=== PATIENT | female | born 1995 | race Caucasian/White ===

== ENCOUNTER → 2017-03-24 | Outpatient (CLI) | payer OTHER ==
[~2017-03-24] MED LIST: ALBINS INH; BACL10TA PO; BACL1TAB GT; BUDE0.5S INH; CHOLTAB9 PO; MRLP17 GT; TRAZ50TA35 PO; VALP250S16 GT; ZONI100C39 GT; [UNRECOGNIZED DRUG - CODE] NEB; [UNRECOGNIZED DRUG - CODE] PO
== END | disposition home or self-care (01) ==
LOC: C.LABSPEC 12:10
PROVIDERS: ATTEND Pediatrics
DX: J95.09 Other tracheostomy complication (principal)

== ENCOUNTER → 2017-04-25 | Outpatient (CLI) | payer OTHER | END | disposition home or self-care (01) | LOC: C.LABSPEC 18:08 | PROVIDERS: ATTEND Pediatrics | DX: J04.10 Acute tracheitis without obstruction (principal); Z43.0 Encounter for attention to tracheostomy ==

== ENCOUNTER → 2017-07-14 | Outpatient (CLI) | payer OTHER | END | disposition home or self-care (01) | LOC: C.LABSPEC 17:48 | PROVIDERS: ATTEND Pediatrics | DX: J04.10 Acute tracheitis without obstruction (principal) ==

== ENCOUNTER → 2017-09-13 | Outpatient (CLI) | payer OTHER | END | disposition home or self-care (01) | LOC: C.LABSPEC 17:37 | PROVIDERS: ATTEND Pediatrics | DX: J04.10 Acute tracheitis without obstruction (principal) ==

== ENCOUNTER → 2017-10-18 | Outpatient (CLI) | payer OTHER | END | disposition home or self-care (01) | LOC: C.LABSPEC 17:57 | PROVIDERS: ATTEND Pediatrics | DX: J04.10 Acute tracheitis without obstruction (principal) ==

== ENCOUNTER → 2018-03-07 | Outpatient (CLI) | payer OTHER ==
[~2018-03-07] MED LIST changes: +ALBINS/ NEB; +CETI10TA10 PO; +CLON0.5T20 PO; +FLUO10TA3 PO; +MRLP527 PO; +PLMINS NEB
== END | disposition home or self-care (01) ==
LOC: C.LABBFT 10:55
PROVIDERS: ATTEND Nurse Practitioner
DX: J69.0 Pneumonitis due to inhalation of food and vomit (principal); R09.02 Hypoxemia

== ENCOUNTER 2018-03-08 15:10 | Inpatient (IN) | payer OTHER ==
[~2018-03-08] VITALS: Ht 170.2 cm; Wt 47.8 kg
[~2018-03-08 15:10] MED LIST changes: -ALBINS/ NEB; -CETI10TA10 PO; -CLON0.5T20 PO; -FLUO10TA3 PO; -MRLP527 PO; -PLMINS NEB
[2018-03-08] MEDS ORDERED: SODIUM CHLORIDE 0.9% 1000ML 1,000 ML IV STA (15:36)
[2018-03-08] MEDS ORDERED: SODIUM CHLORIDE 0.9% 500ML 500 ML IV STA (15:36)
--- NOTE | 2018-03-08 15:53 | EMERGENCY ROOM VISIT NOTE ---
History Report prepared by Billy: Germaine Rosa Under the Supervision of: Dr. Edith Nesbitt M.D. First contact with patient: 15:32 Chief Complaint: OTHER COMPLAINT Stated Complaint: TEMP 102,INCREASE RR,SPO2 88-92 ON RA, O2@4LPM History of Present Illness The patient is a 23 year old female who presents to the Emergency Room with complaints of a fever beginning today. She is accompanied by her nurse and father who state that this morning they noticed the patient's stats were low, she had SOB, and she had a small seizure. Her nurse states she checked the patient's temperature and she had a fever of 102, so she received 20 ml of liquid Motrin. They report that they also noticed the patient had thick secretions for the past 4 days, so they sent out a sputum culture. Source of History: parent (father), caregiver Onset: this morning Position: other (global) Quality: other (fever of 102) Associated Symptoms: + SOB Note: Positive thick trachea tube secretions and seizure this morning Review of Systems See HPI for pertinent positives & negatives. A total of 10 systems reviewed and were otherwise negative. Past Medical & Surgical Medical Problems: (1) Cerebral palsy (2) Pneumonia (3) Seizure (4) Tracheostomy Family History No pertinent family history Social History Smoking Status: Never Smoker Alcohol Use: none Marital Status: single Housing Status: lives with family Occupation Status: disabled Current/Historical Medications Scheduled Albuterol Sulf (Proventil 0.083% 2.5MG/3ML), 1 VIAL NEB BID Azithromycin (Azithromycin), 1 DOSE PO 3XWK Baclofen (Lioresal), 20 MG GT QAM & HS Baclofen (Lioresal), 10 MG PO DAILY Budesonide (Inhalation) (Pulmicort Respules 0.5MG/2ML), 2 ML NEB BID Cetirizine Hcl (Zyrtec), 10 MG PO DAILY Cholecalciferol (D3-1000), 1,000 UNITS PO DAILY Fluoxetine Hcl (Fluoxetine Hcl), 10 MG PO DAILY Polyethylene (Polyethylene Glycol 3350), 17 GM PO DAILY Trazodone Hcl (Trazodone), 50 MG PO HS Valproic Acid Syrup (Depakene), 8 ML GT Q8H Zonisamide (Zonegran), 200 MG GT BID Scheduled PRN Clonazepam (Clonazepam Odt), 0.5 MG PO DIRECTED PRN for SEIZURES Allergies Coded Allergies: Ciprofloxacin (Verified Allergy, Intermediate, SWELLING, 03/08/18) Physical Exam Vital Signs Date Time Temp Pulse Resp B/P (MAP) Pulse Ox O2 Delivery O2 Flow Rate FiO2 03/08/18 19:39 99 26 98/53 95 Trach Collar 8.0 03/08/18 18:04 105 94/57 98 Trach Collar 03/08/18 16:52 38.8 108 35 104/58 99 Trach Collar 8.0 03/08/18 16:35 112 03/08/18 15:14 37.1 135 24 107/68 99 Trach Collar 4.0 Physical Exam Vital signs reviewed. General: Chronically ill-appearing female, in no significant distress. Cognitive /developmental delay. HEENT: No scleral icterus, PERRLA, neck supple. Atraumatic. Trach in place with thick white secretions Cardiovascular: Tachycardic rate and rhythm, no extra sounds. Pulmonary: Trach in place. Rhonchi to bilateral lung ceron, slight increased WOB. On trach collar Abdomen: Soft, nontender, nondistended, positive bowel sounds. Feeding tube in place. Musculoskeletal: Atraumatic, no peripheral edema. Muscular contractures consistent with cerebral palsy. Neurologic: Patient is awake and nonverbal, at neurologic baseline. Unable to follow commands. Skin: Warm, dry, no rash. Medical Decision & Procedures ER Provider Diagnostic Interpretation: Radiology results as stated below per my review and radiologist interpretation: CHEST ONE VIEW PORTABLE CLINICAL HISTORY: Fever, atypical chest pain, increased sputum production. COMPARISON STUDY: 01/17/2018 FINDINGS: The heart is normal in size. A tracheostomy tube is visualized. There are minimal basilar airspace opacities versus overlying chest wall tissue artifact. The upper lung zones are clear. There is no failure. There are no pleural effusions. If symptoms persist, a PA and lateral study should be considered.[ IMPRESSION: Minimal basal airspace opacities versus overlying chest wall tissue artifact. If symptoms persist, a PA and lateral study would be recommended in follow-up Electronically signed by: Jose Valdes M.D. 03/08/2018 3:58 PM Laboratory Results Test 03/08/18 16:06 03/08/18 16:38 03/08/18 16:47 Immature Granulocyte % (Auto) 0.2 % White Blood Count 18.79 K/uL (4.8-10.8) Red Blood Count 4.04 M/uL (4.2-5.4) Hemoglobin 13.4 g/dL (12.0-16.0) Hematocrit 39.1 % (37-47) Mean Corpuscular Volume 96.8 fL (80-100) Mean Corpuscular Hemoglobin 33.2 pg (25-34) Mean Corpuscular Hemoglobin Concent 34.3 g/dl (32-36) Platelet Count 179 K/uL (130-400) Mean Platelet Volume 9.6 fL (7.4-10.4) Neutrophils (%) (Auto) 90.5 % Lymphocytes (%) (Auto) 5.8 % Monocytes (%) (Auto) 3.3 % Eosinophils (%) (Auto) 0.1 % Basophils (%) (Auto) 0.1 % Neutrophils # (Auto) 17.02 K/uL (1.4-6.5) Lymphocytes # (Auto) 1.09 K/uL (1.2-3.4) Monocytes # (Auto) 0.62 K/uL (0.11-0.59) Eosinophils # (Auto) 0.01 K/uL (0-0.5) Basophils # (Auto) 0.01 K/uL (0-0.2) Immature Granulocyte # (Auto) 0.04 K/uL (0.00-0.02) Direct Bilirubin < 0.1 mg/dl (0-0.2) Bedside Lactic Acid Venous 1.52 mmol/L (0.90-1.70) Urine Color DK YELLOW Urine Appearance CLEAR (CLEAR) Urine pH >= 9.0 (4.5-7.5) Urine Specific [place] 1.029 (1.000-1.030) Urine Protein 1+ (NEG) Urine Glucose (UA) NEG (NEG) Urine Ketones NEG (NEG) Urine Occult Blood NEG (NEG) Urine Nitrite NEG (NEG) Urine Bilirubin NEG (NEG) Urine Urobilinogen NEG (NEG) Urine Leukocyte Esterase TRACE (NEG) Urine WBC (Auto) 1-5 /hpf (0-5) Urine RBC (Auto) 5-10 /hpf (0-4) Urine Hyaline Casts (Auto) 5-10 /lpf (0-5) Urine Epithelial Cells (Auto) >30 /lpf (0-5) Urine Bacteria (Auto) NEG (NEG) Urine Renal Epithelial Cells 0-5 /lpf (0-5) Laboratory results per my review. Medications Administered Medications (Trade) Dose Ordered Sig/Rosalino Route Start Time Stop Time Status Last Admin Dose Admin Sodium Chloride 500 ml @ 999 mls/hr Q31M STAT IV 03/08/18 15:36 03/08/18 16:06 DC 03/08/18 16:48 999 MLS/HR Sodium Chloride 1,000 ml @ 200 mls/hr Q5H STAT IV 03/08/18 15:36 03/08/18 20:34 DC 03/08/18 17:38 200 MLS/HR Piperacillin Sod/ Tazobactam Sod (Zosyn Iv) 4.5 gm NOW STAT IV 03/08/18 16:22 03/08/18 16:23 DC 03/08/18 16:52 4.5 GM Acetaminophen (Tylenol Children'S Susp) 640 mg NOW STAT PO 03/08/18 17:43 03/08/18 17:45 DC 03/08/18 18:18 640 MG Acetaminophen (Tylenol Tab) 650 mg Q4H PRN PO 03/08/18 19:30 04/07/18 19:29 03/10/18 20:16 650 MG ECG Per My Interpretation Indication: other (fever) Rate (beats per minute): 112 Rhythm: sinus tachycardia Findings: PAC (frequent), no acute ischemic change, other (nonspecific T wave abnormalities, QTC 444) ED Course 1538: Past medical records reviewed. The patient was evaluated in room C5. A complete history and physical examination was performed. 1536: Ordered Sodium Chloride 1000 ml @ 200 mls/hr IV 1622: Ordered Zosyn IV 4.5 gm IV 1743: Ordered Acetaminophen 640 mg PO 1808: I reviewed the patient's case with Dr. Le, [facility] Hospitalist. He will evaluate the patient for further management. Medical Decision DDx: Influenza, other viral illness, pneumonia, urinary tract infection, metabolic abnormality, medication effect, cellulitis, meningitis, intra-abdominal source, trachea. This pt was evaluated and appeared to be in no distress. IV access was obtained and lab work was drawn. Pt is found to be febrile, given tylenol via PEG. PT was hydrated with NSS. IV zosyn was given. CXR reveals possible infiltrate. Lactate is WNL, blood cultures are pending. Cath UA is negative. Pt case was d/w the hospitalist service for further management. Pt father and nurse were updated and agree with the plan. Medication Reconcilliation Current Medication List: was personally reviewed by me Blood Pressure Screening Patient's blood pressure: Normal blood pressure Blood pressure disposition: Did not require urgent referral Consults Time Called: 1640 Returned Call: 1808 I reviewed the patient's case with Dr. Le, [facility] Hospitalist. He will evaluate the patient for further management. Impression Primary Impression: Pneumonia Scribe Attestation The scribe's documentation has been prepared under my direction and personally reviewed by me in its entirety. I confirm that the note above accurately reflects all work, treatment, procedures, and medical decision making performed by me. Departure Information Dispostion Being Evaluated By Hospitalist (Dr. Le, [facility] Hospitalist) Referrals Anita Gil M.D. (PCP) Patient Instructions My [facility]
--- NOTE | 2018-03-08 15:59 | DIAGNOSTIC IMAGING REPORT ---
CHEST ONE VIEW PORTABLE CLINICAL HISTORY: Fever, atypical chest pain, increased sputum production. COMPARISON STUDY: 01/17/2018 FINDINGS: The heart is normal in size. A tracheostomy tube is visualized. There are minimal basilar airspace opacities versus overlying chest wall tissue artifact. The upper lung zones are clear. There is no failure. There are no pleural effusions. If symptoms persist, a PA and lateral study should be considered.[ IMPRESSION: Minimal basal airspace opacities versus overlying chest wall tissue artifact. If symptoms persist, a PA and lateral study would be recommended in follow-up Electronically signed by: Jsoe Valdes M.D. 03/08/2018 3:58 PM Dictated Date/Time: 03/08/2018 3:56 PM
[2018-03-08] MEDS ORDERED: PIPERACILLIN/TAZOBACTAM 4.5 GM/100ML D5W IV STA (16:22)
[2018-03-08 16:42] LABS: BASO % 0.1 %; BASO ABS # 0.01 K/uL (0-0.2); EOS % 0.1 %; EOS ABS # 0.01 K/uL (0-0.5); HEMATOCRIT 39.1 % (37-47); HEMOGLOBIN 13.4 g/dL (12.0-16.0); IG# 0.04 K/uL (0.00-0.02); LYMPH % 5.8 %; LYMPH ABS # 1.09 K/uL (1.2-3.4); MEAN CELL VOLUME 96.8 fL (80-100); MEAN CORPUSCULAR HEMOGLOBIN 33.2 pg (25-34); MEAN CORPUSCULAR HGB CONC 34.3 g/dl (32-36); MEAN PLATELET VOLUME 9.6 fL (7.4-10.4); MONO % 3.3 %; MONO ABS # 0.62 K/uL (0.11-0.59); NEUT % 90.5 %; NEUT ABS # 17.02 K/uL (1.4-6.5); PLATELET COUNT 179 K/uL (130-400); RED CELL DISTRIBUTION WIDTH CV 13.2 % (11.5-14.5); RED CELL DISTRIBUTION WIDTH SD 46.5 fL (36.4-46.3); WHITE BLOOD COUNT 18.79 K/uL (4.8-10.8)
[2018-03-08] MEDS ORDERED: FLUO10TA3 PO (16:50)
[2018-03-08] MEDS ORDERED: CETI10TA10 PO (16:50)
[2018-03-08] MEDS ORDERED: PLMINS NEB (16:50)
[2018-03-08] MEDS ORDERED: ALBINS/ NEB (16:50)
[2018-03-08] MEDS ORDERED: MRLP527 PO (16:50)
[2018-03-08] MEDS ORDERED: CLON0.5T20 PO (16:50)
[2018-03-08 16:58] LABS: ALBUMIN 3.8 gm/dl (3.4-5.0); ALKALINE PHOSPHATASE 87 U/L (45-117); ALT/SGPT 13 U/L (12-78); AST/SGOT 10 U/L (15-37); BLOOD UREA NITROGEN 15 mg/dl (7-18); CARBON DIOXIDE 23 mmol/L (21-32); CREATININE 0.48 mg/dl (0.60-1.20); GLUCOSE 82 mg/dl (70-99); POTASSIUM 3.7 mmol/L (3.5-5.1); SODIUM 134 mmol/L (136-145); TOTAL PROTEIN 8.4 gm/dl (6.4-8.2)
[2018-03-08] MEDS ORDERED: ACETAMINOPHEN SUSP 160 MG/5 ML UDC PO STA (17:43)
[2018-03-08] MEDS ORDERED: MAGNESIUM HYDROXIDE SUSP 30 ML UDC PO PRN (19:30)
[2018-03-08] MEDS ORDERED: PIPERACILL/TAZOBAC CONSULT ACTIVE PRN (19:30)
[2018-03-08] MEDS ORDERED: ALBUTEROL 0.083% NEBU SOLN 3 ML VIAL INH PRN (19:30)
[2018-03-08] MEDS ORDERED: POLYETHYLENE (MIRALAX) 17 GM PACK PO PRN (19:30)
[2018-03-08] MEDS ORDERED: ONDANSETRON INJ 2 MG/ML 2 ML VIAL IV PRN (19:30)
[2018-03-08] MEDS ORDERED: ALUMINUM/MAGNESIUM/SIMETH (MAALOX MAX) 30 ML UDC PO PRN (19:30)
--- NOTE | 2018-03-08 20:18 | History and Physical ---
History & Physical Date & Time of Service: Mar 08, 2018 at 19:57 Chief Complaint: Temp 102,Increase Rr,Spo2 88-92 On Ra, O2@4LPM Primary Care Physician: Anita Gil M.D. History of Present Illness Source: caregiver, hospital records 23 y/o F Hx severe cerebral palsy with trach and peg, seizures, aspiration PNM, recurrent trach infections. Pt is nonambulatory and nonverbal. She is brought into the hospital by her father and her acute dialysis registered nurse due to a cough, increased trach secretions and a fever. She has had a history of aspiration and pseudomonas infections. The pt is unable to provide any direct information. She has seizures a few times a week per her acute dialysis registered nurse and last had a seizure the AM prior to admission. A fever of 38.8 was confirmed on arrival to the ER. 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 5) Pseudomonas infection Family History No pertinent family history The pt has a twin sister with the same conditions - she has 18hr/day home nursing Social History Smoking Status: Never Smoker Marital Status: single Housing status: lives with family Occupational Status: disabled Allergies Coded Allergies: Ciprofloxacin (Verified Allergy, Intermediate, SWELLING, 03/08/18) Home Medications Scheduled Albuterol Sulf (Proventil 0.083% 2.5MG/3ML), 1 VIAL NEB BID Azithromycin (Azithromycin), 1 DOSE PO 3XWK Baclofen (Lioresal), 20 MG GT QAM & HS Baclofen (Lioresal), 10 MG PO DAILY Budesonide (Inhalation) (Pulmicort Respules 0.5MG/2ML), 2 ML NEB BID Cetirizine Hcl (Zyrtec), 10 MG PO DAILY Cholecalciferol (D3-1000), 1,000 UNITS PO DAILY Fluoxetine Hcl (Fluoxetine Hcl), 10 MG PO DAILY Polyethylene (Polyethylene Glycol 3350), 17 GM PO DAILY Trazodone Hcl (Trazodone), 50 MG PO HS Valproic Acid Syrup (Depakene), 8 ML GT Q8H Zonisamide (Zonegran), 200 MG GT BID Scheduled PRN Clonazepam (Clonazepam Odt), 0.5 MG PO DIRECTED PRN for SEIZURES Review of Systems ROS cannot be obtained from pt - brought into hospital due to increased secretions, cough, fever. Physical Exam Vital Signs Date Time Temp Pulse Resp B/P (MAP) Pulse Ox O2 Delivery O2 Flow Rate FiO2 03/08/18 18:04 105 94/57 98 Trach Collar 03/08/18 16:52 38.8 108 35 104/58 99 Trach Collar 8.0 03/08/18 16:35 112 03/08/18 15:14 37.1 135 24 107/68 99 Trach Collar 4.0 General Appearance: + pertinent finding (Thin, young female with contractures - nonverbal) Head: normocephalic Eyes: normal inspection ENT: normal ENT inspection, pharynx normal, + pertinent finding (No thrush or exudate seen in oral cavity - palatal hyperplasia is seen) Neck: supple, + pertinent finding (Trach site is clean) Respiratory/Chest: chest non-tender, + pertinent finding (Crackles are audible in the L base) Cardiovascular: regular rate, rhythm, no edema, no gallop Abdomen/GI: normal bowel sounds, non tender, soft, + pertinent finding (No inflammation at PEG site) Back: normal inspection, no CVA tenderness Extremities/Musculoskelatal: normal inspection, normal capillary refill, no pedal edema Neurologic/Psych: + pertinent finding (Moves all extrems - does not respond to question - nonverbal at baseline - nonambulatroy at baseline) Skin: normal color, warm/dry Diagnostics Laboratory Results Results Past 24 Hours Test 03/08/18 16:06 03/08/18 16:38 03/08/18 16:47 Range/Units White Blood Count 18.79 4.8-10.8 K/uL Red Blood Count 4.04 4.2-5.4 M/uL Hemoglobin 13.4 12.0-16.0 g/dL Hematocrit 39.1 37-47 % Mean Corpuscular Volume 96.8 80-100 fL Mean Corpuscular Hemoglobin 33.2 25-34 pg Mean Corpuscular Hemoglobin Concent 34.3 32-36 g/dl Platelet Count 179 130-400 K/uL Mean Platelet Volume 9.6 7.4-10.4 fL Neutrophils (%) (Auto) 90.5 % Lymphocytes (%) (Auto) 5.8 % Monocytes (%) (Auto) 3.3 % Eosinophils (%) (Auto) 0.1 % Basophils (%) (Auto) 0.1 % Neutrophils # (Auto) 17.02 1.4-6.5 K/uL Lymphocytes # (Auto) 1.09 1.2-3.4 K/uL Monocytes # (Auto) 0.62 0.11-0.59 K/uL Eosinophils # (Auto) 0.01 0-0.5 K/uL Basophils # (Auto) 0.01 0-0.2 K/uL RDW Standard Deviation 46.5 36.4-46.3 fL RDW Coefficient of Variation 13.2 11.5-14.5 % Immature Granulocyte % (Auto) 0.2 % Immature Granulocyte # (Auto) 0.04 0.00-0.02 K/uL Sodium Level 134 136-145 mmol/L Potassium Level 3.7 3.5-5.1 mmol/L Chloride Level 102 98-107 mmol/L Carbon Dioxide Level 23 21-32 mmol/L Anion Gap 9.0 3-11 mmol/L Blood Urea Nitrogen 15 7-18 mg/dl Creatinine 0.48 0.60-1.20 mg/dl Est Creatinine Clear Calc Drug Dose 152.2 ml/min Estimated GFR () > 150.0 Estimated GFR (Non- 140.2 BUN/Creatinine Ratio 30.9 10-20 Random Glucose 82 70-99 mg/dl Calcium Level 9.0 8.5-10.1 mg/dl Magnesium Level 1.9 1.8-2.4 mg/dl Total Bilirubin 0.2 0.2-1 mg/dl Direct Bilirubin < 0.1 0-0.2 mg/dl Aspartate Amino Transf (AST/SGOT) 10 15-37 U/L Alanine Aminotransferase (ALT/SGPT) 13 12-78 U/L Alkaline Phosphatase 87 45-117 U/L Total Protein 8.4 6.4-8.2 gm/dl Albumin 3.8 3.4-5.0 gm/dl Bedside Lactic Acid Venous 1.52 0.90-1.70 mmol/L Urine Color DK YELLOW Urine Appearance CLEAR CLEAR Urine pH >= 9.0 4.5-7.5 Urine Specific [place] 1.029 1.000-1.030 Urine Protein 1+ NEG Urine Glucose (UA) NEG NEG Urine Ketones NEG NEG Urine Occult Blood NEG NEG Urine Nitrite NEG NEG Urine Bilirubin NEG NEG Urine Urobilinogen NEG NEG Urine Leukocyte Esterase TRACE NEG Urine WBC (Auto) 1-5 0-5 /hpf Urine RBC (Auto) 5-10 0-4 /hpf Urine Hyaline Casts (Auto) 5-10 0-5 /lpf Urine Epithelial Cells (Auto) >30 0-5 /lpf Urine Bacteria (Auto) NEG NEG Urine Renal Epithelial Cells 0-5 0-5 /lpf Microbiology Results 03/08/18 Blood Culture, Received Pending 03/08/18 Blood Culture, Received Pending Diagnostic Radiology BL infiltrates Impression Assessment and Plan 23 y/o F Hx severe cerebral palsy with trach and peg, seizures, aspiration PNM, recurrent trach infections. Pt is nonambulatory and nonverbal. She is brought into the hospital by her father and her acute dialysis registered nurse due to a cough, increased trach secretions and a fever. She has had a history of aspiration and pseudomonas infections. The pt is unable to provide any direct information. She has seizures a few times a week per her acute dialysis registered nurse and last had a seizure the AM prior to admission. 1) PNM - likely aspiration - due to her history of pseudomonas, she is treated with Zosyn. We have added Zithromax for CAP coverage pending culture results. Nebs, 02 and suctioning provided as needed. 2) Seizure disorder - continue Zonegran and Valproic acid 3) Cerebral palsy - admitted to telemetry due to trach use - all meds are via peg. The pt takes 400cc of boost QID as nutrition. Full code - confirmed with family - SCDs Total time for this admit including review of labs, meds, imaging, records - discussion with pt and ER attending - 38 min Resuscitation Status VTE Prophylaxis Will order VTE Prophylaxis: Yes
[2018-03-08 20:42] VITALS: BP 96/54; PULSE 90; TEMP 37; BMI 16.6
[2018-03-08 20:59] VITALS: O2SAT 97
[2018-03-08] MEDS ORDERED: VALPROIC ACID SYRUP 250 MG/5 ML GT SCH (21:00)
[2018-03-08] MEDS: ALBUT/IPRATROP 3MG/0.5MG NEB 3 ML VIAL INH SCH (21:00)
[2018-03-08] MEDS: ZONISAMIDE 100 MG CAP PEG SCH (21:00)
[2018-03-08] MEDS ORDERED: AZITHROMYCIN IV 500 MG in DEXTROSE 5% 250ML 250 ML IV SCH (21:00)
[2018-03-08] MEDS: BUDESONIDE 0.5 MG/2 ML VIAL (PULMICORT) INH SCH (21:12)
[2018-03-08] MEDS: D5NSS + 20MEQ KCL 1,000 ML IV SCH (21:16)
[2018-03-08] MEDS: BACLOFEN 10 MG TAB GT SCH (21:27)
[2018-03-08] MEDS: TRAZODONE HCL 50 MG TAB PO SCH (21:27)
[2018-03-08] MEDS: BOOST VANILLA OR BOOST GLUCOSE CONTROL CHOCOLATE PEG SCH (21:29)
[2018-03-08] MEDS: VALPROIC ACID SYRUP 250 MG/5 ML GT SCH (21:57)
[2018-03-08 23:15] VITALS: BP 82/43; PULSE 102; TEMP 36.7; O2SAT 92
[2018-03-08 23:55] VITALS: BP 80/36; PULSE 95
[2018-03-09] VITALS (24 sets, daily range): BP systolic 72–108; BP diastolic 39–71; PULSE 70–110; TEMP 35.8–36.5; O2SAT 50–100; Ht 170.2 cm; Wt 47.8 kg
[2018-03-09] MEDS: PIPERACILL/TAZOBAC IV 3.375 GM in DEXTROSE 5% 100ML 100 ML IV SCH ×4 (00:03→23:35)
[2018-03-09] MEDS ORDERED: SODIUM CHLORIDE 0.9% 500ML 500 ML IV ONE (00:30)
[2018-03-09] MEDS: ALBUT/IPRATROP 3MG/0.5MG NEB 3 ML VIAL INH SCH ×4 (01:33→19:09)
[2018-03-09] MEDS ORDERED: SODIUM CHLORIDE 0.9% 500ML 500 ML IV SCH (01:45)
[2018-03-09] MEDS: VALPROIC ACID SYRUP 250 MG/5 ML GT SCH ×3 (04:56→20:35)
[2018-03-09 05:53] LABS: HEMATOCRIT 32.2 % (37-47); HEMOGLOBIN 10.7 g/dL (12.0-16.0); MEAN CELL VOLUME 98.2 fL (80-100); MEAN CORPUSCULAR HEMOGLOBIN 32.6 pg (25-34); MEAN CORPUSCULAR HGB CONC 33.2 g/dl (32-36); MEAN PLATELET VOLUME 9.5 fL (7.4-10.4); PLATELET COUNT 124 K/uL (130-400); RED CELL DISTRIBUTION WIDTH CV 13.3 % (11.5-14.5); RED CELL DISTRIBUTION WIDTH SD 47.6 fL (36.4-46.3); WHITE BLOOD COUNT 11.48 K/uL (4.8-10.8)
[2018-03-09 06:17] LABS: BLOOD UREA NITROGEN 9 mg/dl (7-18); CARBON DIOXIDE 24 mmol/L (21-32); CREATININE 0.33 mg/dl (0.60-1.20); GLUCOSE 89 mg/dl (70-99); POTASSIUM 3.8 mmol/L (3.5-5.1); SODIUM 142 mmol/L (136-145)
[2018-03-09] MEDS: BUDESONIDE 0.5 MG/2 ML VIAL (PULMICORT) INH SCH ×2 (07:02→19:09)
[2018-03-09] MEDS: POLYETHYLENE (MIRALAX) 17 GM PACK PO SCH (08:35)
[2018-03-09] MEDS: FLUOXETINE HCL 10 MG CAP PO SCH (08:35)
[2018-03-09] MEDS: ZONISAMIDE 100 MG CAP PEG SCH ×2 (08:35→20:35)
[2018-03-09] MEDS: CETIRIZINE HCL 10 MG TAB PO SCH (08:35)
[2018-03-09] MEDS: BOOST VANILLA OR BOOST GLUCOSE CONTROL CHOCOLATE PEG SCH ×4 (08:36→20:15)
[2018-03-09] MEDS: BACLOFEN 10 MG TAB GT SCH ×2 (08:36→20:15)
[2018-03-09] MEDS ORDERED: DOXYCYCLINE IV 100 MG in DEXTROSE 5% 100ML 100 ML IV SCH (10:45)
--- NOTE | 2018-03-09 12:13 | Progress Note ---
Subjective Date of Service: Mar 09, 2018. Subjective Pt evaluation today including: conversation w/ patient, physical exam Patient is nonverbal. Nurse states that she has noticed secretions from the trach. Review of Systems unable to obtain ROS. Objective Vital Signs Date Time Temp Pulse Resp B/P (MAP) Pulse Ox O2 Delivery O2 Flow Rate FiO2 03/09/18 11:37 36.5 90 27 96/57 (70) 98 Trach Collar 03/09/18 08:00 99 Trach Collar 8.0 50 03/09/18 07:40 36.4 70 26 88/52 (64) 99 Trach Collar 03/09/18 07:03 73 30 97 Trach Collar 50 03/09/18 05:02 71 80/46 (57) 97 03/09/18 04:12 98 Humidified Oxygen 8.0 50 Trach Collar 03/09/18 04:11 80 81/48 (59) 98 03/09/18 03:33 75 74/47 (56) 03/09/18 03:30 35.8 78 34 98 Humidified Oxygen 8.0 50 Trach Collar 03/09/18 03:01 83 82/52 (62) 03/09/18 02:34 75 80/45 (57) 100 Humidified Oxygen 8.0 50 Trach Collar 03/09/18 02:17 81 72/49 (57) 03/09/18 01:50 50 Humidified Oxygen 8.0 Trach Collar 03/09/18 01:33 76 32 100 Trach Collar 8.0 70 03/09/18 01:32 75 77/49 (58) 03/09/18 01:04 76 82/47 (59) 03/09/18 00:47 75 75/39 (51) 03/09/18 00:19 82 79/41 (54) 03/09/18 00:00 92 Humidified Oxygen 70 Trach Collar 03/08/18 23:55 95 80/36 (51) 03/08/18 23:15 36.7 102 36 82/43 (56) 92 Humidified Oxygen Trach Collar 03/08/18 20:59 97 Trach Collar 8.0 03/08/18 20:42 37.0 90 22 96/54 03/08/18 20:06 37.1 03/08/18 19:39 99 26 98/53 95 Trach Collar 8.0 03/08/18 18:04 105 94/57 98 Trach Collar 03/08/18 16:52 38.8 108 35 104/58 99 Trach Collar 8.0 03/08/18 16:35 112 03/08/18 15:14 37.1 135 24 107/68 99 Trach Collar 4.0 Physical Exam Comments: General Appearance: + pertinent finding (Thin, young female with contractures - nonverbal) Head: normocephalic Eyes: normal inspection ENT: normal ENT inspection, pharynx normal, + pertinent finding (No thrush or exudate seen in oral cavity - palatal hyperplasia is seen) Neck: supple, + pertinent finding (Trach site is clean) Respiratory/Chest: chest non-tender, + pertinent finding (Crackles are audible in the L base) Cardiovascular: regular rate, rhythm, no edema, no gallop Abdomen/GI: normal bowel sounds, non tender, soft, + pertinent finding (No inflammation at PEG site) Back: normal inspection, no CVA tenderness Extremities/Musculoskelatal: normal inspection, normal capillary refill, no pedal edema Neurologic/Psych: + pertinent finding (Moves all extrems - does not respond to question - nonverbal at baseline - nonambulatroy at baseline) Skin: normal color, warm/dry Laboratory Results Last 24 Hours Test 03/08/18 16:06 03/08/18 16:38 03/08/18 16:47 03/09/18 05:28 White Blood Count 18.79 K/uL 11.48 K/uL Red Blood Count 4.04 M/uL 3.28 M/uL Hemoglobin 13.4 g/dL 10.7 g/dL Hematocrit 39.1 % 32.2 % Mean Corpuscular Volume 96.8 fL 98.2 fL Mean Corpuscular Hemoglobin 33.2 pg 32.6 pg Mean Corpuscular Hemoglobin Concent 34.3 g/dl 33.2 g/dl Platelet Count 179 K/uL 124 K/uL Mean Platelet Volume 9.6 fL 9.5 fL Neutrophils (%) (Auto) 90.5 % Lymphocytes (%) (Auto) 5.8 % Monocytes (%) (Auto) 3.3 % Eosinophils (%) (Auto) 0.1 % Basophils (%) (Auto) 0.1 % Neutrophils # (Auto) 17.02 K/uL Lymphocytes # (Auto) 1.09 K/uL Monocytes # (Auto) 0.62 K/uL Eosinophils # (Auto) 0.01 K/uL Basophils # (Auto) 0.01 K/uL RDW Standard Deviation 46.5 fL 47.6 fL RDW Coefficient of Variation 13.2 % 13.3 % Immature Granulocyte % (Auto) 0.2 % Immature Granulocyte # (Auto) 0.04 K/uL Sodium Level 134 mmol/L 142 mmol/L Potassium Level 3.7 mmol/L 3.8 mmol/L Chloride Level 102 mmol/L 112 mmol/L Carbon Dioxide Level 23 mmol/L 24 mmol/L Anion Gap 9.0 mmol/L 6.0 mmol/L Blood Urea Nitrogen 15 mg/dl 9 mg/dl Creatinine 0.48 mg/dl 0.33 mg/dl Est Creatinine Clear Calc Drug Dose 152.2 ml/min 204.8 ml/min Estimated GFR () > 150.0 > 150.0 Estimated GFR (Non- 140.2 > 150.0 BUN/Creatinine Ratio 30.9 27.0 Random Glucose 82 mg/dl 89 mg/dl Calcium Level 9.0 mg/dl 8.0 mg/dl Magnesium Level 1.9 mg/dl 2.1 mg/dl Total Bilirubin 0.2 mg/dl Direct Bilirubin < 0.1 mg/dl Aspartate Amino Transf (AST/SGOT) 10 U/L Alanine Aminotransferase (ALT/SGPT) 13 U/L Alkaline Phosphatase 87 U/L Total Protein 8.4 gm/dl Albumin 3.8 gm/dl Bedside Lactic Acid Venous 1.52 mmol/L Urine Color DK YELLOW Urine Appearance CLEAR Urine pH >= 9.0 Urine Specific [place] 1.029 Urine Protein 1+ Urine Glucose (UA) NEG Urine Ketones NEG Urine Occult Blood NEG Urine Nitrite NEG Urine Bilirubin NEG Urine Urobilinogen NEG Urine Leukocyte Esterase TRACE Urine WBC (Auto) 1-5 /hpf Urine RBC (Auto) 5-10 /hpf Urine Hyaline Casts (Auto) 5-10 /lpf Urine Epithelial Cells (Auto) >30 /lpf Urine Bacteria (Auto) NEG Urine Renal Epithelial Cells 0-5 /lpf Assessment and Plan 23 y/o F Hx severe cerebral palsy with trach and peg, seizures, aspiration PNM, recurrent trach infections. Pt is nonambulatory and nonverbal. She is brought into the hospital by her father and her producer arborist manager due to a cough, increased trach secretions and a fever. She has had a history of aspiration and pseudomonas infections. The pt is unable to provide any direct information. She has seizures a few times a week per her producer arborist manager and last had a seizure the AM prior to admission. 1) PNM - likely aspiration -D/W Pulmonary. -X-ray looks relatively clean. -It appears that patient had not had significant secretion on admission. -Currently doubting lung ource, but will continue antibiotics. -will switch doxycycline. stopped azithromycin. as concern over possible azithromycin resistance. will obtain ct scan of sinuses. - due to her history of pseudomonas, she is treated with Zosyn. Nebs, 02 and suctioning provided as needed. 2) Seizure disorder - continue Zonegran and Valproic acid 3) Cerebral palsy - admitted to telemetry due to trach use - all meds are via peg. The pt takes 400cc of boost QID as nutrition. Full code - confirmed with family - SCDs Spent 37 minutes in management of patient. Continued [facility] stay due to: multiple IV medications needed, other Discharge planning: uncertain
--- NOTE | 2018-03-09 12:52 | Pulmonary Consultation ---
History General Date of Service: Mar 09, 2018. Stated Complaint: Pneumonia HPI The patient is a 23 year old female who presents to [facility] with complaints of Pneumonia. The patient's primary care provider is Anita Gil M.D.. 23-year-old female admitted with leukocytosis and fever. Patient has a significant PmHx: cerebral palsy, multiple tracheal/bronchial infections please see below, seizures, and chronic respiratory compromise requiring tracheostomy. Patient started having some mild increase in her sputum production of week prior to admission and the family initiated Robinul treatment. She did have a decrease in her mucus production but after that started having notable fevers documented at home up 103 notable T-max in the emergency room at 38.8. Via the long conversation with the patient's bedside healthcare provider/nursing staff and she notes no acute changes in the patient's sputum production/color nor signs of infection around her tracheostomy which are classic with this patient has a notable tracheal/pulmonary infection. Other than the fevers and mild change the patient's mucus production the healthcare provider notes no acute changes. The patient is unable to answer any direct questions. Current in hospital workup WBC: 19K/91% neutrophils --- 11K H/H: /32 PLT: [id number] Albumin: 3.8 UA: PH => 9.0, leukocyte Estrace: Trace CXR: Minimal bibasilar airspace opacification but no mike lobar atelectasis EKG: Sinus tachycardia rate 120, PAC, signs consistent with right atrial enlargement Microbiology history Urine: E coli, Tracheostomy, stenotrophomonas maltophilia, MSSA, Moraxella catarrhalis, corynebacterium, alpha strep species, necessary species, Haemophilus influenzae beta lactamase negative, Tatumella Ptyseos, alpha strep, Providencia Stuartii, corynebacterium species, micrococcus species Gastric aspirate, group B strep, corynebacterium, corynebacterium, Abdomen surface, Pseudomonas aeruginosa, Klebsiella oxytoca, corynebacterium, MSSA, group B beta strep Trachea: Pseudomonas, MSSA, Neisseria species, stenotrophomonas, Providencia Stuartii Trans- Tracheal needle aspiration: Pseudomonas Sputum: Pseudomonas Aeruginosa, Moraxella catarrhalis, Achromobacter Xylosoxidans, Tracheal washing 01/17/2018: Pseudomonas Aeruginosa virk resistant Expectorated sputum 03/07/2018: Moraxella catarrhalis, probable pseudomonal species Active Problems: 1. Acute tracheitis 2. Allergic rhinitis 3. Cerebral palsy/cognitive dysfunction 4. History seizures 5. Aspiration pneumonia 6. Bronchiectasis 7. 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 Granulation tissue of site of gastrostomy 12. Pseudomonas aeruginosa infection 13. Sinus bradycardia Surgical History: 1. Gastrostomy Permanent 2. Tracheostomy Family History: 1. Asthma 2. Coronary Arteriosclerosis 3. Hypertension Social History Living With Parents Living Together Never smoker Marital status: Single Housing status: Lives with family Occupational status: Disabled Outpatient medications: 1. Albuterol Sulf (Proventil 0.083% 2.5MG/3ML), 1 VIAL NEB BID 2. Azithromycin (Azithromycin), 1 DOSE PO 3XWK 3. Baclofen (Lioresal), 20 MG GT QAM & HS 4. Baclofen (Lioresal), 10 MG PO DAILY 5. Budesonide (Inhalation) (Pulmicort Respules 0.5MG/2ML), 2 ML NEB BID 6. Cetirizine Hcl (Zyrtec), 10 MG PO DAILY 7. Cholecalciferol (D3-1000), 1,000 UNITS PO DAILY 8. Fluoxetine Hcl (Fluoxetine Hcl), 10 MG PO DAILY 9. Polyethylene (Polyethylene Glycol 3350), 17 GM PO DAILY 10. Trazodone Hcl (Trazodone), 50 MG PO HS 11. Valproic Acid Syrup (Depakene), 8 ML GT Q8H 12. Zonisamide (Zonegran), 200 MG GT BID 13. Clonazepam (Clonazepam Odt), 0.5 MG PO DIRECTED PRN for SEIZURES Allergies: Ciprofloxacin Review of Systems Patient is unable to perform 15 point of systems secondary to the decreased mental status chronic in nature Past Medical History Past Medical History: Please refer to HPI Past Surgical History: Please refer to HPI Family History No pertinent family history Please refer to HPI Social History Please refer to HPI Hx Tobacco Use In Past Year?: No Smoking Status: Never Smoker Marital status: single Housing status: lives with family Occupational Status: disabled History of MDRO History of MDRO: No Allergies Coded Allergies: Ciprofloxacin (Verified Allergy, Intermediate, SWELLING, 03/08/18) Current Medications Reported Home Medications Medications Dose Route/Sig Max Daily Dose Days Date Category Dose Instructions Clonazepam Odt (Clonazepam) 0.5 Mg Tab 0.5 Mg PO DIRECTED PRN 03/08/18 Reported Fluoxetine Hcl 10 Mg Tab 10 Mg PO DAILY 03/08/18 Reported Polyethylene Glycol 3350 (Polyethylene) 527 Gm Soln 17 Gm PO DAILY 03/08/18 Reported Pulmicort Respules 0.5MG/2ML (Budesonide (Inhalation)) 0.5 Mg/2 Ml Chloe 2 Ml NEB BID 03/08/18 Reported Zyrtec (Cetirizine Hcl) 10 Mg Tab 10 Mg PO DAILY 03/08/18 Reported Proventil 0.083% 2.5MG/3ML (Albuterol Sulf) 2.5 Mg/3 Ml Nebu 1 Vial NEB BID 03/08/18 Reported D3-1000 (Cholecalciferol) 1,000 Unit Tab 1,000 Units PO DAILY 09/11/15 Reported takes 5 times per week. tuesday, tuesday, tuesday, and tuesday Lioresal (Baclofen) 10 Mg Tab 10 Mg PO DAILY 10/07/14 Reported takes around 14-1500 daily Trazodone (Trazodone HCl) 50 Mg Tab 50 Mg PO HS 10/07/14 Reported Azithromycin 100 Mg/2.5 Ml Susp 1 Dose PO 3XWK 10/07/14 Reported 1 and 1/4 teaspoons mon, wed, fri ONLY TAKES DURING WINTER MONTHS Depakene (Valproic Acid) 250 Mg/5 Ml Syrp 8 Ml GT Q8H 04/30/13 Reported Lioresal (Baclofen) 10 Mg Tab 20 Mg GT QAM & HS 01/29/12 Reported Zonegran (Zonisamide) 100 Mg Cap 200 Mg GT BID 12/24/09 Reported Physical Physical Exam Vital Signs: Date Time Temp Pulse Resp B/P (MAP) Pulse Ox O2 Delivery O2 Flow Rate FiO2 03/09/18 11:37 36.5 90 27 96/57 (70) 98 Trach Collar 03/09/18 08:00 99 Trach Collar 8.0 50 03/09/18 07:40 36.4 70 26 88/52 (64) 99 Trach Collar 03/09/18 07:03 73 30 97 Trach Collar 50 03/09/18 05:02 71 80/46 (57) 97 03/09/18 04:12 98 Humidified Oxygen 8.0 50 Trach Collar 03/09/18 04:11 80 81/48 (59) 98 03/09/18 03:33 75 74/47 (56) 03/09/18 03:30 35.8 78 34 98 Humidified Oxygen 8.0 50 Trach Collar 03/09/18 03:01 83 82/52 (62) 03/09/18 02:34 75 80/45 (57) 100 Humidified Oxygen 8.0 50 Trach Collar 03/09/18 02:17 81 72/49 (57) 03/09/18 01:50 50 Humidified Oxygen 8.0 Trach Collar 03/09/18 01:33 76 32 100 Trach Collar 8.0 70 03/09/18 01:32 75 77/49 (58) 03/09/18 01:04 76 82/47 (59) 03/09/18 00:47 75 75/39 (51) 03/09/18 00:19 82 79/41 (54) 03/09/18 00:00 92 Humidified Oxygen 70 Trach Collar 03/08/18 23:55 95 80/36 (51) 03/08/18 23:15 36.7 102 36 82/43 (56) 92 Humidified Oxygen Trach Collar 03/08/18 20:59 97 Trach Collar 8.0 03/08/18 20:42 37.0 90 22 96/54 03/08/18 20:06 37.1 03/08/18 19:39 99 26 98/53 95 Trach Collar 8.0 03/08/18 18:04 105 94/57 98 Trach Collar 03/08/18 16:52 38.8 108 35 104/58 99 Trach Collar 8.0 03/08/18 16:35 112 03/08/18 15:14 37.1 135 24 107/68 99 Trach Collar 4.0 General Appearance: mild distress Head: NORMOCEPHALIC, ATRAUMATIC Eyes: NO DISCHARGE, EOMI, SCLERAE NORMAL ENT: NORMAL EAR EXAM, NORMAL NASAL EXAM, NORMAL MOUTH EXAM, NORMAL THROAT EXAM Neck: other (Tracheostomy in place, did remove the tracheostomy in and there is no sites of secondary infection or breakdown at the ostomy position in no signs of mucus impaction in the tracheostomy tube itself) Respiratory: other (Bilateral minimal rhonchi aggressive appreciate the basis) Cardiovasular: other (Distant heart sounds but regular rhythm a regular rate) Abdomen: NON TENDER, NORMAL BOWEL SOUNDS, NO REBOUND, NO MASSES, NO GUARDING, NO ORGANOMEGALY Genitourinary - Female: EXTERNAL GENITALIA NORMAL Back: NORMAL INSPECTION, NO MIDLINE TENDERNESS, NO CVA TENDERNESS, NO PARAVERTEBRAL TTP Upper Extremities: NO EDEMA, NO DEFORMITY, NORMAL ROM Lower Extremities: NO EDEMA, NO DEFORMITY, NORMAL ROM Pulses: carotid (R) (2+), carotid (L) (2+), dorsalis pedis (R) (2+), dorsalis pedis (L) (2+) Neuro: disoriented, other (Upper and lower extremity contraction which notably has hyper reflexes) Reflexes: biceps (R) (3+), bicpes (L) (4+), patellar (R) (3+), patellar (L) (3+ ) Babinski Testing: right (equivocal), left (equivocal) Psychiatric: other (No acute changes) Diagnostics Labs Results Past 24 Hours Test 03/08/18 16:06 03/08/18 16:38 03/08/18 16:47 03/09/18 05:28 Range/Units White Blood Count 18.79 11.48 4.8-10.8 K/uL Red Blood Count 4.04 3.28 4.2-5.4 M/uL Hemoglobin 13.4 10.7 12.0-16.0 g/dL Hematocrit 39.1 32.2 37-47 % Mean Corpuscular Volume 96.8 98.2 80-100 fL Mean Corpuscular Hemoglobin 33.2 32.6 25-34 pg Mean Corpuscular Hemoglobin Concent 34.3 33.2 32-36 g/dl Platelet Count 179 124 130-400 K/uL Mean Platelet Volume 9.6 9.5 7.4-10.4 fL Neutrophils (%) (Auto) 90.5 % Lymphocytes (%) (Auto) 5.8 % Monocytes (%) (Auto) 3.3 % Eosinophils (%) (Auto) 0.1 % Basophils (%) (Auto) 0.1 % Neutrophils # (Auto) 17.02 1.4-6.5 K/uL Lymphocytes # (Auto) 1.09 1.2-3.4 K/uL Monocytes # (Auto) 0.62 0.11-0.59 K/uL Eosinophils # (Auto) 0.01 0-0.5 K/uL Basophils # (Auto) 0.01 0-0.2 K/uL RDW Standard Deviation 46.5 47.6 36.4-46.3 fL RDW Coefficient of Variation 13.2 13.3 11.5-14.5 % Immature Granulocyte % (Auto) 0.2 % Immature Granulocyte # (Auto) 0.04 0.00-0.02 K/uL Sodium Level 134 142 136-145 mmol/L Potassium Level 3.7 3.8 3.5-5.1 mmol/L Chloride Level 102 112 98-107 mmol/L Carbon Dioxide Level 23 24 21-32 mmol/L Anion Gap 9.0 6.0 3-11 mmol/L Blood Urea Nitrogen 15 9 7-18 mg/dl Creatinine 0.48 0.33 0.60-1.20 mg/dl Est Creatinine Clear Calc Drug Dose 152.2 204.8 ml/min Estimated GFR () > 150.0 > 150.0 Estimated GFR (Non- 140.2 > 150.0 BUN/Creatinine Ratio 30.9 27.0 10-20 Random Glucose 82 89 70-99 mg/dl Calcium Level 9.0 8.0 8.5-10.1 mg/dl Magnesium Level 1.9 2.1 1.8-2.4 mg/dl Total Bilirubin 0.2 0.2-1 mg/dl Direct Bilirubin < 0.1 0-0.2 mg/dl Aspartate Amino Transf (AST/SGOT) 10 15-37 U/L Alanine Aminotransferase (ALT/SGPT) 13 12-78 U/L Alkaline Phosphatase 87 45-117 U/L Total Protein 8.4 6.4-8.2 gm/dl Albumin 3.8 3.4-5.0 gm/dl Bedside Lactic Acid Venous 1.52 0.90-1.70 mmol/L Urine Color DK YELLOW Urine Appearance CLEAR CLEAR Urine pH >= 9.0 4.5-7.5 Urine Specific Coldiron 1.029 1.000-1.030 Urine Protein 1+ NEG Urine Glucose (UA) NEG NEG Urine Ketones NEG NEG Urine Occult Blood NEG NEG Urine Nitrite NEG NEG Urine Bilirubin NEG NEG Urine Urobilinogen NEG NEG Urine Leukocyte Esterase TRACE NEG Urine WBC (Auto) 1-5 0-5 /hpf Urine RBC (Auto) 5-10 0-4 /hpf Urine Hyaline Casts (Auto) 5-10 0-5 /lpf Urine Epithelial Cells (Auto) >30 0-5 /lpf Urine Bacteria (Auto) NEG NEG Urine Renal Epithelial Cells 0-5 0-5 /lpf Test 03/09/18 12:29 Range/Units Microbiology Results 03/08/18 Blood Culture, Received Pending 03/08/18 Blood Culture, Received Pending 03/08/18 Gram Stain - Final, Resulted 03/08/18 Sputum Culture, Resulted Pending Diagnostic Radiology Please refer to HPI EKG Please refer to HPI Impression Assessment and Plan 23-year-old female with chronic tracheostomy secondary to respiratory insufficiency with recurrent pneumonias admitted for sputum production and fever : 1. Leukocytosis: Etiology of the patient's leukocytosis is unknown at this time but procalcitonin is pending and will send off for CT of the sinuses. There is some minimal changes at the left base as compared to previous imaging but no signs of mike aspiration no others are any signs of mike tracheitis or tracheostomy infection. Will continue on current antibiotic regimen. This is a difficult patient S she has had multiple different organisms/infections of her tracheostomy as well as lungs which could be now colonizing agents. Will try to limit the overall use of antibiotics if possible in this patient. 2. Tracheostomy: Patient's tracheostomy currently clear no signs of active infection receiving excellent trach care by the RT staff. 3. EKG: Patient's physical exam as well as EKG on admission does show signs of irregular rate and rhythm. During my evaluation the patient did have abnormal rhythm throughout the evaluation on the chronic cardiac monitoring system. Repeat EKG at this time and I have spoken to the primary hospitalist. 4. Fever: Will hold off on Robinul at this time as is known to cause some fevers insert patient's most often hot humid regions but does appear to be recently started associated with the patient's recent fevers. I will send off for upper and lower extremity DVT study studies as this patient is notably bed- bound. I should note that the fever associated with DVTs is not noted to be associated with leukocytosis.
[2018-03-09] MEDS ORDERED: BOOST GLUCOSE CONTROL VANILLA PO SCH (13:00)
[2018-03-09] MEDS: D5NSS + 20MEQ KCL 1,000 ML IV SCH (13:21)
[2018-03-09] MEDS: DOXYCYCLINE IV 100 MG in DEXTROSE 5% 100ML 100 ML IV SCH (13:53)
[2018-03-09] MEDS ORDERED: NURSING VERBAL MED ORDER ONE (14:15)
--- NOTE | 2018-03-09 15:45 | DIAGNOSTIC IMAGING REPORT ---
SINUSES-MAXILLOFACIAL W/O HISTORY: 23 years-old Female Fever of unknown origin acute fever with clinical concern for paranasal sinus disease COMPARISON: None available TECHNIQUE: Multiple axial CT images of the paranasal sinuses were obtained without the use of IV contrast. A dose lowering technique was used consistent with the principals of KIMMIE. FINDINGS: There is mild volume loss of the brain parenchyma with dilation of the lateral and third ventricles. 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 A discrete corpus callosum is not identified. 5 mm area of low-attenuation about the region of the right lentiform nucleus may reflect area of remote insult. Orbits and soft tissues are unremarkable. Probable lymph node about the right superficial parotid, 10 x 5 mm. Similar-appearing 5 x 5 mm nodule is seen on the left. The calvarium and maxilla demonstrate likely develop mental prominence of the medullary space. The bony palate also appears thickened. There is crowding of the maxillary teeth. Unerupted maxillary third molars are seen bilaterally. Clivus also appears to be thickened. 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 Bony excrescences noted involving the lateral maxillary payne bilaterally with extension into the maxillary antra. There is mild mucoperiosteal thickening about the posterior ethmoid air cells bilaterally. Maxillary, frontal and sphenoid sinuses are generally clear. Mild mucosal thickening of the nasal turbinates. There is moderate enlargement of the adenoid tonsils resulting in moderate narrowing of the nasopharynx. There is prominence of the soft tissues about the soft palate. There is patency of the maxillary ostiomeatal units, frontoethmoidal and sphenoethmoidal recesses. Minimal rightward spurring of the nasal septum. No large praveen bullosa or Salinas cell. Katie mariann appears normal. The mastoid air cells and middle ear cavities are clear. IMPRESSION: 1. Mild mucosal thickening of the bilateral posterior ethmoid air cells without additional significant paranasal sinus disease identified. 2. Patency of the sinus outflow tracts. 3. Moderate enlargement of the adenoid tonsils results in moderate narrowing of the nasopharynx. Additionally, there is nonspecific prominence of the soft tissues about the soft palate which could be correlated with direct visualization. 4. Likely developmental changes of the skull, bony structures about the face and brain as detailed above. The above report was generated using voice recognition software. It may contain grammatical, syntax or spelling errors. Electronically signed by: Porfirio Graf M.D. 03/09/2018 3:44 PM Dictated Date/Time: 03/09/2018 3:35 PM
--- NOTE | 2018-03-09 16:50 | DIAGNOSTIC IMAGING REPORT ---
ULTRASOUND BILATERAL LOWER EXTREMITY VENOUS CLINICAL HISTORY: Fever of unknown origin. COMPARISON STUDY: No priors. TECHNIQUE: Real-time, grayscale, and color Doppler sonography of the deep veins of the right and left lower extremity was performed from the inguinal crease to the calf. Compression and augmentation were utilized. FINDINGS: There is no sonographic evidence of deep venous thrombosis identified in the right or left lower extremity. The common femoral, superficial femoral, and popliteal veins are patent and normally compressible bilaterally. The greater saphenous vein and the profunda femoris vein at the junction with the common femoral vein are clear in both legs. The visualized calf veins are patent bilaterally. IMPRESSION: There is no sonographic evidence of deep venous thrombosis identified in the right or left lower extremity. Electronically signed by: Matt Thibodeaux M.D. 03/09/2018 4:48 PM Dictated Date/Time: 03/09/2018 4:48 PM
--- NOTE | 2018-03-09 16:50 | DIAGNOSTIC IMAGING REPORT ---
ULTRASOUND BILATERAL UPPER EXTREMITY VENOUS CLINICAL HISTORY: Fever of unknown origin. COMPARISON STUDY: No priors. TECHNIQUE: Real-time, grayscale, and color Doppler sonography of the deep veins of the right and left upper extremity is performed. Compression and augmentation were utilized. FINDINGS: There is no sonographic evidence of deep venous thrombosis identified in the right or left upper extremity. The internal jugular, axillary, and brachial veins are patent and normally compressible bilaterally. Normal venous waveforms and augmentation are seen within the right and left subclavian veins. The cephalic and basilic veins are clear bilaterally. The visualized radial and ulnar veins are patent in both lower. IMPRESSION: There is no sonographic evidence of deep venous thrombosis identified in the right or left upper extremity. Electronically signed by: Matt Thibodeaux M.D. 03/09/2018 4:48 PM Dictated Date/Time: 03/09/2018 4:47 PM
[2018-03-09] MEDS: BACLOFEN 10 MG TAB PO SCH (16:55)
[2018-03-09] MEDS: TRAZODONE HCL 50 MG TAB PO SCH (20:35)
[2018-03-10] VITALS (21 sets, daily range): BP systolic 80–129; BP diastolic 52–81; PULSE 78–143; TEMP 36.4–38.3; O2SAT 90–98
[2018-03-10] MEDS: DOXYCYCLINE IV 100 MG in DEXTROSE 5% 100ML 100 ML IV SCH ×2 (01:45→12:40)
[2018-03-10] MEDS: ALBUT/IPRATROP 3MG/0.5MG NEB 3 ML VIAL INH SCH ×4 (02:12→21:05)
[2018-03-10] MEDS: VALPROIC ACID SYRUP 250 MG/5 ML GT SCH ×3 (04:39→20:14)
[2018-03-10] MEDS: ACETAMINOPHEN 325 MG TAB PO PRN ×2 (04:40→20:16)
[2018-03-10] MEDS ORDERED: FUROSEMIDE 40 MG/4 ML VIAL ONE (06:33)
--- NOTE | 2018-03-10 06:34 | DIAGNOSTIC IMAGING REPORT ---
CHEST ONE VIEW PORTABLE HISTORY: 23 years-old Female fever, worsening secretions acute fever COMPARISON: Chest radiograph 03/08/2018 TECHNIQUE: Portable AP view of the chest FINDINGS: Patient is rotated and side bent. Tracheostomy cannula overlies the midline above the level of the clavicles. Reactive silhouette is within normal limits. There is near complete opacification of the right hemithorax with volume loss and mild rightward midline shift. Only minimal aerated lung is seen at the right lung apex. Hazy subsegmental left basilar opacities favor atelectasis. No pneumothorax or overt pulmonary edema. Bones appear grossly intact. IMPRESSION: Near complete opacification of the right hemithorax with associated volume loss. Findings may be secondary to atelectasis with mucus plugging, however underlying pneumonia and/or pleural effusion are also in the differential. The above report was generated using voice recognition software. It may contain grammatical, syntax or spelling errors. Electronically signed by: Porfirio Graf M.D. 03/10/2018 6:33 AM Dictated Date/Time: 03/10/2018 6:30 AM
[2018-03-10] MEDS ORDERED: FUROSEMIDE INJ 20 MG in SYRINGE 0 ML IV ONE (06:45)
[2018-03-10] MEDS: BUDESONIDE 0.5 MG/2 ML VIAL (PULMICORT) INH SCH ×2 (06:45→20:19)
--- NOTE | 2018-03-10 07:05 | Progress Note ---
Progress Note Date of Service Mar 10, 2018. Progress Note I was called to see the patient this morning due to the fact that she had a decrease in her saturations. According to the nurse, the respiratory therapist was suctioning the patients trach tube throughout the night as she was having very thick secretions and had increased her FiO2 to 100%, I ordered a CXR which showed complete opacification of the right hemithorax with associated volume loss. The patient is currently receiving antibiotics doxycycline and zosyn. Due to the acute nature of the patients respiratory distress it is likely that the patient had an aspiration event. I called Dr. Francois who instructed me to transfer the patient to the ICU in preparation for a beside bronchoscopy. - Eduardo Moreno PGY2
[2018-03-10] MEDS ORDERED: MoRPHine SULFATE 2 MG/ML CARP IV STA (07:10)
--- NOTE | 2018-03-10 07:32 | Pulmonology Progress Note ---
Pulmonary Progress Note Date of Service Mar 10, 2018. Attending Dr. Carranza Subjective patient notable uncomfortable in the room in notable respiratory distress unable to answer questions secondary to her underlying RN INFORMATICS issues Objective Patient notable in respiratory distress VS: 100% FiO2 RESP: decreased BS over the right hemithorax CARD: tachycardiac unable to auscultate for M/R/G ABD: + BS with no distention or rebound noted Assessment & Plan 23-year-old female with chronic tracheostomy secondary to respiratory insufficiency with recurrent pneumonias admitted for sputum production and fever : 1. Leukocytosis: Etiology of the patient's leukocytosis is unknown at this time but procalcitonin is pending and will send off for CT of the sinuses. There is some minimal changes at the left base as compared to previous imaging but no signs of mike aspiration no others are any signs of mike tracheitis or tracheostomy infection. Will continue on current antibiotic regimen. This is a difficult patient S she has had multiple different organisms/infections of her tracheostomy as well as lungs which could be now colonizing agents. Will try to limit the overall use of antibiotics if possible in this patient. 2. Tracheostomy: Patient's tracheostomy currently clear no signs of active infection receiving excellent trach care by the RT staff. 3. EKG: Patient's physical exam as well as EKG on admission does show signs of irregular rate and rhythm. During my evaluation the patient did have abnormal rhythm throughout the evaluation on the chronic cardiac monitoring system. Repeat EKG at this time and I have spoken to the primary hospitalist. 4. Fever: Sinus CT showing some mild opacifications and DVT studies WNL. As the patient has progressed to right sided/dylan-thorax opacification it appears a pulmonary etiology is the most likely source of this patients fevers at this time. 5. Hypoxemia: new right dylan-thorax opacification with etiology most likely mucus plug. I have spoken to the patient's mother and will move forward with bronchoscopy at this time. Consent form side over the phone via the patient's mother with the bed side nurse as a witness. Data Medications: Current Inpatient Medications Medications (Trade) Dose Ordered Sig/Rosalino Route Start Time Stop Time Status Last Admin Dose Admin Baclofen (Lioresal Tab) 10 mg DAILY@1400 PO 03/09/18 14:00 04/08/18 13:59 03/09/18 16:55 10 MG Baclofen (Lioresal Tab) 20 mg BID@0800,2000 GT 03/08/18 21:00 04/07/18 20:59 03/09/18 20:15 20 MG Budesonide (Pulmicort Respules 0.5MG/ 2ML Neb Soln) 1 mg BIDR INH 03/08/18 20:00 04/07/18 19:59 03/10/18 06:45 1 MG Cetirizine HCl (zyrTEC TAB) 10 mg DAILY PO 03/09/18 09:00 04/08/18 08:59 03/09/18 08:35 10 MG Trazodone HCl (Desyrel Tab) 50 mg HS PO 03/08/18 21:00 04/07/18 20:59 03/09/18 20:35 50 MG Fluoxetine HCl (Prozac Cap) 10 mg DAILY PO 03/09/18 09:00 04/08/18 08:59 03/09/18 08:35 10 MG Polyethylene (Miralax Powder Packet) 17 gm DAILY PO 03/09/18 09:00 04/08/18 08:59 03/09/18 08:35 17 GM Albuterol/ Ipratropium (Duoneb) 3 ml Q6R INH 03/08/18 21:00 04/07/18 20:59 03/10/18 06:45 3 ML Albuterol Sulfate (Ventolin 0.083% 2.5MG/3ML Neb) 2.5 mg Q4R PRN INH 03/08/18 19:30 04/07/18 19:29 Piperacillin Sod/ Tazobactam Sod 3.375 gm/Dextrose 115 ml @ 28.75 mls/ hr Q8H IV 03/09/18 00:00 03/16/18 00:00 03/09/18 23:35 28.75 MLS/HR Miscellaneous Information (Consult) 1 ea UD PRN N/A 03/08/18 19:30 04/07/18 19:29 Acetaminophen (Tylenol Tab) 650 mg Q4H PRN PO 03/08/18 19:30 04/07/18 19:29 03/10/18 04:40 650 MG Al Hydrox/Mg Hydrox/Simethicone (Maalox Max Susp) 15 ml Q4H PRN PO 03/08/18 19:30 04/07/18 19:29 Magnesium Hydroxide (Milk Of Magnesia Susp) 30 ml Q12H PRN PO 03/08/18 19:30 04/07/18 19:29 Ondansetron HCl (Zofran Inj) 4 mg Q6H PRN IV 03/08/18 19:30 04/07/18 19:29 Polyethylene (Miralax Powder Packet) 17 gm DAILY PRN PO 03/08/18 19:30 04/07/18 19:29 Valproic Acid (Depakene Syrup) 400 mg Q8H GT 03/08/18 21:00 04/07/18 20:59 03/10/18 04:39 400 MG Zonisamide (Zonegran) 200 mg BID PEG 03/08/18 21:00 04/07/18 20:59 03/09/18 20:35 200 MG Doxycycline Hyclate 100 mg/ Dextrose 110 ml @ 50 mls/hr Q12H IV 03/09/18 13:00 03/16/18 12:59 03/10/18 01:45 50 MLS/HR Enteral Nutritional Formula (Boost) 1 can QID@0700,1100,1600,2000 PEG 03/09/18 16:00 04/07/18 20:59 03/09/18 20:15 1 CAN Vital Signs: Date Time Temp Pulse Resp B/P (MAP) Pulse Ox O2 Delivery O2 Flow Rate FiO2 03/10/18 06:46 120 24 91 Trach Collar 100 03/10/18 04:34 38.3 118 30 101/78 (86) 96 Trach Collar 03/10/18 02:12 108 26 91 Trach Collar 70 03/10/18 00:33 37.0 102 30 111/67 (82) 92 Humidified Oxygen 11.0 70 Trach Collar 03/09/18 23:59 Trach Collar 8.0 40 03/09/18 19:14 110 24 88 Trach Collar 40 03/09/18 17:00 103 28 108/71 (83) 91 Trach Collar 40 03/09/18 16:24 36.4 95 18 89/65 (73) 95 Trach Collar 03/09/18 16:00 91 Trach Collar 40 03/09/18 14:03 96 27 98 Trach Collar 40 03/09/18 11:37 36.5 90 27 96/57 (70) 98 Trach Collar 03/09/18 08:00 99 Trach Collar 8.0 50 03/09/18 07:40 36.4 70 26 88/52 (64) 99 Trach Collar Laboratory Results: Last 24 Hours Test 03/09/18 12:29 03/10/18 06:34 Procalcitonin 0.12 ng/ml
[2018-03-10] MEDS: BOOST VANILLA OR BOOST GLUCOSE CONTROL CHOCOLATE PEG SCH ×4 (07:46→20:17)
--- NOTE | 2018-03-10 07:47 | Progress Note ---
Progress Note Date of Service Mar 10, 2018. Progress Note Patient was found to require additional levels of oxygen, up to 10 liters. Imaging showed right sided/dylan-thorax opacification. Pulmonary is likely source. Given that family is not at bedside, I agree with Dr. Carranza that patient will require a bronchoscopy. Patient will be going to OR shortly for bronchoscopy.
[2018-03-10 07:54] LABS: ALBUMIN 3.6 gm/dl (3.4-5.0); ALT/SGPT 13 U/L (12-78); AST/SGOT 14 U/L (15-37); BLOOD UREA NITROGEN 6 mg/dl (7-18); CALCIUM 9.4 mg/dl (8.5-10.1); CARBON DIOXIDE 26 mmol/L (21-32); CREATININE 0.41 mg/dl (0.60-1.20); GLUCOSE 90 mg/dl (70-99); POTASSIUM 3.5 mmol/L (3.5-5.1); SODIUM 136 mmol/L (136-145)
[2018-03-10] MEDS ORDERED: MIDAZOLAM HCL 1 MG/ML 2ML VIAL ONE (07:55)
[2018-03-10] MEDS ORDERED: FENTANYL CITRATE INJ 50 MCG/1 ML 2 ML VIAL ONE (07:56)
[2018-03-10 07:59] LABS: ALKALINE PHOSPHATASE 78 U/L (45-117); TOTAL PROTEIN 8.2 gm/dl (6.4-8.2)
--- NOTE | 2018-03-10 08:46 | Bronchoscopy Procedure Note ---
Bronchoscopy Procedure Note Procedure: Bronchoscopy, bronchial lavage, MAC Consent: Obtained through the patient placed into the chart Pre-procedural diagnosis: Hemithoracic atelectasis Post-procedural diagnosis: Hemithoracic atelectasis Procedure: The Olympus video bronchoscope was used for this procedure and passed down through the oral pharynx Anterior oropharynx: Cleft palate Posterior oropharynx: Anatomically within normal limits Glottis: Anatomically within normal limits Vocal cords: Anatomically within normal limits Subglottis: Anatomically within normal limits trachea/Linda: Anatomically within normal limits Right bronchial tree: Right mainstem bronchus: Large mucous plug obstructing the takeoff, there is notable diffuse erythema and easy friability of the right upper lobe Right upper lobe: Multiple mucous plugs obstructing all subsegmental regions Bronchus intermedius: Anatomically within normal limitS Right middle lobe: Large mucous plug obstructing the takeoff to the right middle lobe Right lower lobe: Large mucous plugs obstructing the takeoff to the right lower lobe and all subsegments Left bronchial tree: Left mainstem bronchus: Anatomically within normal limits Left upper lobe: Anatomically within normal limits Lingula: Anatomically within normal limits Left lower lobe: Anatomically within normal limits Findings: No significant findings noted Bronchial alveolar lavage: Right upper lobe EBL: None Complications: None Follow-up: ASU
[2018-03-10] MEDS ORDERED: ATROPINE SULFATE 0.1 MG/ML 5ML SYR IV PRN (09:15)
[2018-03-10] MEDS: BACLOFEN 10 MG TAB GT SCH ×2 (09:23→20:15)
[2018-03-10] MEDS: FLUOXETINE HCL 10 MG CAP PO SCH (09:24)
[2018-03-10] MEDS: ZONISAMIDE 100 MG CAP PEG SCH ×2 (09:24→20:14)
[2018-03-10] MEDS: CETIRIZINE HCL 10 MG TAB PO SCH (09:24)
[2018-03-10] MEDS: POLYETHYLENE (MIRALAX) 17 GM PACK PO SCH (09:24)
[2018-03-10] MEDS: PIPERACILL/TAZOBAC IV 3.375 GM in DEXTROSE 5% 100ML 100 ML IV SCH ×2 (09:25→16:14)
[2018-03-10] MEDS ORDERED: PROPOFOL IV EMULSION 10 MG/ML 20 ML VIAL ONE (09:35)
[2018-03-10] MEDS ORDERED: LIDOCAINE HCL 2% 2 ML VIAL (20MG/ML) ONE (09:35)
--- NOTE | 2018-03-10 12:39 | DIAGNOSTIC IMAGING REPORT ---
CHEST ONE VIEW PORTABLE CLINICAL HISTORY: RIGHT HEMITHORACIC ATELECTASIS COMPARISON STUDY: 03/10/2018 FINDINGS: A tracheostomy tube is again visualized. There is elevation of the right hemidiaphragm. There is right lower atelectasis/consolidation. There is a suspected associated small pleural effusion. There is improving aeration of the right upper lung zone. There is mild interstitial thickening at the left lung base.[ IMPRESSION: 1. Improving aeration of the right hemithorax. 2. Persistent right basilar atelectasis class consolidation with a right pleural effusion 3. Elevation of the right hemidiaphragm Electronically signed by: Jose Valdes M.D. 03/10/2018 12:37 PM Dictated Date/Time: 03/10/2018 12:36 PM
[2018-03-10] MEDS: BACLOFEN 10 MG TAB PO SCH (12:40)
--- NOTE | 2018-03-10 13:53 | Anesthesiology Progress Note ---
Anesthesia Post Op Note Date & Time Mar 10, 2018 at 13:53 Vital Signs Pain Intensity: 0.0 Vital Signs Past 12 Hours Date Time Temp Pulse Resp B/P (MAP) Pulse Ox O2 Delivery O2 Flow Rate FiO2 03/10/18 12:00 36.8 128 35 99/72 (81) 93 Trach Collar 100 03/10/18 11:22 36.4 121 30 90/62 (71) 97 Trach Collar 100 03/10/18 10:00 127 37 96/59 (71) 92 Trach Collar 100 03/10/18 09:45 130 35 94/60 (71) 93 Trach Collar 100 03/10/18 09:30 130 40 98/54 (69) 93 Trach Collar 100 03/10/18 09:15 143 35 109/52 (71) 93 Trach Collar 100 03/10/18 08:00 90 Mechanical Ventilator 100 03/10/18 08:00 Mechanical Ventilator 100 03/10/18 07:39 100 03/10/18 07:00 37.4 130 49 104/76 (85) 90 Mechanical Ventilator 100 03/10/18 06:46 120 24 91 Trach Collar 100 03/10/18 04:34 38.3 118 30 101/78 (86) 96 Trach Collar 03/10/18 02:12 108 26 91 Trach Collar 70 Notes Mental Status: alert / awake / arousable, participated in evaluation Pt Amnestic to Procedure: Yes Nausea / Vomiting: adequately controlled Pain: adequately controlled Airway Patency, RR, SpO2: stable & adequate BP & HR: stable & adequate Hydration State: stable & adequate Anesthetic Complications: no major complications apparent
--- NOTE | 2018-03-10 14:39 | Critical Care Consultation ---
Critical Care Consultation Date of Consultation: Mar 10, 2018. Attending Physician: Jose Noland M.D. Reason for Consultation: Hypoxic respiratory failure History of Present Illness Patient with severe cerebral palsy been admitted for pneumonia with mild hypoxia. I was notified by the resident coverage of worsening hypoxia with sats in the high 80s. Chest x-ray revealed dense focal infiltrate in the right lung, I instructed the resident coverage to order a bedside bronchoscopy and emergently proceeded to the hospital Past Medical/Surgical History Cerebral palsy Tracheostomy Seizure disorder Recurrent pneumonias Family History No pertinent family history Social History Smoking Status: Never Smoker Marital Status: single Housing Status: lives with family Occupation Status: disabled Allergies Coded Allergies: Ciprofloxacin (Verified Allergy, Intermediate, SWELLING, 03/08/18) Home Medications Scheduled Albuterol Sulf (Proventil 0.083% 2.5MG/3ML), 1 VIAL NEB BID Azithromycin (Azithromycin), 1 DOSE PO 3XWK Baclofen (Lioresal), 20 MG GT QAM & HS Baclofen (Lioresal), 10 MG PO DAILY Budesonide (Inhalation) (Pulmicort Respules 0.5MG/2ML), 2 ML NEB BID Cetirizine Hcl (Zyrtec), 10 MG PO DAILY Cholecalciferol (D3-1000), 1,000 UNITS PO DAILY Fluoxetine Hcl (Fluoxetine Hcl), 10 MG PO DAILY Polyethylene (Polyethylene Glycol 3350), 17 GM PO DAILY Trazodone Hcl (Trazodone), 50 MG PO HS Valproic Acid Syrup (Depakene), 8 ML GT Q8H Zonisamide (Zonegran), 200 MG GT BID Scheduled PRN Clonazepam (Clonazepam Odt), 0.5 MG PO DIRECTED PRN for SEIZURES Current Inpatient Medications Current Inpatient Medications Medications (Trade) Dose Ordered Sig/Rosalino Route Start Time Stop Time Status Last Admin Dose Admin Baclofen (Lioresal Tab) 10 mg DAILY@1400 PO 03/09/18 14:00 04/08/18 13:59 03/10/18 12:40 10 MG Baclofen (Lioresal Tab) 20 mg BID@0800,2000 GT 03/08/18 21:00 04/07/18 20:59 03/10/18 09:23 20 MG Budesonide (Pulmicort Respules 0.5MG/ 2ML Neb Soln) 1 mg BIDR INH 8/1/18 20:00 04/07/18 19:59 03/10/18 06:45 1 MG Cetirizine HCl (zyrTEC TAB) 10 mg DAILY PO 03/09/18 09:00 04/08/18 08:59 03/10/18 09:24 10 MG Trazodone HCl (Desyrel Tab) 50 mg HS PO 03/08/18 21:00 04/07/18 20:59 03/09/18 20:35 50 MG Fluoxetine HCl (Prozac Cap) 10 mg DAILY PO 03/09/18 09:00 04/08/18 08:59 03/10/18 09:24 10 MG Polyethylene (Miralax Powder Packet) 17 gm DAILY PO 03/09/18 09:00 04/08/18 08:59 03/10/18 09:24 17 GM Albuterol/ Ipratropium (Duoneb) 3 ml Q6R INH 03/08/18 21:00 04/07/18 20:59 03/10/18 06:45 3 ML Albuterol Sulfate (Ventolin 0.083% 2.5MG/3ML Neb) 2.5 mg Q4R PRN INH 03/08/18 19:30 04/07/18 19:29 Piperacillin Sod/ Tazobactam Sod 3.375 gm/Dextrose 115 ml @ 28.75 mls/ hr Q8H IV 03/09/18 00:00 03/16/18 00:00 03/10/18 09:25 28.75 MLS/HR Miscellaneous Information (Consult) 1 ea UD PRN N/A 03/08/18 19:30 04/07/18 19:29 Acetaminophen (Tylenol Tab) 650 mg Q4H PRN PO 03/08/18 19:30 04/07/18 19:29 03/10/18 04:40 650 MG Al Hydrox/Mg Hydrox/Simethicone (Maalox Max Susp) 15 ml Q4H PRN PO 03/08/18 19:30 04/07/18 19:29 Magnesium Hydroxide (Milk Of Magnesia Susp) 30 ml Q12H PRN PO 03/08/18 19:30 04/07/18 19:29 Ondansetron HCl (Zofran Inj) 4 mg Q6H PRN IV 03/08/18 19:30 04/07/18 19:29 Polyethylene (Miralax Powder Packet) 17 gm DAILY PRN PO 03/08/18 19:30 04/07/18 19:29 Valproic Acid (Depakene Syrup) 400 mg Q8H GT 03/08/18 21:00 04/07/18 20:59 03/10/18 12:39 400 MG Zonisamide (Zonegran) 200 mg BID PEG 03/08/18 21:00 04/07/18 20:59 03/10/18 09:24 200 MG Doxycycline Hyclate 100 mg/ Dextrose 110 ml @ 50 mls/hr Q12H IV 03/09/18 13:00 03/16/18 12:59 03/10/18 12:40 50 MLS/HR Enteral Nutritional Formula (Boost) 1 can QID@0700,1100,1600,2000 PEG 03/09/18 16:00 04/07/18 20:59 03/10/18 12:39 1 CAN Dornase Morgan (Pulmozyme Inhalation Soln 2.5ml Amp) 2.5 ml BIDR INH 03/10/18 20:00 04/09/18 19:59 Review of Systems Unable to obtain secondary to patient condition Physical Exam Date Time Temp Pulse Resp B/P (MAP) Pulse Ox O2 Delivery O2 Flow Rate FiO2 03/10/18 12:00 36.8 128 35 99/72 (81) 93 Trach Collar 100 03/10/18 11:22 36.4 121 30 90/62 (71) 97 Trach Collar 100 03/10/18 10:00 127 37 96/59 (71) 92 Trach Collar 100 03/10/18 09:45 130 35 94/60 (71) 93 Trach Collar 100 03/10/18 09:30 130 40 98/54 (69) 93 Trach Collar 100 03/10/18 09:15 143 35 109/52 (71) 93 Trach Collar 100 03/10/18 08:00 90 Mechanical Ventilator 100 03/10/18 08:00 Mechanical Ventilator 100 03/10/18 07:39 100 03/10/18 07:00 37.4 130 49 104/76 (85) 90 Mechanical Ventilator 100 03/10/18 06:46 120 24 91 Trach Collar 100 03/10/18 04:34 38.3 118 30 101/78 (86) 96 Trach Collar 03/10/18 02:12 108 26 91 Trach Collar 70 03/10/18 00:33 37.0 102 30 111/67 (82) 92 Humidified Oxygen 11.0 70 Trach Collar 03/09/18 23:59 Trach Collar 8.0 40 03/09/18 19:14 110 24 88 Trach Collar 40 03/09/18 17:00 103 28 108/71 (83) 91 Trach Collar 40 03/09/18 16:24 36.4 95 18 89/65 (73) 95 Trach Collar 03/09/18 16:00 91 Trach Collar 40 General Appearance: moderate distress Head: normocephalic Neck: other (Tracheostomy present) Respiratory: other (Decreased breath sounds over right lung) Cardiovasular: irregular rate (Tachycardia) Abdomen: non tender Upper Extremities: other (Contractures) Lower Extremities: other (Contractures) Neuro: alert Laboratory Results Last 24 Hours Test 03/10/18 07:17 Sodium Level 136 mmol/L Potassium Level 3.5 mmol/L Chloride Level 103 mmol/L Carbon Dioxide Level 26 mmol/L Anion Gap 7.0 mmol/L Blood Urea Nitrogen 6 mg/dl Creatinine 0.41 mg/dl Est Creatinine Clear Calc Drug Dose 165.8 ml/min Estimated GFR () > 150.0 Estimated GFR (Non- 147.7 BUN/Creatinine Ratio 13.3 Random Glucose 90 mg/dl Calcium Level 9.4 mg/dl Total Bilirubin 0.3 mg/dl Aspartate Amino Transf (AST/SGOT) 14 U/L Alanine Aminotransferase (ALT/SGPT) 13 U/L Alkaline Phosphatase 78 U/L Total Protein 8.2 gm/dl Albumin 3.6 gm/dl Globulin 4.6 gm/dl Albumin/Globulin Ratio 0.8 Diagnostic Results I have reviewed the pre-and post bronchoscopy chest x-rays Assessment & Plan Reason Critically Ill: 23-year-old female with a significant past medical history for tracheostomy dependent respiratory failure, frequent pneumonias and severe cerebral palsy PLAN: Neuro: Seizure disorder -Continue Depakote -Check Depakote level Resp: Acute hypoxic respiratory failure Mucoid impaction Pneumonia right lobe -Status post bronchoscopy by Dr. 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 last bronc revealed sensitivity to fluoroquinolones as well as Zosyn only intermediate sensitivity to aztreonam -Continue doxycycline for atypical coverage GI/Nutrition: PEG dependent -Continue bolus feeding Heme: Patient chronically bedridden -No medical indication for SCDs nor chemical DVT prophylaxis Endocrine: ICU hyperglycemia protocol Vascular access: Patient's been consented for PICC and central venous access, IV team unable to place PICC at this time Code Status: Full code I discussed the patient's treatment plan with her mother via telephone and obtained consent for both the PICC as well as central venous access. I have personally spent 95 minutes of critical care time in the direct management of this patient. This is a life/limb threatening event. This includes time spent evaluating patient, direct bedside care, chart review, placing orders, interpretation of diagnostic studies, discussion with consultants, patient, and/or family members regarding treatment decisions, as well as other required patient management activities. This time is exclusive of all separately billable procedures, and teaching time and separate from and in addition to any other critical care service time.
[2018-03-10] MEDS: NORMOSOL R 1,000 ML IV SCH (14:56)
[2018-03-10] MEDS: TRAZODONE HCL 50 MG TAB PO SCH (20:14)
[2018-03-10] MEDS: DORNASE ALFA 2.5 ML AMP INH SCH (20:19)
--- NOTE | 2018-03-10 23:46 | Progress Note ---
Subjective Date of Service: Mar 10, 2018. Subjective Pt evaluation today including: conversation w/ patient, physical exam Unable to obtain HPI form patient. Overnight patient was in respiratory distress and O2 needs increased to 10 liters. Patient was found to have right lung white out on c-x-ray. Patient was transferred to Intensive Care Unit. Case discussed with Pulmonary and Transportation Agent. Patient will be getting an emergent bronch. Review of Systems unable to obtain ROS. Objective Vital Signs Date Time Temp Pulse Resp B/P (MAP) Pulse Ox O2 Delivery O2 Flow Rate FiO2 03/10/18 20:19 116 26 98 Trach Collar 12.0 70 03/10/18 18:43 117 24 91/59 (70) 93 Trach Collar 50 03/10/18 16:00 37.3 115 30 80/62 (68) 96 Trach Collar 50 03/10/18 14:27 120 24 98 Trach Collar 12.0 100 03/10/18 14:00 121 22 100/70 (80) 95 Trach Collar 50 03/10/18 12:00 36.8 128 35 99/72 (81) 93 Trach Collar 100 03/10/18 11:22 36.4 121 30 90/62 (71) 97 Trach Collar 100 03/10/18 10:00 127 37 96/59 (71) 92 Trach Collar 100 03/10/18 09:45 130 35 94/60 (71) 93 Trach Collar 100 03/10/18 09:30 130 40 98/54 (69) 93 Trach Collar 100 03/10/18 09:15 143 35 109/52 (71) 93 Trach Collar 100 03/10/18 08:00 90 Mechanical Ventilator 100 03/10/18 08:00 Mechanical Ventilator 100 03/10/18 07:39 100 03/10/18 07:00 37.4 130 49 104/76 (85) 90 Mechanical Ventilator 100 03/10/18 06:46 120 24 91 Trach Collar 100 03/10/18 04:34 38.3 118 30 101/78 (86) 96 Trach Collar 03/10/18 02:12 108 26 91 Trach Collar 70 03/10/18 00:33 37.0 102 30 111/67 (82) 92 Humidified Oxygen 11.0 70 Trach Collar 03/09/18 23:59 Trach Collar 8.0 40 Physical Exam Comments: General Appearance: Patient appears to be in distress + pertinent finding (Thin , young female with contractures - nonverbal) Head: normocephalic Eyes: normal inspection ENT: normal ENT inspection, pharynx normal, + pertinent finding (No thrush or exudate seen in oral cavity - palatal hyperplasia is seen) Neck: supple, + pertinent finding (Trach in place) Respiratory/Chest: R side of chest has decreased breath sounds. Cardiovascular: tachycardia, rhythm, no edema, no gallop Abdomen/GI: normal bowel sounds, non tender, soft, + pertinent finding (No inflammation at PEG site) Back: normal inspection, no CVA tenderness Extremities/Musculoskelatal: normal inspection, normal capillary refill, no pedal edema Neurologic/Psych: + pertinent finding (Moves all extremities - does not respond to question - nonverbal at baseline - non-ambulatroy at baseline) Skin: normal color, warm/dry Laboratory Results Last 24 Hours Test 03/10/18 07:17 03/10/18 14:50 Sodium Level 136 mmol/L Potassium Level 3.5 mmol/L Chloride Level 103 mmol/L Carbon Dioxide Level 26 mmol/L Anion Gap 7.0 mmol/L Blood Urea Nitrogen 6 mg/dl Creatinine 0.41 mg/dl Est Creatinine Clear Calc Drug Dose 165.8 ml/min Estimated GFR () > 150.0 Estimated GFR (Non- 147.7 BUN/Creatinine Ratio 13.3 Random Glucose 90 mg/dl Calcium Level 9.4 mg/dl Total Bilirubin 0.3 mg/dl Aspartate Amino Transf (AST/SGOT) 14 U/L Alanine Aminotransferase (ALT/SGPT) 13 U/L Alkaline Phosphatase 78 U/L Total Protein 8.2 gm/dl Albumin 3.6 gm/dl Globulin 4.6 gm/dl Albumin/Globulin Ratio 0.8 Valproic Acid (Depakene) Level 100 mcg/ml Assessment and Plan 23 y/o F Hx severe cerebral palsy with trach and peg, seizures, aspiration PNM, recurrent trach infections. Pt is nonambulatory and nonverbal. She is brought into the hospital by her father and her first dyer due to a cough, increased trach secretions and a fever. She has had a history of aspiration and pseudomonas infections. The pt is unable to provide any direct information. She has seizures a few times a week per her first dyer and last had a seizure the AM prior to admission. 1) Hypoxia with change in x-ray: WHITE OUT OF R LIGHT Likely has mucous plug and pneumonia -D/W Pulmonary and corporate quality manager Patient will have emergent bronch On first day of hospital stay, was unsure what the source of the fever was. However, it appears it is likely that patient's source are the lungs Patient will be on zosyn and doxycycline. 2) Seizure disorder - continue Zonegran and Valproic acid 3) Cerebral palsy - admitted to telemetry due to trach use - all meds are via peg. The pt takes 400cc of boost QID as nutrition. 4)Premature atrial contractions: Patient tele monitor shows P wave. Despite being irregularly, this does not appear to be a. fib Full code - confirmed with family - SCDs Transportation Agent and Pulmonary providers spoke with mother on phone. Spent 45 minutes in management of patient. Continued [facility] stay due to: multiple IV medications needed, other Discharge planning: uncertain
[2018-03-11] VITALS (18 sets, daily range): BP systolic 81–98; BP diastolic 40–74; PULSE 73–117; TEMP 36.6–37.3; O2SAT 92–98
[2018-03-11] MEDS: PIPERACILL/TAZOBAC IV 3.375 GM in DEXTROSE 5% 100ML 100 ML IV SCH ×3 (00:21→17:19)
[2018-03-11] MEDS: DOXYCYCLINE IV 100 MG in DEXTROSE 5% 100ML 100 ML IV SCH ×2 (00:41→11:23)
[2018-03-11] MEDS: ALBUT/IPRATROP 3MG/0.5MG NEB 3 ML VIAL INH SCH ×4 (02:09→19:26)
[2018-03-11] MEDS: VALPROIC ACID SYRUP 250 MG/5 ML GT SCH ×3 (06:46→20:21)
[2018-03-11] MEDS: DORNASE ALFA 2.5 ML AMP INH SCH ×2 (07:00→19:26)
[2018-03-11] MEDS: BUDESONIDE 0.5 MG/2 ML VIAL (PULMICORT) INH SCH ×2 (07:00→19:26)
[2018-03-11] MEDS: BOOST VANILLA OR BOOST GLUCOSE CONTROL CHOCOLATE PEG SCH ×4 (07:53→20:21)
[2018-03-11] MEDS: NORMOSOL R 1,000 ML IV SCH (07:53)
[2018-03-11] MEDS: ZONISAMIDE 100 MG CAP PEG SCH ×2 (07:54→20:22)
[2018-03-11] MEDS: BACLOFEN 10 MG TAB GT SCH ×2 (07:54→20:20)
[2018-03-11] MEDS: FLUOXETINE HCL 10 MG CAP PO SCH (07:55)
[2018-03-11] MEDS: CETIRIZINE HCL 10 MG TAB PO SCH (07:55)
[2018-03-11] MEDS: POLYETHYLENE (MIRALAX) 17 GM PACK PO SCH (07:55)
--- NOTE | 2018-03-11 10:16 | Critical Care Progress Note ---
Critical Care Progress Note Date of Service Mar 11, 2018. ICU Day ICU Day Number: [address] Francois Subjective No overnight events, patient's oxygen requirement is decreasing Objective General: Alert. nontoxic. Skin: Warm, dry, Head: Atraumatic Ears, nose, mouth and throat: airway patent, tracheostomy present Cardiovascular: Normal peripheral perfusion Respiratory: no respiratory distress, coarse sounds bilaterally Gastrointestinal: Non distended Musculoskeletal: No deformity Assessment & Plan PLAN: Neuro: Seizure disorder -Continue Depakote -Depakote within acceptable limits Resp: Acute hypoxic respiratory failure: Improved Mucoid impaction: Improved aeration on chest x-ray Pneumonia right lobe -Status post bronchoscopy by Dr. Carranza -Continue Zosyn for 7-10 day duration CV: Tachycardia: Resolved Fluids/Renal: Consider patient to be in euvolemic status -Discontinue maintenance fluids ID: Pneumonia right lung -Bronchoscopy cultures pending -Known Pseudomonas likely colonization last bronc revealed sensitivity to fluoroquinolones as well as Zosyn only intermediate sensitivity to aztreonam -Continue doxycycline for atypical coverage GI/Nutrition: PEG dependent -Continue bolus feeding Heme: Patient chronically bedridden -No medical indication for SCDs nor chemical DVT prophylaxis Endocrine: ICU hyperglycemia protocol Vascular access: Patient's been consented for PICC and central venous access, IV team unable to place PICC at this time Code Status: Full code I discussed the patient's treatment plan with her mother via telephone. Patient stable for downgrade out of ICU to medicine service Consults & Procedures Consultants: Pulmonary Procedures: March 10: Bronchoscopy Data Medications: Current Inpatient Medications Medications (Trade) Dose Ordered Sig/Rosalino Route Start Time Stop Time Status Last Admin Dose Admin Baclofen (Lioresal Tab) 10 mg DAILY@1400 PO 03/09/18 14:00 04/08/18 13:59 03/10/18 12:40 10 MG Baclofen (Lioresal Tab) 20 mg BID@0800,2000 GT 03/08/18 21:00 04/07/18 20:59 03/11/18 07:54 20 MG Budesonide (Pulmicort Respules 0.5MG/ 2ML Neb Soln) 1 mg BIDR INH 03/08/18 20:00 04/07/18 19:59 03/11/18 07:00 1 MG Cetirizine HCl (zyrTEC TAB) 10 mg DAILY PO 03/09/18 09:00 04/08/18 08:59 03/11/18 07:55 10 MG Trazodone HCl (Desyrel Tab) 50 mg HS PO 03/08/18 21:00 04/07/18 20:59 03/10/18 20:14 50 MG Fluoxetine HCl (Prozac Cap) 10 mg DAILY PO 03/09/18 09:00 04/08/18 08:59 03/11/18 07:55 10 MG Polyethylene (Miralax Powder Packet) 17 gm DAILY PO 03/09/18 09:00 04/08/18 08:59 03/11/18 07:55 17 GM Albuterol/ Ipratropium (Duoneb) 3 ml Q6R INH 03/08/18 21:00 04/07/18 20:59 03/11/18 07:00 3 ML Albuterol Sulfate (Ventolin 0.083% 2.5MG/3ML Neb) 2.5 mg Q4R PRN INH 03/08/18 19:30 04/07/18 19:29 Piperacillin Sod/ Tazobactam Sod 3.375 gm/Dextrose 115 ml @ 28.75 mls/ hr Q8H IV 03/09/18 00:00 03/16/18 00:00 03/11/18 07:50 28.75 MLS/HR Miscellaneous Information (Consult) 1 ea UD PRN N/A 03/08/18 19:30 04/07/18 19:29 Acetaminophen (Tylenol Tab) 650 mg Q4H PRN PO 03/08/18 19:30 04/07/18 19:29 03/10/18 20:16 650 MG Al Hydrox/Mg Hydrox/Simethicone (Maalox Max Susp) 15 ml Q4H PRN PO 03/08/18 19:30 04/07/18 19:29 Magnesium Hydroxide (Milk Of Magnesia Susp) 30 ml Q12H PRN PO 03/08/18 19:30 04/07/18 19:29 Ondansetron HCl (Zofran Inj) 4 mg Q6H PRN IV 03/08/18 19:30 04/07/18 19:29 Polyethylene (Miralax Powder Packet) 17 gm DAILY PRN PO 03/08/18 19:30 04/07/18 19:29 Valproic Acid (Depakene Syrup) 400 mg Q8H GT 03/08/18 21:00 04/07/18 20:59 03/11/18 06:46 400 MG Zonisamide (Zonegran) 200 mg BID PEG 03/08/18 21:00 04/07/18 20:59 03/11/18 07:54 200 MG Doxycycline Hyclate 100 mg/ Dextrose 110 ml @ 50 mls/hr Q12H IV 03/09/18 13:00 03/16/18 12:59 03/11/18 00:41 50 MLS/HR Enteral Nutritional Formula (Boost) 1 can QID@0700,1100,1600,2000 PEG 03/09/18 16:00 04/07/18 20:59 03/11/18 07:53 1 CAN Dornase Morgan (Pulmozyme Inhalation Soln 2.5ml Amp) 2.5 ml BIDR INH 03/10/18 20:00 04/09/18 19:59 03/11/18 07:00 2.5 ML Parenteral Electrolyte Solution 1,000 ml @ 80 mls/hr [id number] IV 03/10/18 14:45 04/09/18 14:44 03/11/18 07:53 80 MLS/HR Vital Signs: Date Time Temp Pulse Resp B/P (MAP) Pulse Ox O2 Delivery O2 Flow Rate FiO2 03/11/18 08:00 Trach Collar 28 03/11/18 08:00 36.9 84 24 90/62 (71) 96 Trach Collar 03/11/18 07:00 84 28 96 Trach Collar 28 03/11/18 06:00 85 21 98/74 (82) 95 Trach Collar 28 03/11/18 05:00 95 22 89/61 (70) 97 Trach Collar 28 03/11/18 04:00 36.9 73 22 93/61 (72) 98 Trach Collar 28 03/11/18 03:00 79 26 92/49 (63) 97 Trach Collar 28 03/11/18 02:09 91 22 98 Trach Collar 12.0 28 03/11/18 02:00 77 23 98/55 (69) 96 Trach Collar 28 03/11/18 01:00 88 27 92/52 (65) 95 Trach Collar 28 03/11/18 01:00 Trach Collar 28 03/11/18 00:01 36.9 96 27 85/40 (55) 96 Trach Collar 40 03/10/18 23:00 96 34 91/53 (66) 91 Trach Collar 40 03/10/18 22:00 78 31 89/53 (65) 97 40 03/10/18 21:00 83 25 129/81 (97) 96 Trach Collar 40 03/10/18 20:19 116 26 98 Trach Collar 12.0 70 03/10/18 20:00 Trach Collar 03/10/18 20:00 37.9 96 23 97/72 (80) 96 Trach Collar 40 03/10/18 18:43 117 24 91/59 (70) 93 Trach Collar 50 03/10/18 16:00 37.3 115 30 80/62 (68) 96 Trach Collar 50 03/10/18 14:27 120 24 98 Trach Collar 12.0 100 03/10/18 14:00 121 22 100/70 (80) 95 Trach Collar 50 03/10/18 12:00 36.8 128 35 99/72 (81) 93 Trach Collar 100 03/10/18 11:22 36.4 121 30 90/62 (71) 97 Trach Collar 100 Laboratory Results: Last 24 Hours Test 03/10/18 14:50 03/11/18 05:01 Valproic Acid (Depakene) Level 100 mcg/ml Lactic Acid Level 0.4 mmol/L
--- NOTE | 2018-03-11 10:51 | DIAGNOSTIC IMAGING REPORT ---
SINGLE VIEW CHEST CLINICAL HISTORY: Follow-up consolidation. FINDINGS: An AP, portable, upright chest radiograph is compared to study dated 03/10/2018. The examination is significantly degraded by portable technique and patient rotation. A tracheostomy is in place. The cardiomediastinal silhouette is unremarkable. There is significantly improved aeration of the right lower lobe as compared to yesterday. Only minimal right basilar opacities persist. The left lung is grossly clear noting dependent atelectasis. No large pleural effusion or pneumothorax is seen. The skeletal structures are osteopenic. The bony thorax is grossly intact. IMPRESSION: 1. There is significantly improved aeration at the right lung base as compared to yesterday. Segmental atelectasis has almost completely resolved. 2. Mild persistent opacities at the right lung base likely represent residual atelectasis. Correlate clinically for evidence of superimposed pneumonia Electronically signed by: Matt Thibodeaux M.D. 03/11/2018 10:50 AM Dictated Date/Time: 03/11/2018 10:48 AM
--- NOTE | 2018-03-11 12:20 | Pulmonology Progress Note ---
Pulmonary Progress Note Date of Service Mar 11, 2018. Attending Dr. Carranza Subjective Patient appears more alert and less agitated today Objective Patient notably comfortable today lying in bed with no signs of respiratory insufficiency: PmHx: Cerebral palsy/cognitive defect, history of seizure, history of aspiration pneumonia, chronic bronchiectasis, recurrent pulmonary infections please see below, tracheostomy secondary to respiratory insufficiency, sinus bradycardia PsHx: Gastrostomy tube placement, tracheostomy Vital signs: Stable on trach collar FiO2 28% Respiratory: Mild rhonchi appreciated over the right hemithorax but greatly improved as compared to previous exam Cardiac: S1-S2 mildly tachycardic but distant heart sounds Abdomen: Positive bowel sounds soft nontender no pain to deep palpation no signs of rebound Extremities: Notably contracted no signs of breakdown Skin: Intact Inpatient Pulmonary interventions/Medications 1. Dornase nebulized 2. Chest physiotherapy 3. Doxycycline Q 12 (Day#3) 4. Zosyn IV Q 8 (Day#3) 5. Duo nebs, 6. Ventolin nebulizer Q 4 p.r.n. Current inpatient Microbiology Sputum 03/08/2018: Pansensitive Pseudomonas Aeruginosa BAL right upper lobe 03/10/2018: Pending Microbiology history Urine: E coli Tracheostomy, stenotrophomonas maltophilia, MSSA, Moraxella catarrhalis, corynebacterium, alpha strep species, necessary species, Haemophilus influenzae beta lactamase negative, Tatumella Ptyseos, alpha strep, Providencia Stuartii, corynebacterium species, micrococcus species Gastric aspirate, group B strep, corynebacterium, corynebacterium, Abdomen surface, Pseudomonas aeruginosa, Klebsiella oxytoca, corynebacterium, MSSA, group B beta strep Trachea: Pseudomonas, MSSA, Neisseria species, stenotrophomonas, Providencia Stuartii Trans- Tracheal needle aspiration: Pseudomonas Sputum: Pseudomonas Aeruginosa, Moraxella catarrhalis, Achromobacter Xylosoxidans, Tracheal washing 01/17/2018: Pseudomonas Aeruginosa virk resistant Expectorated sputum 03/07/2018: Moraxella catarrhalis, probable pseudomonal species Radiology: CXR 03/11/2018: Showing dramatic improvement in the patient's right hemithorax Assessment & Plan 23-year-old female with chronic tracheostomy secondary to respiratory insufficiency with recurrent pneumonias admitted for sputum production and fever in noted to have right hemithoracic opacification/atelectasis: 1. Right hemithoracic atelectasis: Patient underwent bronchoscopic intervention on 03/10/2018 with microbiologic reports pending but bronchoscopy did show diffuse mucus plugs even 1 occluding the right mainstem bronchus which were removed. Patient both clinically as well as radiographically has responded well showing complete resolution of previous CXR opacification. 2.Leukocytosis: Most likely secondary to right hemithoracic opacification with sputum culture obtain 03/08/2018 growing out Pseudomonas. I have reviewed the patient's previous microbiologic records and her Pseudomonas on multiple occasions has been pansensitive mildly intermittently resistant. There were 2 previous pulmonary pseudomonal organisms grown out on 06/12/2010 as well as which did have resistance pattern noted to imipenem but multiple specimen since that time were imipenem sensitive. The patient has responded well to Zosyn which has been noted to be effective against all her previous pseudomonal growth. At this time I will discontinue the doxycycline and continue her Zosyn coverage. As the patient is clinically responding and previous organisms have been Zosyn sensitive I do not believe double coverage is necessary at this time. 2. Tracheostomy: Patient's tracheostomy currently clear no signs of active infection receiving excellent trach care by the RT staff. 3. EKG: Repeat EKG on 04/06/2018 does show sinus tachycardia with premature atrial contractions. The patient's current rhythm is notably mild sinus tachycardia with a rate of 101 while was in the room in no signs of PAC. I do not believe any acute workup is necessary at this time but continued monitoring is warranted. Data Medications: Current Inpatient Medications Medications (Trade) Dose Ordered Sig/Rosalino Route Start Time Stop Time Status Last Admin Dose Admin Baclofen (Lioresal Tab) 10 mg DAILY@1400 PO 03/09/18 14:00 04/08/18 13:59 03/10/18 12:40 10 MG Baclofen (Lioresal Tab) 20 mg BID@0800,2000 GT 03/08/18 21:00 04/07/18 20:59 03/11/18 07:54 20 MG Budesonide (Pulmicort Respules 0.5MG/ 2ML Neb Soln) 1 mg BIDR INH 03/08/18 20:00 04/07/18 19:59 8/4/18 07:00 1 MG Cetirizine HCl (zyrTEC TAB) 10 mg DAILY PO 03/09/18 09:00 04/08/18 08:59 03/11/18 07:55 10 MG Trazodone HCl (Desyrel Tab) 50 mg HS PO 03/08/18 21:00 04/07/18 20:59 03/10/18 20:14 50 MG Fluoxetine HCl (Prozac Cap) 10 mg DAILY PO 03/09/18 09:00 04/08/18 08:59 03/11/18 07:55 10 MG Polyethylene (Miralax Powder Packet) 17 gm DAILY PO 03/09/18 09:00 04/08/18 08:59 03/11/18 07:55 17 GM Albuterol/ Ipratropium (Duoneb) 3 ml Q6R INH 03/08/18 21:00 04/07/18 20:59 03/11/18 07:00 3 ML Albuterol Sulfate (Ventolin 0.083% 2.5MG/3ML Neb) 2.5 mg Q4R PRN INH 03/08/18 19:30 04/07/18 19:29 Piperacillin Sod/ Tazobactam Sod 3.375 gm/Dextrose 115 ml @ 28.75 mls/ hr Q8H IV 03/09/18 00:00 03/16/18 00:00 03/11/18 07:50 28.75 MLS/HR Miscellaneous Information (Consult) 1 ea UD PRN N/A 03/08/18 19:30 04/07/18 19:29 Acetaminophen (Tylenol Tab) 650 mg Q4H PRN PO 03/08/18 19:30 04/07/18 19:29 03/10/18 20:16 650 MG Al Hydrox/Mg Hydrox/Simethicone (Maalox Max Susp) 15 ml Q4H PRN PO 03/08/18 19:30 04/07/18 19:29 Magnesium Hydroxide (Milk Of Magnesia Susp) 30 ml Q12H PRN PO 03/08/18 19:30 04/07/18 19:29 Ondansetron HCl (Zofran Inj) 4 mg Q6H PRN IV 03/08/18 19:30 04/07/18 19:29 Polyethylene (Miralax Powder Packet) 17 gm DAILY PRN PO 03/08/18 19:30 04/07/18 19:29 Valproic Acid (Depakene Syrup) 400 mg Q8H GT 03/08/18 21:00 04/07/18 20:59 03/11/18 11:22 400 MG Zonisamide (Zonegran) 200 mg BID PEG 03/08/18 21:00 04/07/18 20:59 03/11/18 07:54 200 MG Doxycycline Hyclate 100 mg/ Dextrose 110 ml @ 50 mls/hr Q12H IV 03/09/18 13:00 03/16/18 12:59 03/11/18 11:23 50 MLS/HR Enteral Nutritional Formula (Boost) 1 can QID@0700,1100,1600,2000 PEG 03/09/18 16:00 04/07/18 20:59 03/11/18 11:22 1 CAN Dornase Morgan (Pulmozyme Inhalation Soln 2.5ml Amp) 2.5 ml BIDR INH 03/10/18 20:00 04/09/18 19:59 03/11/18 07:00 2.5 ML Parenteral Electrolyte Solution 1,000 ml @ 80 mls/hr [id number] IV 03/10/18 14:45 04/09/18 14:44 03/11/18 07:53 80 MLS/HR Vital Signs: Date Time Temp Pulse Resp B/P (MAP) Pulse Ox O2 Delivery O2 Flow Rate FiO2 03/11/18 08:00 Trach Collar 28 03/11/18 08:00 36.9 84 24 90/62 (71) 96 Trach Collar 28 03/11/18 07:00 84 28 96 Trach Collar 28 03/11/18 06:00 85 21 98/74 (82) 95 Trach Collar 28 03/11/18 05:00 95 22 89/61 (70) 97 Trach Collar 28 03/11/18 04:00 36.9 73 22 93/61 (72) 98 Trach Collar 28 03/11/18 03:00 79 26 92/49 (63) 97 Trach Collar 28 03/11/18 02:09 91 22 98 Trach Collar 12.0 28 03/11/18 02:00 77 23 98/55 (69) 96 Trach Collar 28 03/11/18 01:00 88 27 92/52 (65) 95 Trach Collar 28 03/11/18 01:00 Trach Collar 28 03/11/18 00:01 36.9 96 27 85/40 (55) 96 Trach Collar 40 03/10/18 23:00 96 34 91/53 (66) 91 Trach Collar 40 03/10/18 22:00 78 31 89/53 (65) 97 40 03/10/18 21:00 83 25 129/81 (97) 96 Trach Collar 40 03/10/18 20:19 116 26 98 Trach Collar 12.0 70 03/10/18 20:00 Trach Collar 03/10/18 20:00 37.9 96 23 97/72 (80) 96 Trach Collar 40 03/10/18 18:43 117 24 91/59 (70) 93 Trach Collar 50 03/10/18 16:00 37.3 115 30 80/62 (68) 96 Trach Collar 50 03/10/18 14:27 120 24 98 Trach Collar 12.0 100 03/10/18 14:00 121 22 100/70 (80) 95 Trach Collar 50 Laboratory Results: Last 24 Hours Test 03/10/18 14:50 03/11/18 05:01 Valproic Acid (Depakene) Level 100 mcg/ml Lactic Acid Level 0.4 mmol/L
[2018-03-11] MEDS: BACLOFEN 10 MG TAB PO SCH (14:17)
[2018-03-11] MEDS: TRAZODONE HCL 50 MG TAB PO SCH (20:22)
--- NOTE | 2018-03-11 22:23 | Progress Note ---
Subjective Date of Service: Mar 11, 2018. Subjective Pt evaluation today including: conversation w/ patient, physical exam Patient provides no history due to her cerebral palsy. 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 Patient x-ray have improved, as well as oxygen needs. Patient can be transferred to medical floor Review of Systems unable to obtain ROS. Objective Vital Signs Date Time Temp Pulse Resp B/P (MAP) Pulse Ox O2 Delivery O2 Flow Rate FiO2 03/11/18 19:26 117 24 96 Trach Collar 28 03/11/18 19:09 37.3 107 18 83/57 (66) 93 Trach Collar 03/11/18 17:01 36.7 88 28 91/59 (70) 92 Trach Collar 10.0 28 03/11/18 16:15 Trach Collar 28 03/11/18 14:05 109 30 92 Trach Collar 10.0 28 03/11/18 14:00 101 24 89/53 (65) 96 Trach Collar 28 03/11/18 12:00 36.6 104 24 93/56 (68) 94 Trach Collar 28 03/11/18 08:00 Trach Collar 28 03/11/18 08:00 36.9 84 24 90/62 (71) 96 Trach Collar 28 03/11/18 07:00 84 28 96 Trach Collar 28 03/11/18 06:00 85 21 98/74 (82) 95 Trach Collar 28 03/11/18 05:00 95 22 89/61 (70) 97 Trach Collar 28 03/11/18 04:00 36.9 73 22 93/61 (72) 98 Trach Collar 28 03/11/18 03:00 79 26 92/49 (63) 97 Trach Collar 28 03/11/18 02:09 91 22 98 Trach Collar 12.0 28 03/11/18 02:00 77 23 98/55 (69) 96 Trach Collar 28 03/11/18 01:00 88 27 92/52 (65) 95 Trach Collar 28 03/11/18 01:00 Trach Collar 28 03/11/18 00:01 36.9 96 27 85/40 (55) 96 Trach Collar 40 03/10/18 23:00 96 34 91/53 (66) 91 Trach Collar 40 Physical Exam Comments: General Appearance: Patient no longer appears to be in distress+ pertinent finding (Thin, young female with contractures - nonverbal) Head: normocephalic Eyes: normal inspection ENT: normal ENT inspection, pharynx normal, + pertinent finding (No thrush or exudate seen in oral cavity - palatal hyperplasia is seen) Neck: supple, + pertinent finding (Trach in place) Respiratory/Chest: Improved breath sounds on the right. Cardiovascular: tachycardia, rhythm, no edema, no gallop Abdomen/GI: normal bowel sounds, non tender, soft, + pertinent finding (No inflammation at PEG site) Back: normal inspection, no CVA tenderness Extremities/Musculoskelatal: normal inspection, normal capillary refill, no pedal edema Neurologic/Psych: + pertinent finding (Moves all extremities - does not respond to question - nonverbal at baseline - non-ambulatroy at baseline) Skin: normal color, warm/dry Laboratory Results Last 24 Hours Test 03/11/18 05:01 Lactic Acid Level 0.4 mmol/L Assessment and Plan 23 y/o F Hx severe cerebral palsy with trach and peg, seizures, aspiration PNM, recurrent trach infections. Pt is nonambulatory and nonverbal. She is brought into the hospital by her father and her silk weaver due to a cough, increased trach secretions and a fever. She has had a history of aspiration and pseudomonas infections. The pt is unable to provide any direct information. She has seizures a few times a week per her silk weaver and last had a seizure the AM prior to admission. 1) Hypoxia with change in x-ray: WHITE OUT OF R LIGHT Likely has mucous plug and pneumonia -D/W Pulmonary and concrete mason Patient will have emergent bronch. Showed large mucuos plug which was removed Patient today has shown significant improvement. D/W concrete mason, patient may be transferred off Intensive care unit and to medical floor with continuos oxygen. 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 2) Seizure disorder - continue Zonegran and Valproic acid 3) Cerebral palsy - admitted to telemetry due to trach use -transferred to ICU yesterday and will be transferred back to tel - all meds are via peg. The pt takes 400cc of boost QID as nutrition. 4)Premature atrial contractions: Patient tele monitor shows P wave. Despite being irregularly, this does not appear to be a. fib Full code - confirmed with family - SCDs Virtual Recruiter, Pulmonary and myself spoke with mother on phone today. Continued [facility] stay due to: multiple IV medications needed, other Discharge planning: uncertain
[2018-03-12] VITALS (10 sets, daily range): BP systolic 91–105; BP diastolic 51–75; PULSE 80–117; TEMP 36.6–37.1; O2SAT 91–99
[2018-03-12] MEDS: PIPERACILL/TAZOBAC IV 3.375 GM in DEXTROSE 5% 100ML 100 ML IV SCH ×4 (00:42→23:57)
[2018-03-12] MEDS: DOXYCYCLINE IV 100 MG in DEXTROSE 5% 100ML 100 ML IV SCH (01:31)
[2018-03-12] MEDS: ALBUT/IPRATROP 3MG/0.5MG NEB 3 ML VIAL INH SCH ×4 (01:47→19:07)
[2018-03-12] MEDS: VALPROIC ACID SYRUP 250 MG/5 ML GT SCH ×3 (05:21→20:34)
[2018-03-12] MEDS: FLUOXETINE HCL 10 MG CAP PO SCH (07:16)
[2018-03-12] MEDS: ZONISAMIDE 100 MG CAP PEG SCH ×2 (07:16→20:35)
[2018-03-12] MEDS: CETIRIZINE HCL 10 MG TAB PO SCH (07:16)
[2018-03-12] MEDS: BACLOFEN 10 MG TAB GT SCH ×2 (07:17→20:34)
[2018-03-12] MEDS: BOOST VANILLA OR BOOST GLUCOSE CONTROL CHOCOLATE PEG SCH ×4 (07:17→20:34)
[2018-03-12] MEDS: BUDESONIDE 0.5 MG/2 ML VIAL (PULMICORT) INH SCH ×2 (07:17→19:07)
[2018-03-12] MEDS: POLYETHYLENE (MIRALAX) 17 GM PACK PO SCH (07:17)
[2018-03-12] MEDS: DORNASE ALFA 2.5 ML AMP INH SCH ×2 (07:17→19:07)
--- NOTE | 2018-03-12 07:20 | Pulmonology Progress Note ---
Pulmonary Progress Note Date of Service Mar 12, 2018. Attending Dr. Carranza Subjective Patient is alert and showing no-signs of acute distress Objective The patient is awake and response to voice. No signs of respiratory distress PmHx: Cerebral palsy/cognitive defect, history of seizure, history of aspiration pneumonia, chronic bronchiectasis, recurrent pulmonary infections please see below, tracheostomy secondary to respiratory insufficiency, sinus bradycardia PsHx: Gastrostomy tube placement, tracheostomy Vital signs: Stable on trach collar FiO2 28% Respiratory: Mild rhonchi appreciated over the RLL regions Cardiac: S1-S2 mildly tachycardic but distant heart sounds Abdomen: Positive bowel sounds soft nontender no pain to deep palpation no signs of rebound Extremities: Notably contracted no signs of breakdown Skin: Intact Inpatient Pulmonary interventions/Medications 1. Dornase nebulized 2. Chest physiotherapy 3. Doxycycline Q 12 (Day#3) 4. Zosyn IV Q 8 (Day#3) 5. Duo nebs, 6. Ventolin nebulizer Q 4 p.r.n. Current inpatient Microbiology Sputum 03/08/2018: Pansensitive Pseudomonas Aeruginosa BAL right upper lobe 03/10/2018: Pending Microbiology history Urine: E coli Tracheostomy, stenotrophomonas maltophilia, MSSA, Moraxella catarrhalis, corynebacterium, alpha strep species, necessary species, Haemophilus influenzae beta lactamase negative, Tatumella Ptyseos, alpha strep, Providencia Stuartii, corynebacterium species, micrococcus species Gastric aspirate, group B strep, corynebacterium, corynebacterium, Abdomen surface, Pseudomonas aeruginosa, Klebsiella oxytoca, corynebacterium, MSSA, group B beta strep Trachea: Pseudomonas, MSSA, Neisseria species, stenotrophomonas, Providencia Stuartii Trans- Tracheal needle aspiration: Pseudomonas Sputum: Pseudomonas Aeruginosa, Moraxella catarrhalis, Achromobacter Xylosoxidans, Tracheal washing 01/17/2018: Pseudomonas Aeruginosa virk resistant Expectorated sputum 03/07/2018: Moraxella catarrhalis, probable pseudomonal species Radiology: CXR 03/11/2018: Showing dramatic improvement in the patient's right hemithorax Assessment & Plan 23-year-old female with chronic tracheostomy secondary to respiratory insufficiency with recurrent pneumonias admitted for sputum production and fever in noted to have right hemithoracic opacification/atelectasis: 1. Right hemithoracic atelectasis: Patient underwent bronchoscopic intervention on 03/10/2018 with microbiologic reports pending but bronchoscopy did show diffuse mucus plugs even 1 occluding the right mainstem bronchus which were removed. Patient both clinically as well as radiographically has responded well showing complete resolution of previous CXR opacification. 2.Leukocytosis: Please review my note from 03/11/2018 which talks about previous pseudomonal sensitivities. This time her sputum from 03/08/2018 did grow out Pseudomonas and if she is clinically responding to intervention such as antibiotics, dornase, chest physiotherapy and bronchoscopy I have discontinue the doxycycline and will continue to clinically monitor. 3. Tracheostomy: Patient's tracheostomy currently clear no signs of active infection receiving excellent trach care by the RT staff. 4. EKG: Repeat EKG on 04/06/2018 does show sinus tachycardia with premature atrial contractions. The patient's current rhythm is notably mild sinus tachycardia with a rate of 101 while was in the room in no signs of PAC. I do not believe any acute workup is necessary at this time but continued monitoring is warranted. Data Medications: Current Inpatient Medications Medications (Trade) Dose Ordered Sig/Rosalino Route Start Time Stop Time Status Last Admin Dose Admin Baclofen (Lioresal Tab) 10 mg DAILY@1400 PO 03/09/18 14:00 04/08/18 13:59 03/11/18 14:17 10 MG Baclofen (Lioresal Tab) 20 mg BID@0800,2000 GT 03/08/18 21:00 04/07/18 20:59 03/11/18 20:20 20 MG Budesonide (Pulmicort Respules 0.5MG/ 2ML Neb Soln) 1 mg BIDR INH 03/08/18 20:00 04/07/18 19:59 03/11/18 19:26 1 MG Cetirizine HCl (zyrTEC TAB) 10 mg DAILY PO 03/09/18 09:00 04/08/18 08:59 03/11/18 07:55 10 MG Trazodone HCl (Desyrel Tab) 50 mg HS PO 03/08/18 21:00 04/07/18 20:59 03/11/18 20:22 50 MG Fluoxetine HCl (Prozac Cap) 10 mg DAILY PO 03/09/18 09:00 04/08/18 08:59 03/11/18 07:55 10 MG Polyethylene (Miralax Powder Packet) 17 gm DAILY PO 03/09/18 09:00 04/08/18 08:59 03/11/18 07:55 17 GM Albuterol/ Ipratropium (Duoneb) 3 ml Q6R INH 03/08/18 21:00 04/07/18 20:59 03/12/18 01:47 3 ML Albuterol Sulfate (Ventolin 0.083% 2.5MG/3ML Neb) 2.5 mg Q4R PRN INH 03/08/18 19:30 04/07/18 19:29 Piperacillin Sod/ Tazobactam Sod 3.375 gm/Dextrose 115 ml @ 28.75 mls/ hr Q8H IV 03/09/18 00:00 03/16/18 00:00 03/12/18 00:42 28.75 MLS/HR Miscellaneous Information (Consult) 1 ea UD PRN N/A 03/08/18 19:30 04/07/18 19:29 Acetaminophen (Tylenol Tab) 650 mg Q4H PRN PO 03/08/18 19:30 04/07/18 19:29 03/10/18 20:16 650 MG Al Hydrox/Mg Hydrox/Simethicone (Maalox Max Susp) 15 ml Q4H PRN PO 03/08/18 19:30 04/07/18 19:29 Magnesium Hydroxide (Milk Of Magnesia Susp) 30 ml Q12H PRN PO 03/08/18 19:30 04/07/18 19:29 Ondansetron HCl (Zofran Inj) 4 mg Q6H PRN IV 03/08/18 19:30 04/07/18 19:29 Polyethylene (Miralax Powder Packet) 17 gm DAILY PRN PO 03/08/18 19:30 04/07/18 19:29 Valproic Acid (Depakene Syrup) 400 mg Q8H GT 03/08/18 21:00 04/07/18 20:59 03/12/18 05:21 400 MG Zonisamide (Zonegran) 200 mg BID PEG 03/08/18 21:00 04/07/18 20:59 03/11/18 20:22 200 MG Doxycycline Hyclate 100 mg/ Dextrose 110 ml @ 50 mls/hr Q12H IV 03/09/18 13:00 03/16/18 12:59 03/12/18 01:31 50 MLS/HR Enteral Nutritional Formula (Boost) 1 can QID@0700,1100,1600,2000 PEG 03/09/18 16:00 04/07/18 20:59 03/11/18 20:21 1 CAN Dornase Morgan (Pulmozyme Inhalation Soln 2.5ml Amp) 2.5 ml BIDR INH 03/10/18 20:00 04/09/18 19:59 03/11/18 19:26 2.5 ML Vital Signs: Date Time Temp Pulse Resp B/P (MAP) Pulse Ox O2 Delivery O2 Flow Rate FiO2 03/12/18 03:15 36.6 105 24 92/51 (65) 97 Trach Collar 03/12/18 01:48 80 20 96 Trach Collar 28 03/11/18 23:22 36.6 90 24 81/44 (56) 96 Trach Collar 03/11/18 20:00 Trach Collar 10.0 28 03/11/18 19:26 117 24 96 Trach Collar 28 03/11/18 19:09 37.3 107 18 83/57 (66) 93 Trach Collar 03/11/18 17:01 36.7 88 28 91/59 (70) 92 Trach Collar 10.0 28 03/11/18 16:15 Trach Collar 28 03/11/18 14:05 109 30 92 Trach Collar 10.0 28 03/11/18 14:00 101 24 89/53 (65) 96 Trach Collar 28 03/11/18 12:00 36.6 104 24 93/56 (68) 94 Trach Collar 28 03/11/18 08:00 Trach Collar 28 03/11/18 08:00 36.9 84 24 90/62 (71) 96 Trach Collar 28 Laboratory Results: Last 24 Hours Test 03/12/18 07:11
--- NOTE | 2018-03-12 07:37 | DIAGNOSTIC IMAGING REPORT ---
CHEST ONE VIEW PORTABLE CLINICAL HISTORY: dylan-thoracic atelectasis dyspnea COMPARISON STUDY: 03/11/2018 FINDINGS: Mild bibasilar atelectasis. This is stable to slightly improved from the prior study. Mid and upper lungs are clear. There is tracheostomy tube in good position. IMPRESSION: Mild bibasilar atelectatic change considered improved from the prior study. Lungs otherwise are clear. The above report was generated using voice recognition software. It may contain grammatical, syntax or spelling errors. Electronically signed by: Jas Hargrove M.D. 03/12/2018 7:35 AM Dictated Date/Time: 03/12/2018 7:34 AM
[2018-03-12 08:06] LABS: HEMATOCRIT 38.5 % (37-47); HEMOGLOBIN 12.9 g/dL (12.0-16.0); MEAN CELL VOLUME 97.5 fL (80-100); MEAN CORPUSCULAR HEMOGLOBIN 32.7 pg (25-34); MEAN CORPUSCULAR HGB CONC 33.5 g/dl (32-36); MEAN PLATELET VOLUME 9.5 fL (7.4-10.4); PLATELET COUNT 155 K/uL (130-400); RED CELL DISTRIBUTION WIDTH CV 12.8 % (11.5-14.5); RED CELL DISTRIBUTION WIDTH SD 45.8 fL (36.4-46.3); WHITE BLOOD COUNT 4.57 K/uL (4.8-10.8)
[2018-03-12 08:27] LABS: ALBUMIN 3.4 gm/dl (3.4-5.0); ALKALINE PHOSPHATASE 66 U/L (45-117); ALT/SGPT 13 U/L (12-78); AST/SGOT 15 U/L (15-37); BLOOD UREA NITROGEN 11 mg/dl (7-18); CALCIUM 9.4 mg/dl (8.5-10.1); CARBON DIOXIDE 28 mmol/L (21-32); CREATININE 0.46 mg/dl (0.60-1.20); GLUCOSE 80 mg/dl (70-99); POTASSIUM 4.3 mmol/L (3.5-5.1); SODIUM 139 mmol/L (136-145); TOTAL PROTEIN 7.9 gm/dl (6.4-8.2)
[2018-03-12] MEDS: BACLOFEN 10 MG TAB PO SCH (16:17)
[2018-03-12] MEDS: TRAZODONE HCL 50 MG TAB PO SCH (20:35)
--- NOTE | 2018-03-12 23:28 | Progress Note ---
Subjective Date of Service: Mar 12, 2018. Objective Vital Signs Date Time Temp Pulse Resp B/P (MAP) Pulse Ox O2 Delivery O2 Flow Rate FiO2 03/12/18 20:00 Trach Collar 9.0 28 03/12/18 19:40 37.1 117 22 91/57 (68) 91 Trach Collar 03/12/18 19:08 101 24 99 Trach Collar 28 03/12/18 14:20 93 22 99 Trach Collar 28 03/12/18 11:49 36.6 84 16 94/75 (81) 94 Trach Collar 03/12/18 08:30 36.7 97 22 98/60 (73) 98 Nasal Cannula 9.0 03/12/18 08:00 98 Nasal Cannula 9.0 28 Trach Collar 03/12/18 07:16 93 22 95 Trach Collar 28 03/12/18 03:15 36.6 105 24 92/51 (65) 97 Trach Collar 03/12/18 01:48 80 20 96 Trach Collar 28 Laboratory Results Last 24 Hours Test 03/12/18 07:37 White Blood Count 4.57 K/uL Red Blood Count 3.95 M/uL Hemoglobin 12.9 g/dL Hematocrit 38.5 % Mean Corpuscular Volume 97.5 fL Mean Corpuscular Hemoglobin 32.7 pg Mean Corpuscular Hemoglobin Concent 33.5 g/dl RDW Standard Deviation 45.8 fL RDW Coefficient of Variation 12.8 % Platelet Count 155 K/uL Mean Platelet Volume 9.5 fL Sodium Level 139 mmol/L Potassium Level 4.3 mmol/L Chloride Level 104 mmol/L Carbon Dioxide Level 28 mmol/L Anion Gap 7.0 mmol/L Blood Urea Nitrogen 11 mg/dl Creatinine 0.46 mg/dl Est Creatinine Clear Calc Drug Dose 148.7 ml/min Estimated GFR () > 150.0 Estimated GFR (Non- 142.2 BUN/Creatinine Ratio 23.4 Random Glucose 80 mg/dl Calcium Level 9.4 mg/dl Total Bilirubin 0.3 mg/dl Aspartate Amino Transf (AST/SGOT) 15 U/L Alanine Aminotransferase (ALT/SGPT) 13 U/L Alkaline Phosphatase 66 U/L Total Protein 7.9 gm/dl Albumin 3.4 gm/dl Globulin 4.5 gm/dl Albumin/Globulin Ratio 0.8 Assessment and Plan 23 y/o F Hx severe cerebral palsy with trach and peg, seizures, aspiration PNM, recurrent trach infections. Pt is nonambulatory and nonverbal. She is brought into the hospital by her father and her superintendent of generation due to a cough, increased trach secretions and a fever. She has had a history of aspiration and pseudomonas infections. The pt is unable to provide any direct information. She has seizures a few times a week per her superintendent of generation and last had a seizure the AM prior to admission. 1) Hypoxia with change in x-ray: WHITE OUT OF R LIGHT Likely has mucous plug and pneumonia -D/W Pulmonary and recruiting coordinator Patient will have emergent bronch. Showed large mucuos plug which was removed Patient today has shown significant improvement. D/W recruiting coordinator, patient may be transferred off Intensive care unit and to medical floor with continuos oxygen. However after discussing with mother, patient will be transferred to tele as family feel more comfortable that we monitor her HR as they state that at home she is on pulse oxymetry and medical doctor nuclear medicine Patient will contineu to be on zosyn and doxycycline. 2) Seizure disorder - continue Zonegran and Valproic acid 3) Cerebral palsy - admitted to telemetry due to trach use -transferred to ICU yesterday and will be transferred back to tel - all meds are via peg. The pt takes 400cc of boost QID as nutrition. 4)Premature atrial contractions: Patient tele monitor shows P wave. Despite being irregularly, this does not appear to be a. fib Full code - confirmed with family - [employer] Supervisor, Pulmonary and myself spoke with mother on phone today. Continued [facility] stay due to: multiple IV medications needed, other Discharge planning: uncertain
[2018-03-13] MEDS: ALBUT/IPRATROP 3MG/0.5MG NEB 3 ML VIAL INH SCH ×2 (02:39→06:58)
[2018-03-13 02:40] VITALS: PULSE 87; O2SAT 99
[2018-03-13 03:11] VITALS: BP 90/59; PULSE 95; TEMP 36.4; O2SAT 96
[2018-03-13] MEDS: VALPROIC ACID SYRUP 250 MG/5 ML GT SCH (05:08)
[2018-03-13 06:56] VITALS: BP 97/59; PULSE 86; TEMP 36.4; O2SAT 96
[2018-03-13 06:58] VITALS: PULSE 85; O2SAT 98
[2018-03-13] MEDS: DORNASE ALFA 2.5 ML AMP INH SCH (06:58)
[2018-03-13] MEDS: BUDESONIDE 0.5 MG/2 ML VIAL (PULMICORT) INH SCH (06:58)
[2018-03-13] MEDS: ZONISAMIDE 100 MG CAP PEG SCH (07:23)
[2018-03-13] MEDS: CETIRIZINE HCL 10 MG TAB PO SCH (07:24)
[2018-03-13] MEDS: BACLOFEN 10 MG TAB GT SCH (07:24)
[2018-03-13] MEDS: BOOST VANILLA OR BOOST GLUCOSE CONTROL CHOCOLATE PEG SCH ×2 (07:25→11:58)
[2018-03-13] MEDS: FLUOXETINE HCL 10 MG CAP PO SCH (07:25)
[2018-03-13] MEDS: PIPERACILL/TAZOBAC IV 3.375 GM in DEXTROSE 5% 100ML 100 ML IV SCH (07:25)
[2018-03-13] MEDS: POLYETHYLENE (MIRALAX) 17 GM PACK PO SCH (07:25)
--- NOTE | 2018-03-13 11:24 | Discharge Instructions ---
Discharge Instructions Date of Service Mar 13, 2018. Admission Reason for Admission: Pneumonia Discharge Discharge Diagnosis / Problem: Pneumonia Discharge Goals Goal(s): Decrease discomfort, Improve function Activity Recommendations Activity Limitations: resume your previous activity Instructions / Follow-Up Instructions / Follow-Up Followup with PCP and Pulmonary doctor within 1-2 weeks Patient was hospitalized with a mucus plug. Patient had brochoscopy which cleared it up. Cultures did not show multi drug resistant pseudomonas. Patient completed treatment of antibiotics and can be discharged. Current Hospital Diet Patient's current hospital diet: Discharge Diet Recommended Diet: N/A (Resume previous home diet) Procedures Procedures Performed: Flexible bronchoscopy, bronchial lavage right upper lobe Pending Studies Studies pending at discharge: no Medical Emergencies . Who to Call and When: Medical Emergencies: If at any time you feel your situation is an emergency, please call 911 immediately. . Non-Emergent Contact Non-Emergency issues call your: Primary Care Provider Call Non-Emergent contact if: you have any medication questions . . "Provider Documentation" section prepared by Pavan Frias. .
[2018-03-13 11:30] VITALS: BP 100/63; PULSE 90; TEMP 37.1; O2SAT 97
[2018-03-13 12:16] VITALS: BP 97/59; PULSE 85; TEMP 36.4; O2SAT 98
--- NOTE | 2018-03-13 16:58 | Pulmonology Progress Note ---
Pulmonary Progress Note Date of Service Mar 13, 2018. Attending Dr. Hernandez Subjective Review of system is not obtainable from this patient who has CP. Objective The patient is awake and response to voice. No signs of respiratory distress PmHx: Cerebral palsy/cognitive defect, history of seizure, history of aspiration pneumonia, chronic bronchiectasis, recurrent pulmonary infections please see below, tracheostomy secondary to respiratory insufficiency, sinus bradycardia PsHx: Gastrostomy tube placement, tracheostomy Vital signs: Stable on trach collar FiO2 28% Respiratory: Mild rhonchi appreciated over the RLL regions Cardiac: S1-S2 mildly tachycardic but distant heart sounds Abdomen: Positive bowel sounds soft nontender no pain to deep palpation no signs of rebound Extremities: Notably contracted no signs of breakdown Skin: Intact Inpatient Pulmonary interventions/Medications 1. Dornase nebulized 2. Chest physiotherapy 3. Doxycycline Q 12 (Day#3) 4. Zosyn IV Q 8 (Day#3) 5. Duo nebs, 6. Ventolin nebulizer Q 4 p.r.n. Current inpatient Microbiology Sputum 03/08/2018: Pansensitive Pseudomonas Aeruginosa BAL right upper lobe 03/10/2018: Pending Microbiology history Urine: E coli Tracheostomy, stenotrophomonas maltophilia, MSSA, Moraxella catarrhalis, corynebacterium, alpha strep species, necessary species, Haemophilus influenzae beta lactamase negative, Tatumella Ptyseos, alpha strep, Providencia Stuartii, corynebacterium species, micrococcus species Gastric aspirate, group B strep, corynebacterium, corynebacterium, Abdomen surface, Pseudomonas aeruginosa, Klebsiella oxytoca, corynebacterium, MSSA, group B beta strep Trachea: Pseudomonas, MSSA, Neisseria species, stenotrophomonas, Providencia Stuartii Trans- Tracheal needle aspiration: Pseudomonas Sputum: Pseudomonas Aeruginosa, Moraxella catarrhalis, Achromobacter Xylosoxidans, Tracheal washing 01/17/2018: Pseudomonas Aeruginosa virk resistant Expectorated sputum 03/07/2018: Moraxella catarrhalis, probable pseudomonal species Radiology: CXR 03/11/2018: Showing dramatic improvement in the patient's right hemithorax The patient's vital signs remained stable, she is not tachypneic when I interviewed her, muscle contraction 4 extremities, tracheostomy tube is well maintained, rhonchi bilaterally, severe chest wall deformity. Imaging were reviewed which showed complete opacification of the right lung and improved completely after bronchoscopy. The patient received 5 days course of Zosyn. Assessment & Plan 23-year-old female with chronic tracheostomy secondary to respiratory insufficiency with recurrent pneumonias admitted for sputum production and fever in noted to have right hemithoracic opacification/atelectasis: 1. Right hemithoracic atelectasis: Patient underwent bronchoscopic intervention on 03/10/2018 with microbiologic reports pending but bronchoscopy did show diffuse mucus plugs even 1 occluding the right mainstem bronchus which were removed. The improvement was noted as well clinically and by imaging, the patient grew Pseudomonas which was pansensitive compared to previous growth in January 2018. This likely representing the actual bacteriology which is colonizing her airways. I do not see any infiltrate on the chest x-ray after being inflated and bronchoscopy was done by my colleague Dr. Carranza, appreciate his input. Case discussed with him as well. 2. discussed with the mother over the phone, she is in agreement with the plan, she has questions about the Robinul which could cause inspissated mucoid impaction. She will hold off on it or restarted with much lower dose and less frequency in the future if needed. Her sister who had similar condition has been prescribed Robinul but it seems to be shared with her sister medication. Her sister also is on cough insufflator and the mother asked me in regard of using the insufflator, it is a good idea in patients who have poor cough reflex and cannot cooperate with vibrating vest. The vibrating vest may not help her given her twisted airways on the right side as well as the spine which would cause a dominant left lung and recessive right lung and difficulty coughing up her secretions. 3. I do believe that the Pseudomonas is only colonizing but not infectious to this patient. The patient received 5 days course of Zosyn which should be adequate. She did not have any fever. No signs of infectious process. No leukocytosis. Improved over hospital course. 4. The patient can be discharged home, I have contacted the mother myself in regard of further plan, she will continue her excellent care to both her daughters with chronic respiratory failure and tracheostomy tube. Thank you, discussed with Dr. Frias. Data Vital Signs: Date Time Temp Pulse Resp B/P (MAP) Pulse Ox O2 Delivery O2 Flow Rate FiO2 03/13/18 12:16 36.4 85 22 98 Room Air 03/13/18 11:30 37.1 90 28 100/63 (75) 97 Trach Collar 8.0 28 03/13/18 08:00 Trach Collar 9.0 28 03/13/18 06:58 85 22 98 Trach Collar 28 03/13/18 06:56 36.4 86 24 97/59 (72) 96 Trach Collar 03/13/18 03:11 36.4 95 23 90/59 (69) 96 Trach Collar 03/13/18 02:40 87 20 99 Trach Collar 28 03/12/18 23:27 36.6 107 24 105/69 (81) 96 Trach Collar 03/12/18 20:00 Trach Collar 9.0 28 03/12/18 19:40 37.1 117 22 91/57 (68) 91 Trach Collar 03/12/18 19:08 101 24 99 Trach Collar 28
== END 2018-03-13 12:48 | disposition home health service (06) | DRG 166 ==
LOC: C.EDB 15:12 → C.2E 19:43 → ENRESERV 19:53 → C.MSICU 03-10 07:03 → ENRESERV 03-11 15:45 → C.MS2W 03-11 16:46 → ENRESERV 03-11 18:18 → C.2E 03-11 18:30
PROVIDERS: ADMIT Internal Medicine; ATTEND Internal Medicine Sports Medicine
PROC: 0B9C8ZX Drainage of Right Upper Lung Lobe, Via Natural or Artificial Opening Endoscopic, Diagnostic (ICD-10-PCS; principal; 2018-03-10 07:00)
DX: J69.0 Pneumonitis due to inhalation of food and vomit (principal); J96.01 Acute respiratory failure with hypoxia; T17.800A Unspecified foreign body in other parts of respiratory tract causing asphyxiation, initial encounter; J98.11 Atelectasis; G80.9 Cerebral palsy, unspecified; Z93.0 Tracheostomy status; Z88.1 Allergy status to other antibiotic agents; Z93.1 Gastrostomy status; Z74.01 Bed confinement status; G40.909 Epilepsy, unspecified, not intractable, without status epilepticus; Z82.49 Family history of ischemic heart disease and other diseases of the circulatory system; Z83.6 Family history of other diseases of the respiratory system; Y92.019 Unspecified place in single-family (private) house as the place of occurrence of the external cause

== ENCOUNTER 2024-10-23 09:43 | Inpatient (IN) ==
--- NOTE | 2024-10-23 10:08 | Emergency Department Note ---
Impression & Plan Pneumonia Admit ED Provider Note HPI: History obtained from patient's mother and home nurses at the bedside. The patient is a 29-year-old female with history of cerebral palsy, tracheostomy dependence, spastic quadriplegia, presents the emergency department with a chief complaint of increased sputum production/tracheal secretions and tachypnea. According to the patient's home nurse at the bedside, the patient has had increased tracheal secretions recently after stopping a course of ciprofloxacin 7 days ago for tracheal cultures that showed Pseudomonas and Moraxella. On arrival here to the ED the patient is tachycardic at 130, respirations are 38, patient is afebrile on arrival and saturating at 98% on room air. ROS: - Per HPI Differential Diagnosis: Sepsis, pneumonia, urinary tract infection, viral upper respiratory infection to include influenza A, COVID-19, pleural effusion, empyema, tracheitis, amongst other potential pathologies. *Outpatient medications and allergy history reviewed. PE: General: Alert, nonverbal at baseline HEENT: Tracheostomy tube in place without surrounding erythema or drainage Eyes: Extraocular eye movement is intact, no scleral erythema Pulmonary: Coarse bilateral breath sounds Cardio: Tachycardic rate with regular rhythm GI: Abdomen is soft to palpation : No suprapubic tenderness MSK: Baseline contractures with history of cerebral palsy, otherwise no evidence of any traumatic findings or malformation Skin: No evidence of rash Neuro: Alert, baseline deficits with history of cerebral palsy, otherwise no new appreciable focal deficits Psychiatric: Not applicable INDEPENDENT INTERPRETATIONS: media monitor: (As interpreted by myself): - An order was placed for continuous cardiac monitoring - Patient was noted to be in sinus tachycardia with a rate of 121 EKG: (As interpreted by myself): Rate: 114 Rhythm: Sinus tachycardia Intervals: Within normal limits ST changes: No ST elevation Time: 1020 Chest x-ray: (As interpreted by myself): Left lower lobe pneumonia Interventions provided in ED: -IV fluid bolus, IV cefepime Medical Decision Making: IV was established and lab work obtained, patient was suctioned here in the ED. Lab work shows a leukocytosis of 18.68, hemoglobin is normal, platelet count is normal, VBG shows normal pH at 7.4, pCO2 is also normal at 41. CMP shows a mild hyponatremia 133, lactic acid is elevated mildly at 2.4, electrolytes are otherwise largely in range, troponin is negative x 1, procalcitonin is low at 0.10, viral panel testing was obtained and is negative. Patient remained somewhat tachypneic with tachycardia here in the ED, she does have baseline hypotension with her history of cerebral palsy and she is bedbound. She was given 30 cc/kg of IV fluid and started on IV cefepime over concern for pneumonia on chest x-ray. I suspect this is the source of her lab abnormalities and increased secretions. Sputum culture was also sent. Given the above, I did feel the patient would be appropriate for admission. Case was discussed with the on-call hospitalist, Dr. Jaramillo, as well as the patient's bedside home nurse/aide and they are in agreement for admission. Patient was placed for admission in stable condition. Consultants/Discussions held with other healthcare providers: -Hospitalist, Dr. Jaramillo Disposition discussion held by myself with: -Patient's home health/nurse Critical care time: 37 minutes -Stabilization of patient with tachycardia, hypotension, and lab work findings concerning for sepsis requiring IV fluid resuscitation, interpretation of diagnostic studies, discussion with other healthcare providers and arrangement of admission. Diagnosis: 1. Pneumonia, acute, left-sided 2. Leukocytosis, acute 3. Lactic acidosis, acute 4. 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) Epilepsy (Chronic) Tracheostomy in place (Chronic) Surgical History History of tracheostomy History of gastrostomy Family History Brother Asthma Grandfather (Paternal) Coronary heart disease Other Hypertension No pertinent family history in first degree relatives Social History Smoking Status: Never smoker Hx Alcohol Use: No Preferred Language: Occitan Current Living Situation: Family Feels Safe at Home: Yes Allergies Allergies Allergy/AdvReac Type Severity Reaction Status Date / Time ciprofloxacin [From Cipro] Allergy Mild IV Unverified 09/03/24 10:19 CIPRO-RASH Home Meds Home Medications Medication Instructions Recorded Confirmed food supplemt, lactose-reduced 350 ea PO UD 04/19/19 10/23/24 0.04 gram-1 kcal/mL oral liquid (Boost) multivitamin-ferrous 1 tab PO .FEEDING TUBE 09/10/19 10/23/24 fumarate-folic acid 18 mg-400 mcg tablet (Centrum) tobramycin 300 mg/5 mL in 0.225 % 300 mg inhalation Q12H PRN 02/02/21 10/23/24 sodium chloride for nebulization Shortness Of Breath acetaminophen 160 mg/5 mL oral 640 mg feeding tube UD PRN 08/09/23 10/23/24 liquid PAIN/FEVER ibuprofen 100 mg/5 mL oral 100 - 400 mg feeding tube UD PRN 08/09/23 10/23/24 suspension PAIN/FEVER nut.tx.,elemental,gikbfbv-jcoz-nvn 1 ea feeding tube UD 08/09/23 10/23/24 14 gram-230 kcal/45 mL liquid pkt (Xtracal Plus) acetylcysteine 100 mg/mL (10 %) 2 ml inhalation UD PRN increased 10/23/24 10/23/24 solution respiratory secretions acetylcysteine 200 mg/mL (20 %) 3 ml inhalation UD 10/23/24 10/23/24 solution budesonide 0.5 mg/2 mL suspension 0.5 mg inhalation BID 10/23/24 10/23/24 for nebulization (Pulmicort) fluoxetine 20 mg tablet 10 mg PO DAILY 10/23/24 10/23/24 miscellaneous medical supply 10/23/24 10/23/24 Previous Rx's Medication Instructions Recorded disposable gloves #1,000 ea 10/24/19 disposable gloves #100 ea 10/25/19 nebulizer machine #1 ea 07/13/21 miscellaneous medical supply #30 ea 07/16/21 ([employer] Tracheostomy Care Tray) Over Night Pulse OX #1 ea 05/28/22 Miscellaneous Pulmonary Supply #1 ea 06/07/22 Repair or replace air compressor #1 ea 03/21/23 for trach collar diaper,brief,adult,disposable (Day #180 ea 04/19/23 and Night Brief, Large) incontinence pad, liner, disp #75 ea 04/19/23 Repair or Replacement of Hospital #1 ea 06/10/23 Bed bivona cuffed trach #1 ea 08/03/23 albuterol sulfate 2.5 mg/3 mL 2.5 mg (3 mL) inhalation Q4H PRN 11/15/23 (0.083 %) solution for nebulization sob #540 mL valproic acid (as sodium salt) 250 550 mg (11 mL) feeding tube TID 30 02/02/24 mg/5 mL oral solution days #990 mL zonisamide 100 mg capsule 200 mg (2 x 100 mg) feeding tube 02/02/24 BID 30 days #120 caps cetirizine 10 mg tablet 10 mg feeding tube DAILY #90 tabs 07/13/24 polyethylene glycol 3350 17 17 g feeding tube DAILY #1,530 07/13/24 gram/dose oral powder (Miralax) grams trazodone 50 mg tablet 50 mg feeding tube HS #90 tabs 07/13/24 baclofen 10 mg tablet 10 mg feeding tube .COMPLEX 30 08/14/24 days #150 tabs bivona See Rx Instructions .Route 09/18/24 .COMPLEX #2 ea Results & Data (ED) Vital Signs Vital Signs - 24 hr 10/23/24 09:49 10/23/24 11:30 10/23/24 12:18 Temperature 37.0 C Temperature Source Temporal Artery Scan Pulse Rate 130 H 116 H Pulse Rate [Right Finger] 122 H Pulse Rhythm [Right Finger] Regular Pulse Strength [Right Finger] Normal Respiratory Rate 38 H 36 H Respiratory Effort / Characteristics Labored Labored Respiratory Depth Normal Normal Respiratory Pattern Regular Blood Pressure 96/53 L Blood Pressure [Right Arm] 91/69 L Blood Pressure Mean 67 Blood Pressure Mean [Right Arm] 76 Blood Pressure Position [Right Arm] Lying Pulse Oximetry 98 96 Oxygen Delivery Method Room Air Room Air Sepsis Recent Fever Within 48 Hours Yes Sepsis New/Unexplained Change in Mental Status No Sepsis Action Taken by Nursing No Action Required 10/23/24 13:30 Temperature Temperature Source Pulse Rate Pulse Rate [Right Finger] 121 H Pulse Rhythm [Right Finger] Regular Pulse Strength [Right Finger] Normal Respiratory Rate 32 H Respiratory Effort / Characteristics Non-Labored Spontaneous Respiratory Depth Normal Respiratory Pattern Blood Pressure Blood Pressure [Right Arm] Blood Pressure Mean Blood Pressure Mean [Right Arm] Blood Pressure Position [Right Arm] Lying Pulse Oximetry 97 Oxygen Delivery Method Trach Collar Sepsis Recent Fever Within 48 Hours Sepsis New/Unexplained Change in Mental Status Sepsis Action Taken by Nursing Laboratory Data 10/23/24 10:33 10/23/24 10:33 Lab Results 10/23/24 10/23/24 10/23/24 Range/Units 10:33 11:29 Unknown WBC 18.68 H (4.8-10.8) K/ul RBC 4.04 L (4.20-5.40) M/uL Hgb 13.5 (12.0-16.0) g/dl Hct 39.1 (37.0-47.0) % MCV 96.8 (80.0-100.0) fL MCH 33.4 (25.0-34.0) pg MCHC 34.5 (32.0-36.0) g/dL RDW Std Deviation 49.8 H (36.4-46.3) fL RDW Coeff of Monika 14.0 (11.5-14.5) % Plt Count 151 (130-400) K/uL MPV 9.3 L (9.4-12.4) fL Immature Gran % (Auto) 0.6 % Neut % (Auto) 90.1 % Lymph % (Auto) 3.6 % [place] % (Auto) 5.6 % Eos % (Auto) 0.0 % Baso % (Auto) 0.1 % Neut # (Auto) 16.83 H (1.40-6.50) K/uL Lymph # (Auto) 0.67 L (1.20-3.40) K/uL [place] # (Auto) 1.05 H (0.11-0.59) K/uL Eos # (Auto) 0.00 (0.00-0.50) K/uL Baso # (Auto) 0.02 (0.00-0.20) K/uL Immature Gran # (Auto) 0.11 (0.01-0.20) K/uL VBG pH 7.40 (7.36-7.41) VBG pCO2 41 (38-50) mmHg VBG pO2 36 mmHg VBG HCO3 25 mmol/L VBG O2 Saturation 63.6 % VBG Base Excess 0.5 mEq/L Sodium 133 L (136-145) mmol/L Potassium 4.0 (3.5-5.1) mmol/L Chloride 99 (98-107) mmol/L Carbon Dioxide 23 (21-32) mmol/L Anion Gap 11 (3-11) BUN 14 (6-23) mg/dl Creatinine 0.39 L (0.6-1.2) mg/dl Est Cr Clr Drug Dosing Not Reportable eGFR 139.88 BUN/Creatinine Ratio 35.9 H (10-20) Glucose 71 (70-99(Fasting)) mg/dl Lactate 2.4 H* (0.4-2.0) mmol/L Calcium 9.6 (8.6-10.3) mg/dl Magnesium 2.0 (1.7-2.4) mg/dl Total Bilirubin 0.4 (0.2-1.0) mg/dl Direct Bilirubin 0.0 (0-0.2) mg/dl AST 17 (13-39) U/L ALT 9 (7-52) U/L Alkaline Phosphatase 68 (34-104) U/L Troponin I High Sens 9.3 (0-14) pg/ml Total Protein 7.5 (6.0-8.3) gm/dl Albumin 4.5 (3.4-5.0) gm/dl Procalcitonin 0.10 (0-0.5) ng/ml Adenovirus (PCR) Not Detected (NotDetected) B. pertussis DNA (PCR) Not Detected (NotDetected) B.parapertussis DNA PCR Not Detected (NotDetected) C. pneumoniae DNA (PCR) Not Detected (NotDetected) Coronavirus OC43 (PCR) Not Detected (NotDetected) Coronavirus HKU1 (PCR) Not Detected (NotDetected) Coronavirus 229E (PCR) Not Detected (NotDetected) SARS-CoV-2 (PCR) Not Detected (NotDetected) Coronavirus NL63 (PCR) Not Detected (NotDetected) Human Metapneumovir PCR Not Detected (NotDetected) Influenza Type A (PCR) Not Detected (NotDetected) Influenza Type B (PCR) Not Detected (NotDetected) M. pneumoniae (PCR) Not Detected (NotDetected) Parainfluenza 1 (PCR) Not Detected (NotDetected) Parainfluenza 2 (PCR) Not Detected (NotDetected) Parainfluenza 3 (PCR) Not Detected (NotDetected) Parainfluenza 4 (PCR) Not Detected (NotDetected) RSV (PCR) Not Detected (NotDetected) Entero/Rhino (PCR) Not Detected (NotDetected) Administered Medications Discontinued Medications Sodium Chloride (Nss) 1,000 mls @ 999 mls/hr IV .Q1H1M ONE Stop: 10/23/24 11:10 Last Infusion: 10/23/24 12:15 Dose: Infused Documented By: [facility] Admin: 10/23/24 10:59 Dose: 999 mls/hr Documented By: [facility] Cefepime HCl (Maxipime 2000mg) 1,000 mg in 10 mls @ 5 mls/min IV NOW STA; Protocol Stop: 10/23/24 12:19 Last Admin: 10/23/24 13:50 Dose: 5 mls/min Documented By: [facility] Sodium Chloride (Nss) 1,000 mls @ 999 mls/hr IV .Q1H1M ONE Stop: 10/23/24 13:37 Last Admin: 10/23/24 13:48 Dose: 999 mls/hr Documented By: [facility] Imaging Data Radiologist's Impression: Chest X-Ray 10/23/24 10:10 XR chest 1V portable CLINICAL HISTORY: Sepsis COMPARISON STUDY: 07/20/2024 FINDINGS: Tracheostomy tube tip is just above the thoracic inlet. Heart size and pulmonary vasculature are normal. There is stable mild elevation of the right hemidiaphragm. Inspiration is shallow. There is faint stranding opacity medial left lung base. No other consolidation or pleural effusion. No pneumothorax. IMPRESSION: Atelectasis versus early pneumonia medial left lung base. ACT 112: Negative or not required by law. Electronically signed by: Gildardo Green M.D. 10/23/2024 11:38 AM Discharge Plan Visit Data Chief Complaint: Respiratory Distress Stated Complaint: RESPITORY DISTRESS,COUGH, HEART RATE INCREASE ED Provider: Jas Sawyer Discharge Problem: Pneumonia Forms Stand Alone Forms: [facility] Prescriptions Prescriptions: No Action (DME) disposable gloves Misc See Rx Instructions .ROUTE .MEDSUPPLY Qty: 1,000 0RF Rx Instructions: As directed (DME) disposable gloves Misc See Rx Instructions .ROUTE .MEDSUPPLY Qty: 100 0RF Rx Instructions: As directed G80.9 (DME) nebulizer machine See Rx Instructions .Route .MEDSUPPLY Qty: 1 0RF Rx Instructions: repair or replace existing machine (DME) [facility] Tracheostomy Care Tray Misc See Rx Instructions .Route Qty: 30 5RF Rx Instructions: Trach cleaning kit (DME) Over Night Pulse OX Misc See Rx Instructions .Route Qty: 1 0RF Rx Instructions: As directed (DME) Miscellaneous Pulmonary Supply Misc See Rx Instructions .Route Qty: 1 0RF Rx Instructions: Replace current pulse oximeter (DME) Repair or replace air compressor for trach collar See Rx Instructions .Route .MEDSUPPLY Qty: 1 0RF Rx Instructions: As directed (DME) incontinence pad, liner, disp Pad See Rx Instructions .ROUTE .MEDSUPPLY Qty: 75 11RF Rx Instructions: 75 liners and 20 under pads,change 6-8x daily (DME) Day and Night Brief, Large Misc See Rx Instructions .ROUTE .MEDSUPPLY Qty: 180 11RF Rx Instructions: change 6-8 times daily (DME) Repair or Replacement of Hospital Bed See Rx Instructions .Route .MEDSUPPLY Qty: 1 0RF Rx Instructions: Repair or replace side rails and padding (DME) bivona cuffed trach See Rx Instructions .Route .MEDSUPPLY Qty: 1 0RF Rx Instructions: As directed albuterol sulfate 2.5 mg /3 mL (0.083 %) solution for nebulization 2.5 mg inhalation Q4H PRN (Reason: sob) Qty: 540 5RF bivona See Rx Instructions .ROUTE .COMPLEX Qty: 2 0RF Rx Instructions: Not on list, unable to verify 5.0 60mm trachs; 5.0 60mm; Boost 0.04 gram- 1 kcal/mL liquid 350 ea PO UD Rx Instructions: 350 ea po qid. Not on list, unable to verify/otc baclofen 10 mg tablet 10 mg feeding tube .COMPLEX 30 Days Qty: 150 11RF Rx Instructions: TAKE 2 IN THE AM, 1 IN THE AFTERNOON AND 2 IN THE EVENING. (0700,1500 AND 2000) valproic acid (as sodium salt) 250 mg/5 mL solution 550 mg feeding tube TID 30 Days Qty: 990 11RF zonisamide 100 mg capsule 200 mg feeding tube BID 30 Days Qty: 120 11RF cetirizine 10 mg tablet 10 mg feeding tube DAILY Qty: 90 3RF polyethylene glycol 3350 [Miralax] 17 gram/dose powder 17 g feeding tube DAILY Qty: 1530 3RF trazodone 50 mg tablet 50 mg feeding tube HS Qty: 90 3RF Centrum 18-400 mg-mcg Tablet 1 tab PO .FEEDING TUBE Rx Instructions: feeding tube tobramycin in 0.225 % NaCl 300 mg/5 mL solution for nebulization 300 mg INH Q12H PRN (Reason: Shortness Of Breath) acetaminophen 160 mg/5 mL liquid 640 mg feeding tube UD PRN (Reason: PAIN/FEVER) Rx Instructions: 640 mg feeding tube q6h. prn Not on list, unable to verify/otc give 20 milliliters every 6 hours if needed for pain or fever ibuprofen 100 mg/5 mL suspension 100 - 400 mg feeding tube UD PRN (Reason: PAIN/FEVER) Rx Instructions: Not on list, unable to verify/otc give 10 or 20 milliliters every 6 hours if needed for pain or fever Xtracal Plus 14 gram-230 kcal/45 mL liquid in packet 1 ea feeding tube UD Rx Instructions: 1 packet daily ; Not on list, unable to verify/otc acetylcysteine 200 mg/mL (20 %) solution 3 ml inhalation UD Rx Instructions: 3ml inhal bid. Not on list, unable to verify fluoxetine 20 mg tablet 10 mg PO DAILY acetylcysteine 100 mg/mL (10 %) solution 2 ml inhalation UD PRN (Reason: increased respiratory secretions) Rx Instructions: 2 ml inhal bid prn. Not on list, unable to verify/ budesonide [Pulmicort] 0.5 mg/2 mL suspension for nebulization 0.5 mg inhalation BID Rx Instructions: 0700 AND 2000 (DME) miscellaneous medical supply Misc VAGINAL Rx Instructions: CORRUGATED TUBING FOR TRACH COLLAR 100 FT. Referrals Referrals: Anita Gil MD [Primary Care Provider] -
[2024-10-23 10:49] LABS: Base Excess VBG 0.5 mEq/L; HCO3 VBG 25 mmol/L; Oxygen Saturation VBG 63.6 %; PCO2 VBG 41 mmHg (38-50); PO2 VBG 36 mmHg
[2024-10-23] MEDS: SODIUM CHLORIDE 0.9% 1,000 ML IV ONE ×2 (10:59→13:48)
[2024-10-23 11:14] LABS: Alanine Aminotransferase 9 U/L (7-52); Albumin Level 4.5 gm/dl (3.4-5.0); Alkaline Phosphatase 68 U/L (34-104); Anion Gap 11 (3-11); Aspartate Aminotransferase 17 U/L (13-39); BUN Creatinine Ratio 35.9 (10-20); Bilirubin,Total 0.4 mg/dl (0.2-1.0); Blood Urea Nitrogen 14 mg/dl (6-23); Calcium 9.6 mg/dl (8.6-10.3); Carbon Dioxide 23 mmol/L (21-32); Chloride 99 mmol/L (98-107); Glucose 71 mg/dl (70-99(Fasting)); Sodium 133 mmol/L (136-145); Total Protein 7.5 gm/dl (6.0-8.3)
[2024-10-23 11:15] LABS: Troponin I High Sensitivity 9.3 pg/ml (0-14)
[2024-10-23 11:24] LABS: Basophils # (auto) 0.02 K/uL (0.00-0.20); Basophils % (auto) 0.1 %; Hematocrit (blood only) 39.1 % (37.0-47.0); Hemoglobin 13.5 g/dl (12.0-16.0); Immature Granulocytes # (auto) 0.11 K/uL (0.01-0.20); Immature Granulocytes % (auto) 0.6 %; Lymphocytes # (auto) 0.67 K/uL (1.20-3.40); Lymphocytes % (auto) 3.6 %; Mean Corpuscular Hemoglobin 33.4 pg (25.0-34.0); Mean Corpuscular Hgb Conc 34.5 g/dL (32.0-36.0); Mean Corpuscular Volume 96.8 fL (80.0-100.0); Mean Platelet Volume 9.3 fL (9.4-12.4); Monocytes # (auto) 1.05 K/uL (0.11-0.59); Monocytes % (auto) 5.6 %; Neutrophils # (auto) 16.83 K/uL (1.40-6.50); Neutrophils % (auto) 90.1 %; Platelet Count 151 K/uL (130-400); RDW Standard Deviation 49.8 fL (36.4-46.3); Red Blood Count 4.04 M/uL (4.20-5.40); White Blood Count 18.68 K/ul (4.8-10.8)
[2024-10-23 11:26] LABS: Adenovirus PCR Not Detected (NotDetected); Bordetella parapertussis PCR Not Detected (NotDetected); Bordetella pertussis PCR Not Detected (NotDetected); Chlamydia pneumoniae PCR Not Detected (NotDetected); Coronavirus 229E PCR Not Detected (NotDetected); Coronavirus CoV-2 (COVID19)PCR Not Detected (NotDetected); Coronavirus HKU1 PCR Not Detected (NotDetected); Coronavirus NL63 PCR Not Detected (NotDetected); Coronavirus OC43PCR Not Detected (NotDetected); Human Metapneumovirus PCR Not Detected (NotDetected); Influenza A PCR Not Detected (NotDetected); Influenza B PCR Not Detected (NotDetected); Mycoplasma pneumoniae PCR Not Detected (NotDetected); Parainfluenza Virus 1 PCR Not Detected (NotDetected); Parainfluenza Virus 2 PCR Not Detected (NotDetected); Parainfluenza Virus 3 PCR Not Detected (NotDetected); Parainfluenza Virus 4 PCR Not Detected (NotDetected); Respiratory Syncytial VirusPCR Not Detected (NotDetected); Rhinovirus/Enterovirus PCR Not Detected (NotDetected)
--- NOTE | 2024-10-23 11:39 | XRay Report ---
XR chest 1V portable CLINICAL HISTORY: Sepsis COMPARISON STUDY: 07/20/2024 FINDINGS: Tracheostomy tube tip is just above the thoracic inlet. Heart size and pulmonary vasculatur e are normal. There is stable mild elevation of the right hemidiaphragm. Inspiration is shallow. Ther e is faint stranding opacity medial left lung base. No other consolidation or pleural effusion. No pn eumothorax. IMPRESSION: Atelectasis versus early pneumonia medial left lung base. ACT 112: Negative or not required by law. Electronically signed by: Gildardo Green M.D. 10/23/2024 11:38 AM
--- NOTE | 2024-10-23 13:12 | History & Physical Report ---
Date of Service October 23, 2024 Assessment & Plan (1) Cerebral palsy: Plan: Left lower lung pneumonia Patient and her sister who also has CP recently with respiratory illness, sister was positive for rhinovirus. Sarah subsequently with worsening respiratory status is suspicious for secondary bacterial pneumonia Baseline blood pressures typically 47822 on prior review On admission BP 91/69, tachycardic, tachypneic. Saturating normally on room air With history of Pseudomonas colonization Reviewed history and discussed with pharmacy. 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 Only antibiotic which cover all past isolates would be Avycaz given complex history and recurrent infections this is recommended to be kept in reserve unless absolutely necessary to prevent progression of resistant colonization. On admission will continue cefepime with infectious disease consult Hypertonic saline twice daily Vest therapy 3 times daily Trach changes weekly Nebulizers as needed Pulmonary consulted - Sputum cx pending Requires trach suction with each breathing treatment and as needed. Patient is not able to indicate needs. Communication order placed Lactic 2.4. Received 2 L NSS, sepsis goal [id number] cc. Repeat lactate pending. Tissue perfusion is with cap refill less than 2 seconds on reassessment Continue cefepime every 8 hours - MRSA nare pending Spastic quadriplegic cerebral palsy, cortical blindness, epilepsy Continue zonisamide and valproic acid Continue baclofen Continue fluoxetine Ativan on-call if needed for seizure activity, seizure precautions Seizure precautions DVT prophylaxis: Lovenox Disposition: PCU on ICU per family request CODE STATUS: DNR, ok with ventilation Diet: Dietitian consulted for PEG feeds (2) Tracheostomy dependence: (3) RLL pneumonia: History of Present Illness Primary Care Provider: Anita Gil MD Sarah is a 29-year-old female with history of cerebral palsy with tracheostomy was not required mechanical ventilation who presents to the ER with fever, tachycardia, tachypnea, and chest x-ray shows left lung basilar pneumonia and with a negative BioFire on admission Secretions yellow Thin clear white --> yellow Temp 100.1F Cough inreased oxygen requirement Yolanda hasnot needed ventilator Sister has bene sick one day longer, but is doing better. Sister had rhinovirus Nutirtion: Enteral feeding Boost four times daily, 350ml @ 400cc/hr. Nonverbal. Noncommunicative at baseline and does not communicate needs. Needs regular suction. Medical History: Reviewed Medications: Reviewed Surgical History: Reviewed Family history: Reviewed Allergies: Reviewed. Cipro Social History: NO tobacco/ETOH Code Status: Mother [phone] primary contact [place]. DNR but OK with ventilation. Allergies Allergy/AdvReac Type Severity Reaction Status Date / Time ciprofloxacin [From Cipro] Allergy Mild IV Unverified 09/03/24 10:19 CIPRO-RASH Home Medications Medication Instructions Recorded Confirmed Type food supplemt, lactose-reduced 350 ea PO QID 04/19/19 09/03/24 History 0.04 gram-1 kcal/mL oral liquid (Boost) multivitamin-ferrous 1 tab PO .FEEDING TUBE 09/10/19 09/03/24 History fumarate-folic acid 18 mg-400 mcg tablet (Centrum) disposable gloves #1,000 ea 10/24/19 09/03/24 Rx disposable gloves #100 ea 10/25/19 09/03/24 Rx Hospital Bed Homecare (Hospital See Rx Instructions .Route 08/05/20 09/03/24 Rx Bed) .COMPLEX #1 ea miscellaneous medical supply 1 ea miscellaneous ONCE #1 ea 01/27/21 09/03/24 Rx tobramycin 300 mg/5 mL in 0.225 % 300 mg inhalation Q12H PRN 02/02/21 09/03/24 History sodium chloride for nebulization Shortness Of Breath miscellaneous medical supply 1 ea miscellaneous ONCE #1 ea 05/21/21 09/03/24 Rx miscellaneous medical supply 1 ea miscellaneous DAILY #180 ea 06/18/21 09/03/24 Rx nebulizer machine #1 ea 07/13/21 09/03/24 Rx miscellaneous medical supply #30 ea 07/16/21 09/03/24 Rx ([facility] Tracheostomy Care Tray) Over Night Pulse OX #1 ea 05/28/22 09/03/24 Rx Miscellaneous Pulmonary Supply #1 ea 06/07/22 09/03/24 Rx acetylcysteine 100 mg/mL (10 %) 2 ml inhalation BID PRN increased 07/26/22 09/03/24 Rx solution respiratory secretions #100 mL Repair or replace air compressor #1 ea 03/21/23 09/03/24 Rx for trach collar diaper,brief,adult,disposable (Day #180 ea 04/19/23 09/03/24 Rx and Night Brief, Large) incontinence pad, liner, disp #75 ea 04/19/23 09/03/24 Rx acetylcysteine 200 mg/mL (20 %) 3 ml inhalation BID #180 mL 05/20/23 09/03/24 Rx solution Repair or Replacement of Hospital #1 ea 06/10/23 09/03/24 Rx Bed bivona cuffed trach #1 ea 08/03/23 09/03/24 Rx acetaminophen 160 mg/5 mL oral 640 mg feeding tube Q6H PRN 08/09/23 09/03/24 History liquid PAIN/FEVER ibuprofen 100 mg/5 mL oral 100 - 400 mg feeding tube Q6H PRN 08/09/23 09/03/24 History suspension PAIN/FEVER nut.tx.,elemental,uzweehp-umdv-lyq 1 ea feeding tube DAILY 08/09/23 09/03/24 History 14 gram-230 kcal/45 mL liquid pkt (Xtracal Plus) albuterol sulfate 2.5 mg/3 mL 2.5 mg (3 mL) inhalation Q4H PRN 11/15/23 09/03/24 Rx (0.083 %) solution for nebulization sob #540 mL budesonide 0.5 mg/2 mL suspension 0.5 mg (2 mL) inhalation BID #120 12/22/23 09/03/24 Rx for nebulization mL norethindrone acetate 5 mg tablet See Rx Instructions feeding tube 01/11/24 09/03/24 Rx .COMPLEX #45 tabs fluoxetine 20 mg tablet 20 mg PO DAILY #30 tabs 02/02/24 09/03/24 Rx valproic acid (as sodium salt) 250 550 mg (11 mL) feeding tube TID 30 02/02/24 09/03/24 Rx mg/5 mL oral solution days #990 mL zonisamide 100 mg capsule 200 mg (2 x 100 mg) feeding tube 02/02/24 09/03/24 Rx BID 30 days #120 caps cetirizine 10 mg tablet 10 mg feeding tube DAILY #90 tabs 07/13/24 09/03/24 Rx polyethylene glycol 3350 17 17 g feeding tube DAILY #1,530 12/06/24 01/27/25 Rx gram/dose oral powder (Miralax) grams trazodone 50 mg tablet 50 mg feeding tube HS #90 tabs 07/13/24 09/03/24 Rx amoxicillin 875 mg-potassium 1 tab PO BID #20 tabs 07/20/24 09/03/24 Rx clavulanate 125 mg tablet baclofen 10 mg tablet 10 mg feeding tube .COMPLEX 30 08/14/24 09/03/24 Rx days #150 tabs clonazepam 0.5 mg disintegrating 0.5 mg feeding tube DAILY PRN 08/14/24 09/03/24 Rx tablet seizures 30 days #30 tabs oseltamivir 75 mg capsule (Tamiflu) 75 mg feeding tube DAILY #10 caps 08/28/24 09/03/24 Rx bivona See Rx Instructions .Route 09/18/24 Rx .COMPLEX #2 ea Past Med/Surg History Problem List RLL pneumonia Tracheostomy dependence Cerebral palsy Bronchiectasis Allergic rhinitis (Chronic) Holoprosencephaly (Chronic) Insomnia (Chronic) 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 Noncommunicative. HEENT: Atraumatic. PERLAA. Pulm: MONICA/LLQ diminished but clear. RUL/RLL coarse. Cardiac: Regular, tachycardic, -mrg. Radial pulses intact and symmetrical. Abdominal: Nontender, nondistended, soft. +PEG tube. Ext: Chronic CP changes. No edema. Results & Data Results & Data Vital Signs (Past 12 Hours) Vital Signs Temp Pulse Pulse Resp BP BP Pulse Ox 10/23/24 12:18 122 H 36 H 91/69 L 96 10/23/24 11:30 116 H 10/23/24 09:49 37.0 C 130 H 38 H 96/53 L 98 O2 Del Method 10/23/24 12:18 Room Air 10/23/24 11:30 10/23/24 09:49 Room Air PG Care Time/CCT Total # of Minutes Spent Total Time Spent with Patient: Total time spent is greater than 50% in coordination of care (as documented) at patient's floor/unit and/or counseling patient: Coding Level of Care Code 10837 INT INP/OBS CARE 3/75MIN Diagnoses Cerebral palsy G80.9 Tracheostomy dependence Z93.0 RLL pneumonia J18.9
[2024-10-23] MEDS: CEFEPIME 1000MG 1,000 MG/10 ML SYR IV STA ×2 (13:50→16:12)
[2024-10-23] MEDS ORDERED: TOBRAMYCIN INH PRN (14:40)
[2024-10-23] MEDS ORDERED: SODIUM CHLORIDE INH PRN (14:40)
[2024-10-23] MEDS ORDERED: LORazepam 2 MG/1 ML VIAL IV PRN (14:40)
[2024-10-23] MEDS ORDERED: [UNRECOGNIZED DRUG - OTHER] INH PRN (14:40)
--- NOTE | 2024-10-23 14:54 | Electrocardiogram Report ---
Test Reason : Blood Pressure : */* mmHG Vent. Rate : 114 BPM Atrial Rate : 114 BPM P-R Int : 146 ms QRS Dur : 70 ms QT Int : 320 ms P-R-T Axes : 55 44 -31 degrees QTcB Int : 441 ms Sinus tachycardia T wave abnormality, consider inferior ischemia T wave abnormality, consider anterolateral ischemia Abnormal ECG When compared with ECG of 20-Jul-2024 13:14, Non-specific change in ST segment in Anterolateral leads Inverted T waves have replaced nonspecific T wave abnormality in Inferior leads T wave inversion now evident in Lateral leads Confirmed by Saurabh Russell ([id number]) on 10/23/2024 2:54:46 PM Referred By: REFERRED SELF Confirmed By: Saurabh Russell
--- NOTE | 2024-10-23 14:55 | Pulmonary Consultation ---
Date of Consultation October 23, 2024 Assessment & Plan (1) Gram-positive cocci bacteremia: (2) Multifocal pneumonia: (3) Spastic quadriplegic cerebral palsy: (4) Tracheostomy in place: Plan Chest x-ray 10/23/2024 personally reviewed: Portable film, patchy opacity/haziness in the left lower lobe, bilateral costophrenic and cardiophrenic angles are clean -- Left lower lobe pneumonia Respiratory BioFire negative for everything Does have leukocytosis Procalcitonin negative History of Pseudomonas in the past She did have 2 variants of Pseudomonas 1 was intermediate to cefepime but both are sensitive to Zosyn --TDRF secondary to cerebral palsy Plan: Recommend antipseudomonal coverage with Zosyn Sputum culture Pulmonary continue to follow Please note the above document was generated using voice recognition software. It may contain grammatical, syntax or spelling errors.Any formal questions or concerns about the content, text or information contained within the body of this dictation should be directly addressed to the provider for clarification. 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 She was tachycardic in the 100s. As per the supervisor travel information center the patient has been making copious amount of thick phlegm which is different from her baseline She was spiking fever 100.4 was max at home. Her sister was her cerebral palsy was positive for enterovirus At home she is usually on trach collar during the night Allergies Allergy/AdvReac Type Severity Reaction Status Date / Time ciprofloxacin [From Cipro] Allergy Mild IV Unverified 09/03/24 10:19 CIPRO-RASH Home Medications Medication Instructions Recorded Confirmed Type food supplemt, lactose-reduced 350 ea PO QID 04/19/19 10/23/24 History 0.04 gram-1 kcal/mL oral liquid (Boost) multivitamin-ferrous 1 tab PO .FEEDING TUBE 09/10/19 10/23/24 History fumarate-folic acid 18 mg-400 mcg tablet (Centrum) disposable gloves #1,000 ea 10/24/19 09/03/24 Rx disposable gloves #100 ea 10/25/19 09/03/24 Rx tobramycin 300 mg/5 mL in 0.225 % 300 mg inhalation Q12H PRN 02/02/21 10/23/24 History sodium chloride for nebulization Shortness Of Breath nebulizer machine #1 ea 07/13/21 09/03/24 Rx miscellaneous medical supply #30 ea 07/16/21 09/03/24 Rx ([place] Tracheostomy Care Tray) Over Night Pulse OX #1 ea 05/28/22 09/03/24 Rx Miscellaneous Pulmonary Supply #1 ea 06/07/22 09/03/24 Rx Repair or replace air compressor #1 ea 03/21/23 09/03/24 Rx for trach collar diaper,brief,adult,disposable (Day #180 ea 04/19/23 09/03/24 Rx and Night Brief, Large) incontinence pad, liner, disp #75 ea 04/19/23 09/03/24 Rx Repair or Replacement of Hospital #1 ea 06/10/23 09/03/24 Rx Bed bivona cuffed trach #1 ea 08/03/23 09/03/24 Rx acetaminophen 160 mg/5 mL oral 640 mg feeding tube UD PRN 08/09/23 10/23/24 History liquid PAIN/FEVER ibuprofen 100 mg/5 mL oral 100 - 400 mg feeding tube UD PRN 08/09/23 10/23/24 History suspension PAIN/FEVER nut.tx.,elemental,faoizzj-bkrq-flo 1 ea feeding tube UD 08/09/23 10/23/24 History 14 gram-230 kcal/45 mL liquid pkt (Xtracal Plus) albuterol sulfate 2.5 mg/3 mL 2.5 mg (3 mL) inhalation Q4H PRN 11/15/23 10/23/24 Rx (0.083 %) solution for nebulization sob #540 mL valproic acid (as sodium salt) 250 550 mg (11 mL) feeding tube TID 30 02/02/24 10/23/24 Rx mg/5 mL oral solution days #990 mL zonisamide 100 mg capsule 200 mg (2 x 100 mg) feeding tube 02/02/24 10/23/24 Rx BID 30 days #120 caps cetirizine 10 mg tablet 10 mg feeding tube DAILY #90 tabs 07/13/24 10/23/24 Rx polyethylene glycol 3350 17 17 g feeding tube DAILY #1,530 07/13/24 10/23/24 Rx gram/dose oral powder (Miralax) grams trazodone 50 mg tablet 50 mg feeding tube HS #90 tabs 07/13/24 10/23/24 Rx baclofen 10 mg tablet 10 mg feeding tube .COMPLEX 30 08/14/24 10/23/24 Rx days #150 tabs acetylcysteine 100 mg/mL (10 %) 2 ml inhalation BID PRN increased 10/23/24 10/23/24 History solution respiratory secretions acetylcysteine 200 mg/mL (20 %) 3 ml inhalation BID PRN Other 10/23/24 10/23/24 History solution albuterol sulfate 2.5 mg/3 mL 2.5 mg inhalation BID 10/23/24 10/23/24 History (0.083 %) solution for nebulization budesonide 0.5 mg/2 mL suspension 0.5 mg inhalation BID 10/23/24 10/23/24 History for nebulization (Pulmicort) fluoxetine 20 mg tablet 20 mg PO DAILY 10/23/24 10/23/24 History miscellaneous medical supply 10/23/24 10/23/24 History Patient History Surgical History History of tracheostomy History of gastrostomy Family History Brother Asthma Grandfather (Paternal) Coronary heart disease Other Hypertension No pertinent family history in first degree relatives Social History Smoking Status: Never smoker Hx Alcohol Use: No Hx Substance Use: No Preferred Language: Belarusian Communication Ability: Impaired Final Finisher Forging Dies Required: No Beliefs That Will Affect Care: None Current Living Situation: Family Other Information That Helps Us Care for You: No Feels Safe at Home: Yes Safety Concerns: Feels Safe At This Time Assistive Devices: Oxygen - Continuous and Wheelchair Review of Systems 2 Review of Systems: Unobtainable due to mental health condition Physical Exam 2 Physical Exam: Constitutional: No acute distress HEENT: EOMI, PERRLA, positive trach Respiratory system: Decreased air entry bilaterally, no wheeze, rhonchi, positive crackles bilaterally, more on the right side CVS: S1-S2 positive, no murmurs or gallops, tachycardia Abdomen: Soft, nontender, nondistended, positive bowel sounds x4 Extremities: +2 pulses bilaterally radialis/ dorsalis pedis, no cyanosis, no edema Neuro: Awake alert oriented Psych: Unable to assess G/U: No Yap Skin: no rashes, warm and dry Lymphatic: no cervical or axillary lymphadenopathy Results & Data Results & Data Vital Signs (Past 12 Hours) Vital Signs Temp Pulse Pulse Resp BP BP Pulse Ox 10/23/24 13:30 121 H 32 H 97 10/23/24 12:18 122 H 36 H 91/69 L 96 10/23/24 11:30 116 H 10/23/24 09:49 37.0 C 130 H 38 H 96/53 L 98 O2 Del Method 10/23/24 13:30 Trach Collar 10/23/24 12:18 Room Air 10/23/24 11:30 10/23/24 09:49 Room Air Laboratory Results 10/24/24 04:11 10/24/24 04:11 PG Care Time/CCT Total # of Minutes Spent Total Time Spent with Patient: Total time spent is greater than 50% in coordination of care (as documented) at patient's floor/unit and/or counseling patient: Coding Level of Care Code 66776 INT INP/OBS CARE 3/75MIN Diagnoses Gram-positive cocci bacteremia R78.81 Multifocal pneumonia J18.9 Spastic quadriplegic cerebral palsy G80.[address] Z93.0
[2024-10-23] MEDS: LACTATED RINGER'S 500 ML IV ONE (16:11)
[2024-10-23] MEDS: LACTATED RINGER'S 1,000 ML IV SCH (16:12)
[2024-10-23] MEDS: BACLOFEN 10 MG TAB PEG SCH ×2 (16:16→19:40)
[2024-10-23] MEDS: ENOXAPARIN INJ 40 MG/0.4 ML SYR SQ SCH (16:16)
--- NOTE | 2024-10-23 16:26 | Infectious Disease Consult ---
Date of Consultation October 23, 2024 Assessment & Plan (1) Tachypnea: (2) Leukocytosis: (3) Tracheostomy dependence: Plan 29yo F with h/o cerebral palsy, s/p tracheostomy, spastic quadriplegia, epilepsy, prior respiratory cx growing Pseudomonas and Moraxella, COVID infection in 08/2024 who presented on 10/23 with increased sputum production/tracheal secretions and tachypnea. Per chart, she recently completed abx and then developed increased tracheal secretions. Sister was recently sick with rhinovirus. Afebrile, RR in 30s, O2 sat high 90s on RA. Initial labs with WBC 18.68, Cr 0.39, LFT wnl. Lacate 2.4. PCT 0.10. RPP negative. CXR with atelectasis vs early PNA medial left lung base. She has been started on cefepime for PNA. ID consulted 10/23. She is not hypoxic, PCT is low, no fever, apparently recently completed a course of ?cipro. CXR doesnt have a consolidation but read includes possible early PNA. Im not entirely convinced she has a PNA, but she did have a leukocytosis and a lactic acidosis. Consider also aspiration. Ok to keep on abx and if we were to choose one, zosyn would be an option. However, would favor pursuing w/u for other causes of SOB, ie CTA chest to r/o PE. # Tachypnea # Leukocytosis # Lactic acidosis # Cerebral palsy s/p tracheostomy - [place] changed cefepime to zosyn - favor pursuing CTA chest for additional w/u of tachypnea - f/u sputum and blood cx - f/u MRSA screen Will continue to follow. If questions or concerns, contact via [email or web address] or Infectious Disease Call Center . Yandy Klein MD [facility], Division of Infectious Diseases Consultation Information This patient recommendation is based on a telemedicine consult request which was completed asynchronously through chart review and information provided by the primary physician. The patient was not seen or examined today. The evaluation is consultative in nature and all patient care and treatment decisions can either be accepted or rejected by the patient's primary hospital-based treating physician using their own independent medical judgment for their patient. [employer] Business Representative contact information: Please call [facility] Call Center . (Phone Number For Physician Use Only) Time Spent Reviewing Chart: 31+ minutes History of Present Illness Reason for Consultation: PNA, history of CP and Pseudomonas Attending Physician: Flo Jaramillo MD History of Present Illness 29yo F with h/o cerebral palsy, s/p tracheostomy, spastic quadriplegia, epilepsy, prior respiratory cx growing Pseudomonas and Moraxella, COVID infection in 08/2024 who presented on 10/23 with increased sputum production/tracheal secretions and tachypnea. Per chart, she recently completed abx and then developed increased tracheal secretions. Sister was recently sick with rhinovirus. Afebrile, RR in 30s, O2 sat high 90s on RA. Initial labs with WBC 18.68, Cr 0.39, LFT wnl. Lacate 2.4. PCT 0.10. RPP negative. CXR with atelectasis vs early PNA medial left lung base. She has been started on cefepime for PNA. ID consulted 10/23. Allergies Allergy/AdvReac Type Severity Reaction Status Date / Time ciprofloxacin [From Cipro] Allergy Mild IV Unverified 09/03/24 10:19 CIPRO-RASH Home Medications Medication Instructions Recorded Confirmed Type food supplemt, lactose-reduced 350 ea PO QID 04/19/19 10/23/24 History 0.04 gram-1 kcal/mL oral liquid (Boost) multivitamin-ferrous 1 tab PO .FEEDING TUBE 09/10/19 10/23/24 History fumarate-folic acid 18 mg-400 mcg tablet (Centrum) disposable gloves #1,000 ea 10/24/19 09/03/24 Rx disposable gloves #100 ea 10/25/19 09/03/24 Rx tobramycin 300 mg/5 mL in 0.225 % 300 mg inhalation Q12H PRN 02/02/21 10/23/24 History sodium chloride for nebulization Shortness Of Breath nebulizer machine #1 ea 07/13/21 09/03/24 Rx miscellaneous medical supply #30 ea 07/16/21 09/03/24 Rx ([place] Tracheostomy Care Tray) Over Night Pulse OX #1 ea 05/28/22 09/03/24 Rx Miscellaneous Pulmonary Supply #1 ea 06/07/22 09/03/24 Rx Repair or replace air compressor #1 ea 03/21/23 09/03/24 Rx for trach collar diaper,brief,adult,disposable (Day #180 ea 04/19/23 09/03/24 Rx and Night Brief, Large) incontinence pad, liner, disp #75 ea 04/19/23 09/03/24 Rx Repair or Replacement of Hospital #1 ea 06/10/23 09/03/24 Rx Bed bivona cuffed trach #1 ea 08/03/23 09/03/24 Rx acetaminophen 160 mg/5 mL oral 640 mg feeding tube UD PRN 08/09/23 10/23/24 History liquid PAIN/FEVER ibuprofen 100 mg/5 mL oral 100 - 400 mg feeding tube UD PRN 08/09/23 10/23/24 History suspension PAIN/FEVER nut.tx.,elemental,xnfguwj-tnef-gma 1 ea feeding tube UD 08/09/23 10/23/24 History 14 gram-230 kcal/45 mL liquid pkt (Xtracal Plus) albuterol sulfate 2.5 mg/3 mL 2.5 mg (3 mL) inhalation Q4H PRN 11/15/23 10/23/24 Rx (0.083 %) solution for nebulization sob #540 mL valproic acid (as sodium salt) 250 550 mg (11 mL) feeding tube TID 30 02/02/24 10/23/24 Rx mg/5 mL oral solution days #990 mL zonisamide 100 mg capsule 200 mg (2 x 100 mg) feeding tube 02/02/24 10/23/24 Rx BID 30 days #120 caps cetirizine 10 mg tablet 10 mg feeding tube DAILY #90 tabs 07/13/24 10/23/24 Rx polyethylene glycol 3350 17 17 g feeding tube DAILY #1,530 07/13/24 10/23/24 Rx gram/dose oral powder (Miralax) grams trazodone 50 mg tablet 50 mg feeding tube HS #90 tabs 07/13/24 10/23/24 Rx baclofen 10 mg tablet 10 mg feeding tube .COMPLEX 30 08/14/24 10/23/24 Rx days #150 tabs acetylcysteine 100 mg/mL (10 %) 2 ml inhalation BID PRN increased 10/23/24 10/23/24 History solution respiratory secretions acetylcysteine 200 mg/mL (20 %) 3 ml inhalation BID PRN Other 10/23/24 10/23/24 History solution albuterol sulfate 2.5 mg/3 mL 2.5 mg inhalation BID 10/23/24 10/23/24 History (0.083 %) solution for nebulization budesonide 0.5 mg/2 mL suspension 0.5 mg inhalation BID 10/23/24 10/23/24 History for nebulization (Pulmicort) fluoxetine 20 mg tablet 20 mg PO DAILY 10/23/24 10/23/24 History miscellaneous medical supply 10/23/24 10/23/24 History Patient History Surgical History History of tracheostomy History of gastrostomy Family History Brother Asthma Grandfather (Paternal) Coronary heart disease Other Hypertension No pertinent family history in first degree relatives Social History Smoking Status: Never smoker Hx Alcohol Use: No Hx Substance Use: No Preferred Language: Sudanese Communication Ability: Impaired Ball Ender Required: No Beliefs That Will Affect Care: None Current Living Situation: Family Other Information That Helps Us Care for You: No Feels Safe at Home: Yes Safety Concerns: Feels Safe At This Time Assistive Devices: Oxygen - Continuous and Wheelchair Results & Data Vital Signs (Past 12 Hours) Vital Signs Temp Pulse Pulse Resp BP BP Pulse Ox 10/23/24 15:00 117 H 32 H 95/57 L 93 10/23/24 13:30 121 H 32 H 97 10/23/24 12:18 122 H 36 H 91/69 L 96 10/23/24 11:30 116 H 10/23/24 09:49 37.0 C 130 H 38 H 96/53 L 98 O2 Del Method 10/23/24 15:00 Trach Collar 10/23/24 13:30 Trach Collar 10/23/24 12:18 Room Air 10/23/24 11:30 10/23/24 09:49 Room Air Laboratory Results Labs reviewed. Diagnostic Findings Imaging reviewed.
[2024-10-23] MEDS: VALPROIC ACID SOLN 500 MG/10 ML UDC PEG SCH (17:04)
[2024-10-23] MEDS: PLASMA-LYTE A 1,000 ML IV SCH (17:05)
[2024-10-23] MEDS: 4.5GM X1 IV STA (17:07)
[2024-10-23] MEDS: FLUoxetine HCL 20 MG/5 ML 120ML BTL PO SCH (17:26)
[2024-10-23] MEDS: VALPROIC ACID 50 MG/ML UDP PEG SCH (17:26)
[2024-10-23] MEDS: ACETYLCYSTEINE 20% INHAL SOLN 30ML INH SCH (19:31)
[2024-10-23] MEDS: BUDESONIDE 0.5 MG/2 ML VIAL (PULMICORT) INH SCH (19:31)
[2024-10-23] MEDS: ALBUTEROL 0.083% NEBU SOLN 3 ML VIAL INH PRN (19:32)
[2024-10-23] MEDS: traZODone HCL 50 MG TAB PEG SCH (19:40)
[2024-10-23] MEDS: ZONISAMIDE 100 MG CAPSULE PO SCH (19:40)
[2024-10-23] MEDS: ACETAMINOPHEN SUSP 160 MG/5 ML BTL PO PRN (19:45)
[2024-10-23] MEDS ORDERED: VALPROIC ACID SOLN 500 MG/10 ML UDC PEG SCH (21:00)
[2024-10-23] MEDS: OPTIRAY 320 125ml IV ONE (21:13)
[2024-10-23] MEDS ORDERED: CEFEPIME 2000MG 2,000 MG/20 ML SYR IV SCH (22:00)
[2024-10-23] MEDS: PIPERACILLIN/TAZOBACTAM 4.5 GM/100 ML BAG IV SCH (22:39)
--- NOTE | 2024-10-24 00:59 | CT Scan Report ---
Exam(s): CTA CHEST EXAM: CT Angiography Chest With Intravenous Contrast CLINICAL HISTORY: Reason for exam: PE. TECHNIQUE: Axial computed tomographic angiography images of the chest with intravenous contrast. CTDI is 16.69 mGy and DLP is 521.17 mGy-cm. Automated exposure control was utilized for the study. A dose lowering technique was utilized adhering to the principles of ALARA. MIP reconstructed images were created and reviewed. COMPARISON: No relevant prior studies available. FINDINGS: Pulmonary arteries: Unremarkable. No pulmonary embolism. Aorta: No acute findings. No thoracic aortic aneurysm. Lungs: Mild atelectasis in the right lower lobe. No mass. Pleural space: Unremarkable. No significant effusion. No pneumothorax. Heart: Unremarkable. No cardiomegaly. No significant pericardial effusion. No evidence of RV dysfunction. Mediastinum: Extensive diffuse abnormal soft tissue in the hilar regions bilaterally as well as the subcarinal area of the mediastinum. The soft tissue extends distally around the bronchovascular structures in the right lower lobe and right upper lobe. Bones/joints: No acute fracture. No dislocation. Soft tissues: Unremarkable. Lymph nodes: Unremarkable. No enlarged lymph nodes. Tubes, lines and devices: An endotracheal tube is present. IMPRESSION: No evidence of pulmonary emboli. Diffuse abnormal soft tissue in the subcarinal region of the mediastinum as well as in the bilateral hilar regions. Soft tissue extends distally surrounding the bronchovascular structures in the right upper lobe and right lower lobe. This may be infectious, though neoplastic process is not excluded. Electronically signed by: Vic Joya MD 10/24/24 00:57 AM
--- NOTE | 2024-10-24 02:37 | Communication Note ---
Date of Service: October 24, 2024 [place], [place] [phone] CT Scan Report Patient: BENITA BROWN Admit Date: 10/23/24 MR#: [id number] Address[address]: [address] Acct ID:[id number] Address2: Date: 1995 [facility] Zip: [place] [id number] Age: 29 Location: 1E Sex: F Room/Bed: E109-1 Att Phy: Flo Jaramillo MD Diagnosis: PNA,CP Melisa Phy: Anita Gil MD Service Date: 10/23/24 Fam Phy: Interpreting Phy: Vic Joya Jr MDAdmit Phy: Flo Jaramillo MD Ordering Phy: Saurabh Lam MD cc: ~ Exam(s): CTA CHEST EXAM: CT Angiography Chest With Intravenous Contrast CLINICAL HISTORY: Reason for exam: PE. TECHNIQUE: Axial computed tomographic angiography images of the chest with intravenous contrast. CTDI is 16.69 mGy and DLP is 521.17 mGy-cm. Automated exposure control was utilized for the study. A dose lowering technique was utilized adhering to the principles of ALARA. MIP reconstructed images were created and reviewed. COMPARISON: No relevant prior studies available. FINDINGS: Pulmonary arteries: Unremarkable. No pulmonary embolism. Aorta: No acute findings. No thoracic aortic aneurysm. Lungs: Mild atelectasis in the right lower lobe. No mass. Pleural space: Unremarkable. No significant effusion. No pneumothorax. Heart: Unremarkable. No cardiomegaly. No significant pericardial effusion. No evidence of RV dysfunction. Mediastinum: Extensive diffuse abnormal soft tissue in the hilar regions bilaterally as well as the subcarinal area of the mediastinum. The soft tissue extends distally around the bronchovascular structures in the right lower lobe and right upper lobe. Bones/joints: No acute fracture. No dislocation. Soft tissues: Unremarkable. Lymph nodes: Unremarkable. No enlarged lymph nodes. Tubes, lines and devices: An endotracheal tube is present. IMPRESSION: No evidence of pulmonary emboli. Diffuse abnormal soft tissue in the subcarinal region of the mediastinum as well as in the bilateral hilar regions. Soft tissue extends distally surrounding the bronchovascular structures in the right upper lobe and right lower lobe. This may be infectious, though neoplastic process is not excluded. Electronically signed by: Vic Joya MD 10/24/24 00:57 AM Dictated: 10/24/2456 Transcribed: 10/24/2456 Airway remains patent Findings above infections vs soft tissue/malignant process -Continue antibiotics -monitor airway -Appreciate Pulmonary input
[2024-10-24 03:31] LABS: A calco-baum cmplx NotReported Not Detected (NotDetected); Bact fragilis Not Reported Not Detected (NotDetected); Blood Culture Id Panel See PCR Comment (NotDetected); C auris Not Reported Not Detected (NotDetected); Calbicans Not Reported Not Detected (NotDetected); Candida glabrata Not Reported Not Detected (NotDetected); Candida krusei Not Reported Not Detected (NotDetected); Cneoformans/gatti Not Reported Not Detected (NotDetected); Cparapsilosis Not Reported Not Detected (NotDetected); E cloacae compx Not Reported Not Detected (NotDetected); Efaecalis Not Reported Not Detected (NotDetected); Efaecium Not Reported Not Detected (NotDetected); Enterobacterales Not Reported Not Detected (NotDetected); Escherichia coli Not Reported Not Detected (NotDetected); H influenzae Not Reported Not Detected (NotDetected); K aerogenes Not Reported Not Detected (NotDetected); Koxytoca Not Reported Not Detected (NotDetected); Kpneumoniae grp Not Reported Not Detected (NotDetected); Lmonocyt Not Reported Not Detected (NotDetected); N meningitidis Not Reported Not Detected (NotDetected); P aeruginosa Not Reported Not Detected (NotDetected); Proteus spp Not Reported Not Detected (NotDetected); Salmonella spp Not Reported Not Detected (NotDetected); Staph lugdunensis Not Reported Not Detected (NotDetected); Staph spp. Not Reported DETECTED (NotDetected); Staphaureus Not Reported Not Detected (NotDetected); Staphepi Not Reported DETECTED (NotDetected); Staphylococcus spp. DETECTED (NotDetected); Stenmaltophilia Not Reported Not Detected (NotDetected); Strep agal(GrpB) Not Reported Not Detected (NotDetected); Strep pneum Not Reported Not Detected (NotDetected); Strep pyog (GrpA) Not Reported Not Detected (NotDetected); Strep spp Not Reported Not Detected (NotDetected); mecAC Resistant Gene Not Detected (NotDetected)
[2024-10-24 03:41] LABS: Staphylococcus epidermidis DETECTED (NotDetected)
[2024-10-24 05:01] LABS: Basophils # (auto) 0.01 K/uL (0.00-0.20); Basophils % (auto) 0.1 %; Hematocrit (blood only) 34.8 % (37.0-47.0); Hemoglobin 11.9 g/dl (12.0-16.0); Immature Granulocytes # (auto) 0.06 K/uL (0.01-0.20); Immature Granulocytes % (auto) 0.4 %; Lymphocytes # (auto) 0.61 K/uL (1.20-3.40); Lymphocytes % (auto) 4.4 %; Mean Corpuscular Hemoglobin 33.5 pg (25.0-34.0); Mean Corpuscular Hgb Conc 34.2 g/dL (32.0-36.0); Mean Platelet Volume 9.4 fL (9.4-12.4); Monocytes % (auto) 7.2 %; Neutrophils # (auto) 12.25 K/uL (1.40-6.50); Neutrophils % (auto) 87.9 %; Platelet Count 115 K/uL (130-400); RDW Coefficient of Variation 14.2 % (11.5-14.5); RDW Standard Deviation 51.3 fL (36.4-46.3); Red Blood Count 3.55 M/uL (4.20-5.40); White Blood Count 13.93 K/ul (4.8-10.8)
[2024-10-24 05:09] LABS: Potassium 3.6 mmol/L (3.5-5.1)
[2024-10-24 05:10] LABS: BUN Creatinine Ratio 14.6 (10-20); Calcium 8.6 mg/dl (8.6-10.3); Creatinine Clr Calc Pharmacy 164.3 ml/min
[2024-10-24] MEDS: IBUPROFEN 200 MG/10 ML UDC GT PRN (06:26)
[2024-10-24] MEDS ORDERED: VANCOMYCIN CONSULT ACTIVE PRN ×2 (07:40→08:20)
[2024-10-24] MEDS ORDERED: VANCOMYCIN HCL 1,250 MG in SODIUM CHLORIDE 0.9% 250 ML IV ONE (08:00)
--- NOTE | 2024-10-24 08:26 | Infectious Disease Progress Nt ---
Date of Service October 24, 2024 Assessment & Plan (1) Gram-positive cocci bacteremia: (2) Leukocytosis: (3) Tachypnea: (4) Tracheostomy dependence: Plan 29yo F with h/o cerebral palsy, s/p PEG/tracheostomy, spastic quadriplegia, epilepsy, prior respiratory cx growing Pseudomonas and Moraxella, COVID infection in 08/2024 who presented on 10/23 with increased sputum production/tracheal secretions and tachypnea. Per chart, she recently completed cipro and then developed increased tracheal secretions. Sister was recently sick with rhinovirus. On admission, she was afebrile, RR in 30s, O2 sat high 90s on RA. Initial labs with WBC 18.68, Cr 0.39, LFT wnl. Lacate 2.4. PCT 0.10. RPP negative. CXR with atelectasis vs early PNA medial left lung base. She was started on cefepime for PNA. ID consulted 10/23. Abx changed to zosyn based on prior respiratory cultures. CTA chest negative for PE, diffuse abnormal soft tissue in the subcarinal region of the mediastinum as well as in the bilateral hilar regions, extends distally surrounding the bronchovascular structures of RUL and RLL, may be infectious though neoplastic process not excluded. BCX returned with GPC in clusters. She has been persistently febrile since evening of 10/23, tachycardic, BPs 70s overnight. Though BCX BCID panel has Staph epidermidis negative for mecA gene, and MRSA screen is negative, Im going to add on vancomycin empirically given the ongoing fevers and sepsis until we have further culture results available. CT chest noted some soft tissue process in the mediastinum. I dont see any other sources on clinical exam, no open wounds/rashes. Will consider the S epidermidis as true bacteremia given the clinical picture. I dont see any documentation in the chart about hardware. I do think we should get a TTE. She is also had loose stools overnight, will order C diff. # GPC in blood cx # Fevers, hypoxia # Diffuse abnormal soft tissue in subcarinal, bl hilar, RUL and RLL # Diarrhea # Cerebral palsy s/p PEG/tracheostomy - would obtain a TTE given persistent high fevers and likely true bacteremia - [place] ordered stool C diff - will favor repeating blood cx at 48hrs - Angeles added vancomycin empirically for now - continue zosyn - f/u all cultures Will continue to follow. If questions or concerns, contact via [employer] or Infectious Disease Call Center . Yandy Klein MD [facility], Division of Infectious Diseases Admission and Anticipated Discharge Date Admission Date: October 23, 2024 Subjective Subsequent visit was provided via telemedicine using two-way real-time interactive telecommunication between the patient and the telemedicine provider. For the duration of the visit, the provider was performing the assessment from a different facility than the patient. This includesuse of bluetooth stethoscope forauscultationperformed by the telepresenter that the telemedicine provider can hear if described in the physical exam. Packing Supervisor contact information: Please call [facility] Call Center . (Phone Number For Physician Use Only) After establishing a telemedicine visit, patient was: Patient was verified with two unique identifiers, Patient/authorized rep acknowledged consent and understanding and Gave permission to continue telehealth session Time Spent with Patient: Subsequent => 55 min Patient is nonverbal. Per RN, patient had 3 loose stools overnight. Physical Exam Physical Exam: General: no acute distress HEENT: NC/AT Neck: trach in place, clean Lungs: respirations non-labored Heart: nl peripheral perfusion Abdomen: soft, PEG site clean Back: no sacral wounds Ext: no open wounds Skin: no rash : no chavez Results & Data Vital Signs (Past 12 Hours) Vital Signs Temp Pulse Pulse Resp BP Pulse Ox Pulse Ox 10/24/24 07:18 116 H 22 90 10/24/24 06:00 38.7 C H 94/62 L 10/24/24 06:00 94/62 L 10/24/24 06:00 94/62 L 10/24/24 06:00 94/62 L 10/24/24 06:00 94/62 L 10/24/24 06:00 94/62 L 10/24/24 06:00 94/62 L 10/24/24 06:00 94/62 L 10/24/24 06:00 94/62 L 10/24/24 06:00 94/62 L 10/24/24 06:00 94/62 L 10/24/24 06:00 94/62 L 10/24/24 06:00 94/62 L 10/24/24 06:00 94/62 L 10/24/24 06:00 94/62 L 10/24/24 06:00 94/62 L 10/24/24 06:00 94/62 L 10/24/24 06:00 38.9 C H 112 H 12 92 10/24/24 06:00 94/62 L 10/24/24 05:12 38.9 C H 115 H 53 H 92 10/24/24 05:00 82/60 L 10/24/24 05:00 82/60 L 10/24/24 05:00 82/60 L 10/24/24 05:00 82/60 L 10/24/24 05:00 82/60 L 10/24/24 05:00 82/60 L 10/24/24 05:00 82/60 L 10/24/24 05:00 82/60 L 10/24/24 05:00 82/60 L 10/24/24 05:00 82/60 L 10/24/24 05:00 82/60 L 10/24/24 05:00 82/60 L 10/24/24 05:00 82/60 L 10/24/24 05:00 82/60 L 10/24/24 04:57 38.9 C H 115 H 51 H 92 10/24/24 04:29 120 H 20 94 10/24/24 04:00 89/67 L 10/24/24 04:00 89/67 L 10/24/24 04:00 89/67 L 10/24/24 04:00 89/67 L 10/24/24 04:00 89/67 L 10/24/24 04:00 89/67 L 10/24/24 04:00 89/67 L 10/24/24 04:00 89/67 L 10/24/24 04:00 89/67 L 10/24/24 04:00 89/67 L 10/24/24 04:00 89/67 L 10/24/24 04:00 89/67 L 10/24/24 04:00 89/67 L 10/24/24 04:00 89/67 L 10/24/24 04:00 38.8 C H 127 H 22 88 L 10/24/24 04:00 89/67 L 10/24/24 04:00 89/67 L 10/24/24 04:00 89/67 L 10/24/24 04:00 89/67 L 10/24/24 03:18 129 H 49 H 87 L 10/24/24 03:16 112/49 L 10/24/24 03:16 112/49 L 10/24/24 03:16 112/49 L 10/24/24 03:16 112/49 L 10/24/24 03:16 112/49 L 10/24/24 03:16 112/49 L 10/24/24 03:16 112/49 L 10/24/24 03:16 112/49 L 10/24/24 03:16 112/49 L 10/24/24 03:16 112/49 L 10/24/24 03:16 112/49 L 10/24/24 03:16 112/49 L 10/24/24 03:16 112/49 L 10/24/24 03:16 112/49 L 10/24/24 03:16 112/49 L 10/24/24 03:16 112/49 L 10/24/24 03:16 112/49 L 10/24/24 03:16 112/49 L 10/24/24 03:15 131 H 55 H 91 10/24/24 03:03 38.7 C H 126 H 37 H 89 L 10/24/24 03:00 73/57 L 10/24/24 02:55 120 H 20 93 10/24/24 02:42 38.5 C H 121 H 28 H 89 L 10/24/24 02:12 38.4 C H 119 H 33 H 89 L 10/24/24 02:00 77/55 L 10/24/24 02:00 77/55 L 10/24/24 02:00 77/55 L 10/24/24 02:00 77/55 L 10/24/24 02:00 77/55 L 10/24/24 02:00 77/55 L 10/24/24 02:00 77/55 L 10/24/24 02:00 77/55 L 10/24/24 02:00 77/55 L 10/24/24 02:00 77/55 L 10/24/24 02:00 77/55 L 10/24/24 02:00 77/55 L 10/24/24 02:00 77/55 L 10/24/24 02:00 77/55 L 10/24/24 01:48 38.3 C H 116 H 34 H 92 10/24/24 01:06 38.3 C H 111 H 20 90 10/24/24 01:00 89/52 L 10/24/24 01:00 89/52 L 10/24/24 01:00 89/52 L 10/24/24 01:00 89/52 L 10/24/24 01:00 89/52 L 10/24/24 01:00 89/52 L 10/24/24 01:00 89/52 L 10/24/24 01:00 89/52 L 10/24/24 01:00 89/52 L 10/24/24 01:00 89/52 L 10/24/24 01:00 89/52 L 10/24/24 01:00 89/52 L 10/24/24 01:00 89/52 L 10/24/24 01:00 89/52 L 10/24/24 01:00 89/52 L 10/24/24 01:00 89/52 L 10/24/24 01:00 89/52 L 10/24/24 00:57 38.3 C H 111 H 42 H 90 10/24/24 00:21 38.4 C H 107 H 34 H 91 10/24/24 00:11 81/42 L 10/24/24 00:11 81/42 L 10/24/24 00:11 81/42 L 10/24/24 00:11 81/42 L 10/24/24 00:11 81/42 L 10/24/24 00:11 81/42 L 10/24/24 00:11 81/42 L 10/24/24 00:11 81/42 L 10/24/24 00:11 81/42 L 10/24/24 00:11 81/42 L 10/24/24 00:11 81/42 L 10/24/24 00:11 81/42 L 10/24/24 00:11 38.5 C H 81/42 L 10/24/24 00:03 78/43 L 10/24/24 00:00 111 H 10/23/24 23:01 91/39 L 10/23/24 23:01 91/39 L 10/23/24 23:01 91/39 L 10/23/24 23:01 91/39 L 10/23/24 23:01 91/39 L 10/23/24 23:01 91/39 L 10/23/24 23:01 91/39 L 10/23/24 23:01 91/39 L 10/23/24 23:01 91/39 L 10/23/24 23:01 91/39 L 10/23/24 23:01 91/39 L 10/23/24 23:01 91/39 L 10/23/24 23:01 91/39 L 10/23/24 23:01 91/39 L 10/23/24 23:01 91/39 L 10/23/24 23:01 91/39 L 10/23/24 23:01 91/39 L 10/23/24 23:00 38.7 C H 115 H 44 H 92 10/23/24 22:48 90 10/23/24 22:48 10/23/24 22:00 84/56 L 10/23/24 22:00 84/56 L 10/23/24 22:00 84/56 L 10/23/24 22:00 84/56 L 10/23/24 22:00 84/56 L 10/23/24 22:00 84/56 L 10/23/24 22:00 84/56 L 10/23/24 22:00 84/56 L 10/23/24 22:00 84/56 L 10/23/24 22:00 84/56 L 10/23/24 22:00 84/56 L 10/23/24 22:00 84/56 L 10/23/24 22:00 84/56 L 10/23/24 22:00 84/56 L 10/23/24 22:00 84/56 L 10/23/24 22:00 38.8 C H 84/56 L 10/23/24 22:00 84/56 L 10/23/24 22:00 84/56 L 10/23/24 22:00 84/56 L 10/23/24 22:00 84/56 L 10/23/24 22:00 84/56 L 10/23/24 22:00 84/56 L 10/23/24 22:00 84/56 L 10/23/24 22:00 84/56 L 10/23/24 22:00 84/56 L 10/23/24 22:00 84/56 L 10/23/24 22:00 84/56 L 10/23/24 22:00 84/56 L 10/23/24 22:00 84/56 L 10/23/24 22:00 84/56 L 10/23/24 22:00 84/56 L 10/23/24 22:00 84/56 L 10/23/24 22:00 84/56 L 10/23/24 22:00 84/56 L 10/23/24 22:00 84/56 L 10/23/24 22:00 84/56 L 10/23/24 22:00 84/56 L 10/23/24 22:00 84/56 L 10/23/24 22:00 84/56 L 10/23/24 22:00 38.9 C H 120 H 37 H 92 10/23/24 21:51 38.9 C H 122 H 41 H 90 10/23/24 21:32 94/44 L 10/23/24 21:32 94/44 L 10/23/24 21:32 94/44 L 10/23/24 21:32 94/44 L 10/23/24 21:32 94/44 L 10/23/24 21:32 94/44 L 10/23/24 21:32 94/44 L 10/23/24 21:32 94/44 L 10/23/24 21:32 94/44 L 10/23/24 21:32 94/44 L 10/23/24 21:32 94/44 L 10/23/24 21:30 39.0 C H 121 H 50 H 90 10/23/24 21:27 39.0 C H 122 H 49 H 89 L 10/23/24 20:45 39.5 C H 130 H 49 H 89 L 10/23/24 20:40 88/44 L 10/23/24 20:40 88/44 L 10/23/24 20:40 88/44 L 10/23/24 20:40 88/44 L 10/23/24 20:40 88/44 L 10/23/24 20:40 88/44 L 10/23/24 20:40 88/44 L 10/23/24 20:36 127 H 38 H 89 L O2 Del Method O2 Del Method O2 Flow Rate O2 Flow Rate FiO2 10/24/24 07:18 Trach Collar 10 70 10/24/24 06:00 10/24/24 06:00 10/24/24 06:00 10/24/24 06:00 10/24/24 06:00 10/24/24 06:00 10/24/24 06:00 10/24/24 06:00 10/24/24 06:00 10/24/24 06:00 10/24/24 06:00 10/24/24 06:00 10/24/24 06:00 10/24/24 06:00 10/24/24 06:00 10/24/24 06:00 10/24/24 06:00 10/24/24 06:00 10/24/24 06:00 10/24/24 05:12 10/24/24 05:00 10/24/24 05:00 10/24/24 05:00 10/24/24 05:00 10/24/24 05:00 10/24/24 05:00 10/24/24 05:00 10/24/24 05:00 10/24/24 05:00 10/24/24 05:00 10/24/24 05:00 10/24/24 05:00 10/24/24 05:00 10/24/24 05:00 10/24/24 04:57 10/24/24 04:29 Trach Collar 10 40 10/24/24 04:00 10/24/24 04:00 10/24/24 04:00 10/24/24 04:00 10/24/24 04:00 10/24/24 04:00 10/24/24 04:00 10/24/24 04:00 10/24/24 04:00 10/24/24 04:00 10/24/24 04:00 10/24/24 04:00 10/24/24 04:00 10/24/24 04:00 10/24/24 04:00 10/24/24 04:00 10/24/24 04:00 10/24/24 04:00 10/24/24 04:00 10/24/24 03:18 10/24/24 03:16 10/24/24 03:16 10/24/24 03:16 10/24/24 03:16 10/24/24 03:16 10/24/24 03:16 10/24/24 03:16 10/24/24 03:16 10/24/24 03:16 10/24/24 03:16 10/24/24 03:16 10/24/24 03:16 10/24/24 03:16 10/24/24 03:16 10/24/24 03:16 10/24/24 03:16 10/24/24 03:16 10/24/24 03:16 10/24/24 03:15 10/24/24 03:03 10/24/24 03:00 10/24/24 02:55 Trach Collar 10 70 10/24/24 02:42 10/24/24 02:12 10/24/24 02:00 10/24/24 02:00 10/24/24 02:00 10/24/24 02:00 10/24/24 02:00 10/24/24 02:00 10/24/24 02:00 10/24/24 02:00 10/24/24 02:00 10/24/24 02:00 10/24/24 02:00 10/24/24 02:00 10/24/24 02:00 10/24/24 02:00 10/24/24 01:48 10/24/24 01:06 10/24/24 01:00 10/24/24 01:00 10/24/24 01:00 10/24/24 01:00 10/24/24 01:00 10/24/24 01:00 10/24/24 01:00 10/24/24 01:00 10/24/24 01:00 10/24/24 01:00 10/24/24 01:00 10/24/24 01:00 10/24/24 01:00 10/24/24 01:00 10/24/24 01:00 10/24/24 01:00 10/24/24 01:00 10/24/24 00:57 10/24/24 00:21 10/24/24 00:11 10/24/24 00:11 10/24/24 00:11 10/24/24 00:11 10/24/24 00:11 10/24/24 00:11 10/24/24 00:11 10/24/24 00:11 10/24/24 00:11 10/24/24 00:11 10/24/24 00:11 10/24/24 00:11 10/24/24 00:11 10/24/24 00:03 10/24/24 00:00 10/23/24 23:01 10/23/24 23:01 10/23/24 23:01 10/23/24 23:01 10/23/24 23:01 10/23/24 23:01 10/23/24 23:01 10/23/24 23:01 10/23/24 23:01 10/23/24 23:01 10/23/24 23:01 10/23/24 23:01 10/23/24 23:01 10/23/24 23:01 10/23/24 23:01 10/23/24 23:01 10/23/24 23:01 10/23/24 23:00 10/23/24 22:48 Trach Collar 10 10/23/24 22:48 Trach Collar 10 70 10/23/24 22:00 10/23/24 22:00 10/23/24 22:00 10/23/24 22:00 10/23/24 22:00 10/23/24 22:00 10/23/24 22:00 10/23/24 22:00 10/23/24 22:00 10/23/24 22:00 10/23/24 22:00 10/23/24 22:00 10/23/24 22:00 10/23/24 22:00 10/23/24 22:00 10/23/24 22:00 10/23/24 22:00 10/23/24 22:00 10/23/24 22:00 10/23/24 22:00 10/23/24 22:00 10/23/24 22:00 10/23/24 22:00 10/23/24 22:00 10/23/24 22:00 10/23/24 22:00 10/23/24 22:00 10/23/24 22:00 10/23/24 22:00 10/23/24 22:00 10/23/24 22:00 10/23/24 22:00 10/23/24 22:00 10/23/24 22:00 10/23/24 22:00 10/23/24 22:00 10/23/24 22:00 10/23/24 22:00 10/23/24 22:00 10/23/24 22:00 10/23/24 21:51 10/23/24 21:32 10/23/24 21:32 10/23/24 21:32 10/23/24 21:32 10/23/24 21:32 10/23/24 21:32 10/23/24 21:32 10/23/24 21:32 10/23/24 21:32 10/23/24 21:32 10/23/24 21:32 10/23/24 21:30 10/23/24 21:27 10/23/24 20:45 10/23/24 20:40 10/23/24 20:40 10/23/24 20:40 10/23/24 20:40 10/23/24 20:40 10/23/24 20:40 10/23/24 20:40 10/23/24 20:36 Laboratory Results Labs reviewed. Diagnostic Findings Imaging reviewed.
--- NOTE | 2024-10-24 08:33 | Pulmonology Progress Note ---
Date of Service October 24, 2024 Assessment & Plan (1) Gram-positive cocci bacteremia: (2) Multifocal pneumonia: (3) Spastic quadriplegic cerebral palsy: (4) Tracheostomy in place: (5) Abnormal chest CT: (6) Bronchiectasis: Plan CT chest 10/23/2024 personally reviewed: Patchy opacities appreciated in the right upper lobe as well as right lower lobe Bronchiectasis of the right apex Motion degraded study Minimal mediastinal lymphadenopathy -- Left lower lobe pneumonia with bacteremia Respiratory BioFire negative for everything Does have leukocytosis Procalcitonin negative History of Pseudomonas in the past She did have 2 variants of Pseudomonas 1 was intermediate to cefepime but both are sensitive to Zosyn --Abnormal chest CT There seems to be some increased soft tissue/lymphadenopathy in the subcarinal as well as right hilar region This is likely reactive from infection Would recommend repeat CT chest in 2-3 months --Focal bronchiectasis of the right apex --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 It may contain grammatical, syntax or spelling errors.Any formal questions or concerns about the content, text or information contained within the body of this dictation should be directly addressed to the provider for clarification. Admission and Anticipated Discharge Date Admission Date: October 23, 2024 Subjective Patient seen and examined at bedside. Patient's mother was also in the room She was saturating 91-92% while being on trach collar 100% She was tachycardic in the 100's. Temperature was 38.1. Systolic blood pressure was in the high 90s with MAP in the high 60s She does get low blood pressures when she is resting/sleeping Review of Systems 2 Review of Systems: Unobtainable due to cognitive status Physical Exam 2 Physical Exam: Constitutional: No acute distress HEENT: EOMI, PERRLA, positive trach Respiratory system: Decreased air entry bilaterally, no wheeze, rhonchi, positive crackles bilaterally, more on the right side CVS: S1-S2 positive, no murmurs or gallops, tachycardia Abdomen: Soft, nontender, nondistended, positive bowel sounds x4 Extremities: +2 pulses bilaterally radialis/ dorsalis pedis, no cyanosis, no edema Neuro: Awake alert oriented Psych: Unable to assess G/U: No Yap Skin: no rashes, warm and dry Lymphatic: no cervical or axillary lymphadenopathy Results & Data Results & Data Vital Signs (Past 12 Hours) Vital Signs Temp Pulse Pulse Resp BP Pulse Ox Pulse Ox 10/24/24 07:18 116 H 22 90 10/24/24 06:00 38.7 C H 94/62 L 10/24/24 06:00 94/62 L 10/24/24 06:00 94/62 L 10/24/24 06:00 94/62 L 10/24/24 06:00 94/62 L 10/24/24 06:00 94/62 L 10/24/24 06:00 94/62 L 10/24/24 06:00 94/62 L 10/24/24 06:00 94/62 L 10/24/24 06:00 94/62 L 10/24/24 06:00 94/62 L 10/24/24 06:00 94/62 L 10/24/24 06:00 94/62 L 10/24/24 06:00 94/62 L 10/24/24 06:00 94/62 L 10/24/24 06:00 94/62 L 10/24/24 06:00 94/62 L 10/24/24 06:00 38.9 C H 112 H 12 92 10/24/24 06:00 94/62 L 10/24/24 05:12 38.9 C H 115 H 53 H 92 10/24/24 05:00 82/60 L 10/24/24 05:00 82/60 L 10/24/24 05:00 82/60 L 10/24/24 05:00 82/60 L 10/24/24 05:00 82/60 L 10/24/24 05:00 82/60 L 10/24/24 05:00 82/60 L 10/24/24 05:00 82/60 L 10/24/24 05:00 82/60 L 10/24/24 05:00 82/60 L 10/24/24 05:00 82/60 L 10/24/24 05:00 82/60 L 10/24/24 05:00 82/60 L 10/24/24 05:00 82/60 L 10/24/24 04:57 38.9 C H 115 H 51 H 92 10/24/24 04:29 120 H 20 94 10/24/24 04:00 89/67 L 10/24/24 04:00 89/67 L 10/24/24 04:00 89/67 L 10/24/24 04:00 89/67 L 10/24/24 04:00 89/67 L 10/24/24 04:00 89/67 L 10/24/24 04:00 89/67 L 10/24/24 04:00 89/67 L 10/24/24 04:00 89/67 L 10/24/24 04:00 89/67 L 10/24/24 04:00 89/67 L 10/24/24 04:00 89/67 L 10/24/24 04:00 89/67 L 10/24/24 04:00 89/67 L 10/24/24 04:00 38.8 C H 127 H 22 88 L 10/24/24 04:00 89/67 L 10/24/24 04:00 89/67 L 10/24/24 04:00 89/67 L 10/24/24 04:00 89/67 L 10/24/24 03:18 129 H 49 H 87 L 10/24/24 03:16 112/49 L 10/24/24 03:16 112/49 L 10/24/24 03:16 112/49 L 10/24/24 03:16 112/49 L 10/24/24 03:16 112/49 L 10/24/24 03:16 112/49 L 10/24/24 03:16 112/49 L 10/24/24 03:16 112/49 L 10/24/24 03:16 112/49 L 10/24/24 03:16 112/49 L 10/24/24 03:16 112/49 L 10/24/24 03:16 112/49 L 10/24/24 03:16 112/49 L 10/24/24 03:16 112/49 L 10/24/24 03:16 112/49 L 10/24/24 03:16 112/49 L 10/24/24 03:16 112/49 L 10/24/24 03:16 112/49 L 10/24/24 03:15 131 H 55 H 91 10/24/24 03:03 38.7 C H 126 H 37 H 89 L 10/24/24 03:00 73/57 L 10/24/24 02:55 120 H 20 93 10/24/24 02:42 38.5 C H 121 H 28 H 89 L 10/24/24 02:12 38.4 C H 119 H 33 H 89 L 10/24/24 02:00 77/55 L 10/24/24 02:00 77/55 L 10/24/24 02:00 77/55 L 10/24/24 02:00 77/55 L 10/24/24 02:00 77/55 L 10/24/24 02:00 77/55 L 10/24/24 02:00 77/55 L 10/24/24 02:00 77/55 L 10/24/24 02:00 77/55 L 10/24/24 02:00 77/55 L 10/24/24 02:00 77/55 L 10/24/24 02:00 77/55 L 10/24/24 02:00 77/55 L 10/24/24 02:00 77/55 L 10/24/24 01:48 38.3 C H 116 H 34 H 92 10/24/24 01:06 38.3 C H 111 H 20 90 10/24/24 01:00 89/52 L 10/24/24 01:00 89/52 L 10/24/24 01:00 89/52 L 10/24/24 01:00 89/52 L 10/24/24 01:00 89/52 L 10/24/24 01:00 89/52 L 10/24/24 01:00 89/52 L 10/24/24 01:00 89/52 L 10/24/24 01:00 89/52 L 10/24/24 01:00 89/52 L 10/24/24 01:00 89/52 L 10/24/24 01:00 89/52 L 10/24/24 01:00 89/52 L 10/24/24 01:00 89/52 L 10/24/24 01:00 89/52 L 10/24/24 01:00 89/52 L 10/24/24 01:00 89/52 L 10/24/24 00:57 38.3 C H 111 H 42 H 90 10/24/24 00:21 38.4 C H 107 H 34 H 91 10/24/24 00:11 81/42 L 10/24/24 00:11 81/42 L 10/24/24 00:11 81/42 L 10/24/24 00:11 81/42 L 10/24/24 00:11 81/42 L 10/24/24 00:11 81/42 L 10/24/24 00:11 81/42 L 10/24/24 00:11 81/42 L 10/24/24 00:11 81/42 L 10/24/24 00:11 81/42 L 10/24/24 00:11 81/42 L 10/24/24 00:11 81/42 L 10/24/24 00:11 38.5 C H 81/42 L 10/24/24 00:03 78/43 L 10/24/24 00:00 111 H 10/23/24 23:01 91/39 L 10/23/24 23:01 91/39 L 10/23/24 23:01 91/39 L 10/23/24 23:01 91/39 L 10/23/24 23:01 91/39 L 10/23/24 23:01 91/39 L 10/23/24 23:01 91/39 L 10/23/24 23:01 91/39 L 10/23/24 23:01 91/39 L 10/23/24 23:01 91/39 L 10/23/24 23:01 91/39 L 10/23/24 23:01 91/39 L 10/23/24 23:01 91/39 L 10/23/24 23:01 91/39 L 10/23/24 23:01 91/39 L 10/23/24 23:01 91/39 L 10/23/24 23:01 91/39 L 10/23/24 23:00 38.7 C H 115 H 44 H 92 10/23/24 22:48 90 10/23/24 22:48 10/23/24 22:00 84/56 L 10/23/24 22:00 84/56 L 10/23/24 22:00 84/56 L 10/23/24 22:00 84/56 L 10/23/24 22:00 84/56 L 10/23/24 22:00 84/56 L 10/23/24 22:00 84/56 L 10/23/24 22:00 84/56 L 10/23/24 22:00 84/56 L 10/23/24 22:00 84/56 L 10/23/24 22:00 84/56 L 10/23/24 22:00 84/56 L 10/23/24 22:00 84/56 L 10/23/24 22:00 84/56 L 10/23/24 22:00 84/56 L 10/23/24 22:00 38.8 C H 84/56 L 10/23/24 22:00 84/56 L 10/23/24 22:00 84/56 L 10/23/24 22:00 84/56 L 10/23/24 22:00 84/56 L 10/23/24 22:00 84/56 L 10/23/24 22:00 84/56 L 10/23/24 22:00 84/56 L 10/23/24 22:00 84/56 L 10/23/24 22:00 84/56 L 10/23/24 22:00 84/56 L 10/23/24 22:00 84/56 L 10/23/24 22:00 84/56 L 10/23/24 22:00 84/56 L 10/23/24 22:00 84/56 L 10/23/24 22:00 84/56 L 10/23/24 22:00 84/56 L 10/23/24 22:00 84/56 L 10/23/24 22:00 84/56 L 10/23/24 22:00 84/56 L 10/23/24 22:00 84/56 L 10/23/24 22:00 84/56 L 10/23/24 22:00 84/56 L 10/23/24 22:00 84/56 L 10/23/24 22:00 38.9 C H 120 H 37 H 92 10/23/24 21:51 38.9 C H 122 H 41 H 90 10/23/24 21:32 94/44 L 10/23/24 21:32 94/44 L 10/23/24 21:32 94/44 L 10/23/24 21:32 94/44 L 10/23/24 21:32 94/44 L 10/23/24 21:32 94/44 L 10/23/24 21:32 94/44 L 10/23/24 21:32 94/44 L 10/23/24 21:32 94/44 L 10/23/24 21:32 94/44 L 10/23/24 21:32 94/44 L 10/23/24 21:30 39.0 C H 121 H 50 H 90 10/23/24 21:27 39.0 C H 122 H 49 H 89 L 10/23/24 20:45 39.5 C H 130 H 49 H 89 L 10/23/24 20:40 88/44 L 10/23/24 20:40 88/44 L 10/23/24 20:40 88/44 L 10/23/24 20:40 88/44 L 10/23/24 20:40 88/44 L 10/23/24 20:40 88/44 L 10/23/24 20:40 88/44 L 10/23/24 20:36 127 H 38 H 89 L O2 Del Method O2 Del Method O2 Flow Rate O2 Flow Rate FiO2 10/24/24 07:18 Trach Collar 10 70 10/24/24 06:00 10/24/24 06:00 10/24/24 06:00 10/24/24 06:00 10/24/24 06:00 10/24/24 06:00 10/24/24 06:00 10/24/24 06:00 10/24/24 06:00 10/24/24 06:00 10/24/24 06:00 10/24/24 06:00 10/24/24 06:00 10/24/24 06:00 10/24/24 06:00 10/24/24 06:00 10/24/24 06:00 10/24/24 06:00 10/24/24 06:00 10/24/24 05:12 10/24/24 05:00 10/24/24 05:00 10/24/24 05:00 10/24/24 05:00 10/24/24 05:00 10/24/24 05:00 10/24/24 05:00 10/24/24 05:00 10/24/24 05:00 10/24/24 05:00 10/24/24 05:00 10/24/24 05:00 10/24/24 05:00 10/24/24 05:00 10/24/24 04:57 10/24/24 04:29 Trach Collar 10 40 10/24/24 04:00 10/24/24 04:00 10/24/24 04:00 10/24/24 04:00 10/24/24 04:00 10/24/24 04:00 10/24/24 04:00 10/24/24 04:00 10/24/24 04:00 10/24/24 04:00 10/24/24 04:00 10/24/24 04:00 10/24/24 04:00 10/24/24 04:00 10/24/24 04:00 10/24/24 04:00 10/24/24 04:00 10/24/24 04:00 10/24/24 04:00 10/24/24 03:18 10/24/24 03:16 10/24/24 03:16 10/24/24 03:16 10/24/24 03:16 10/24/24 03:16 10/24/24 03:16 10/24/24 03:16 10/24/24 03:16 10/24/24 03:16 10/24/24 03:16 10/24/24 03:16 10/24/24 03:16 10/24/24 03:16 10/24/24 03:16 10/24/24 03:16 10/24/24 03:16 10/24/24 03:16 10/24/24 03:16 10/24/24 03:15 10/24/24 03:03 10/24/24 03:00 10/24/24 02:55 Trach Collar 10 70 10/24/24 02:42 10/24/24 02:12 10/24/24 02:00 10/24/24 02:00 10/24/24 02:00 10/24/24 02:00 10/24/24 02:00 10/24/24 02:00 10/24/24 02:00 10/24/24 02:00 10/24/24 02:00 10/24/24 02:00 10/24/24 02:00 10/24/24 02:00 10/24/24 02:00 10/24/24 02:00 10/24/24 01:48 10/24/24 01:06 10/24/24 01:00 10/24/24 01:00 10/24/24 01:00 10/24/24 01:00 10/24/24 01:00 10/24/24 01:00 10/24/24 01:00 10/24/24 01:00 10/24/24 01:00 10/24/24 01:00 10/24/24 01:00 10/24/24 01:00 10/24/24 01:00 10/24/24 01:00 10/24/24 01:00 10/24/24 01:00 10/24/24 01:00 10/24/24 00:57 10/24/24 00:21 10/24/24 00:11 10/24/24 00:11 10/24/24 00:11 10/24/24 00:11 10/24/24 00:11 10/24/24 00:11 10/24/24 00:11 10/24/24 00:11 10/24/24 00:11 10/24/24 00:11 10/24/24 00:11 10/24/24 00:11 10/24/24 00:11 10/24/24 00:03 10/24/24 00:00 10/23/24 23:01 10/23/24 23:01 10/23/24 23:01 10/23/24 23:01 10/23/24 23:01 10/23/24 23:01 10/23/24 23:01 10/23/24 23:01 10/23/24 23:01 10/23/24 23:01 10/23/24 23:01 10/23/24 23:01 10/23/24 23:01 10/23/24 23:01 10/23/24 23:01 10/23/24 23:01 10/23/24 23:01 10/23/24 23:00 10/23/24 22:48 Trach Collar 10 10/23/24 22:48 Trach Collar 10 70 10/23/24 22:00 10/23/24 22:00 10/23/24 22:00 10/23/24 22:00 10/23/24 22:00 10/23/24 22:00 10/23/24 22:00 10/23/24 22:00 10/23/24 22:00 10/23/24 22:00 10/23/24 22:00 10/23/24 22:00 10/23/24 22:00 10/23/24 22:00 10/23/24 22:00 10/23/24 22:00 10/23/24 22:00 10/23/24 22:00 10/23/24 22:00 10/23/24 22:00 10/23/24 22:00 10/23/24 22:00 10/23/24 22:00 10/23/24 22:00 10/23/24 22:00 10/23/24 22:00 10/23/24 22:00 10/23/24 22:00 10/23/24 22:00 10/23/24 22:00 10/23/24 22:00 10/23/24 22:00 10/23/24 22:00 10/23/24 22:00 10/23/24 22:00 10/23/24 22:00 10/23/24 22:00 10/23/24 22:00 10/23/24 22:00 10/23/24 22:00 10/23/24 21:51 10/23/24 21:32 10/23/24 21:32 10/23/24 21:32 10/23/24 21:32 10/23/24 21:32 10/23/24 21:32 10/23/24 21:32 10/23/24 21:32 10/23/24 21:32 10/23/24 21:32 10/23/24 21:32 10/23/24 21:30 10/23/24 21:27 10/23/24 20:45 10/23/24 20:40 10/23/24 20:40 10/23/24 20:40 10/23/24 20:40 10/23/24 20:40 10/23/24 20:40 10/23/24 20:40 10/23/24 20:36 Laboratory Results 10/24/24 04:11 10/24/24 04:11 PG Care Time/CCT Total # of Minutes Spent Total Time Spent with Patient: Total time spent is greater than 50% in coordination of care (as documented) at patient's floor/unit and/or counseling patient: Coding Level of Care Code 97480 SUB INP/OBS CARE 3/50MIN Diagnoses Gram-positive cocci bacteremia R78.81 Multifocal pneumonia J18.9 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
--- NOTE | 2024-10-24 08:58 | Hospitalist Progress Note ---
Date of Service October 24, 2024 Assessment & Plan (1) Cerebral palsy: (2) Tracheostomy dependence: (3) RLL pneumonia: (4) Gram-positive cocci bacteremia: (5) Sepsis: Present on Admission?: Yes (6) Diarrhea: (7) Acute respiratory failure with hypoxia: (8) Multifocal pneumonia: Plan Sepsis / Staph epidermidis bacteremia / Right lower lobe pneumonia /acute respiratory failure with hypoxia Lactate 2.4 on admission, sepsis bolus fluids given. MAP < 65 recorded this morning although when reviewed BP 122/59 with MAP 72, will repeat lactate to make sure perfusion remains adequate Antibiotics expanded to add vancomycin IV based on positive blood cultures overnight Continue IV Zosyn to cover for pneumonia, will defer if needing additional atypical coverage to cover pneumonia TTE, repeat blood culture with tomorrow labs Continue hypertonic saline, vest therapy, nebs Sputum culture pending but appears to be normal pankaj on gram stain Requires trach suction with each breathing treatment and as needed. Patient is not able to indicate needs. Communication order placed Appreciate pulmonology and ID recommendations IV fluids can be discontinued as care providers will start enteral nutrition Diarrhea c. diff PCR Spastic quadriplegic cerebral palsy, cortical blindness, epilepsy Continue zonisamide and valproic acid Continue baclofen Continue fluoxetine Ativan on-call if needed for seizure activity, seizure precautions Seizure precautions VTE prophylaxis: Lovenox CODE STATUS: DNR, ok with ventilation Diet: Per home caregivers Disposition: Continue PCU status in the ICU Admission and Anticipated Discharge Date Admission Date: October 23, 2024 Subjective Patient nonverbal. Discussed care with his home care nurse at bedside. She reports they are able to provide enteral nutrition and tube feeding to match what the patient has been doing at home. Confirmed this with dietitian note. Reportedly she is improved and more alert since yesterday. Gram-positive cocci in blood cultures overnight. Vancomycin started by infectious disease this morning. Physical Exam Constitutional: + acute distress; + not well developed Respiratory: + labored breathing, + uses accessory mu scles and + tachypneic Auscultation: + crackles (Right sided greater than left); breath sounds present and no diminished lung sounds Cardiovascular: Rate/Rhythm: regular rhythm and + tachycardic Heart Sounds: no murmur Extremities: normal capillary refill; no pedal edema Gastrointestinal (Abdomen): Percussion/Palpation: abdomen soft; abdomen nontender Musculoskeletal: Chronic limb contractures noted Skin: no rashes, warm and dry (No areas of cellulitis) Results & Data Results & Data Vital Signs (Past 12 Hours) Vital Signs Temp Pulse Pulse Resp BP Pulse Ox Pulse Ox 10/24/24 08:03 38.3 C H 114 H 38 H 90 10/24/24 08:02 80/36 L 10/24/24 07:18 116 H 22 90 10/24/24 07:09 38.6 C H 112 H 30 H 90 10/24/24 07:04 80/54 L 10/24/24 07:00 76/43 L 10/24/24 06:00 38.7 C H 94/62 L 10/24/24 06:00 94/62 L 10/24/24 06:00 94/62 L 10/24/24 06:00 94/62 L 10/24/24 06:00 94/62 L 10/24/24 06:00 94/62 L 10/24/24 06:00 94/62 L 10/24/24 06:00 94/62 L 10/24/24 06:00 94/62 L 10/24/24 06:00 94/62 L 10/24/24 06:00 94/62 L 10/24/24 06:00 94/62 L 10/24/24 06:00 94/62 L 10/24/24 06:00 94/62 L 10/24/24 06:00 94/62 L 10/24/24 06:00 94/62 L 10/24/24 06:00 94/62 L 10/24/24 06:00 38.9 C H 112 H 12 92 10/24/24 06:00 94/62 L 10/24/24 05:12 38.9 C H 115 H 53 H 92 10/24/24 05:00 82/60 L 10/24/24 05:00 82/60 L 10/24/24 05:00 82/60 L 10/24/24 05:00 82/60 L 10/24/24 05:00 82/60 L 10/24/24 05:00 82/60 L 10/24/24 05:00 82/60 L 10/24/24 05:00 82/60 L 10/24/24 05:00 82/60 L 10/24/24 05:00 82/60 L 10/24/24 05:00 82/60 L 10/24/24 05:00 82/60 L 10/24/24 05:00 82/60 L 10/24/24 05:00 82/60 L 10/24/24 04:57 38.9 C H 115 H 51 H 92 10/24/24 04:29 120 H 20 94 10/24/24 04:00 89/67 L 10/24/24 04:00 89/67 L 10/24/24 04:00 89/67 L 10/24/24 04:00 89/67 L 10/24/24 04:00 89/67 L 10/24/24 04:00 89/67 L 10/24/24 04:00 89/67 L 10/24/24 04:00 89/67 L 10/24/24 04:00 89/67 L 10/24/24 04:00 89/67 L 10/24/24 04:00 89/67 L 10/24/24 04:00 89/67 L 10/24/24 04:00 89/67 L 10/24/24 04:00 89/67 L 10/24/24 04:00 38.8 C H 127 H 22 88 L 10/24/24 04:00 89/67 L 10/24/24 04:00 89/67 L 10/24/24 04:00 89/67 L 10/24/24 04:00 89/67 L 10/24/24 03:18 129 H 49 H 87 L 10/24/24 03:16 112/49 L 10/24/24 03:16 112/49 L 10/24/24 03:16 112/49 L 10/24/24 03:16 112/49 L 10/24/24 03:16 112/49 L 10/24/24 03:16 112/49 L 10/24/24 03:16 112/49 L 10/24/24 03:16 112/49 L 10/24/24 03:16 112/49 L 10/24/24 03:16 112/49 L 10/24/24 03:16 112/49 L 10/24/24 03:16 112/49 L 10/24/24 03:16 112/49 L 10/24/24 03:16 112/49 L 10/24/24 03:16 112/49 L 10/24/24 03:16 112/49 L 10/24/24 03:16 112/49 L 10/24/24 03:16 112/49 L 10/24/24 03:15 131 H 55 H 91 10/24/24 03:03 38.7 C H 126 H 37 H 89 L 10/24/24 03:00 73/57 L 10/24/24 02:55 120 H 20 93 10/24/24 02:42 38.5 C H 121 H 28 H 89 L 10/24/24 02:12 38.4 C H 119 H 33 H 89 L 10/24/24 02:00 77/55 L 10/24/24 02:00 77/55 L 10/24/24 02:00 77/55 L 10/24/24 02:00 77/55 L 10/24/24 02:00 77/55 L 10/24/24 02:00 77/55 L 10/24/24 02:00 77/55 L 10/24/24 02:00 77/55 L 10/24/24 02:00 77/55 L 10/24/24 02:00 77/55 L 10/24/24 02:00 77/55 L 10/24/24 02:00 77/55 L 10/24/24 02:00 77/55 L 10/24/24 02:00 77/55 L 10/24/24 01:48 38.3 C H 116 H 34 H 92 10/24/24 01:06 38.3 C H 111 H 20 90 10/24/24 01:00 89/52 L 10/24/24 01:00 89/52 L 10/24/24 01:00 89/52 L 10/24/24 01:00 89/52 L 10/24/24 01:00 89/52 L 10/24/24 01:00 89/52 L 10/24/24 01:00 89/52 L 10/24/24 01:00 89/52 L 10/24/24 01:00 89/52 L 10/24/24 01:00 89/52 L 10/24/24 01:00 89/52 L 10/24/24 01:00 89/52 L 10/24/24 01:00 89/52 L 10/24/24 01:00 89/52 L 10/24/24 01:00 89/52 L 10/24/24 01:00 89/52 L 10/24/24 01:00 89/52 L 10/24/24 00:57 38.3 C H 111 H 42 H 90 10/24/24 00:21 38.4 C H 107 H 34 H 91 10/24/24 00:11 81/42 L 10/24/24 00:11 81/42 L 10/24/24 00:11 81/42 L 10/24/24 00:11 81/42 L 10/24/24 00:11 81/42 L 10/24/24 00:11 81/42 L 10/24/24 00:11 81/42 L 10/24/24 00:11 81/42 L 10/24/24 00:11 81/42 L 10/24/24 00:11 81/42 L 10/24/24 00:11 81/42 L 10/24/24 00:11 81/42 L 10/24/24 00:11 38.5 C H 81/42 L 10/24/24 00:03 78/43 L 10/24/24 00:00 111 H 10/23/24 23:01 91/39 L 10/23/24 23:01 91/39 L 10/23/24 23:01 91/39 L 10/23/24 23:01 91/39 L 10/23/24 23:01 91/39 L 10/23/24 23:01 91/39 L 10/23/24 23:01 91/39 L 10/23/24 23:01 91/39 L 10/23/24 23:01 91/39 L 10/23/24 23:01 91/39 L 10/23/24 23:01 91/39 L 10/23/24 23:01 91/39 L 10/23/24 23:01 91/39 L 10/23/24 23:01 91/39 L 10/23/24 23:01 91/39 L 10/23/24 23:01 91/39 L 10/23/24 23:01 91/39 L 10/23/24 23:00 38.7 C H 115 H 44 H 92 10/23/24 22:48 90 10/23/24 22:48 10/23/24 22:00 84/56 L 10/23/24 22:00 84/56 L 10/23/24 22:00 84/56 L 10/23/24 22:00 84/56 L 10/23/24 22:00 84/56 L 10/23/24 22:00 84/56 L 10/23/24 22:00 84/56 L 10/23/24 22:00 84/56 L 10/23/24 22:00 84/56 L 10/23/24 22:00 84/56 L 10/23/24 22:00 84/56 L 10/23/24 22:00 84/56 L 10/23/24 22:00 84/56 L 10/23/24 22:00 84/56 L 10/23/24 22:00 84/56 L 10/23/24 22:00 38.8 C H 84/56 L 10/23/24 22:00 84/56 L 10/23/24 22:00 84/56 L 10/23/24 22:00 84/56 L 10/23/24 22:00 84/56 L 10/23/24 22:00 84/56 L 10/23/24 22:00 84/56 L 10/23/24 22:00 84/56 L 10/23/24 22:00 84/56 L 10/23/24 22:00 84/56 L 10/23/24 22:00 84/56 L 10/23/24 22:00 84/56 L 10/23/24 22:00 84/56 L 10/23/24 22:00 84/56 L 10/23/24 22:00 84/56 L 10/23/24 22:00 84/56 L 10/23/24 22:00 84/56 L 10/23/24 22:00 84/56 L 10/23/24 22:00 84/56 L 10/23/24 22:00 84/56 L 10/23/24 22:00 84/56 L 10/23/24 22:00 84/56 L 10/23/24 22:00 84/56 L 10/23/24 22:00 84/56 L 10/23/24 22:00 38.9 C H 120 H 37 H 92 10/23/24 21:51 38.9 C H 122 H 41 H 90 10/23/24 21:32 94/44 L 10/23/24 21:32 94/44 L 10/23/24 21:32 94/44 L 10/23/24 21:32 94/44 L 10/23/24 21:32 94/44 L 10/23/24 21:32 94/44 L 10/23/24 21:32 94/44 L 10/23/24 21:32 94/44 L 10/23/24 21:32 94/44 L 10/23/24 21:32 94/44 L 10/23/24 21:32 94/44 L 10/23/24 21:30 39.0 C H 121 H 50 H 90 10/23/24 21:27 39.0 C H 122 H 49 H 89 L O2 Del Method O2 Del Method O2 Flow Rate O2 Flow Rate FiO2 10/24/24 08:03 10/24/24 08:02 10/24/24 07:18 Trach Collar 10 70 10/24/24 07:09 Trach Collar 10 100 10/24/24 07:04 10/24/24 07:00 10/24/24 06:00 10/24/24 06:00 10/24/24 06:00 10/24/24 06:00 10/24/24 06:00 10/24/24 06:00 10/24/24 06:00 10/24/24 06:00 10/24/24 06:00 10/24/24 06:00 10/24/24 06:00 10/24/24 06:00 10/24/24 06:00 10/24/24 06:00 10/24/24 06:00 10/24/24 06:00 10/24/24 06:00 10/24/24 06:00 10/24/24 06:00 10/24/24 05:12 10/24/24 05:00 10/24/24 05:00 10/24/24 05:00 10/24/24 05:00 10/24/24 05:00 10/24/24 05:00 10/24/24 05:00 10/24/24 05:00 10/24/24 05:00 10/24/24 05:00 10/24/24 05:00 10/24/24 05:00 10/24/24 05:00 10/24/24 05:00 10/24/24 04:57 10/24/24 04:29 Trach Collar 10 40 10/24/24 04:00 10/24/24 04:00 10/24/24 04:00 10/24/24 04:00 10/24/24 04:00 10/24/24 04:00 10/24/24 04:00 10/24/24 04:00 10/24/24 04:00 10/24/24 04:00 10/24/24 04:00 10/24/24 04:00 10/24/24 04:00 10/24/24 04:00 10/24/24 04:00 10/24/24 04:00 10/24/24 04:00 10/24/24 04:00 10/24/24 04:00 10/24/24 03:18 10/24/24 03:16 10/24/24 03:16 10/24/24 03:16 10/24/24 03:16 10/24/24 03:16 10/24/24 03:16 10/24/24 03:16 10/24/24 03:16 10/24/24 03:16 10/24/24 03:16 10/24/24 03:16 10/24/24 03:16 10/24/24 03:16 10/24/24 03:16 10/24/24 03:16 10/24/24 03:16 10/24/24 03:16 10/24/24 03:16 10/24/24 03:15 10/24/24 03:03 10/24/24 03:00 10/24/24 02:55 Trach Collar 10 70 10/24/24 02:42 10/24/24 02:12 10/24/24 02:00 10/24/24 02:00 10/24/24 02:00 10/24/24 02:00 10/24/24 02:00 10/24/24 02:00 10/24/24 02:00 10/24/24 02:00 10/24/24 02:00 10/24/24 02:00 10/24/24 02:00 10/24/24 02:00 10/24/24 02:00 10/24/24 02:00 10/24/24 01:48 10/24/24 01:06 10/24/24 01:00 10/24/24 01:00 10/24/24 01:00 10/24/24 01:00 10/24/24 01:00 10/24/24 01:00 10/24/24 01:00 10/24/24 01:00 10/24/24 01:00 10/24/24 01:00 10/24/24 01:00 10/24/24 01:00 10/24/24 01:00 10/24/24 01:00 10/24/24 01:00 10/24/24 01:00 10/24/24 01:00 10/24/24 00:57 10/24/24 00:21 10/24/24 00:11 10/24/24 00:11 10/24/24 00:11 10/24/24 00:11 10/24/24 00:11 10/24/24 00:11 10/24/24 00:11 10/24/24 00:11 10/24/24 00:11 10/24/24 00:11 10/24/24 00:11 10/24/24 00:11 10/24/24 00:11 10/24/24 00:03 10/24/24 00:00 10/23/24 23:01 10/23/24 23:01 10/23/24 23:01 10/23/24 23:01 10/23/24 23:01 10/23/24 23:01 10/23/24 23:01 10/23/24 23:01 10/23/24 23:01 10/23/24 23:01 10/23/24 23:01 10/23/24 23:01 10/23/24 23:01 10/23/24 23:01 10/23/24 23:01 10/23/24 23:01 10/23/24 23:01 10/23/24 23:00 10/23/24 22:48 Trach Collar 10 10/23/24 22:48 Trach Collar 10 70 10/23/24 22:00 10/23/24 22:00 10/23/24 22:00 10/23/24 22:00 10/23/24 22:00 10/23/24 22:00 10/23/24 22:00 10/23/24 22:00 10/23/24 22:00 10/23/24 22:00 10/23/24 22:00 10/23/24 22:00 10/23/24 22:00 10/23/24 22:00 10/23/24 22:00 10/23/24 22:00 10/23/24 22:00 10/23/24 22:00 10/23/24 22:00 10/23/24 22:00 10/23/24 22:00 10/23/24 22:00 10/23/24 22:00 10/23/24 22:00 10/23/24 22:00 10/23/24 22:00 10/23/24 22:00 10/23/24 22:00 10/23/24 22:00 10/23/24 22:00 10/23/24 22:00 10/23/24 22:00 10/23/24 22:00 10/23/24 22:00 10/23/24 22:00 10/23/24 22:00 10/23/24 22:00 10/23/24 22:00 10/23/24 22:00 10/23/24 22:00 10/23/24 21:51 10/23/24 21:32 10/23/24 21:32 10/23/24 21:32 10/23/24 21:32 10/23/24 21:32 10/23/24 21:32 10/23/24 21:32 10/23/24 21:32 10/23/24 21:32 10/23/24 21:32 10/23/24 21:32 10/23/24 21:30 10/23/24 21:27 Laboratory Results Abnormal lab results 10/23/24 10/23/24 10/24/24 Range/Units 10:33 11:29 04:11 WBC 18.68 H 13.93 H (4.8-10.8) K/ul RBC 4.04 L 3.55 L (4.20-5.40) M/uL Hgb 11.9 L (12.0-16.0) g/dl Hct 34.8 L (37.0-47.0) % RDW Std Deviation 49.8 H 51.3 H (36.4-46.3) fL Plt Count 115 L (130-400) K/uL MPV 9.3 L (9.4-12.4) fL Neut # (Auto) 16.83 H 12.25 H (1.40-6.50) K/uL Lymph # (Auto) 0.67 L 0.61 L (1.20-3.40) K/uL [place] # (Auto) 1.05 H 1.00 H (0.11-0.59) K/uL Sodium 133 L 134 L (136-145) mmol/L Creatinine 0.39 L 0.41 L (0.6-1.2) mg/dl BUN/Creatinine Ratio 35.9 H (10-20) Lactate 2.4 H* (0.4-2.0) mmol/L Staphylococcus sp PCR DETECTED A (NotDetected) Staph epidermidis (PCR) DETECTED A (NotDetected) PG Care Time/CCT Total # of Minutes Spent Total Time Spent with Patient: Total time spent is greater than 50% in coordination of care (as documented) at patient's floor/unit and/or counseling patient: Coding Level of Care Code 38299 SUB INP/OBS CARE 3/50MIN Diagnoses Cerebral palsy G80.9 Tracheostomy dependence Z93.0 RLL pneumonia J18.9 Gram-positive cocci bacteremia R78.81 Sepsis A41.9 Diarrhea R19.7 Acute respiratory failure with hypoxia J96.01 Multifocal pneumonia J18.9
[2024-10-24] MEDS ORDERED: FLUoxetine HCL 20 MG/5 ML 120ML BTL PO SCH (09:00)
[2024-10-24] MEDS: VANCOMYCIN HCL 1,250 MG in SODIUM CHLORIDE 0.9% 250 ML IV ONE (09:01)
--- NOTE | 2024-10-24 13:20 | Pharmacy Report ---
Pharmacy PK ABX Note - Date of Service October 24, 2024 - Assessment and Plan Assessment 29 year old F receiving vancomycin and Zosyn empirically. Pertinent microbiologic data includes: Blood culture growing gram positive cocci in clusters. BCID2 indicates staph epi without MecA/C resistance gene. Vanc was deemed warranted as the patient with ongoing hypotension. Patient has a history of various micro including pseudomonas. Patient has CP and with limited mobility, Crcl is likely overestimated. Thus an early level was ordered to better determine dosing needs and in the event of duration extending past 48 hours. Day # 2 of antimicrobial therapy. Plan Vancomycin * Loading dose: 1250 mg IV x 1 * Maintenance dose: 1000 mg IV every 8 hours * Regimen is predicted to achieve target AUC/ASHLY of 400-600 mg/L.hr * Trough level ordered for: 10/25/24 @ 0800 Pharmacy will continue to follow and will adjust dose/frequency as necessary. Thank you. Pharmacy has transitioned to AUC monitoring for vancomycin. AUC/ASHLY is the preferred PK/PD target and is associated with decreased risk of nephrotoxicity compared to traditional trough targets.
[2024-10-24] MEDS: VANCOMYCIN HCL 1,000 MG/270 ML BAG IV SCH (17:26)
[2024-10-24] MEDS: SODIUM CHLOR 7% 4 ML NEB NEB SCH (19:36)
[2024-10-25] MEDS ORDERED: Nursing to Pharmacy Communication SCH (03:15)
[2024-10-25] MEDS ORDERED: PATIENT'S OWN ENTERAL FEEDING PEG SCH (04:00)
[2024-10-25] MEDS: PATIENT'S OWN ENTERAL FEEDING PEG SCH (04:51)
[2024-10-25 05:00] LABS: Basophils # (auto) 0.01 K/uL (0.00-0.20); Basophils % (auto) 0.1 %; Hematocrit (blood only) 36.1 % (37.0-47.0); Hemoglobin 12.2 g/dl (12.0-16.0); Immature Granulocytes # (auto) 0.02 K/uL (0.01-0.20); Immature Granulocytes % (auto) 0.3 %; Lymphocytes # (auto) 0.84 K/uL (1.20-3.40); Lymphocytes % (auto) 11.2 %; Mean Corpuscular Hemoglobin 33.3 pg (25.0-34.0); Mean Corpuscular Hgb Conc 33.8 g/dL (32.0-36.0); Mean Corpuscular Volume 98.6 fL (80.0-100.0); Monocytes # (auto) 0.79 K/uL (0.11-0.59); Monocytes % (auto) 10.5 %; Neutrophils # (auto) 5.85 K/uL (1.40-6.50); Neutrophils % (auto) 77.9 %; Platelet Count 126 K/uL (130-400); RDW Coefficient of Variation 14.1 % (11.5-14.5); RDW Standard Deviation 51.7 fL (36.4-46.3); Red Blood Count 3.66 M/uL (4.20-5.40); White Blood Count 7.51 K/ul (4.8-10.8)
[2024-10-25 05:14] LABS: Albumin Globulin Ratio 1.3 (0.9-2); Albumin Level 3.9 gm/dl (3.4-5.0); BUN Creatinine Ratio 15.4 (10-20); Bilirubin,Total 0.3 mg/dl (0.2-1.0); Calcium 9.1 mg/dl (8.6-10.3); Creatinine Clr Calc Pharmacy 186.1 ml/min; Magnesium 1.9 mg/dl (1.7-2.4); Total Protein 6.9 gm/dl (6.0-8.3)
--- NOTE | 2024-10-25 07:32 | XRay Report ---
EXAM: XR chest 1V portable CLINICAL HISTORY: f/u TECHNIQUE: Radiograph of chest was acquired. COMPARISON: 10/23/2024 10:18:29 PHYSICAL ANTHROPOLOGIST FINDINGS: Eventeration of right hemidiaphragm with hazy opacity in right lower zone and mild blunting of right costophrenic angle. The left lung is clear and well-expanded with no pulmonary infiltrate or pleural effusion. The cardiomediastinal silhouette is within normal limits. No acute osseous abnormality. Tracheostomy tube is seen in situ. IMPRESSION: 1. Eventeration of right hemidiaphragm (Stable) 2. Hazy opacity in right lower zone with mild blunting of right costophrenic angle, likely suggestive of mild right pleural effusion with basal atelectasis. (New finding) Electronically signed by Bryson Dietz 10-25-2024 07:31 AM
--- NOTE | 2024-10-25 08:42 | Pulmonology Progress Note ---
Date of Service October 25, 2024 Assessment & Plan (1) Gram-positive cocci bacteremia: (2) Multifocal pneumonia: (3) Spastic quadriplegic cerebral palsy: (4) Tracheostomy in place: (5) Abnormal chest CT: (6) Bronchiectasis: Plan CT chest 10/23/2024 personally reviewed: Patchy opacities appreciated in the right upper lobe as well as right lower lobe Bronchiectasis of the right apex Motion degraded study Minimal mediastinal lymphadenopathy -- Left lower lobe pneumonia with staph epi bacteremia Respiratory BioFire negative for everything Does have leukocytosis Procalcitonin negative History of Pseudomonas in the past She did have 2 variants of Pseudomonas 1 was intermediate to cefepime but both are sensitive to Zosyn --Abnormal chest CT There seems to be some increased soft tissue/lymphadenopathy in the subcarinal as well as right hilar region This is likely reactive from infection Would recommend repeat CT chest in 2-3 months --Focal bronchiectasis of the right apex --TDRF secondary to cerebral palsy Plan: Chest x-ray from today shows worsening of the right lower lobe opacity. Mucous plugging is a possibility If patient's x-ray tomorrow looks the same then bronchoscopy will be pursued to clear the airways Sputum culture not showing any pseudomonal growth Blood culture staph epi, antibiotics as per ID Continue with 7% nebulized saline and Mucomyst along with patient's home CoughAssist All questions and queries of the patient's mother were also answered in depth Please note the above document was generated using voice recognition software. It may contain grammatical, syntax or spelling errors.Any formal questions or concerns about the content, text or information contained within the body of this dictation should be directly addressed to the provider for clarification. Admission and Anticipated Discharge Date Admission Date: October 23, 2024 Subjective Patient seen and examined at bedside. No acute distress, no adverse events overnight She was on trach collar 50%, saturating 93% Systolic blood pressure was 90 with MAP in the 80s Patient's mother was in the room She still spiking fever Tmax 38 Review of Systems 2 Review of Systems: All systems reviewed & are unremarkable except as noted in Subjective Physical Exam 2 Physical Exam: Constitutional: No acute distress HEENT: EOMI, PERRLA, positive trach Respiratory system: Decreased air entry bilaterally, no wheeze, rhonchi, positive crackles bilaterally, more on the right side CVS: S1-S2 positive, no murmurs or gallops, tachycardia Abdomen: Soft, nontender, nondistended, positive bowel sounds x4 Extremities: +2 pulses bilaterally radialis/ dorsalis pedis, no cyanosis, no edema Neuro: Awake and alert Psych: Unable to assess G/U: No Yap Skin: no rashes, warm and dry Lymphatic: no cervical or axillary lymphadenopathy Results & Data Results & Data Vital Signs (Past 12 Hours) Vital Signs Temp Pulse Pulse Resp BP BP Pulse Ox 10/25/24 07:35 115 H 38 H 91 10/25/24 07:03 37.7 C H 113 H 18 122/83 92 10/25/24 04:00 37.1 C 10/25/24 02:26 94 H 18 93 10/25/24 02:16 36.8 C 10/25/24 02:00 91 H 36 H 90 10/25/24 02:00 94/52 L 10/25/24 00:33 102/68 10/25/24 00:30 109 H 33 H 95 10/25/24 00:02 99 H 18 98 10/25/24 00:00 102 H 10/24/24 23:52 37.3 C O2 Del Method O2 Flow Rate FiO2 10/25/24 07:35 Trach Collar 8 40 10/25/24 07:03 Trach Collar 10/25/24 04:00 10/25/24 02:26 Trach Collar 8 30 10/25/24 02:16 10/25/24 02:00 10/25/24 02:00 10/25/24 00:33 10/25/24 00:30 10/25/24 00:02 Trach Collar 8 30 10/25/24 00:00 10/24/24 23:52 Laboratory Results 10/25/24 04:36 10/25/24 04:36 PG Care Time/CCT Total # of Minutes Spent Total Time Spent with Patient: Total time spent is greater than 50% in coordination of care (as documented) at patient's floor/unit and/or counseling patient: Coding Level of Care Code 78679 SUB INP/OBS CARE 2/35MIN Diagnoses Gram-positive cocci bacteremia R78.81 Multifocal pneumonia J18.9 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
[2024-10-25] MEDS: VANCOMYCIN HCL 1,500 MG in SODIUM CHLORIDE 0.9% 500 ML IV SCH (10:26)
--- NOTE | 2024-10-25 10:35 | Hospitalist Progress Note ---
Date of Service October 25, 2024 Assessment & Plan (1) Cerebral palsy: (2) Tracheostomy dependence: (3) RLL pneumonia: (4) Gram-positive cocci bacteremia: (5) Sepsis: (6) Diarrhea: (7) Acute respiratory failure with hypoxia: (8) Multifocal pneumonia: Plan #Sepsis / Staph epidermidis bacteremia / Right lower lobe pneumonia /acute respiratory failure with hypoxia Lactate 2.4 on admission, sepsis bolus fluids given. WBC improving, initial procalcitonin negative Antibiotic switched from Zosyn to Unasyn to continue coverage for aspiration pneumonia without need for Pseudomonas coverage by infectious disease IV vancomycin continued to cover for Staph epidermidis pending sensitivities TTE pending read Repeat blood cultures taken today pending Continue hypertonic saline, Mucomyst, vest therapy, frequent suctioning Sputum culture with moderate normal pankaj Requires trach suction with each breathing treatment and as needed. Patient is not able to indicate needs. Communication order placed Appreciate pulmonology and ID recommendations Given increased secretions will decrease the rate of her enteral feeding. This may need to be discontinued for 24 hours if her secretions continue to be thick and worsening. #Diarrhea c. diff PCR negative #Spastic quadriplegic cerebral palsy, cortical blindness, epilepsy Continue zonisamide and valproic acid Continue baclofen Continue fluoxetine Ativan on-call if needed for seizure activity, seizure precautions Seizure precautions VTE prophylaxis: Lovenox CODE STATUS: DNR, ok with ventilation Diet: Per home caregivers Disposition: Continue PCU status in the ICU Admission and Anticipated Discharge Date Admission Date: October 23, 2024 Subjective Patient nonverbal. Discussed care and updated mother at bedside. She reports increasing secretions requiring frequent suction. Otherwise stable from yesterday. Physical Exam Constitutional: + acute distress; + not well developed Respiratory: + labored breathing, + uses accessory mu scles and + tachypneic Auscultation: + crackles (Right sided greater than left); breath sounds present and no diminished lung sounds Cardiovascular: Rate/Rhythm: regular rhythm and + tachycardic Heart Sounds: no murmur Extremities: normal capillary refill; no pedal edema Gastrointestinal (Abdomen): Percussion/Palpation: abdomen soft; abdomen nontender Skin: no rashes, warm and dry (No area of cellulitis) Results & Data Results & Data Vital Signs (Past 12 Hours) Vital Signs Temp Pulse Pulse Resp BP BP Pulse Ox 10/25/24 07:35 115 H 38 H 91 10/25/24 07:03 37.7 C H 113 H 18 122/83 92 10/25/24 04:00 37.1 C 10/25/24 02:26 94 H 18 93 10/25/24 02:16 36.8 C 10/25/24 02:00 91 H 36 H 90 10/25/24 02:00 94/52 L 10/25/24 00:33 102/68 10/25/24 00:30 109 H 33 H 95 10/25/24 00:02 99 H 18 98 10/25/24 00:00 102 H 10/24/24 23:52 37.3 C O2 Del Method O2 Flow Rate FiO2 10/25/24 07:35 Trach Collar 8 40 10/25/24 07:03 Trach Collar 10/25/24 04:00 10/25/24 02:26 Trach Collar 8 30 10/25/24 02:16 10/25/24 02:00 10/25/24 02:00 10/25/24 00:33 10/25/24 00:30 10/25/24 00:02 Trach Collar 8 30 10/25/24 00:00 10/24/24 23:52 PG Care Time/CCT Total # of Minutes Spent Total Time Spent with Patient: Total time spent is greater than 50% in coordination of care (as documented) at patient's floor/unit and/or counseling patient: Coding Level of Care Code 81678 SUB INP/OBS CARE 3/50MIN Diagnoses Cerebral palsy G80.9 Tracheostomy dependence Z93.0 RLL pneumonia J18.9 Gram-positive cocci bacteremia R78.81 Sepsis A41.9 Diarrhea R19.7 Acute respiratory failure with hypoxia J96.01 Multifocal pneumonia J18.9
--- NOTE | 2024-10-25 10:46 | Infectious Disease Progress Nt ---
Date of Service October 25, 2024 Assessment & Plan (1) Staphylococcus epidermidis bacteremia: (2) Multifocal pneumonia: (3) Acute respiratory failure with hypoxia: (4) Sepsis: (5) Diarrhea: (6) Tracheostomy dependence: Plan 29yo F with h/o cerebral palsy, s/p PEG/tracheostomy, spastic quadriplegia, epilepsy, prior respiratory cx growing Pseudomonas and Moraxella, COVID infection in 08/2024 who presented on 10/23 with increased sputum production/tracheal secretions and tachypnea. Per chart, she recently completed cipro and then developed increased tracheal secretions. Sister was recently sick with rhinovirus. On admission, she was afebrile, RR in 30s, O2 sat high 90s on RA. Initial labs with WBC 18.68, Cr 0.39, LFT wnl. Lacate 2.4. PCT 0.10. RPP negative. CXR with atelectasis vs early PNA medial left lung base. She was started on cefepime for PNA. ID consulted 10/23. Abx changed to zosyn based on prior respiratory cultures. CTA chest negative for PE, diffuse abnormal soft tissue in the subcarinal region of the mediastinum as well as in the bilateral hilar regions, extends distally surrounding the bronchovascular structures of RUL and RLL, may be infectious though neoplastic process not excluded. BCX returned with S epidermidis. She was persistently febrile 10/23-10/24, tachycardic, and hypotensive. Vancomycin added 10/24 while waiting for cultures. Trach cx with normal pankaj. C diff negative. Will keep on vancomycin while waiting for susceptibilities. Trach cultures have normal pankaj. Will change zosyn to Unasyn since there is no growth of pseudomonas. # Bacteremia 2/2 S epidermidis # Multifocal PNA RUL/RLL # Diarrhea C diff neg # Cerebral palsy s/p PEG/tracheostomy - f/u TTE - f/u blood cx - will change zosyn to unasyn 3g IV q6h - continue vancomycin pharmacy dosed protocol will discontinue if BCx have methicillin-sensitive S epidermidis Will continue to follow. If questions or concerns, contact via JumpIn or Infectious Disease Call Center . Yandy Klein MD [facility], Division of Infectious Diseases Admission and Anticipated Discharge Date Admission Date: October 23, 2024 Subjective This patient recommendation is based on a telemedicine consult request which was completed asynchronously through chart review and information provided by the primary physician. The patient was not seen or examined today. The evaluation is consultative in nature and all patient care and treatment decisions can either be accepted or rejected by the patient's primary hospital-based treating physician using their own independent medical judgment for their patient. Time Spent Reviewing Chart: 31+ minutes Afebrile, WBC down. Results & Data Vital Signs (Past 12 Hours) Vital Signs Temp Pulse Pulse Resp BP BP Pulse Ox 10/25/24 07:35 115 H 38 H 91 10/25/24 07:03 37.7 C H 113 H 18 122/83 92 10/25/24 04:00 37.1 C 10/25/24 02:26 94 H 18 93 10/25/24 02:16 36.8 C 10/25/24 02:00 91 H 36 H 90 10/25/24 02:00 94/52 L 10/25/24 00:33 102/68 10/25/24 00:30 109 H 33 H 95 10/25/24 00:02 99 H 18 98 10/25/24 00:00 102 H 10/24/24 23:52 37.3 C O2 Del Method O2 Flow Rate FiO2 10/25/24 07:35 Trach Collar 8 40 10/25/24 07:03 Trach Collar 10/25/24 04:00 10/25/24 02:26 Trach Collar 8 30 10/25/24 02:16 10/25/24 02:00 10/25/24 02:00 10/25/24 00:33 10/25/24 00:30 10/25/24 00:02 Trach Collar 8 30 10/25/24 00:00 10/24/24 23:52 Laboratory Results Labs reviewed.
--- NOTE | 2024-10-25 11:13 | Pharmacy Report ---
Pharmacy PK ABX Note - Date of Service October 25, 2024 - Assessment and Plan Assessment 10/25: * Day #2 of abx. ID has switched Zosyn to Unasyn. Vanc can likely be discontinued if MSSE grows. * Vanc level today was subtherapeutic. Will increase dose this AM. * Remains intermittently febrile. Repeat blood cultures pending. 10/24: 29 year old F receiving vancomycin and Zosyn empirically. Pertinent microbiologic data includes: Blood culture growing gram positive cocci in clusters. BCID2 indicates staph epi without MecA/C resistance gene. Vanc was deemed warranted as the patient with ongoing hypotension. Patient has a history of various micro including pseudomonas. Patient has CP and with limited mobility, Crcl is likely overestimated. Thus an early level was ordered to better determine dosing needs and in the event of duration extending past 48 hours. Day # 2 of antimicrobial therapy. Plan Vancomycin * Current regimen: 1000 mg IV every 8 hours * Random level obtained 10/25/24 resulted as 6.4 mcg/mL. This is subtherapeutic. * Change to 1500 mg IV every 8 hours. Predicted AUC at steady state: 544 mg/L.hr * Repeat random level ordered for: 10/26/24 Unasyn * 3000 mg IV every 6 hours Pharmacy will continue to follow and will adjust dose/frequency as necessary. Thank you. Pharmacy has transitioned to AUC monitoring for vancomycin. AUC/ASHLY is the preferred PK/PD target and is associated with decreased risk of nephrotoxicity compared to traditional trough targets.
[2024-10-25] MEDS: AMPICILLIN/SULBACTAM SOD 3,000 MG/100 ML BAG IV SCH (11:53)
[2024-10-25] MEDS: ACETYLCYSTEINE 20% INHAL SOLN 4ML ***DISPENSED BY RESP. INH SCH (19:48)
[2024-10-26 05:26] LABS: BUN Creatinine Ratio 29.2 (10-20); Calcium 8.9 mg/dl (8.6-10.3); Creatinine Clr Calc Pharmacy 298.5 ml/min; Potassium 3.5 mmol/L (3.5-5.1)
[2024-10-26 05:36] LABS: Hematocrit (blood only) 30.2 % (37.0-47.0); Hemoglobin 10.3 g/dl (12.0-16.0); Immature Granulocytes # (auto) 0.01 K/uL (0.01-0.20); Immature Granulocytes % (auto) 0.2 %; Lymphocytes # (auto) 0.45 K/uL (1.20-3.40); Lymphocytes % (auto) 8.2 %; Mean Corpuscular Hemoglobin 33.6 pg (25.0-34.0); Mean Corpuscular Hgb Conc 34.1 g/dL (32.0-36.0); Mean Corpuscular Volume 98.4 fL (80.0-100.0); Mean Platelet Volume 9.4 fL (9.4-12.4); Monocytes # (auto) 0.64 K/uL (0.11-0.59); Monocytes % (auto) 11.6 %; Neutrophils # (auto) 4.41 K/uL (1.40-6.50); Platelet Count 101 K/uL (130-400); RDW Coefficient of Variation 14.1 % (11.5-14.5); RDW Standard Deviation 50.6 fL (36.4-46.3); Red Blood Count 3.07 M/uL (4.20-5.40); White Blood Count 5.51 K/ul (4.8-10.8)
--- NOTE | 2024-10-26 07:48 | XRay Report ---
EXAM: XR chest 1V portable CLINICAL HISTORY: Follow up. TECHNIQUE: An X-ray image of the chest is obtained in AP projection. COMPARISON: 10/25/2024 XR chest FINDINGS: Mildly elevated right hemidiaphragm (regression) Faint opacity in the right lower zone with the parenchymal band and mild blunting of the right costophrenic angle. The left lung is clear and well-expanded with no pulmonary infiltrate or pleural effusion. The cardio mediastinal silhouette is within normal limits. No acute osseous abnormality. A tracheostomy tube is seen in situ IMPRESSION: 1. Still noted faint opacity in right lower zone with mild blunting of right costophrenic angle and reduced elevation of right hemidiaphragm, likely suggestive of regressing right pleural effusion. 2. The basal atelectasis improved. Electronically signed by Arnulfo Jackson 10-26-2024 07:47 AM
[2024-10-26] MEDS: VANCOMYCIN LEVEL ONE (08:18)
--- NOTE | 2024-10-26 09:29 | Hospitalist Progress Note ---
Date of Service October 26, 2024 Assessment & Plan (1) Cerebral palsy: (2) Tracheostomy dependence: (3) RLL pneumonia: (4) Gram-positive cocci bacteremia: (5) Sepsis: (6) Diarrhea: (7) Acute respiratory failure with hypoxia: (8) Multifocal pneumonia: Plan #Sepsis / Staph epidermidis bacteremia / Right lower lobe pneumonia /acute respiratory failure with hypoxia Lactate 2.4 on admission, sepsis bolus fluids given. WBC improving, initial procalcitonin negative Pansensitive Staphylococcus epidermidis - antibiotics switched to Unasyn, vancomycin discontinued by ID TTE pending read - discussed delay with echo department and did not appear to be assigned, this should be read today Sputum culture with moderate normal pankaj Repeat blood cultures /20 negative at 24 hours, at 48 hours will discuss with ID regarding duration of antibiotics and possible needs for US guided IV Continue hypertonic saline, Mucomyst, vest therapy, frequent suctioning Requires trach suction with each breathing treatment and as needed. Patient is not able to indicate needs. Communication order placed Appreciate pulmonology and ID recommendations Secretions improved with reducing feeding rate, however given concern for persistent fevers may need to consider stopping feeding for 24 to 48 hours, will discuss with pulmonology #Spastic quadriplegic cerebral palsy, cortical blindness, epilepsy Continue zonisamide and valproic acid Continue baclofen Continue fluoxetine Ativan on-call if needed for seizure activity, seizure precautions Seizure precautions VTE prophylaxis: Lovenox CODE STATUS: DNR, ok with ventilation Diet: Per home caregivers Disposition: Continue PCU status in the ICU Admission and Anticipated Discharge Date Admission Date: October 23, 2024 Subjective Patient nonverbal. Ongoing fevers. Caregiver and mother at bedside reports secretions improved with change in decreasing feed rate. Physical Exam Constitutional: + acute distress; + not well developed Respiratory: + labored breathing, + uses accessory mu scles and + tachypneic Auscultation: + crackles (Right sided greater than left); breath sounds present and no diminished lung sounds Cardiovascular: Rate/Rhythm: regular rhythm and + tachycardic Heart Sounds: no murmur Extremities: normal capillary refill; no pedal edema Gastrointestinal (Abdomen): Percussion/Palpation: abdomen soft; abdomen nontender Results & Data Results & Data Vital Signs (Past 12 Hours) Vital Signs Temp Pulse Pulse Resp BP Pulse Ox O2 Del Method 10/26/24 07:47 100 H 52 H 92 Trach Collar 10/26/24 07:34 112 H 10/26/24 03:00 38.1 C H 102 H 24 109/70 93 10/26/24 00:00 115 H 10/25/24 23:33 37.2 C 117 H 24 98/62 L 95 O2 Flow Rate FiO2 10/26/24 07:47 10 70 10/26/24 07:34 10/26/24 03:00 10/26/24 00:00 10/25/24 23:33 PG Care Time/CCT Total # of Minutes Spent Total Time Spent with Patient: Total time spent is greater than 50% in coordination of care (as documented) at patient's floor/unit and/or counseling patient: Coding Level of Care Code 61515 SUB INP/OBS CARE 3/50MIN Diagnoses Cerebral palsy G80.9 Tracheostomy dependence Z93.0 RLL pneumonia J18.9 Gram-positive cocci bacteremia R78.81 Sepsis A41.9 Diarrhea R19.7 Acute respiratory failure with hypoxia J96.01 Multifocal pneumonia J18.9
--- NOTE | 2024-10-26 11:21 | Pulmonology Progress Note ---
Date of Service October 26, 2024 Assessment & Plan (1) Gram-positive cocci bacteremia: (2) Multifocal pneumonia: (3) Spastic quadriplegic cerebral palsy: (4) Tracheostomy in place: (5) Abnormal chest CT: (6) Bronchiectasis: Plan CT chest 10/23/2024 personally reviewed: Patchy opacities appreciated in the right upper lobe as well as right lower lobe Bronchiectasis of the right apex Motion degraded study Minimal mediastinal lymphadenopathy -- Left lower lobe pneumonia with staph epi bacteremia Respiratory BioFire negative for everything Does have leukocytosis Procalcitonin negative History of Pseudomonas in the past She did have 2 variants of Pseudomonas 1 was intermediate to cefepime but both are sensitive to Zosyn --Abnormal chest CT There seems to be some increased soft tissue/lymphadenopathy in the subcarinal as well as right hilar region This is likely reactive from infection Would recommend repeat CT chest in 2-3 months --Focal bronchiectasis of the right apex --TDRF secondary to cerebral palsy Plan: Chest x-ray from today shows significant improvement in the right lower lobe. Previous collapse has resolved Continue with aggressive suctioning Sputum culture not showing any pseudomonal growth Blood culture staph epi, antibiotics as per ID Continue with 7% nebulized saline and Mucomyst along with patient's home CoughAssist All questions and queries of the patient's mother were also answered in depth Please note the above document was generated using voice recognition software. It may contain grammatical, syntax or spelling errors.Any formal questions or concerns about the content, text or information contained within the body of this dictation should be directly addressed to the provider for clarification. Admission and Anticipated Discharge Date Admission Date: October 23, 2024 Subjective Patient seen and examined at bedside. No acute distress, notable symptoms overnight Still spiking Tmax 38.3 Systolic blood pressure was in the 100 with MAP in the high 60s to low 70s She was saturating 93-94% on trach collar 30% FiO2 Patient's mother was in the room Review of Systems 2 Review of Systems: All systems reviewed & are unremarkable except as noted in Subjective Physical Exam 2 Physical Exam: Constitutional: No acute distress HEENT: EOMI, PERRLA, positive trach Respiratory system: Decreased air entry bilaterally, no wheeze, rhonchi, positive crackles bilaterally, more on the right side CVS: S1-S2 positive, no murmurs or gallops, tachycardia Abdomen: Soft, nontender, nondistended, positive bowel sounds x4, positive PEG Extremities: +2 pulses bilaterally radialis/ dorsalis pedis, no cyanosis, no edema Neuro: Awake and alert Psych: Unable to assess G/U: No Yap Skin: no rashes, warm and dry Lymphatic: no cervical or axillary lymphadenopathy Results & Data Results & Data Vital Signs (Past 12 Hours) Vital Signs Temp Pulse Pulse Resp BP Pulse Ox O2 Del Method 10/26/24 09:00 38.3 C H 106 H 94 Trach Collar 10/26/24 08:52 103/72 10/26/24 08:51 38.3 C H 107 H 38 H 95 Trach Collar 10/26/24 08:03 38.1 C H 100 H 43 H 90 Trach Collar 10/26/24 08:00 119/88 10/26/24 07:54 38.0 C H 95 H 23 98 Trach Collar 10/26/24 07:47 100 H 52 H 92 Trach Collar 10/26/24 07:34 112 H 10/26/24 07:19 106/69 10/26/24 03:00 38.1 C H 102 H 24 109/70 93 10/26/24 00:00 115 H 10/25/24 23:33 37.2 C 117 H 24 98/62 L 95 O2 Flow Rate FiO2 10/26/24 09:00 10/26/24 08:52 10/26/24 08:51 10/26/24 08:03 10/26/24 08:00 10/26/24 07:54 8 30 10/26/24 07:47 10 70 10/26/24 07:34 10/26/24 07:19 10/26/24 03:00 10/26/24 00:00 10/25/24 23:33 Laboratory Results 10/26/24 04:41 10/26/24 04:41 PG Care Time/CCT Total # of Minutes Spent Total Time Spent with Patient: Total time spent is greater than 50% in coordination of care (as documented) at patient's floor/unit and/or counseling patient: Coding Level of Care Code 97072 SUB INP/OBS CARE 2/35MIN Diagnoses Gram-positive cocci bacteremia R78.81 Multifocal pneumonia J18.9 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
--- NOTE | 2024-10-26 12:06 | Infectious Disease Progress Nt ---
Date of Service October 26, 2024 Assessment & Plan (1) Staphylococcus epidermidis bacteremia: (2) Multifocal pneumonia: (3) Acute respiratory failure with hypoxia: (4) Sepsis: (5) Diarrhea: (6) Tracheostomy dependence: Plan 29yo F with h/o cerebral palsy, s/p PEG/tracheostomy, spastic quadriplegia, epilepsy, prior respiratory cx growing Pseudomonas and Moraxella, COVID infection in 08/2024 who presented on 10/23 with increased sputum production/tracheal secretions and tachypnea. Per chart, she recently completed cipro and then developed increased tracheal secretions. Sister was recently sick with rhinovirus. On admission, she was afebrile, RR in 30s, O2 sat high 90s on RA. Initial labs with WBC 18.68, Cr 0.39, LFT wnl. Lacate 2.4. PCT 0.10. RPP negative. CXR with atelectasis vs early PNA medial left lung base. She was started on cefepime for PNA. ID consulted 10/23. Abx changed to zosyn based on prior respiratory cultures. CTA chest negative for PE, diffuse abnormal soft tissue in the subcarinal region of the mediastinum as well as in the bilateral hilar regions, extends distally surrounding the bronchovascular structures of RUL and RLL, may be infectious though neoplastic process not excluded. BCX returned with S epidermidis (updated to MSSE). She was persistently febrile 10/23-10/24, tachycardic, and hypotensive. Vancomycin added 10/24 while waiting for cultures. Trach cx with normal pankaj. C diff negative. Zosyn changed to Unasyn 10/25. She has ongoing fevers this morning. CXR improving. Staph epi is sensitive to methicillin. Im going to stop vancomycin and leave on the broader coverage with Unasyn. Awaiting TTE and repeat BCx. Consider pursuing CTAP w contrast given fevers. # Fevers # Bacteremia 2/2 S epidermidis # Multifocal PNA RUL/RLL # Diarrhea C diff neg # Cerebral palsy s/p PEG/tracheostomy - consider CTAP with IV contrast given ongoing fevers - f/u TTE - f/u blood cx - continue unasyn 3g IV q6h - [place] stopped vancomycin ID service will continue to follow. Please note that there will be no ID notes over the weekend. If questions or concerns arise, please contact the Infectious Disease Call Center and ask to speak with the covering ID physician. Dr. Sanchez will take over on Tuesday. Yandy Klein MD [facility], Division of Infectious Diseases Admission and Anticipated Discharge Date Admission Date: October 23, 2024 Subjective This patient recommendation is based on a telemedicine consult request which was completed asynchronously through chart review and information provided by the primary physician. The patient was not seen or examined today. The evaluation is consultative in nature and all patient care and treatment decisions can either be accepted or rejected by the patient's primary hospital-based treating physician using their own independent medical judgment for their patient. Time Spent Reviewing Chart: 31+ minutes Patient febrile this morning. Results & Data Vital Signs (Past 12 Hours) Vital Signs Temp Pulse Pulse Resp BP Pulse Ox O2 Del Method 10/26/24 10:00 38.3 C H 108 H 30 H 92 Trach Collar 10/26/24 10:00 105/67 10/26/24 10:00 105/67 10/26/24 09:00 38.3 C H 106 H 94 Trach Collar 10/26/24 08:52 103/72 10/26/24 08:51 38.3 C H 107 H 38 H 95 Trach Collar 10/26/24 08:03 38.1 C H 100 H 43 H 90 Trach Collar 10/26/24 08:00 119/88 10/26/24 07:54 38.0 C H 95 H 23 98 Trach Collar 10/26/24 07:47 100 H 52 H 92 Trach Collar 10/26/24 07:34 112 H 10/26/24 07:19 106/69 10/26/24 03:00 38.1 C H 102 H 24 109/70 93 O2 Flow Rate FiO2 10/26/24 10:00 8 30 10/26/24 10:00 10/26/24 10:00 10/26/24 09:00 10/26/24 08:52 10/26/24 08:51 10/26/24 08:03 10/26/24 08:00 10/26/24 07:54 8 30 10/26/24 07:47 10 70 10/26/24 07:34 10/26/24 07:19 10/26/24 03:00 Laboratory Results Labs reviewed. Diagnostic Findings Imaging reviewed.
[2024-10-26] MEDS ORDERED: PNEUMOCOCCAL VACCINE (PCV20) 20-VAL CONJ-DIP CRM/PF 0.5 ML SYR IM ONE (16:32)
[2024-10-26 17:53] LABS: Appearance Urine Clear (Clear); Bacteria Urine Automated None Seen (None Seen); Bilirubin Urine Negative (Negative); Blood Urine Negative (Negative); Cast Urine Automated 0-2 /lpf (0-2); Color Urine Yellow; Epithelial Cell Urine Auto 0-2 /hpf (0-2); Glucose Urine UA Negative (Negative); Ketones Urine Negative (Negative); Leukocyte Esterase Urine Negative (Negative); Nitrite Urine Negative (Negative); Protein Urine 1+ (Negative); Specific Gravity Urine 1.016 (1.000-1.030); Urobilinogen Urine Negative (Negative); WBC Urine Automated 0-5 /hpf (0-5); pH Urine >= 9.0 (4.5-7.5)
--- NOTE | 2024-10-26 20:23 | XCELERA ---
[id number] \\[id number]
[2024-10-27 05:03] LABS: Albumin Globulin Ratio 1.2 (0.9-2); Albumin Level 3.2 gm/dl (3.4-5.0); Bilirubin,Total 0.2 mg/dl (0.2-1.0); C Reactive Protein 13.74 mg/dl (0-0.5); Calcium 8.8 mg/dl (8.6-10.3); Creatinine Clr Calc Pharmacy 265.3 ml/min; Globulin 2.7 gm/dl (2.5-4.0); Potassium 4.1 mmol/L (3.5-5.1); Total Protein 5.9 gm/dl (6.0-8.3)
[2024-10-27 05:21] LABS: Hematocrit (blood only) 28.6 % (37.0-47.0); Hemoglobin 9.7 g/dl (12.0-16.0); Mean Corpuscular Hemoglobin 33.2 pg (25.0-34.0); Mean Corpuscular Hgb Conc 33.9 g/dL (32.0-36.0); Mean Corpuscular Volume 97.9 fL (80.0-100.0); Mean Platelet Volume 9.4 fL (9.4-12.4); Platelet Count 111 K/uL (130-400); RDW Coefficient of Variation 13.8 % (11.5-14.5); RDW Standard Deviation 50.3 fL (36.4-46.3); Red Blood Count 2.92 M/uL (4.20-5.40); White Blood Count 5.43 K/ul (4.8-10.8)
--- NOTE | 2024-10-27 07:06 | Pulmonology Progress Note ---
Date of Service October 27, 2024 Assessment & Plan (1) Gram-positive cocci bacteremia: (2) Multifocal pneumonia: (3) Spastic quadriplegic cerebral palsy: (4) Tracheostomy in place: (5) Abnormal chest CT: (6) Bronchiectasis: Plan CT chest 10/23/2024 personally reviewed: Patchy opacities appreciated in the right upper lobe as well as right lower lobe Bronchiectasis of the right apex Motion degraded study Minimal mediastinal lymphadenopathy -- Left lower lobe pneumonia with staph epi bacteremia Respiratory BioFire negative for everything Does have leukocytosis Procalcitonin negative History of Pseudomonas in the past She did have 2 variants of Pseudomonas 1 was intermediate to cefepime but both are sensitive to Zosyn --Abnormal chest CT There seems to be some increased soft tissue/lymphadenopathy in the subcarinal as well as right hilar region This is likely reactive from infection Would recommend repeat CT chest in 2-3 months --Focal bronchiectasis of the right apex --TDRF secondary to cerebral palsy Plan: In/out: +1464, urine output 1676, in the chart it shows patient is +10 L with the Chavez catheter was only placed yesterday. Chest x-ray from today is in expiratory film so it does show some vascular congestion. The right lower lobe seems to be open I will give 20 mg of Lasix today. Continue with upper airway clearance technique with 7% nebulized saline and Mucomyst along with patient's home CoughAssist Sputum culture not showing any pseudomonal growth Blood culture staph epi, antibiotics as per ID Please note the above document was generated using voice recognition software. It may contain grammatical, syntax or spelling errors.Any formal questions or concerns about the content, text or information contained within the body of this dictation should be directly addressed to the provider for clarification. Admission and Anticipated Discharge Date Admission Date: October 23, 2024 Subjective Patient seen and examined at bedside. No acute distress, no adverse events overnight Patient was saturating 93% on 40% trach collar Tmax 37.9 in the last 12 hours. Getting tube feeds Blood pressure was in the 100s when I saw her with MAP in the high 60s Review of Systems 2 Review of Systems: All systems reviewed & are unremarkable except as noted in Subjective Physical Exam 2 Physical Exam: Constitutional: No acute distress HEENT: EOMI, PERRLA, positive trach Respiratory system: Decreased air entry bilaterally, no wheeze, rhonchi, positive crackles bilaterally, more on the right side CVS: S1-S2 positive, no murmurs or gallops, tachycardia Abdomen: Soft, nontender, nondistended, positive bowel sounds x4, positive PEG Extremities: +2 pulses bilaterally radialis/ dorsalis pedis, no cyanosis, no edema Neuro: Awake and alert Psych: Unable to assess G/U: Positive chavez (Placed on 10/27/2023) Skin: no rashes, warm and dry Lymphatic: no cervical or axillary lymphadenopathy Results & Data Results & Data Vital Signs (Past 12 Hours) Vital Signs Temp Pulse Pulse Resp BP Pulse Ox O2 Del Method 10/27/24 06:00 37.3 C 90 49 H 103/73 95 Trach Collar 10/27/24 05:00 37.1 C 88 37 H 95 Trach Collar 10/27/24 04:01 36.9 C 83 33 H 96/49 L 96 Trach Collar 10/27/24 03:03 36.9 C 88 38 H 90 Trach Collar 10/27/24 02:00 36.6 C 86 34 H 104/76 93 Trach Collar 10/27/24 01:00 36.7 C 10/27/24 00:01 36.9 C 79 32 H 113/72 92 Trach Collar 10/26/24 23:41 93 H 10/26/24 23:00 37.0 C 10/26/24 22:02 37.1 C 92 H 32 H 93/55 L 95 Trach Collar 10/26/24 21:01 Trach Collar 10/26/24 21:00 37.3 C 10/26/24 20:07 111 H 10/26/24 20:06 95 H 42 H 95 Trach Collar 10/26/24 20:00 37.9 C H 96 H 30 H 101/65 93 Trach Collar 10/26/24 19:22 38.0 C H 102 H 37 H 99/56 L 95 Trach Collar O2 Flow Rate FiO2 10/27/24 06:00 9 40 10/27/24 05:00 9 40 10/27/24 04:01 9 40 10/27/24 03:03 9 70 10/27/24 02:00 8 30 10/27/24 01:00 10/27/24 00:01 8 30 10/26/24 23:41 10/26/24 23:00 10/26/24 22:02 8 30 10/26/24 21:01 8 30 10/26/24 21:00 10/26/24 20:07 10/26/24 20:06 10 30 10/26/24 20:00 8 30 10/26/24 19:22 8 30 Laboratory Results 10/27/24 04:29 10/27/24 04:29 PG Care Time/CCT Total # of Minutes Spent Total Time Spent with Patient: Total time spent is greater than 50% in coordination of care (as documented) at patient's floor/unit and/or counseling patient: Coding Level of Care Code 59738 SUB INP/OBS CARE 235MIN Diagnoses Gram-positive cocci bacteremia R78.81 Multifocal pneumonia J18.9 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
--- NOTE | 2024-10-27 07:49 | XRay Report ---
EXAM: XR chest 1V portable CLINICAL HISTORY: f/u study. TECHNIQUE: An X-ray image of the chest is obtained in AP projection. COMPARISON: 10/26/2024 CR FINDINGS: Mildly elevated right hemidiaphragm (regression). Slight improvement of the faint opacity in the right lower zone with the parenchymal band and mild blunting of the right costophrenic angle. Newly developed left upper and lower lung zone pulmonary infiltrates. Congested bilateral pulmonary ashley are still seen. No left pleural effusion. The cardio mediastinal silhouette is within normal limits. No acute osseous abnormality. A tracheostomy tube is seen in situ IMPRESSION: 1. Slight improvement of the faint opacity in the right lower zone with the parenchymal band and mild blunting of the right costophrenic angle. 2. Newly developed/well-appreciated left upper and lower lung zone pulmonary infiltrates and opacities. 3. Ongoing inflammatory/infectious process should be clinically assessed. Electronically signed by Arnulfo Jackson 10-27-2024 07:49 AM
[2024-10-27] MEDS: FUROSEMIDE INJ 20 MG/2 ML VIAL IV ONE ×2 (09:16→09:27)
--- NOTE | 2024-10-27 11:20 | Hospitalist Progress Note ---
Date of Service October 27, 2024 Assessment & Plan (1) Cerebral palsy: (2) Tracheostomy dependence: (3) RLL pneumonia: (4) Gram-positive cocci bacteremia: (5) Sepsis: (6) Diarrhea: (7) Acute respiratory failure with hypoxia: (8) Multifocal pneumonia: Plan #Sepsis / Staph epidermidis bacteremia / Right lower lobe pneumonia /acute respiratory failure with hypoxia Lactate 2.4 on admission, sepsis bolus fluids given. WBC improving, initial procalcitonin negative Pansensitive Staphylococcus epidermidis - antibiotics switched to Unasyn, vancomycin discontinued by ID Sputum culture with moderate normal pankaj TTE limited read but no vegetations Repeat blood cultures 20 negative at 48 hours, can place US guided IV Continue hypertonic saline, Mucomyst, vest therapy, frequent suctioning Requires trach suction with each breathing treatment and as needed. Patient is not able to indicate needs. Communication order placed Appreciate pulmonology and ID recommendations Given ongoing fevers will get CT A/P as advised by ID today #Spastic quadriplegic cerebral palsy, cortical blindness, epilepsy Continue zonisamide and valproic acid Continue baclofen Continue fluoxetine Ativan on-call if needed for seizure activity, seizure precautions Seizure precautions VTE prophylaxis: Lovenox CODE STATUS: DNR, ok with ventilation Diet: Per home caregivers Disposition: Continue PCU status in the ICU Admission and Anticipated Discharge Date Admission Date: October 23, 2024 Subjective No acute change. Additional spike in temperature today > [address] degrees therefore will get CT A/P Physical Exam Constitutional: + acute distress; + not well developed Respiratory: + labored breathing, + uses accessory mu scles and + tachypneic Auscultation: + crackles (bibasal); breath sounds present and no diminished lung sounds Cardiovascular: Rate/Rhythm: regular rhythm and + tachycardic Heart Sounds: no murmur Extremities: normal capillary refill; no pedal edema Gastrointestinal (Abdomen): Percussion/Palpation: abdomen soft; abdomen nontender Results & Data Results & Data Vital Signs (Past 12 Hours) Vital Signs Temp Pulse Pulse Resp BP Pulse Ox O2 Del Method 10/27/24 07:57 101 H 33 H 94 Trach Collar 10/27/24 07:33 Trach Collar 10/27/24 07:30 37.4 C 92 H 32 H 106/66 94 Trach Collar 10/27/24 07:14 90 10/27/24 06:00 37.3 C 90 49 H 103/73 95 Trach Collar 10/27/24 05:00 37.1 C 88 37 H 95 Trach Collar 10/27/24 04:01 36.9 C 83 33 H 96/49 L 96 Trach Collar 10/27/24 03:03 36.9 C 88 38 H 90 Trach Collar 10/27/24 02:00 36.6 C 86 34 H 104/76 93 Trach Collar 10/27/24 01:00 36.7 C 10/27/24 00:01 36.9 C 79 32 H 113/72 92 Trach Collar 10/26/24 23:41 93 H O2 Flow Rate FiO2 10/27/24 07:57 40 10/27/24 07:33 9 40 10/27/24 07:30 9 40 10/27/24 07:14 10/27/24 06:00 9 40 10/27/24 05:00 9 40 10/27/24 04:01 9 40 10/27/24 03:03 9 70 10/27/24 02:00 8 30 10/27/24 01:00 10/27/24 00:01 8 30 10/26/24 23:41 Laboratory Results Daily labs reviewed Diagnostic Findings Daily CXR (ordered by pulmonology) reviewed PG Care Time/CCT Total # of Minutes Spent Total Time Spent with Patient: Total time spent is greater than 50% in coordination of care (as documented) at patient's floor/unit and/or counseling patient: Coding Level of Care Code 28502 SUB INP/OBS CARE 3/50MIN Diagnoses Cerebral palsy G80.9 Tracheostomy dependence Z93.0 RLL pneumonia J18.9 Gram-positive cocci bacteremia R78.81 Sepsis A41.9 Diarrhea R19.7 Acute respiratory failure with hypoxia J96.01 Multifocal pneumonia J18.9
[2024-10-27] MEDS: OPTIRAY 320 100ml IV ONE (13:49)
--- NOTE | 2024-10-27 14:13 | CT Scan Report ---
EXAMINATION: CT of the abdomen and pelvis performed after the administration of IV contrast TECHNIQUE: Helical CT images from the lung bases through the symphysis pubis were obtained with contrast. Coronal and sagittal reformatted images were generated at a workstation for further assessment. Dose reduction techniques were achieved by using automatic exposure control and/or adjustment of mA and/or kV according to patient size and/or use of iterative reconstruction technique. COMPARISON: None HISTORY: Fever FINDINGS: Lower chest: Patchy lobular groundglass opacities are new from prior chest CT and are seen in the anterior aspects of the both mid and upper lung regions. Small bilateral pleural effusions associated with subjacent compressive atelectasis. Pectus excavatum. Liver: No suspicious liver lesions. Portal veins appear patent. Gallbladder: No gallstones. No evidence of acute cholecystitis. Spleen: Normal size. Pancreas: No suspicious pancreatic lesions. The pancreatic duct is not dilated. Adrenal glands: No adrenal nodules. Kidneys: No hydronephrosis or obstructing renal stones. Bladder / Pelvic organs: The uterus is present. Both ovaries appear somewhat prominent. A Yap catheter is in place. The urinary bladder is decompressed. Bowel: No bowel obstruction. No abnormal bowel wall thickening. The appendix is unremarkable. Percutaneous gastrostomy tube with balloon in place. Lymph nodes: No retroperitoneal, mesenteric, or pelvic lymphadenopathy. Peritoneum / Retroperitoneum: No free fluid or air within the abdomen. Vessels: No infrarenal aortic aneurysm. Bones and soft tissues: No suspicious lesion in the bones. IMPRESSION: Patchy lobular groundglass opacities seen in the anterior aspects of the lungs, are likely infectious/inflammatory, possibly atypical infection. Small pleural effusions. The ovaries appear somewhat prominent. Consider polycystic ovarian syndrome. This could be further evaluated with pelvic ultrasound if indicated. Electronically signed by Saurabh Diaz 10-27-2024 2:12 PM
[2024-10-27] MEDS: DOXYCYCLINE HYCLATE 100 MG in DEXTROSE 5% MINI-B 100 ML IV SCH (16:28)
--- NOTE | 2024-10-28 07:49 | XRay Report ---
EXAM: XR chest 1V portable CLINICAL HISTORY: Followup. TECHNIQUE: An X-ray image of the chest is obtained in AP projection. COMPARISON: 10/27/2024 FINDINGS: Pulmonary Parenchyma: Stable airspace opacity was noted at the left upper and mid-lung zones stable faint opacity seen at the right lower lung zone No evidence of pleural effusion or pleural thickening. Heart and Mediastinum: A tracheostomy tube seen. Heart size and shape are normal. No mediastinal widening or masses. No hilar or mediastinal lymphadenopathy. Stable congested hilar vessels with prominent bronchovascular markings suggesting mild congestive changes Bony Thorax: Bony thorax appears intact without fractures or deformities. Soft Tissues: Soft tissues overlying the chest wall are unremarkable. IMPRESSION: 1. Stable airspace opacity at the left upper, mid lung zones and right lower lung zone, suggesting pneumonic infiltrates. Correlate clinically 2. Compared to prior study no detected interval changes Electronically signed by Arnulfo Jackson 10-28-2024 07:48 AM
[2024-10-28 10:20] LABS: Basophils # (auto) 0.01 K/uL (0.00-0.20); Basophils % (auto) 0.2 %; Eosinophils # (auto) 0.02 K/uL (0.00-0.50); Eosinophils % (auto) 0.3 %; Hematocrit (blood only) 30.2 % (37.0-47.0); Hemoglobin 9.9 g/dl (12.0-16.0); Immature Granulocytes # (auto) 0.03 K/uL (0.01-0.20); Immature Granulocytes % (auto) 0.5 %; Lymphocytes # (auto) 0.85 K/uL (1.20-3.40); Lymphocytes % (auto) 14.1 %; Mean Corpuscular Hemoglobin 32.1 pg (25.0-34.0); Mean Corpuscular Hgb Conc 32.8 g/dL (32.0-36.0); Mean Corpuscular Volume 98.1 fL (80.0-100.0); Mean Platelet Volume 9.3 fL (9.4-12.4); Monocytes # (auto) 1.03 K/uL (0.11-0.59); Monocytes % (auto) 17.1 %; Neutrophils % (auto) 67.8 %; Platelet Count 144 K/uL (130-400); RDW Coefficient of Variation 13.7 % (11.5-14.5); RDW Standard Deviation 49.7 fL (36.4-46.3); Red Blood Count 3.08 M/uL (4.20-5.40); White Blood Count 6.04 K/ul (4.8-10.8)
[2024-10-28 10:35] LABS: Albumin Globulin Ratio 1.1 (0.9-2); Albumin Level 3.4 gm/dl (3.4-5.0); BUN Creatinine Ratio 45.8 (10-20); Bilirubin,Total 0.2 mg/dl (0.2-1.0); C Reactive Protein 10.46 mg/dl (0-0.5); Calcium 9.1 mg/dl (8.6-10.3); Creatinine Clr Calc Pharmacy 297.9 ml/min; Globulin 3.1 gm/dl (2.5-4.0); Magnesium 1.9 mg/dl (1.7-2.4); Phosphorus 3.9 mg/dl (2.5-4.9); Potassium 4.1 mmol/L (3.5-5.1); Total Protein 6.5 gm/dl (6.0-8.3)
--- NOTE | 2024-10-28 12:08 | Pulmonology Progress Note ---
Date of Service October 28, 2024 Assessment & Plan (1) Gram-positive cocci bacteremia: (2) Multifocal pneumonia: (3) Spastic quadriplegic cerebral palsy: (4) Tracheostomy in place: (5) Abnormal chest CT: (6) Bronchiectasis: Plan CT chest 10/23/2024 personally reviewed: Patchy opacities appreciated in the right upper lobe as well as right lower lobe Bronchiectasis of the right apex Motion degraded study Minimal mediastinal lymphadenopathy -- Left lower lobe pneumonia with staph epi bacteremia Respiratory BioFire negative for everything Does have leukocytosis Procalcitonin negative History of Pseudomonas in the past She did have 2 variants of Pseudomonas 1 was intermediate to cefepime but both are sensitive to Zosyn --Abnormal chest CT There seems to be some increased soft tissue/lymphadenopathy in the subcarinal as well as right hilar region This is likely reactive from infection Would recommend repeat CT chest in 2-3 months --Focal bronchiectasis of the right apex --TDRF secondary to cerebral palsy Plan: In/out: -340, urine output 2800 mL, in the chart it shows patient is +10 L with the Chavez catheter was only placed yesterday. Will give another dose of Lasix today Continue with upper airway clearance technique with 7% nebulized saline and Mucomyst along with patient's home CoughAssist Sputum culture not showing any pseudomonal growth Blood culture staph epi, antibiotics as per ID Please note the above document was generated using voice recognition software. It may contain grammatical, syntax or spelling errors.Any formal questions or concerns about the content, text or information contained within the body of this dictation should be directly addressed to the provider for clarification. Admission and Anticipated Discharge Date Admission Date: October 23, 2024 Subjective Patient seen and examined at bedside. No acute distress, no adverse events overnight She was saturating 94-95% on trach collar 50% FiO2, I went down to 35 Tmax 37.8 Has been getting tube feeds Diuresed well with Lasix Review of Systems 2 Review of Systems: Unobtainable due to cognitive status Physical Exam 2 Physical Exam: Constitutional: No acute distress HEENT: EOMI, PERRLA, positive trach Respiratory system: Decreased air entry bilaterally, no wheeze, positive rhonchi, positive crackles bilaterally CVS: S1-S2 positive, no murmurs or gallops, tachycardia Abdomen: Soft, nontender, nondistended, positive bowel sounds x4, positive PEG Extremities: +2 pulses bilaterally radialis/ dorsalis pedis, no cyanosis, no edema Neuro: Awake and alert Psych: Unable to assess G/U: Positive chavez (Placed on 10/27/2023) Skin: no rashes, warm and dry Lymphatic: no cervical or axillary lymphadenopathy Results & Data Results & Data Vital Signs (Past 12 Hours) Vital Signs Temp Pulse Pulse Resp BP BP Pulse Ox 10/28/24 10:00 101/66 10/28/24 10:00 36.9 C 94 H 38 H 97 10/28/24 08:12 37.1 C 90 50 H 89 L 10/28/24 08:00 101/61 10/28/24 08:00 94 H 10/28/24 07:54 37.4 C 99 H 38 H 86 L 10/28/24 07:48 96 H 35 H 90 10/28/24 07:00 37.5 C 89 28 H 91 10/28/24 06:00 37.5 C 98 H 31 H 91/53 L 95 10/28/24 05:24 37.6 C H 96 H 36 H 10/28/24 04:00 37.8 C H 95 H 38 H 97/49 L 95 10/28/24 04:00 37.8 C H 82 36 H 97/49 L 92 10/28/24 03:00 37.8 C H 97 H 36 H 92 10/28/24 02:00 37.3 C 106 H 40 H 106/68 92 O2 Del Method O2 Flow Rate FiO2 10/28/24 10:00 10/28/24 10:00 10/28/24 08:12 10/28/24 08:00 10/28/24 08:00 10/28/24 07:54 Trach Collar 10 50 10/28/24 07:48 Trach Collar 50 10/28/24 07:00 Trach Collar 10 50 10/28/24 06:00 Trach Collar 10 50 10/28/24 05:24 10/28/24 04:00 Trach Collar 10 50 10/28/24 04:00 Trach Collar 50 10/28/24 03:00 Trach Collar 50 10/28/24 02:00 Trach Collar 50 Laboratory Results 10/28/24 09:56 10/28/24 09:56 PG Care Time/CCT Total # of Minutes Spent Total Time Spent with Patient: Total time spent is greater than 50% in coordination of care (as documented) at patient's floor/unit and/or counseling patient: Coding [place] [address] SUB INP/OBS CARE 2/35MIN Patient Type Established Diagnoses Gram-positive cocci bacteremia R78.81 Multifocal pneumonia J18.9 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
--- NOTE | 2024-10-28 12:21 | Hospitalist Progress Note ---
Date of Service October 28, 2024 Assessment & Plan (1) Cerebral palsy: (2) Tracheostomy dependence: (3) RLL pneumonia: (4) Gram-positive cocci bacteremia: (5) Sepsis: (6) Diarrhea: (7) Acute respiratory failure with hypoxia: (8) Multifocal pneumonia: Plan #Sepsis / Staph epidermidis bacteremia / Right lower lobe pneumonia /acute respiratory failure with hypoxia Lactate 2.4 on admission, sepsis bolus fluids given. WBC improving, initial procalcitonin negative Pansensitive Staphylococcus epidermidis - antibiotics switched to Unasyn, vancomycin discontinued by ID Sputum culture with moderate normal pankaj TTE limited read but no vegetations Repeat blood cultures 20 negative at 48 hours, no suitable site for ultrasound-guided IV will have IV team assess for a PICC/midline today but given ongoing fevers will defer placement at this time Continue hypertonic saline, Mucomyst, vest therapy, frequent suctioning Requires trach suction with each breathing treatment and as needed. Patient is not able to indicate needs. Communication order placed Appreciate pulmonology and ID recommendations - CT abdomen pelvis use was found although then pneumonia. Given ongoing fevers doxycycline was added yesterday for atypical coverage. Yap catheter can be removed if afebrile for 24 hours Lasix given by pulmonology today which appears reasonable as she is 10 L positive since admission #Spastic quadriplegic cerebral palsy, cortical blindness, epilepsy Continue zonisamide and valproic acid Continue baclofen Continue fluoxetine Ativan on-call if needed for seizure activity, seizure precautions Seizure precautions VTE prophylaxis: Lovenox CODE STATUS: DNR, ok with ventilation Diet: Per home caregivers Disposition: Continue PCU status in the ICU due to high nursing need for care Admission and Anticipated Discharge Date Admission Date: October 23, 2024 Subjective Patient appears improved today. Less diaphoretic, more alert. No change in secretions per mother at bedside. No fever currently today. Physical Exam Constitutional: no acute distress Respiratory: + labored breathing, + uses accessory mu scles and + tachypneic Auscultation: + crackles (bibasal); breath sounds present and no diminished lung sounds Cardiovascular: Rate/Rhythm: regular rhythm and + tachycardic Heart Sounds: no murmur Extremities: normal capillary refill; no pedal edema Gastrointestinal (Abdomen): Percussion/Palpation: abdomen soft Results & Data Results & Data Vital Signs (Past 12 Hours) Vital Signs Temp Pulse Pulse Resp BP BP Pulse Ox 10/28/24 10:00 101/66 10/28/24 10:00 36.9 C 94 H 38 H 97 10/28/24 08:12 37.1 C 90 50 H 89 L 10/28/24 08:00 101/61 10/28/24 08:00 94 H 10/28/24 07:54 37.4 C 99 H 38 H 86 L 10/28/24 07:48 96 H 35 H 90 10/28/24 07:00 37.5 C 89 28 H 91 10/28/24 06:00 37.5 C 98 H 31 H 91/53 L 95 10/28/24 05:24 37.6 C H 96 H 36 H 10/28/24 04:00 37.8 C H 95 H 38 H 97/49 L 95 10/28/24 04:00 37.8 C H 82 36 H 97/49 L 92 10/28/24 03:00 37.8 C H 97 H 36 H 92 10/28/24 02:00 37.3 C 106 H 40 H 106/68 92 O2 Del Method O2 Flow Rate FiO2 10/28/24 10:00 10/28/24 10:00 10/28/24 08:12 10/28/24 08:00 10/28/24 08:00 10/28/24 07:54 Trach Collar 10 50 10/28/24 07:48 Trach Collar 50 10/28/24 07:00 Trach Collar 10 50 10/28/24 06:00 Trach Collar 10 50 10/28/24 05:24 10/28/24 04:00 Trach Collar 10 50 10/28/24 04:00 Trach Collar 50 10/28/24 03:00 Trach Collar 50 10/28/24 02:00 Trach Collar 50 Laboratory Results Abnormal lab results 10/28/24 Range/Units 09:56 RBC 3.08 L (4.20-5.40) M/uL Hgb 9.9 L (12.0-16.0) g/dl Hct 30.2 L (37.0-47.0) % RDW Std Deviation 49.7 H (36.4-46.3) fL MPV 9.3 L (9.4-12.4) fL Lymph # (Auto) 0.85 L (1.20-3.40) K/uL [place] # (Auto) 1.03 H (0.11-0.59) K/uL Creatinine 0.24 L (0.6-1.2) mg/dl BUN/Creatinine Ratio 45.8 H (10-20) Glucose 126 H (70-99(Fasting)) mg/dl C-Reactive Protein 10.46 H (0-0.5) mg/dl PG Care Time/CCT Total # of Minutes Spent Total Time Spent with Patient: Total time spent is greater than 50% in coordination of care (as documented) at patient's floor/unit and/or counseling patient: Coding Level of Care Code 67100 SUB INP/OBS CARE 3/50MIN Diagnoses Cerebral palsy G80.9 Tracheostomy dependence Z93.0 RLL pneumonia J18.9 Gram-positive cocci bacteremia R78.81 Sepsis A41.9 Diarrhea R19.7 Acute respiratory failure with hypoxia J96.01 Multifocal pneumonia J18.9
[2024-10-28] MEDS: FUROSEMIDE INJ 20 MG/2 ML VIAL IV ONE (12:30)
--- NOTE | 2024-10-29 07:28 | Pulmonology Progress Note ---
Date of Service October 29, 2024 Assessment & Plan (1) Gram-positive cocci bacteremia: (2) Multifocal pneumonia: (3) Spastic quadriplegic cerebral palsy: (4) Tracheostomy in place: (5) Abnormal chest CT: (6) Bronchiectasis: Plan CT chest 10/23/2024 personally reviewed: Patchy opacities appreciated in the right upper lobe as well as right lower lobe Bronchiectasis of the right apex Motion degraded study Minimal mediastinal lymphadenopathy -- Left lower lobe pneumonia with staph epi bacteremia Respiratory BioFire negative for everything Does have leukocytosis Procalcitonin negative History of Pseudomonas in the past, latest Sputum culture 10/23/2024 not showing any pseudomonal growth She did have 2 variants of Pseudomonas 1 was intermediate to cefepime but both are sensitive to Zosyn --Abnormal chest CT There seems to be some increased soft tissue/lymphadenopathy in the subcarinal as well as right hilar region This is likely reactive from infection Would recommend repeat CT chest in 2-3 months --Focal bronchiectasis of the right apex --TDRF secondary to cerebral palsy Plan: In/out: - 1200 mL, urine output 2500, in the chart it shows patient is + 9.4 L with the Chavez catheter was only placed on 10/26/2024 20 mg of Lasix to be given today Continue with upper airway clearance technique with 7% nebulized saline and Mucomyst along with patient's home CoughAssist Antibiotics as per ID Please note the above document was generated using voice recognition software. It may contain grammatical, syntax or spelling errors.Any formal questions or concerns about the content, text or information contained within the body of this dictation should be directly addressed to the provider for clarification. Admission and Anticipated Discharge Date Admission Date: October 23, 2024 Subjective Patient seen and examined at bedside. No acute distress, no adverse events overnight Still having copious amount of secretions which were suctioned out She was saturating 90-91% on 50% trach collar Still spiking low-grade fever. Getting tube feeds Review of Systems 2 Review of Systems: All systems reviewed & are unremarkable except as noted in Subjective Physical Exam 2 Physical Exam: Constitutional: No acute distress HEENT: EOMI, PERRLA, positive trach Respiratory system: Decreased air entry bilaterally, no wheeze, positive rhonchi, positive crackles bilaterally CVS: S1-S2 positive, no murmurs or gallops, tachycardia Abdomen: Soft, nontender, nondistended, positive bowel sounds x4, positive PEG Extremities: +2 pulses bilaterally radialis/ dorsalis pedis, no cyanosis, no edema Neuro: Awake and alert Psych: Unable to assess G/U: Positive chavez (Placed on 10/27/2023) Skin: no rashes, warm and dry Lymphatic: no cervical or axillary lymphadenopathy Results & Data Results & Data Vital Signs (Past 12 Hours) Vital Signs Temp Pulse Pulse Resp BP Pulse Ox O2 Del Method 10/29/24 06:09 37.4 C 102 H 45 H 91 10/29/24 06:07 115/66 10/29/24 06:07 115/66 10/29/24 06:07 115/66 10/29/24 05:57 37.3 C 99 H 27 H 85 L 10/29/24 05:30 37.3 C 81 37 H 93 10/29/24 04:00 102/10/29/24 04:00 102/10/29/24 04:00 10210/29/24 04:00 102/10/29/24 04:00 102/10/29/24 04:00 102/10/29/24 04:00 102/10/29/24 04:00 102/10/29/24 04:00 102/10/29/24 04:00 102/10/29/24 04:00 102/10/29/24 04:00 102/10/29/24 04:00 102/10/29/24 04:00 102/10/29/24 04:00 102/10/29/24 04:00 102/10/29/24 04:00 102/10/29/24 04:00 102/10/29/24 04:00 102/10/29/24 04:00 102/10/29/24 04:00 102/10/29/24 04:00 102/76 10/29/24 04:00 102/10/29/24 04:00 102/10/29/24 04:00 102/10/29/24 04:00 102/10/29/24 04:00 37.2 C 88 36 H 94 10/29/24 04:00 102/76 10/29/24 04:00 102/76 10/29/24 04:00 102/76 10/29/24 03:03 37.1 C 87 37 H 93 10/29/24 02:18 37.0 C 92 H 33 H 92 10/29/24 02:00 114/62 10/29/24 02:00 11462 10/29/24 02:00 11462 10/29/24 02:00 11462 10/29/24 02:00 11462 10/29/24 02:00 11462 10/29/24 02:00 11462 10/29/24 02:00 11462 10/29/24 02:00 11462 10/29/24 02:00 11462 10/29/24 02:00 11462 10/29/24 02:00 11462 10/29/24 01:51 37.0 C 91 H 37 H 90 10/29/24 01:03 37.0 C 83 34 H 93 10/29/24 00:06 36.9 C 89 31 H 92 10/29/24 00:00 117/63 10/29/24 00:00 117/63 10/29/24 00:00 117/63 10/29/24 00:00 117/63 10/29/24 00:00 117/63 10/29/24 00:00 117/63 10/29/24 00:00 117/63 10/29/24 00:00 117/63 10/29/24 00:00 117/63 10/29/24 00:00 117/63 10/29/24 00:00 117/63 10/29/24 00:00 117/63 10/29/24 00:00 117/63 10/29/24 00:00 117/63 10/29/24 00:00 117/63 10/29/24 00:00 117/63 10/29/24 00:00 117/63 10/28/24 23:42 37.0 C 92 H 33 H 92 10/28/24 23:00 37.2 C 77 38 H 93 10/28/24 22:00 37.3 C 95 H 36 H 96 10/28/24 22:00 116/57 L 10/28/24 22:00 116/57 L 10/28/24 22:00 116/57 L 10/28/24 22:00 116/57 L 10/28/24 22:00 116/57 L 10/28/24 22:00 116/57 L 10/28/24 22:00 116/57 L 10/28/24 22:00 116/57 L 10/28/24 22:00 116/57 L 10/28/24 22:00 116/57 L 10/28/24 22:00 116/57 L 10/28/24 22:00 116/57 L 10/28/24 22:00 116/57 L 10/28/24 22:00 116/57 L 10/28/24 22:00 116/57 L 10/28/24 22:00 116/57 L 10/28/24 22:00 116/57 L 10/28/24 22:00 116/57 L 10/28/24 21:18 37.6 C H 94 H 37 H 93 10/28/24 20:12 37.8 C H 97 H 31 H 90 10/28/24 20:01 117/61 10/28/24 20:01 117/61 10/28/24 20:01 117/61 10/28/24 20:01 117/61 10/28/24 20:01 117/61 10/28/24 20:01 117/61 10/28/24 20:01 117/61 10/28/24 20:01 117/61 10/28/24 20:01 117/61 10/28/24 20:00 Trach Collar 10/28/24 19:52 90 18 90 Face Tent O2 Flow Rate FiO2 10/29/24 06:09 10/29/24 06:07 10/29/24 06:07 10/29/24 06:07 10/29/24 05:57 10/29/24 05:30 10/29/24 04:00 10/29/24 04:00 10/29/24 04:00 10/29/24 04:00 10/29/24 04:00 10/29/24 04:00 10/29/24 04:00 10/29/24 04:00 10/29/24 04:00 10/29/24 04:00 10/29/24 04:00 10/29/24 04:00 10/29/24 04:00 10/29/24 04:00 10/29/24 04:00 10/29/24 04:00 10/29/24 04:00 10/29/24 04:00 10/29/24 04:00 10/29/24 04:00 10/29/24 04:00 10/29/24 04:00 10/29/24 04:00 10/29/24 04:00 10/29/24 04:00 10/29/24 04:00 10/29/24 04:00 10/29/24 04:00 10/29/24 04:00 10/29/24 04:00 10/29/24 03:03 10/29/24 02:18 10/29/24 02:00 10/29/24 02:00 10/29/24 02:00 10/29/24 02:00 10/29/24 02:00 10/29/24 02:00 10/29/24 02:00 10/29/24 02:00 10/29/24 02:00 10/29/24 02:00 10/29/24 02:00 10/29/24 02:00 10/29/24 01:51 10/29/24 01:03 10/29/24 00:06 10/29/24 00:00 10/29/24 00:00 10/29/24 00:00 10/29/24 00:00 10/29/24 00:00 10/29/24 00:00 10/29/24 00:00 10/29/24 00:00 10/29/24 00:00 10/29/24 00:00 10/29/24 00:00 10/29/24 00:00 10/29/24 00:00 10/29/24 00:00 10/29/24 00:00 10/29/24 00:00 10/29/24 00:00 10/28/24 23:42 10/28/24 23:00 10/28/24 22:00 10/28/24 22:00 10/28/24 22:00 10/28/24 22:00 10/28/24 22:00 10/28/24 22:00 10/28/24 22:00 10/28/24 22:00 10/28/24 22:00 10/28/24 22:00 10/28/24 22:00 10/28/24 22:00 10/28/24 22:00 10/28/24 22:00 10/28/24 22:00 10/28/24 22:00 10/28/24 22:00 10/28/24 22:00 10/28/24 22:00 10/28/24 21:18 10/28/24 20:12 10/28/24 20:01 10/28/24 20:01 10/28/24 20:01 10/28/24 20:01 10/28/24 20:01 10/28/24 20:01 10/28/24 20:01 10/28/24 20:01 10/28/24 20:01 10/28/24 20:00 10 70 10/28/24 19:52 12 50 Laboratory Results 10/28/24 09:56 10/28/24 09:56 PG Care Time/CCT Total # of Minutes Spent Total Time Spent with Patient: Total time spent is greater than 50% in coordination of care (as documented) at patient's floor/unit and/or counseling patient: Coding Level of Care Code 05077 SUB INP/OBS CARE 235MIN Diagnoses Gram-positive cocci bacteremia R78.81 Multifocal pneumonia J18.9 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
--- NOTE | 2024-10-29 09:07 | XRay Report ---
XR chest 1V portable CLINICAL HISTORY: f/u COMPARISON STUDY: 10/28/2024 FINDINGS: Tracheostomy tube tip is stable at the thoracic inlet. Heart size and pulmonary vasculature are normal. Inspiration is shallow. There is mildly increased diffuse pulmonary interstitial opacity . No lobar consolidation, pleural effusion, or pneumothorax. IMPRESSION: Increased pulmonary interstitial opacity could represent interstitial pneumonia, trace p ulmonary edema, or artifact from shallow inspiration. ACT 112: Negative or not required by law. Electronically signed by: Gildardo Green M.D. 10/29/2024 9:05 AM
--- NOTE | 2024-10-29 09:15 | Infectious Disease Progress Nt ---
Date of Service October 29, 2024 Assessment & Plan (1) Staphylococcus epidermidis bacteremia: (2) Multifocal pneumonia: (3) Acute respiratory failure with hypoxia: (4) Sepsis: (5) Diarrhea: (6) Tracheostomy dependence: Plan Problems: # Fevers # Bacteremia 09/09 S epidermidis: may represent contaminant in the absence of central lines # Multifocal PNA RUL/RLL # Diarrhea C diff neg # Cerebral palsy s/p PEG/tracheostomy Micro: 10/28 Sputum cx: pending. GS--few GNRs 10/28 BCx x2: pending 10/26 UCx: NG 10/25 BCx x2: NGTD 10/23 BCx x2: Staph epi in 09/09 sets 10/23 Sputum cx: moderate normal pankaj. GS--GNR, GPR, GN diplococci, GPCs Abx: Vanc 10/24 - 10/26 Zosyn 10/23 - 10/25, 10/29 - present Unasyn 10/25 - 10/29 Doxycycline 10/27 - present 29yo F with h/o cerebral palsy, s/p PEG/tracheostomy, spastic quadriplegia, epilepsy, prior respiratory cx growing Pseudomonas and Moraxella, COVID infection in 08/2024 who presented on 10/23 with increased sputum production/tracheal secretions and tachypnea, admitted with pneumonia. Hospital course c/b persistent fevers, hypoxia. Per chart, she recently completed cipro and then developed increased tracheal secretions. Sister was recently sick with rhinovirus. On admission, she was afebrile, RR in 30s, O2 sat high 90s on RA. Initial labs with WBC 18.68, Cr 0.39, LFT wnl. Lacate 2.4. PCT 0.10. RPP negative. CXR with atelectasis vs early PNA medial left lung base. She was started on cefepime for PNA. ID consulted 10/23. Abx changed to zosyn based on prior respiratory cultures. CTA chest negative for PE, diffuse abnormal soft tissue in the subcarinal region of the mediastinum as well as in the bilateral hilar regions, extends distally porras rrounding the bronchovascular structures of RUL and RLL, may be infectious though neoplastic process not excluded. BCX returned with S epidermidis (updated to MSSE). She was persistently febrile 10/23-10/24, tachycardic, and hypotensive. Vancomycin added 10/24 while waiting for cultures. Trach cx with normal pankaj. C diff negative. Zosyn changed to Unasyn 10/25, and vanc il'ed. Pt with ongoing fevers, but resolution of leukocytosis. TTE 10/26 was technically difficult, valves could not be adequately assessed. Repeat blood cultures 10/[address] AP with IV contrast performed 10/27 due to persistent fevers, which showed patchy lobular groundglass opacities in anterior aspects of lungs, likely infectious/inflammatory, possibly atypical infection. Repeat infectious work-up sent on 10/28 due to fevers, with blood culture and tracheal aspirate culture pending. On 10/29, pt with increased O2 requirement on 70%, 10 L. Per bedside RN, pt with lots of secretions. Also with likely volume overload, as she was about +10 L, getting diuretics. Considering also aspiration of tube feeds, mucus plugging. Recommendations: - Follow-up 10/28 blood and sputum cultures - Will broaden antibiotics from Unasyn to Zosyn for now, given increased O2 requirement and continued fevers. Will follow-up sputum culture--if still with normal pankaj, anticipate narrowing back to Unasyn. Hope to eventually transition to PO antibiotics Discussed with Dr. Willson. Will continue to follow Admission and Anticipated Discharge Date Admission Date: October 23, 2024 Subjective Subsequent visit was provided via telemedicine using two-way real-time interactive telecommunication between the patient and the telemedicine provider. For the duration of the visit, the provider was performing the assessment from a different facility than the patient. This includesuse of bluetooth stethoscope forauscultationperformed by the telepresenter that the telemedicine provider can hear if described in the physical exam. [employer] contact information: Please call [facility] . (Phone Number For Physician Use Only) After establishing a telemedicine visit, patient was: Patient was verified with two unique identifiers, Patient/authorized rep acknowledged consent and understanding and Gave permission to continue telehealth session Time Spent with Patient: Subsequent => 25 min Febrile yesterday evening. Blood cultures and trach sputum culture pending CT AP on 10/27 with patchy lobular GGO in anterior aspects of lungs, likely infectious/inflammatory CXR today with increased pulmonary interstitial opacity could represent interstitial pneumonia, trace pulm edema, or artifact from shallow inspiration Per RN, pt with increased secretions and increased O2 requirement, on 70% FiO2 10 L and barely maintaining her sats Review of System Unable to obtain given patient condition. Physical Exam Physical Exam: GENERAL: nonverbal, laying in bed in NAD HEENT: trach in place. SKIN: No rashes, lesions Results & Data Vital Signs (Past 12 Hours) Vital Signs Temp Pulse Pulse Resp BP Pulse Ox O2 Del Method 10/29/24 08:19 91 Trach Collar 10/29/24 08:17 101 H 46 H 92 Trach Collar 10/29/24 08:00 105 H 10/29/24 07:28 Trach Collar 10/29/24 07:15 37.7 C H 102 H 21 129/74 91 Trach Collar 10/29/24 06:09 37.4 C 102 H 45 H 91 10/29/24 06:07 115/66 10/29/24 06:07 115/66 10/29/24 06:07 115/66 10/29/24 05:57 37.3 C 99 H 27 H 85 L 10/29/24 05:30 37.3 C 81 37 H 93 10/29/24 04:00 102/76 10/29/24 04:00 102/76 10/29/24 04:00 102/76 10/29/24 04:00 102/76 10/29/24 04:00 102/76 10/29/24 04:00 102/76 10/29/24 04:00 102/76 10/29/24 04:00 102/76 10/29/24 04:00 102/76 10/29/24 04:00 102/76 10/29/24 04:00 102/76 10/29/24 04:00 102/76 10/29/24 04:00 102/76 10/29/24 04:00 102/76 10/29/24 04:00 102/76 10/29/24 04:00 102/76 10/29/24 04:00 102/76 10/29/24 04:00 102/76 10/29/24 04:00 102/76 10/29/24 04:00 102/76 10/29/24 04:00 102/76 10/29/24 04:00 102/76 10/29/24 04:00 102/76 10/29/24 04:00 10210/29/24 04:00 102/10/29/24 04:00 102/10/29/24 04:00 37.2 C 88 36 H 94 10/29/24 04:00 102/10/29/24 04:00 10210/29/24 04:00 102/10/29/24 03:03 37.1 C 87 37 H 93 10/29/24 02:18 37.0 C 92 H 33 H 92 10/29/24 02:00 11410/29/24 02:00 11410/29/24 02:00 11410/29/24 02:00 11410/29/24 02:00 11410/29/24 02:00 11410/29/24 02:00 11410/29/24 02:00 11410/29/24 02:00 11410/29/24 02:00 11410/29/24 02:00 11410/29/24 02:00 11410/29/24 01:51 37.0 C 91 H 37 H 90 10/29/24 01:03 37.0 C 83 34 H 93 10/29/24 00:06 36.9 C 89 31 H 92 10/29/24 00:00 117/63 10/29/24 00:00 117/63 10/29/24 00:00 117/63 10/29/24 00:00 117/63 10/29/24 00:00 117/63 10/29/24 00:00 117/63 10/29/24 00:00 117/63 10/29/24 00:00 117/63 10/29/24 00:00 117/63 10/29/24 00:00 117/63 10/29/24 00:00 117/63 10/29/24 00:00 117/63 10/29/24 00:00 117/63 10/29/24 00:00 117/63 10/29/24 00:00 117/63 10/29/24 00:00 117/63 10/29/24 00:00 117/63 10/28/24 23:42 37.0 C 92 H 33 H 92 10/28/24 23:00 37.2 C 77 38 H 93 10/28/24 22:00 37.3 C 95 H 36 H 96 10/28/24 22:00 116/57 L 10/28/24 22:00 116/57 L 10/28/24 22:00 116/57 L 10/28/24 22:00 116/57 L 10/28/24 22:00 116/57 L 10/28/24 22:00 116/57 L 10/28/24 22:00 116/57 L 10/28/24 22:00 116/57 L 10/28/24 22:00 116/57 L 10/28/24 22:00 116/57 L 10/28/24 22:00 116/57 L 10/28/24 22:00 116/57 L 10/28/24 22:00 116/57 L 10/28/24 22:00 116/57 L 10/28/24 22:00 116/57 L 10/28/24 22:00 116/57 L 10/28/24 22:00 116/57 L 10/28/24 22:00 116/57 L 10/28/24 21:18 37.6 C H 94 H 37 H 93 O2 Flow Rate FiO2 10/29/24 08:19 10 50 10/29/24 08:17 70 10/29/24 08:00 10/29/24 07:28 10 70 10/29/24 07:15 10 70 10/29/24 06:09 10/29/24 06:07 10/29/24 06:07 10/29/24 06:07 10/29/24 05:57 10/29/24 05:30 10/29/24 04:00 10/29/24 04:00 10/29/24 04:00 10/29/24 04:00 10/29/24 04:00 10/29/24 04:00 10/29/24 04:00 10/29/24 04:00 10/29/24 04:00 10/29/24 04:00 10/29/24 04:00 10/29/24 04:00 10/29/24 04:00 10/29/24 04:00 10/29/24 04:00 10/29/24 04:00 10/29/24 04:00 10/29/24 04:00 10/29/24 04:00 10/29/24 04:00 10/29/24 04:00 10/29/24 04:00 10/29/24 04:00 10/29/24 04:00 10/29/24 04:00 10/29/24 04:00 10/29/24 04:00 10/29/24 04:00 10/29/24 04:00 10/29/24 04:00 10/29/24 03:03 10/29/24 02:18 10/29/24 02:00 10/29/24 02:00 10/29/24 02:00 10/29/24 02:00 10/29/24 02:00 10/29/24 02:00 10/29/24 02:00 10/29/24 02:00 10/29/24 02:00 10/29/24 02:00 10/29/24 02:00 10/29/24 02:00 10/29/24 01:51 10/29/24 01:03 10/29/24 00:06 10/29/24 00:00 10/29/24 00:00 10/29/24 00:00 10/29/24 00:00 10/29/24 00:00 10/29/24 00:00 10/29/24 00:00 10/29/24 00:00 10/29/24 00:00 10/29/24 00:00 10/29/24 00:00 10/29/24 00:00 10/29/24 00:00 10/29/24 00:00 10/29/24 00:00 10/29/24 00:00 10/29/24 00:00 10/28/24 23:42 10/28/24 23:00 10/28/24 22:00 10/28/24 22:00 10/28/24 22:00 10/28/24 22:00 10/28/24 22:00 10/28/24 22:00 10/28/24 22:00 10/28/24 22:00 10/28/24 22:00 10/28/24 22:00 10/28/24 22:00 10/28/24 22:00 10/28/24 22:00 10/28/24 22:00 10/28/24 22:00 10/28/24 22:00 10/28/24 22:00 10/28/24 22:00 10/28/24 22:00 10/28/24 21:18 Laboratory Results Short CBC 10/28/24 Range/Units 09:56 WBC 6.04 (4.8-10.8) K/ul Hgb 9.9 L (12.0-16.0) g/dl Hct 30.2 L (37.0-47.0) % Plt Count 144 (130-400) K/uL BMP 10/28/24 09:56 Sodium 136 Potassium 4.1 Chloride 103 Carbon Dioxide 27 BUN 11 Creatinine 0.24 L Glucose 126 H Calcium 9.1 Liver Function 10/28/24 Range/Units 09:56 Total Bilirubin 0.2 (0.2-1.0) mg/dl AST 24 (13-39) U/L ALT 20 (7-52) U/L Alkaline Phosphatase 55 (34-104) U/L Albumin 3.4 (3.4-5.0) gm/dl Diagnostic Findings Chest X-Ray 10/27/24 07:05 EXAM: XR chest 1V portable CLINICAL HISTORY: f/u study. TECHNIQUE: An X-ray image of the chest is obtained in AP projection. COMPARISON: 10/26/2024 CR FINDINGS: Mildly elevated right hemidiaphragm (regression). Slight improvement of the faint opacity in the right lower zone with the parenchymal band and mild blunting of the right costophrenic angle. Newly developed left upper and lower lung zone pulmonary infiltrates. Congested bilateral pulmonary ashley are still seen. No left pleural effusion. The cardio mediastinal silhouette is within normal limits. No acute osseous abnormality. A tracheostomy tube is seen in situ IMPRESSION: 1. Slight improvement of the faint opacity in the right lower zone with the parenchymal band and mild blunting of the right costophrenic angle. 2. Newly developed/well-appreciated left upper and lower lung zone pulmonary infiltrates and opacities. 3. Ongoing inflammatory/infectious process should be clinically assessed. Electronically signed by Arnulfo Jackson 10-27-2024 07:49 AM Abdomen/Pelvis CT 10/27/24 12:37 EXAMINATION: CT of the abdomen and pelvis performed after the administration of IV contrast TECHNIQUE: Helical CT images from the lung bases through the symphysis pubis were obtained with contrast. Coronal and sagittal reformatted images were generated at a workstation for further assessment. Dose reduction techniques were achieved by using automatic exposure control and/or adjustment of mA and/or kV according to patient size and/or use of iterative reconstruction technique. COMPARISON: None HISTORY: Fever FINDINGS: Lower chest: Patchy lobular groundglass opacities are new from prior chest CT and are seen in the anterior aspects of the both mid and upper lung regions. Small bilateral pleural effusions associated with subjacent compressive atelectasis. Pectus excavatum. Liver: No suspicious liver lesions. Portal veins appear patent. Gallbladder: No gallstones. No evidence of acute cholecystitis. Spleen: Normal size. Pancreas: No suspicious pancreatic lesions. The pancreatic duct is not dilated. Adrenal glands: No adrenal nodules. Kidneys: No hydronephrosis or obstructing renal stones. Bladder / Pelvic organs: The uterus is present. Both ovaries appear somewhat prominent. A Yap catheter is in place. The urinary bladder is decompressed. Bowel: No bowel obstruction. No abnormal bowel wall thickening. The appendix is unremarkable. Percutaneous gastrostomy tube with balloon in place. Lymph nodes: No retroperitoneal, mesenteric, or pelvic lymphadenopathy. Peritoneum / Retroperitoneum: No free fluid or air within the abdomen. Vessels: No infrarenal aortic aneurysm. Bones and soft tissues: No suspicious lesion in the bones. IMPRESSION: Patchy lobular groundglass opacities seen in the anterior aspects of the lungs, are likely infectious/inflammatory, possibly atypical infection. Small pleural effusions. The ovaries appear somewhat prominent. Consider polycystic ovarian syndrome. This could be further evaluated with pelvic ultrasound if indicated. Electronically signed by Saurabh Diaz 10-27-2024 2:12 PM Chest X-Ray 10/28/24 07:00 EXAM: XR chest 1V portable CLINICAL HISTORY: Followup. TECHNIQUE: An X-ray image of the chest is obtained in AP projection. COMPARISON: 10/27/2024 FINDINGS: Pulmonary Parenchyma: Stable airspace opacity was noted at the left upper and mid-lung zones stable faint opacity seen at the right lower lung zone No evidence of pleural effusion or pleural thickening. Heart and Mediastinum: A tracheostomy tube seen. Heart size and shape are normal. No mediastinal widening or masses. No hilar or mediastinal lymphadenopathy. Stable congested hilar vessels with prominent bronchovascular markings suggesting mild congestive changes Bony Thorax: Bony thorax appears intact without fractures or deformities. Soft Tissues: Soft tissues overlying the chest wall are unremarkable. IMPRESSION: 1. Stable airspace opacity at the left upper, mid lung zones and right lower lung zone, suggesting pneumonic infiltrates. Correlate clinically 2. Compared to prior study no detected interval changes Electronically signed by Arnulfo Jackson 10-28-2024 07:48 AM Chest X-Ray 10/29/24 08:09 XR chest 1V portable CLINICAL HISTORY: f/u COMPARISON STUDY: 10/28/2024 FINDINGS: Tracheostomy tube tip is stable at the thoracic inlet. Heart size and pulmonary vasculature are normal. Inspiration is shallow. There is mildly increased diffuse pulmonary interstitial opacity. No lobar consolidation, pleural effusion, or pneumothorax. IMPRESSION: Increased pulmonary interstitial opacity could represent interstitial pneumonia, trace pulmonary edema, or artifact from shallow insp iration. ACT 112: Negative or not required by law. Electronically signed by: Gildardo Green M.D. 10/29/2024 9:05 AM Medications Administered Current Inpatient Medications Acetaminophen (Acetaminophen Susp 160 Mg/5 Ml Btl) 640 mg PO Q6H PRN PRN Reason: Pain or Fever Stop: 11/22/24 15:01 Last Admin: 10/29/24 08:48 Dose: 640 mg Acetylcysteine (Acetylcysteine 20% Inhal Soln 4ml Dispensed By Resp.) 3 ml INH BID TONY Stop: 11/24/24 20:59 Last Admin: 10/29/24 07:44 Dose: 3 ml Albuterol (Albuterol 0.083% Nebu Soln 3 Ml Vial) 2.5 mg INH Q4H PRN; Protocol PRN Reason: sob Stop: 11/22/24 14:39 Last Admin: 10/28/24 19:53 Dose: 2.5 mg Baclofen (Baclofen 10 Mg Tab) 20 mg PEG Q12H TONY Stop: 11/22/24 19:59 Last Admin: 10/29/24 07:54 Dose: 20 mg Baclofen (Baclofen 10 Mg Tab) 10 mg PEG Q24H TONY Stop: 11/22/24 14:59 Last Admin: 10/28/24 13:56 Dose: 10 mg Budesonide (Budesonide 0.5 Mg/2 Ml Vial (Pulmicort)) 0.5 mg INH BID [facility] Stop: 11/22/24 20:59 Last Admin: 10/29/24 07:45 Dose: 0.5 mg Enoxaparin Sodium (Enoxaparin Inj 40 Mg/0.4 Ml Syr) 40 mg SQ Q24H [facility] Stop: 11/22/24 14:59 Last Admin: 10/28/24 13:56 Dose: 40 mg Fluoxetine HCl (Fluoxetine Hcl 20 Mg/5 Ml 120ml Btl) 20 mg PO TODAY@1500 [facility] Stop: 11/22/24 16:44 Last Admin: 10/28/24 13:57 Dose: 20 mg Ampicillin Sodium/Sulbactam Sodium (Unasyn) 3,000 mg in 100 mls @ 200 mls/hr IV Q6H [facility] Stop: 11/01/24 10:59 Last Infusion: 10/29/24 04:38 Dose: Infused Doxycycline Hyclate 100 mg/ (Dextrose) 100 mls @ 50 mls/hr IV Q12H [facility] Stop: 11/01/24 15:44 Last Infusion: 10/29/24 04:38 Dose: Infused Ibuprofen (Ibuprofen 200 Mg/10 Ml Udc) 400 mg GT Q4H PRN PRN Reason: Pain or Fever Stop: 11/23/24 05:52 Last Admin: 10/28/24 16:47 Dose: 400 mg Lorazepam (Lorazepam 2 Mg/1 Ml Vial) 2 mg IV Q5M PRN PRN Reason: seizure Nutritional Formula (Patient's Own Enteral Feeding) 350 ml PEG Q4 [facility]; Protocol Stop: 11/24/24 03:59 Last Admin: 10/29/24 07:54 Dose: 350 ml Sodium Chloride (Sodium Chlor 7% 4 Ml Neb) 4 ml NEB BIDR [facility] Stop: 11/23/24 18:59 Last Admin: 10/29/24 07:44 Dose: 4 ml Trazodone HCl (Trazodone Hcl 50 Mg Tab) 50 mg PEG HS [facility] Stop: 11/22/24 20:59 Last Admin: 10/28/24 20:20 Dose: 50 mg Valproic Acid (Valproic Acid 50 Mg/Ml Udp) 550 mg PEG TID [facility] Stop: 11/22/24 17:14 Last Admin: 10/29/24 07:55 Dose: 550 mg Zonisamide (Zonisamide 100 Mg Capsule) 200 mg PO BID TONY Stop: 11/22/24 20:59 Last Admin: 10/29/24 07:56 Dose: 200 mg
[2024-10-29] MEDS: FUROSEMIDE INJ 20 MG/2 ML VIAL IV ONE (09:37)
[2024-10-29] MEDS: PIPERACILLIN/TAZOBACTAM 4.5 GM/100 ML BAG IV ONE (10:46)
--- NOTE | 2024-10-29 12:01 | Hospitalist Progress Note ---
Date of Service October 29, 2024 Assessment & Plan (1) Cerebral palsy: (2) Tracheostomy dependence: (3) RLL pneumonia: (4) Gram-positive cocci bacteremia: (5) Sepsis: (6) Diarrhea: (7) Acute respiratory failure with hypoxia: (8) Multifocal pneumonia: Plan #Sepsis / Staph epidermidis bacteremia / Right lower lobe pneumonia /acute respiratory failure with hypoxia Pansensitive Staphylococcus epidermidis - antibiotics switched from Unasyn to Zosyn today due to concern by ID for increasing oxygen requirement, added doxycycline for atypical coverage on October 27 and will continue for 7 days Sputum culture with moderate normal pankaj, repeat with light normal pankaj TTE limited read but no vegetations Continue hypertonic saline, Mucomyst, vest therapy, frequent suctioning Requires trach suction with each breathing treatment and as needed. Patient is not able to indicate needs. Communication order placed Appreciate pulmonology and ID recommendations - Yap catheter can be removed if afebrile for 24 hours Lasix management per pulmonology - agree with additional dosing Despite increased oxygen requirement this morning it tends to fluctuate throughout the day and I do not see it a definitive trend that this is getting worse. If truly her oxygen requirement we should stop her feeds for 1 to 2 days as most likely this comes from recurrent aspirations. Will continue to monitor with Lasix. My general impression is stated she is improving with both her white blood count and decrease in fevers and if repeat sputum culture finalizes as light normal pankaj suspect we can place her back on Unasyn with doxycycline #Spastic quadriplegic cerebral palsy, cortical blindness, epilepsy Continue zonisamide and valproic acid Continue baclofen Continue fluoxetine Ativan on-call if needed for seizure activity, seizure precautions Seizure precautions VTE prophylaxis: Lovenox CODE STATUS: DNR, ok with ventilation Diet: Per home caregivers Disposition: Continue PCU status in the ICU due to high nursing need for care Admission and Anticipated Discharge Date Admission Date: October 23, 2024 Subjective Similar alertness to yesterday. She is on a higher oxygen requirement than yesterday but this tends to fluctuate throughout the day as she mucous plugs. Discussed care with infectious disease. Updated her mother over the phone. Febrile yesterday but having fevers of less duration with decreasing frequency. Physical Exam Constitutional: + not well developed and no acute distre ss Respiratory: + labored breathing, + uses accessory mu scles and + tachypneic Auscultation: + rhonchi; breath sounds present and no diminished lung sounds Cardiovascular: Rate/Rhythm: regular rhythm and + tachycardic Heart Sounds: no murmur Extremities: normal capillary refill; no pedal edema Gastrointestinal (Abdomen): Percussion/Palpation: abdomen soft; abdomen nontender Skin: no rashes, warm and dry (No area of cellulitis) Results & Data Results & Data Vital Signs (Past 12 Hours) Vital Signs Temp Pulse Pulse Resp BP Pulse Ox O2 Del Method 10/29/24 08:19 91 Trach Collar 10/29/24 08:17 101 H 46 H 92 Trach Collar 10/29/24 08:00 105 H 10/29/24 07:28 Trach Collar 10/29/24 07:15 37.7 C H 102 H 21 129/74 91 Trach Collar 10/29/24 06:09 37.4 C 102 H 45 H 91 10/29/24 06:07 115/66 10/29/24 06:07 115/66 10/29/24 06:07 115/66 10/29/24 05:57 37.3 C 99 H 27 H 85 L 10/29/24 05:30 37.3 C 81 37 H 93 10/29/24 04:00 102/10/29/24 04:00 102/10/29/24 04:00 102/10/29/24 04:00 102/10/29/24 04:00 102/76 10/29/24 04:00 102/76 10/29/24 04:00 102/10/29/24 04:00 102/76 10/29/24 04:00 102/76 10/29/24 04:00 102/76 10/29/24 04:00 102/76 10/29/24 04:00 102/76 10/29/24 04:00 102/76 10/29/24 04:00 102/76 10/29/24 04:00 102/10/29/24 04:00 102/76 10/29/24 04:00 102/76 10/29/24 04:00 102/76 10/29/24 04:00 102/76 10/29/24 04:00 102/76 10/29/24 04:00 102/76 10/29/24 04:00 10/29/24 04:00 /10/29/24 04:00 10/29/24 04:00 102/10/29/24 04:00 102/10/29/24 04:00 37.2 C 88 36 H 94 10/29/24 04:00 102/10/29/24 04:00 10/29/24 04:00 /10/29/24 03:03 37.1 C 87 37 H 93 10/29/24 02:18 37.0 C 92 H 33 H 92 10/29/24 02:00 11410/29/24 02:00 11410/29/24 02:00 10/29/24 02:00 10/29/24 02:00 11410/29/24 02:00 10/29/24 02:00 10/29/24 02:00 10/29/24 02:00 10/29/24 02:00 10/29/24 02:00 11410/29/24 02:00 11410/29/24 01:51 37.0 C 91 H 37 H 90 10/29/24 01:03 37.0 C 83 34 H 93 10/29/24 00:06 36.9 C 89 31 H 92 O2 Flow Rate FiO2 10/29/24 08:19 10 50 10/29/24 08:17 70 10/29/24 08:00 10/29/24 07:28 10 70 10/29/24 07:15 10 70 10/29/24 06:09 10/29/24 06:07 10/29/24 06:07 10/29/24 06:07 10/29/24 05:57 10/29/24 05:30 10/29/24 04:00 10/29/24 04:00 10/29/24 04:00 10/29/24 04:00 10/29/24 04:00 10/29/24 04:00 10/29/24 04:00 10/29/24 04:00 10/29/24 04:00 10/29/24 04:00 10/29/24 04:00 10/29/24 04:00 10/29/24 04:00 10/29/24 04:00 10/29/24 04:00 10/29/24 04:00 10/29/24 04:00 10/29/24 04:00 10/29/24 04:00 10/29/24 04:00 10/29/24 04:00 10/29/24 04:00 10/29/24 04:00 10/29/24 04:00 10/29/24 04:00 10/29/24 04:00 10/29/24 04:00 10/29/24 04:00 10/29/24 04:00 10/29/24 04:00 10/29/24 03:03 10/29/24 02:18 10/29/24 02:00 10/29/24 02:00 10/29/24 02:00 10/29/24 02:00 10/29/24 02:00 10/29/24 02:00 10/29/24 02:00 10/29/24 02:00 10/29/24 02:00 10/29/24 02:00 10/29/24 02:00 10/29/24 02:00 10/29/24 01:51 10/29/24 01:03 10/29/24 00:06 PG Care Time/CCT Total # of Minutes Spent Total Time Spent with Patient: Total time spent is greater than 50% in coordination of care (as documented) at patient's floor/unit and/or counseling patient: Coding Level of Care Code 49843 SUB INP/OBS CARE 3/50MIN Diagnoses Cerebral palsy G80.9 Tracheostomy dependence Z93.0 RLL pneumonia J18.9 Gram-positive cocci bacteremia R78.81 Sepsis A41.9 Diarrhea R19.7 Acute respiratory failure with hypoxia J96.01 Multifocal pneumonia J18.9
[2024-10-29] MEDS: PIPERACILLIN/TAZOBACTAM 4.5 GM/100 ML BAG IV SCH (15:23)
[2024-10-30 04:59] LABS: Hematocrit (blood only) 31.8 % (37.0-47.0); Hemoglobin 10.8 g/dl (12.0-16.0); Mean Corpuscular Hemoglobin 32.7 pg (25.0-34.0); Mean Corpuscular Volume 96.4 fL (80.0-100.0); Mean Platelet Volume 8.6 fL (9.4-12.4); Platelet Count 227 K/uL (130-400); RDW Coefficient of Variation 13.5 % (11.5-14.5); White Blood Count 7.74 K/ul (4.8-10.8)
[2024-10-30 05:14] LABS: BUN Creatinine Ratio 53.8 (10-20); C Reactive Protein 4.09 mg/dl (0-0.5); Calcium 9.2 mg/dl (8.6-10.3); Creatinine Clr Calc Pharmacy 190.9 ml/min; Potassium 4.1 mmol/L (3.5-5.1)
[2024-10-30 05:41] LABS: Basophils # (auto) 0.05 K/uL (0.00-0.20); Basophils % (auto) 0.6 %; Eosinophils # (auto) 0.14 K/uL (0.00-0.50); Eosinophils % (auto) 1.8 %; Immature Granulocytes # (auto) 0.52 K/uL (0.01-0.20); Immature Granulocytes % (auto) 6.7 %; Lymphocytes # (auto) 1.58 K/uL (1.20-3.40); Lymphocytes % (auto) 20.4 %; Monocytes # (auto) 1.14 K/uL (0.11-0.59); Monocytes % (auto) 14.7 %; Neutrophils # (auto) 4.31 K/uL (1.40-6.50); Neutrophils % (auto) 55.8 %; RBC Morphology Unremarkable
--- NOTE | 2024-10-30 07:51 | XRay Report ---
EXAM: XR chest 1V portable CLINICAL HISTORY: Follow up. TECHNIQUE: An X-ray image of the chest is obtained in AP projection. COMPARISON: compared to the prior study dated 10/28/2024. FINDINGS: Leftward tilted patient. Pulmonary Parenchyma: Regression of the previously seen opacities at the left upper and middle lung zones, with good creation of the left lung parenchyma. Stable right lower zone faint opacity. No evidence of pleural effusion or pleural thickening. Heart and Mediastinum: A tracheostomy tube seen. Heart size and shape are normal. No mediastinal widening or masses. Stable congested hilar vessels with prominent bronchovascular markings, suggesting mild congestive changes. Bony Thorax: Bony thorax appears intact without fractures or deformities. Soft Tissues: Soft tissues overlying the chest wall are unremarkable. IMPRESSION: 1. Regression of the previously seen opacities at the left upper and middle lung zones, with good creation of the left lung parenchyma. 2. Unchanged right lower zone faint opacity. 3. Unchanged congested hilar vessels with prominent bronchovascular markings, Electronically signed by Arnulfo Jackson 10-30-2024 07:50 AM
--- NOTE | 2024-10-30 08:24 | Pulmonology Progress Note ---
Date of Service October 30, 2024 Assessment & Plan (1) Gram-positive cocci bacteremia: (2) Multifocal pneumonia: (3) Spastic quadriplegic cerebral palsy: (4) Tracheostomy in place: (5) Abnormal chest CT: (6) Bronchiectasis: Plan CT chest 10/23/2024 personally reviewed: Patchy opacities appreciated in the right upper lobe as well as right lower lobe Bronchiectasis of the right apex Motion degraded study Minimal mediastinal lymphadenopathy -- Left lower lobe pneumonia with staph epi bacteremia Respiratory BioFire negative for everything Does have leukocytosis Procalcitonin negative History of Pseudomonas in the past Sputum culture 10/28/2024 growing Pseudomonas She did have 2 variants of Pseudomonas 1 was intermediate to cefepime but both are sensitive to Zosyn --Abnormal chest CT There seems to be some increased soft tissue/lymphadenopathy in the subcarinal as well as right hilar region This is likely reactive from infection Would recommend repeat CT chest in 2-3 months --Focal bronchiectasis of the right apex --TDRF secondary to cerebral palsy Plan: In/out: - 850, urine output 1250 ml , in the chart it shows patient is + 8.3 L with the Chavez catheter was only placed on 10/26/2024 10 mg of Lasix to be given today given mild bump in creatinine Antibiotics again changed to Zosyn Continue with upper airway clearance technique with 7% nebulized saline and Mucomyst along with patient's home CoughAssist Antibiotics as per ID Please note the above document was generated using voice recognition software. It may contain grammatical, syntax or spelling errors.Any formal questions or concerns about the content, text or information contained within the body of this dictation should be directly addressed to the provider for clarification. Admission and Anticipated Discharge Date Admission Date: October 23, 2024 Subjective Patient seen and examined at bedside. No acute distress, no adverse events overnight She was saturating 90-91% on 50% trach collar Still spiking Tmax 38.4 in the last 12 hours Getting tube feeds Review of Systems 2 Review of Systems: Unobtainable due to cognitive status Physical Exam 2 Physical Exam: Constitutional: No acute distress HEENT: EOMI, PERRLA, positive trach Respiratory system: Decreased air entry bilaterally, no wheeze, no rhonchi, positive crackles bilaterally CVS: S1-S2 positive, no murmurs or gallops, tachycardia Abdomen: Soft, nontender, nondistended, positive bowel sounds x4, positive PEG Extremities: +2 pulses bilaterally radialis/ dorsalis pedis, no cyanosis, no edema Neuro: Awake and alert Psych: Unable to assess G/U: Positive chavez (Placed on 10/27/2023) Skin: no rashes, warm and dry Lymphatic: no cervical or axillary lymphadenopathy Results & Data Results & Data Vital Signs (Past 12 Hours) Vital Signs Temp Pulse Pulse Resp BP Pulse Ox O2 Del Method 10/30/24 07:56 94 H 26 H 94 Trach Collar 10/30/24 07:40 Trach Collar 10/30/24 07:32 88 10/30/24 06:00 37.5 C 95 H 28 H 95 10/30/24 05:15 37.5 C 94 H 37 H 91 10/30/24 04:00 10/30/24 04:00 10/30/24 04:00 10/30/24 04:00 10/30/24 04:00 10/30/24 04:00 10/30/24 04:00 10/30/24 04:00 10/30/24 04:00 10/30/24 04:00 10/30/24 04:00 10/30/24 04:00 10/30/24 04:00 10/30/24 04:00 10/30/24 04:00 10/30/24 04:00 10/30/24 04:00 10/30/24 04:00 10/30/24 04:00 10/30/24 04:00 10/30/24 04:00 10/30/24 04:00 10/30/24 04:00 10/30/24 04:00 10/30/24 04:00 10/30/24 04:00 10/30/24 04:00 10/30/24 04:00 10/30/24 04:00 10/30/24 04:00 10/30/24 04:00 10/30/24 04:00 37.4 C 99 H 35 H 93 10/30/24 03:03 37.4 C 97 H 43 H 93 10/30/24 02:00 10/30/24 02:00 10/30/24 02:00 10/30/24 02:00 10/30/24 02:00 10/30/24 02:00 10/30/24 02:00 10/30/24 02:00 10/30/24 02:00 10/30/24 02:00 10/30/24 02:00 10/30/24 02:00 10/30/24 02:00 10/30/24 02:00 10/30/24 02:00 10/30/24 02:00 10/30/24 02:00 10/30/24 02:00 10/30/24 02:00 10/30/24 02:00 10/30/24 02:00 10/30/24 02:00 10/30/24 02:00 10/30/24 02:00 10/30/24 02:00 10/30/24 02:00 10/30/24 02:00 10/30/24 02:00 10/30/24 02:00 10/30/24 02:00 10/30/24 02:00 10/30/24 02:00 37.5 C 98 H 35 H 91 10/30/24 00:18 37.7 C H 102 H 29 H 91 10/30/24 00:00 119/75 10/30/24 00:00 119/10/30/24 00:00 119/75 10/30/24 00:00 119/10/30/24 00:00 119/10/30/24 00:00 119/75 10/30/24 00:00 119/75 10/30/24 00:00 119/75 10/30/24 00:00 119/10/30/24 00:00 119/75 10/30/24 00:00 119/75 10/30/24 00:00 119/75 10/30/24 00:00 119/75 10/29/24 23:57 37.7 C H 106 H 23 91 10/29/24 23:15 37.9 C H 109 H 31 H 94 10/29/24 22:00 132/86 10/29/24 22:00 132/86 10/29/24 22:00 132/86 10/29/24 22:00 132/86 10/29/24 22:00 132/86 10/29/24 22:00 132/86 10/29/24 22:00 132/86 10/29/24 22:00 132/86 10/29/24 22:00 132/86 10/29/24 22:00 132/86 10/29/24 22:00 132/86 10/29/24 22:00 132/86 10/29/24 22:00 132/86 10/29/24 22:00 132/86 10/29/24 22:00 132/86 10/29/24 22:00 132/86 10/29/24 22:00 132/86 10/29/24 22:00 132/86 10/29/24 22:00 132/86 10/29/24 22:00 132/86 10/29/24 22:00 132/86 10/29/24 22:00 38.0 C H 114 H 44 H 89 L 10/29/24 21:00 38.3 C H 108 H 34 H 91 O2 Flow Rate FiO2 10/30/24 07:56 10 50 10/30/24 07:40 10 50 10/30/24 07:32 10/30/24 06:00 10/30/24 05:15 10/30/24 04:00 10/30/24 04:00 10/30/24 04:00 10/30/24 04:00 10/30/24 04:00 10/30/24 04:00 10/30/24 04:00 10/30/24 04:00 10/30/24 04:00 10/30/24 04:00 10/30/24 04:00 10/30/24 04:00 10/30/24 04:00 10/30/24 04:00 10/30/24 04:00 10/30/24 04:00 10/30/24 04:00 10/30/24 04:00 10/30/24 04:00 10/30/24 04:00 10/30/24 04:00 10/30/24 04:00 10/30/24 04:00 10/30/24 04:00 10/30/24 04:00 10/30/24 04:00 10/30/24 04:00 10/30/24 04:00 10/30/24 04:00 10/30/24 04:00 10/30/24 04:00 10/30/24 04:00 10/30/24 03:03 10/30/24 02:00 10/30/24 02:00 10/30/24 02:00 10/30/24 02:00 10/30/24 02:00 10/30/24 02:00 10/30/24 02:00 10/30/24 02:00 10/30/24 02:00 10/30/24 02:00 10/30/24 02:00 10/30/24 02:00 10/30/24 02:00 10/30/24 02:00 10/30/24 02:00 10/30/24 02:00 10/30/24 02:00 10/30/24 02:00 10/30/24 02:00 10/30/24 02:00 10/30/24 02:00 10/30/24 02:00 10/30/24 02:00 10/30/24 02:00 10/30/24 02:00 10/30/24 02:00 10/30/24 02:00 10/30/24 02:00 10/30/24 02:00 10/30/24 02:00 10/30/24 02:00 10/30/24 02:00 10/30/24 00:18 10/30/24 00:00 10/30/24 00:00 10/30/24 00:00 10/30/24 00:00 10/30/24 00:00 10/30/24 00:00 10/30/24 00:00 10/30/24 00:00 10/30/24 00:00 10/30/24 00:00 10/30/24 00:00 10/30/24 00:00 10/30/24 00:00 10/29/24 23:57 10/29/24 23:15 10/29/24 22:00 10/29/24 22:00 10/29/24 22:00 10/29/24 22:00 10/29/24 22:00 10/29/24 22:00 10/29/24 22:00 10/29/24 22:00 10/29/24 22:00 10/29/24 22:00 10/29/24 22:00 10/29/24 22:00 10/29/24 22:00 10/29/24 22:00 10/29/24 22:00 10/29/24 22:00 10/29/24 22:00 10/29/24 22:00 10/29/24 22:00 10/29/24 22:00 10/29/24 22:00 10/29/24 22:00 10/29/24 21:00 Laboratory Results 10/30/24 04:36 10/30/24 04:36 PG Care Time/CCT Total # of Minutes Spent Total Time Spent with Patient: Total time spent is greater than 50% in coordination of care (as documented) at patient's floor/unit and/or counseling patient: Coding Level of Care Code 88650 SUB INP/OBS CARE 2/35MIN Diagnoses Gram-positive cocci bacteremia R78.81 Multifocal pneumonia J18.9 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
[2024-10-30] MEDS: FUROSEMIDE INJ 20 MG/2 ML VIAL IV ONE (08:56)
--- NOTE | 2024-10-30 10:52 | Infectious Disease Progress Nt ---
Date of Service October 30, 2024 Assessment & Plan (1) Staphylococcus epidermidis bacteremia: (2) Multifocal pneumonia: (3) Acute respiratory failure with hypoxia: (4) Sepsis: (5) Diarrhea: (6) Tracheostomy dependence: Plan Problems: # Fevers # Bacteremia 09/09 S epidermidis: may represent contaminant in the absence of central lines # Multifocal PNA RUL/RLL # Diarrhea C diff neg # Cerebral palsy s/p PEG/tracheostomy Micro: 10/28 Sputum cx: Pseudomonas aeruginosa. GS--few GNRs 10/28 BCx x2: NGTD 10/26 UCx: NG 10/25 BCx x2: NGTD 10/23 BCx x2: Staph epi in 09/09 sets 10/23 Sputum cx: moderate normal pankaj. GS--GNR, GPR, GN diplococci, GPCs Abx: Vanc 10/24 - 10/26 Zosyn 10/23 - 10/25, 10/29 - present Unasyn 10/25 - 10/29 Doxycycline 10/27 - present 29yo F with h/o cerebral palsy, s/p PEG/tracheostomy, spastic quadriplegia, epilepsy, prior respiratory cx growing Pseudomonas and Moraxella, COVID infection in 08/2024 who presented on 10/23 with increased sputum production/tracheal secretions and tachypnea, admitted with pneumonia. Hospital course c/b persistent fevers, hypoxia. Per chart, she recently completed cipro and then developed increased tracheal secretions. Sister was recently sick with rhinovirus. On admission, she was afebrile, RR in 30s, O2 sat high 90s on RA. Initial labs with WBC 18.68, Cr 0.39, LFT wnl. Lacate 2.4. PCT 0.10. RPP negative. CXR with atelectasis vs early PNA medial left lung base. She was started on cefepime for PNA. ID consulted 10/23. Abx changed to zosyn based on prior respiratory cultures. CTA chest negative for PE, diffuse abnormal soft tissue in the subcarinal region of the mediastinum as well as in the bilateral hilar regions, extends distally surrounding the bronchovascular structures of RUL and RLL, may be infectious though neoplastic process not excluded. BCX returned with S epidermidis (updated to MSSE). She was persistently febrile 10/23-10/24, tachycardic, and hypotensive. Vancomycin added 10/24 while waiting for cultures. Trach cx with normal pankaj. C diff negative. Zosyn changed to Unasyn 10/25, and vanc dc'ed. Pt with ongoing fevers, but resolution of leukocytosis. TTE 10/26 was technically difficult, valves could not be adequately assessed. Repeat blood cultures 10/[address] AP with IV contrast performed 10/27 due to persistent fevers, which showed patchy lobular groundglass opacities in anterior aspects of lungs, likely infectious/inflammatory, possibly atypical infection. Repeat infectious work-up sent on 10/28 due to fevers. On 10/29, pt with increased O2 requirement on 70%, 10 L. Per bedside RN, pt with lots of secretions. Also with likely volume overload, as she was about +10 L, getting diuretics. Considering also aspiration of tube feeds, mucus plugging. Unasyn broadened to Zosyn on 10/29. 10/28 blood culture NGTD and tracheal aspirate culture growing Pseudomonas aeruginosa. Recommendations: - Follow-up Pseudomonas aeruginosa sensitivities - Continue Zosyn for now. If pt clinically worsening before sensitivities return, can broaden to meropenem. Will continue to follow Admission and Anticipated Discharge Date Admission Date: October 23, 2024 Subjective This patient recommendation is based on a telemedicine consult request which was completed asynchronously through chart review and information provided by the pr imary physician. The patient was not seen or examined today. The evaluation is consultative in nature and all patient care and treatment decisions can either be accepted or rejected by the patient's primary hospital-based treating physician using their own independent medical judgment for their patient. Time Spent Reviewing Chart: 21 - 30 minutes Febrile last night CXR this AM with regression of previously seen opacities at L upper and middle lung zones; unchanged R lower zone faint opacity; unchanged congested hilar vessels with prominent bronchovascular markings Results & Data Vital Signs (Past 12 Hours) Vital Signs Temp Pulse Pulse Resp BP Pulse Ox O2 Del Method 10/30/24 10:00 37.4 C 108 H 43 H 101/63 89 L Trach Collar 10/30/24 10:00 101/63 10/30/24 09:57 37.4 C 110 H 39 H 87 L 10/30/24 09:09 37.2 C 97 H 16 92 10/30/24 09:08 90/59 L 10/30/24 09:08 90/59 L 10/30/24 09:08 90/59 L 10/30/24 09:08 90/59 L 10/30/24 09:08 90/59 L 10/30/24 09:08 90/59 L 10/30/24 09:08 90/59 L 10/30/24 09:08 90/59 L 10/30/24 09:08 90/59 L 10/30/24 09:08 90/59 L 10/30/24 09:08 90/59 L 10/30/24 09:08 90/59 L 10/30/24 09:08 90/59 L 10/30/24 09:08 90/59 L 10/30/24 09:08 90/59 L 10/30/24 09:08 90/59 L 10/30/24 09:08 90/59 L 10/30/24 09:08 90/59 L 10/30/24 09:08 90/59 L 10/30/24 09:08 90/59 L 10/30/24 09:08 90/59 L 10/30/24 08:51 37.4 C 100 H 32 H 90 10/30/24 08:00 37.4 C 89 31 H 94 10/30/24 07:56 94 H 26 H 94 Trach Collar 10/30/24 07:40 Trach Collar 10/30/24 07:32 88 10/30/24 07:03 37.4 C 89 34 H 92 10/30/24 06:00 37.5 C 95 H 28 H 95 10/30/24 05:15 37.5 C 94 H 37 H 91 10/30/24 04:00 131/10/30/24 04:00 131/78 10/30/24 04:00 131/10/30/24 04:00 131/78 10/30/24 04:00 131/78 10/30/24 04:00 131/78 10/30/24 04:00 131/10/30/24 04:00 131/78 10/30/24 04:00 131/78 10/30/24 04:00 131/10/30/24 04:00 131/10/30/24 04:00 131/10/30/24 04:00 10/30/24 04:00 10/30/24 04:00 10/30/24 04:00 10/30/24 04:00 10/30/24 04:00 10/30/24 04:00 10/30/24 04:00 10/30/24 04:00 10/30/24 04:00 10/30/24 04:00 10/30/24 04:00 10/30/24 04:00 10/30/24 04:00 13110/30/24 04:00 10/30/24 04:00 10/30/24 04:00 10/30/24 04:00 10/30/24 04:00 13110/30/24 04:00 37.4 C 99 H 35 H 93 10/30/24 03:03 37.4 C 97 H 43 H 93 10/30/24 02:00 10/30/24 02:00 10/30/24 02:00 10/30/24 02:00 10/30/24 02:00 10/30/24 02:00 10/30/24 02:00 10/30/24 02:00 10/30/24 02:00 10/30/24 02:00 10/30/24 02:00 10/30/24 02:00 10/30/24 02:00 10/30/24 02:00 10/30/24 02:00 10/30/24 02:00 10/30/24 02:00 10/30/24 02:00 10/30/24 02:00 10/30/24 02:00 10/30/24 02:00 10/30/24 02:00 10/30/24 02:00 10/30/24 02:00 10/30/24 02:00 /10/30/24 02:00 /10/30/24 02:00 10/30/24 02:00 10/30/24 02:00 10/30/24 02:00 10/30/24 02:00 /10/30/24 02:00 37.5 C 98 H 35 H 91 10/30/24 00:18 37.7 C H 102 H 29 H 91 10/30/24 00:00 119/75 10/30/24 00:00 119/75 10/30/24 00:00 119/75 10/30/24 00:00 119/75 10/30/24 00:00 119/75 10/30/24 00:00 119/75 10/30/24 00:00 119/75 10/30/24 00:00 119/75 10/30/24 00:00 119/75 10/30/24 00:00 119/75 10/30/24 00:00 119/75 10/30/24 00:00 119/75 10/30/24 00:00 119/75 10/29/24 23:57 37.7 C H 106 H 23 91 10/29/24 23:15 37.9 C H 109 H 31 H 94 O2 Flow Rate FiO2 10/30/24 10:00 10 100 10/30/24 10:00 10/30/24 09:57 10/30/24 09:09 10/30/24 09:08 10/30/24 09:08 10/30/24 09:08 10/30/24 09:08 10/30/24 09:08 10/30/24 09:08 10/30/24 09:08 10/30/24 09:08 10/30/24 09:08 10/30/24 09:08 10/30/24 09:08 10/30/24 09:08 10/30/24 09:08 10/30/24 09:08 10/30/24 09:08 10/30/24 09:08 10/30/24 09:08 10/30/24 09:08 10/30/24 09:08 10/30/24 09:08 10/30/24 09:08 10/30/24 08:51 10/30/24 08:00 10/30/24 07:56 10 50 10/30/24 07:40 10 50 10/30/24 07:32 10/30/24 07:03 10/30/24 06:00 10/30/24 05:15 10/30/24 04:00 10/30/24 04:00 10/30/24 04:00 10/30/24 04:00 10/30/24 04:00 10/30/24 04:00 10/30/24 04:00 10/30/24 04:00 10/30/24 04:00 10/30/24 04:00 10/30/24 04:00 10/30/24 04:00 10/30/24 04:00 10/30/24 04:00 10/30/24 04:00 10/30/24 04:00 10/30/24 04:00 10/30/24 04:00 10/30/24 04:00 10/30/24 04:00 10/30/24 04:00 10/30/24 04:00 10/30/24 04:00 10/30/24 04:00 10/30/24 04:00 10/30/24 04:00 10/30/24 04:00 10/30/24 04:00 10/30/24 04:00 10/30/24 04:00 10/30/24 04:00 10/30/24 04:00 10/30/24 03:03 10/30/24 02:00 10/30/24 02:00 10/30/24 02:00 10/30/24 02:00 10/30/24 02:00 10/30/24 02:00 10/30/24 02:00 10/30/24 02:00 10/30/24 02:00 10/30/24 02:00 10/30/24 02:00 10/30/24 02:00 10/30/24 02:00 10/30/24 02:00 10/30/24 02:00 10/30/24 02:00 10/30/24 02:00 10/30/24 02:00 10/30/24 02:00 10/30/24 02:00 10/30/24 02:00 10/30/24 02:00 10/30/24 02:00 10/30/24 02:00 10/30/24 02:00 10/30/24 02:00 10/30/24 02:00 10/30/24 02:00 10/30/24 02:00 10/30/24 02:00 10/30/24 02:00 10/30/24 02:00 10/30/24 00:18 10/30/24 00:00 10/30/24 00:00 10/30/24 00:00 10/30/24 00:00 10/30/24 00:00 10/30/24 00:00 10/30/24 00:00 10/30/24 00:00 10/30/24 00:00 10/30/24 00:00 10/30/24 00:00 10/30/24 00:00 10/30/24 00:00 10/29/24 23:57 10/29/24 23:15 Laboratory Results Short CBC 10/30/24 Range/Units 04:36 WBC 7.74 (4.8-10.8) K/ul Hgb 10.8 L (12.0-16.0) g/dl Hct 31.8 L (37.0-47.0) % Plt Count 227 D (130-400) K/uL BMP 10/30/24 04:36 Sodium 134 L Potassium 4.1 Chloride 99 Carbon Dioxide 28 BUN 21 Creatinine 0.39 L Glucose 140 H Calcium 9.2 Diagnostic Findings Chest X-Ray 10/30/24 07:00 EXAM: XR chest 1V portable CLINICAL HISTORY: Follow up. TECHNIQUE: An X-ray image of the chest is obtained in AP projection. COMPARISON: compared to the prior study dated 10/28/2024. FINDINGS: Leftward tilted patient. Pulmonary Parenchyma: Regression of the previously seen opacities at the left upper and middle lung zones, with good creation of the left lung parenchyma. Stable right lower zone faint opacity. No evidence of pleural effusion or pleural thickening. Heart and Mediastinum: A tracheostomy tube seen. Heart size and shape are normal. No mediastinal widening or masses. Stable congested hilar vessels with prominent bronchovascular markings, suggesting mild congestive changes. Bony Thorax: Bony thorax appears intact without fractures or deformities. Soft Tissues: Soft tissues overlying the chest wall are unremarkable. IMPRESSION: 1. Regression of the previously seen opacities at the left upper and middle lung zones, with good creation of the left lung parenchyma. 2. Unchanged right lower zone faint opacity. 3. Unchanged congested hilar vessels with prominent bronchovascular markings, Electronically signed by Arnulfo Jackson 10-30-2024 07:50 AM Medications Administered Current Inpatient Medications Acetaminophen (Acetaminophen Susp 160 Mg/5 Ml Btl) 640 mg PO Q6H PRN PRN Reason: Pain or Fever Stop: 11/22/24 15:01 Last Admin: 10/29/24 08:48 Dose: 640 mg Acetylcysteine (Acetylcysteine 20% Inhal Soln 4ml Dispensed By Resp.) 3 ml INH BID TONY Stop: 11/24/24 20:59 Last Admin: 10/30/24 07:54 Dose: 3 ml Albuterol (Albuterol 0.083% Nebu Soln 3 Ml Vial) 2.5 mg INH Q4H PRN; Protocol PRN Reason: sob Stop: 11/22/24 14:39 Last Admin: 10/30/24 07:57 Dose: 2.5 mg Baclofen (Baclofen 10 Mg Tab) 20 mg PEG Q12H TONY Stop: 11/22/24 19:59 Last Admin: 10/30/24 08:06 Dose: 20 mg Baclofen (Baclofen 10 Mg Tab) 10 mg PEG Q24H TONY Stop: 11/22/24 14:59 Last Admin: 10/29/24 14:25 Dose: 10 mg Budesonide (Budesonide 0.5 Mg/2 Ml Vial (Pulmicort)) 0.5 mg INH BID TONY Stop: 11/22/24 20:59 Last Admin: 10/30/24 07:53 Dose: 0.5 mg Enoxaparin Sodium (Enoxaparin Inj 40 Mg/0.4 Ml Syr) 40 mg SQ Q24H TONY Stop: 11/22/24 14:59 Last Admin: 10/29/24 14:25 Dose: 40 mg Fluoxetine HCl (Fluoxetine Hcl 20 Mg/5 Ml 120ml Btl) 20 mg PO TODAY@1500 TONY Stop: 11/22/24 16:44 Last Admin: 10/29/24 14:29 Dose: 20 mg Doxycycline Hyclate 100 mg/ (Dextrose) 100 mls @ 50 mls/hr IV Q12H TONY Stop: 11/01/24 15:44 Last Infusion: 10/30/24 02:13 Dose: Infused Piperacillin Sod/Tazobactam Sod (Zosyn) 4.5 gm in 100 mls @ 25 mls/hr IV Q8H [facility]; Protocol Stop: 11/05/24 15:59 Last Admin: 10/30/24 09:04 Dose: 25 mls/hr Ibuprofen (Ibuprofen 200 Mg/10 Ml Udc) 400 mg GT Q4H PRN PRN Reason: Pain or Fever Stop: 11/23/24 05:52 Last Admin: 10/29/24 19:47 Dose: 400 mg Lorazepam (Lorazepam 2 Mg/1 Ml Vial) 2 mg IV Q5M PRN PRN Reason: seizure Nutritional Formula (Patient's Own Enteral Feeding) 350 ml PEG Q4 [facility]; Protocol Stop: 11/24/24 03:59 Last Admin: 10/30/24 08:31 Dose: 350 ml Sodium Chloride (Sodium Chlor 7% 4 Ml Neb) 4 ml NEB BIDR TONY Stop: 11/23/24 18:59 Last Admin: 10/30/24 07:53 Dose: 4 ml Trazodone HCl (Trazodone Hcl 50 Mg Tab) 50 mg PEG HS TONY Stop: 11/22/24 20:59 Last Admin: 10/29/24 19:48 Dose: 50 mg Valproic Acid (Valproic Acid 50 Mg/Ml Udp) 550 mg PEG TID TONY Stop: 11/22/24 17:14 Last Admin: 10/30/24 08:06 Dose: 550 mg Zonisamide (Zonisamide 100 Mg Capsule) 200 mg PO BID TONY Stop: 11/22/24 20:59 Last Admin: 10/30/24 08:06 Dose: 200 mg
--- NOTE | 2024-10-30 16:39 | Hospitalist Progress Note ---
Date of Service October 30, 2024 Assessment & Plan (1) Gram-positive cocci bacteremia: (2) Sepsis: (3) Acute respiratory failure with hypoxia: (4) Multifocal pneumonia: Plan This pt is a 29 yo female with a h/o CP with spastic quadriparesis , seizure disorder, depression,and trach-dependent chronic respiratory failure with hypoxia, who is here with sepsis, POA and PNA, Staph epi septicemia and now Pseudomonas aeruginosa PNA. #Sepsis POA/Staph epidermidis bacteremia/Pseudomonas and Staph epi RLL PNA/acute on chronic respiratory failure with hypoxia-was improving and then started spiking fevers again while on treatment with Unasyn. Switched to Zosyn 10/29 and now sputum cx growing PsA, sensitivities pending TTE limited read but no vegetations. CRP trending downward, repeat BCxs remain NGTD from 10/25 and 10/28. CXR improving. Also some component of volume pverload, pulm edema and is being diuresed Appreciate pulmonology and ID recommendations -Continue hypertonic saline, Mucomyst, vest therapy, frequent suctioning -Requires trach suction with each breathing treatment and as needed. Patient is not able to indicate needs. Communication order placed -continue Yap catheter for now while diuresing-gave IV lasix on 10/29 and 10/30 -continue Zosyn, f/u sputum cxs and repeat BCxs -Tylenol, ibupofen prn fever/pain -continue to wean off supplemental O2-currently requiring 10L 100% FiO2 on trach collar -needs repeat CT Chest in 2-3 months as per PULM #Spastic quadriplegic cerebral palsy/cortical blindness/epilepsy-no acute issues Continue zonisamide and valproic acid Continue baclofen Continue fluoxetine Ativan on-call if needed for seizure activity, seizure precautions Seizure precautions #Anemia-hgb10.8, normocytic. Likely from chronic disease -check Fe studies, B12, folate in AM -follow CBC VTE prophylaxis: Lovenox Disposition: Continue PCU status in the ICU due to high nursing need for care Admission and Anticipated Discharge Date Admission Date: October 23, 2024 Subjective No fever today thus far, caregiver and mom noted to nurse earlier that she looks much better today. Pt nonverbal. making urine, diuresing since receiving IV lasix Physical Exam Constitutional: + thin; no acute distress Respiratory: normal respiratory effort (with trach and trach collar in place); no cough Auscultation: + crackles (at bases); no wheezes Gastrointestinal (Abdomen): Inspection/Auscultation: normal bowel sounds; + abdomen abnormal to inspection (G-tube) and abdomen not distended Percussion/Palpation: abdomen soft; abdomen nontender Musculoskeletal: Extremities: + extremities abnormal to inspection (contractures all four extremities) Results & Data Results & Data Vital Signs (Past 12 Hours) Vital Signs Temp Pulse Pulse Resp BP Pulse Ox O2 Del Method 10/30/24 14:00 37.5 C 94 H 31 H 113/71 94 Trach Collar 10/30/24 13:06 37.6 C H 101 H 40 H 10/30/24 12:05 37.5 C 100 H 41 H 109/75 90 Trach Collar 10/30/24 10:00 37.4 C 108 H 43 H 101/63 89 L Trach Collar 10/30/24 10:00 101/63 10/30/24 09:57 37.4 C 110 H 39 H 87 L 10/30/24 09:09 37.2 C 97 H 16 92 10/30/24 09:08 90/59 L 10/30/24 09:08 90/59 L 10/30/24 09:08 90/59 L 10/30/24 09:08 90/59 L 10/30/24 09:08 90/59 L 10/30/24 09:08 90/59 L 10/30/24 09:08 90/59 L 10/30/24 09:08 90/59 L 10/30/24 09:08 90/59 L 10/30/24 09:08 90/59 L 10/30/24 09:08 90/59 L 10/30/24 09:08 90/59 L 10/30/24 09:08 90/59 L 10/30/24 09:08 90/59 L 10/30/24 09:08 90/59 L 10/30/24 09:08 90/59 L 10/30/24 09:08 90/59 L 10/30/24 09:08 90/59 L 10/30/24 09:08 90/59 L 10/30/24 09:08 90/59 L 10/30/24 09:08 90/59 L 10/30/24 08:51 37.4 C 100 H 32 H 90 10/30/24 08:00 37.4 C 89 31 H 94 10/30/24 07:56 94 H 26 H 94 Trach Collar 10/30/24 07:40 Trach Collar 10/30/24 07:32 88 10/30/24 07:03 37.4 C 89 34 H 92 10/30/24 06:00 37.5 C 95 H 28 H 95 10/30/24 05:15 37.5 C 94 H 37 H 91 O2 Flow Rate FiO2 10/30/24 14:00 10 100 10/30/24 13:06 10/30/24 12:05 10 100 10/30/24 10:00 10 100 10/30/24 10:00 10/30/24 09:57 10/30/24 09:09 10/30/24 09:08 10/30/24 09:08 10/30/24 09:08 10/30/24 09:08 10/30/24 09:08 10/30/24 09:08 10/30/24 09:08 10/30/24 09:08 10/30/24 09:08 10/30/24 09:08 10/30/24 09:08 10/30/24 09:08 10/30/24 09:08 10/30/24 09:08 10/30/24 09:08 10/30/24 09:08 10/30/24 09:08 10/30/24 09:08 10/30/24 09:08 10/30/24 09:08 10/30/24 09:08 10/30/24 08:51 10/30/24 08:00 10/30/24 07:56 10 50 10/30/24 07:40 10 50 10/30/24 07:32 10/30/24 07:03 10/30/24 06:00 10/30/24 05:15 Laboratory Results CBC, BMP, CRP, blood cx, sputum cx reviewed Diagnostic Findings CXR image personally reviewed by me and PNA appears to be improving on left PG Care Time/CCT Total # of Minutes Spent Total Time Spent with Patient: Total time spent is greater than 50% in coordination of care (as documented) at patient's floor/unit and/or counseling patient: Coding Level of Care Code 58660 SUB INP/OBS CARE 3/50MIN Diagnoses Gram-positive cocci bacteremia R78.81 Sepsis A41.9 Acute respiratory failure with hypoxia J96.01 Multifocal pneumonia J18.9
[2024-10-31 04:39] LABS: Hematocrit (blood only) 32.2 % (37.0-47.0); Hemoglobin 10.9 g/dl (12.0-16.0); Mean Corpuscular Hemoglobin 32.9 pg (25.0-34.0); Mean Corpuscular Hgb Conc 33.9 g/dL (32.0-36.0); Mean Corpuscular Volume 97.3 fL (80.0-100.0); Mean Platelet Volume 8.2 fL (9.4-12.4); Platelet Count 293 K/uL (130-400); RDW Coefficient of Variation 13.6 % (11.5-14.5); RDW Standard Deviation 48.3 fL (36.4-46.3); Red Blood Count 3.31 M/uL (4.20-5.40); White Blood Count 8.28 K/ul (4.8-10.8)
[2024-10-31 04:42] LABS: Calcium 9.2 mg/dl (8.6-10.3); Magnesium 2.1 mg/dl (1.7-2.4); Potassium 4.2 mmol/L (3.5-5.1)
[2024-10-31 04:48] LABS: BUN Creatinine Ratio 64.5 (10-20); Creatinine Clr Calc Pharmacy 240.1 ml/min
[2024-10-31 04:57] LABS: Basophils # (auto) 0.08 K/uL (0.00-0.20); Eosinophils # (auto) 0.32 K/uL (0.00-0.50); Eosinophils % (auto) 3.9 %; Immature Granulocytes # (auto) 0.77 K/uL (0.01-0.20); Immature Granulocytes % (auto) 9.3 %; Lymphocytes # (auto) 1.96 K/uL (1.20-3.40); Lymphocytes % (auto) 23.7 %; Monocytes # (auto) 1.28 K/uL (0.11-0.59); Monocytes % (auto) 15.5 %; Neutrophils # (auto) 3.87 K/uL (1.40-6.50); Neutrophils % (auto) 46.6 %; Polychromasia 1+
[2024-10-31 05:13] LABS: Ferritin 41.7 ng/ml (8-388)
[2024-10-31 05:20] LABS: Folate (Folic Acid),Ser orPlas > 22.30 ng/ml (>5.38)
[2024-10-31 05:21] LABS: Vitamin B12 1256 pg/ml (180-914)
--- NOTE | 2024-10-31 08:37 | Infectious Disease Progress Nt ---
Date of Service October 31, 2024 Assessment & Plan (1) Staphylococcus epidermidis bacteremia: (2) Multifocal pneumonia: (3) Acute respiratory failure with hypoxia: (4) Sepsis: (5) Diarrhea: (6) Tracheostomy dependence: Plan Problems: # Pseudomonas PNA # Bacteremia 09/09 S epidermidis: may represent contaminant in the absence of central lines # Diarrhea C diff neg # Cerebral palsy s/p PEG/tracheostomy Micro: 10/28 Sputum cx: Pseudomonas aeruginosa (S ceftaz, cipro, denton, pip/tazo ASHLY 8. I levo. R cefepime). GS--few GNRs 10/28 BCx x2: NGTD 10/26 UCx: NG 10/25 BCx x2: NG 10/23 BCx x2: Staph epi in 09/09 sets 10/23 Sputum cx: moderate normal pankaj. GS--GNR, GPR, GN diplococci, GPCs Abx: Vanc 10/24 - 10/26 Zosyn 10/23 - 10/25, 10/29 - present Unasyn 10/25 - 10/29 Doxycycline 10/27 - 10/30 29yo F with h/o cerebral palsy, s/p PEG/tracheostomy, spastic quadriplegia, epilepsy, prior respiratory cx growing Pseudomonas and Moraxella, COVID infection in 08/2024 who presented on 10/23 with increased sputum production/tracheal secretions and tachypnea, admitted with pneumonia. Hospital course c/b persistent fevers, hypoxia--improving with broadening of antibiotics to cover Pseudomonas. Per chart, she recently completed cipro and then developed increased tracheal secretions. Sister was recently sick with rhinovirus. On admission, she was afebrile, RR in 30s, O2 sat high 90s on RA. Initial labs with WBC 18.68, Cr 0.39, LFT wnl. Lacate 2.4. PCT 0.10. RPP negative. CXR with atelectasis vs early PNA medial left lung base. She was started on cefepime for PNA. ID consulted 10/23. Abx changed to zosyn based on prior respiratory cultures. CTA chest negative for PE, diffuse abnormal soft tissue in the subcarinal region of the mediastinum as well as in the bilateral hilar regions, extends distally surrounding the bronchovascular structures of RUL and RLL, may be infectious though neoplastic process not excluded. BCX returned with S epidermidis (updated to MSSE). She was persistently febrile 10/23-10/24, tachycardic, and hypotensive. Vancomycin added 10/24 while waiting for cultures. Trach cx with normal pankaj. C diff negative. Zosyn changed to Unasyn 10/25, and vanc dc'ed. Pt with ongoing fevers, but resolution of leukocytosis. TTE 10/26 was technically difficult, valves could not be adequately assessed. Repeat blood cultures 10/[address] AP with IV contrast performed 10/27 due to persistent fevers, which showed patchy lobular groundglass opacities in anterior aspects of lungs, likely infectious/inflammatory, possibly atypical infection. Repeat infectious work-up sent on 10/28 due to fevers. On 10/29, pt with increased O2 requirement on 70%, 10 L. Per bedside RN, pt with lots of secretions. Also with likely volume overload, as she was about +10 L, getting diuretics. Considering also aspiration of tube feeds, mucus plugging. Unasyn broadened to Zosyn on 10/29. 10/28 blood culture NGTD and tracheal aspirate culture growing Pseudomonas aeruginosa (S Zosyn). Fever curve and FiO2 improving with Zosyn, diuretics. Recommendations: - Continue Zosyn extended infusion. Anticipate 7 day course Will continue to follow Admission and Anticipated Discharge Date Admission Date: October 23, 2024 Subjective This patient recommendation is based on a telemedicine consult request which was completed asynchronously through chart review and information provided by the primary physician. The patient was not seen or examined today. The evaluation is consultative in nature and all patient care and treatment decisions can either be accepted or rejected by the patient's primary hospital-based treating physician using their own independent medical judgment for their patient. Time Spent Reviewing Chart: 11 - 20 minutes FiO2 decreased to 50% Tmax 37.7 last night Results & Data Vital Signs (Past 12 Hours) Vital Signs Temp Pulse Pulse Resp BP Pulse Ox O2 Del Method 10/31/24 07:17 103 H 37 H 93 Trach Collar 10/31/24 06:00 95/63 L 10/31/24 06:00 95/63 L 10/31/24 06:00 95/63 L 10/31/24 06:00 95/63 L 10/31/24 06:00 95/63 L 10/31/24 06:00 95/63 L 10/31/24 06:00 95/63 L 10/31/24 06:00 95/63 L 10/31/24 06:00 95/63 L 10/31/24 06:00 95/63 L 10/31/24 06:00 95/63 L 10/31/24 06:00 95/63 L 10/31/24 06:00 95/63 L 10/31/24 06:00 95/63 L 10/31/24 06:00 95/63 L 10/31/24 06:00 95/63 L 10/31/24 06:00 95/63 L 10/31/24 06:00 37.5 C 94 H 33 H 91 10/31/24 05:00 37.4 C 90 36 H 94 10/31/24 04:00 37.3 C 90 22 96 10/31/24 04:00 94/56 L 10/31/24 04:00 94/56 L 10/31/24 04:00 94/56 L 10/31/24 04:00 94/56 L 10/31/24 04:00 94/56 L 10/31/24 04:00 94/56 L 10/31/24 04:00 94/56 L 10/31/24 04:00 94/56 L 10/31/24 04:00 94/56 L 10/31/24 04:00 94/56 L 10/31/24 04:00 94/56 L 10/31/24 04:00 94/56 L 10/31/24 04:00 94/56 L 10/31/24 04:00 94/56 L 10/31/24 04:00 94/56 L 10/31/24 04:00 94/56 L 10/31/24 04:00 94/56 L 10/31/24 04:00 94/56 L 10/31/24 04:00 94/56 L 10/31/24 04:00 94/56 L 10/31/24 03:24 37.2 C 91 H 36 H 95 10/31/24 02:00 37.1 C 94 H 36 H 95 10/31/24 02:00 92/60 L 10/31/24 02:00 92/60 L 10/31/24 02:00 92/60 L 10/31/24 02:00 92/60 L 10/31/24 02:00 92/60 L 10/31/24 02:00 92/60 L 10/31/24 02:00 92/60 L 10/31/24 02:00 92/60 L 10/31/24 02:00 92/60 L 10/31/24 02:00 92/60 L 10/31/24 02:00 92/60 L 10/31/24 02:00 92/60 L 10/31/24 02:00 92/60 L 10/31/24 02:00 92/60 L 10/31/24 02:00 92/60 L 10/31/24 02:00 92/60 L 10/31/24 02:00 92/60 L 10/31/24 02:00 92/60 L 10/31/24 02:00 92/60 L 10/31/24 02:00 92/60 L 10/31/24 02:00 92/60 L 10/31/24 02:00 92/60 L 10/31/24 01:00 37.0 C 76 17 94 10/31/24 00:00 37.1 C 99 H 28 H 92 10/31/24 00:00 89/55 L 10/31/24 00:00 89/55 L 10/31/24 00:00 89/55 L 10/31/24 00:00 89/55 L 10/31/24 00:00 89/55 L 10/31/24 00:00 89/55 L 10/31/24 00:00 89/55 L 10/31/24 00:00 89/55 L 10/31/24 00:00 89/55 L 10/31/24 00:00 89/55 L 10/31/24 00:00 89/55 L 10/31/24 00:00 89/55 L 10/31/24 00:00 89/55 L 10/31/24 00:00 89/55 L 10/31/24 00:00 89/55 L 10/31/24 00:00 89/55 L 10/31/24 00:00 89/55 L 10/31/24 00:00 89/55 L 10/31/24 00:00 89/55 L 10/31/24 00:00 89/55 L 10/31/24 00:00 89/55 L 10/31/24 00:00 89/55 L 10/31/24 00:00 89/55 L 10/31/24 00:00 89/55 L 10/31/24 00:00 89/55 L 10/31/24 00:00 89/55 L 10/30/24 23:12 37.2 C 90 29 H 94 10/30/24 22:12 37.2 C 90 31 H 95 10/30/24 22:00 90/55 L 10/30/24 22:00 90/55 L 10/30/24 22:00 90/55 L 10/30/24 22:00 90/55 L 10/30/24 22:00 90/55 L 10/30/24 22:00 90/55 L 10/30/24 22:00 90/55 L 10/30/24 22:00 90/55 L 10/30/24 22:00 90/55 L 10/30/24 22:00 90/55 L 10/30/24 22:00 90/55 L 10/30/24 22:00 90/55 L 10/30/24 22:00 90/55 L 10/30/24 22:00 90/55 L 10/30/24 22:00 90/55 L 10/30/24 22:00 90/55 L 10/30/24 21:54 37.4 C 97 H 35 H 95 10/30/24 21:00 37.6 C H 94 H 34 H 96 10/30/24 20:42 37.5 C 102 H 25 H 94 O2 Flow Rate FiO2 10/31/24 07:17 10 50 10/31/24 06:00 10/31/24 06:00 10/31/24 06:00 10/31/24 06:00 10/31/24 06:00 10/31/24 06:00 10/31/24 06:00 10/31/24 06:00 10/31/24 06:00 10/31/24 06:00 10/31/24 06:00 10/31/24 06:00 10/31/24 06:00 10/31/24 06:00 10/31/24 06:00 10/31/24 06:00 10/31/24 06:00 10/31/24 06:00 10/31/24 05:00 10/31/24 04:00 10/31/24 04:00 10/31/24 04:00 10/31/24 04:00 10/31/24 04:00 10/31/24 04:00 10/31/24 04:00 10/31/24 04:00 10/31/24 04:00 10/31/24 04:00 10/31/24 04:00 10/31/24 04:00 10/31/24 04:00 10/31/24 04:00 10/31/24 04:00 10/31/24 04:00 10/31/24 04:00 10/31/24 04:00 10/31/24 04:00 10/31/24 04:00 10/31/24 04:00 10/31/24 03:24 10/31/24 02:00 10/31/24 02:00 10/31/24 02:00 10/31/24 02:00 10/31/24 02:00 10/31/24 02:00 10/31/24 02:00 10/31/24 02:00 10/31/24 02:00 10/31/24 02:00 10/31/24 02:00 10/31/24 02:00 10/31/24 02:00 10/31/24 02:00 10/31/24 02:00 10/31/24 02:00 10/31/24 02:00 10/31/24 02:00 10/31/24 02:00 10/31/24 02:00 10/31/24 02:00 10/31/24 02:00 10/31/24 02:00 10/31/24 01:00 10/31/24 00:00 10/31/24 00:00 10/31/24 00:00 10/31/24 00:00 10/31/24 00:00 10/31/24 00:00 10/31/24 00:00 10/31/24 00:00 10/31/24 00:00 10/31/24 00:00 10/31/24 00:00 10/31/24 00:00 10/31/24 00:00 10/31/24 00:00 10/31/24 00:00 10/31/24 00:00 10/31/24 00:00 10/31/24 00:00 10/31/24 00:00 10/31/24 00:00 10/31/24 00:00 10/31/24 00:00 10/31/24 00:00 10/31/24 00:00 10/31/24 00:00 10/31/24 00:00 10/31/24 00:00 10/30/24 23:12 10/30/24 22:12 10/30/24 22:00 10/30/24 22:00 10/30/24 22:00 10/30/24 22:00 10/30/24 22:00 10/30/24 22:00 10/30/24 22:00 10/30/24 22:00 10/30/24 22:00 10/30/24 22:00 10/30/24 22:00 10/30/24 22:00 10/30/24 22:00 10/30/24 22:00 10/30/24 22:00 10/30/24 22:00 10/30/24 21:54 10/30/24 21:00 10/30/24 20:42 Laboratory Results Short CBC 10/31/24 Range/Units 04:03 WBC 8.28 (4.8-10.8) K/ul Hgb 10.9 L (12.0-16.0) g/dl Hct 32.2 L (37.0-47.0) % Plt Count 293 (130-400) K/uL BMP 10/31/24 04:03 Sodium 135 L Potassium 4.2 Chloride 99 Carbon Dioxide 28 BUN 20 Creatinine 0.31 L Glucose 117 H Calcium 9.2 Medications Administered Current Inpatient Medications Acetaminophen (Acetaminophen Susp 160 Mg/5 Ml Btl) 640 mg PO Q6H PRN PRN Reason: Pain or Fever Stop: 11/22/24 15:01 Last Admin: 10/30/24 20:03 Dose: 640 mg Acetylcysteine (Acetylcysteine 20% Inhal Soln 4ml Dispensed By Resp.) 3 ml INH BID TONY Stop: 11/24/24 20:59 Last Admin: 10/31/24 07:17 Dose: 3 ml Albuterol (Albuterol 0.083% Nebu Soln 3 Ml Vial) 2.5 mg INH Q4H PRN; Protocol PRN Reason: sob Stop: 11/22/24 14:39 Last Admin: 10/31/24 07:16 Dose: 2.5 mg Baclofen (Baclofen 10 Mg Tab) 20 mg PEG Q12H TONY Stop: 11/22/24 19:59 Last Admin: 10/31/24 08:15 Dose: 20 mg Baclofen (Baclofen 10 Mg Tab) 10 mg PEG Q24H TONY Stop: 11/22/24 14:59 Last Admin: 10/30/24 14:54 Dose: 10 mg Budesonide (Budesonide 0.5 Mg/2 Ml Vial (Pulmicort)) 0.5 mg INH BID [facility] Stop: 11/22/24 20:59 Last Admin: 10/31/24 07:17 Dose: 0.5 mg Enoxaparin Sodium (Enoxaparin Inj 40 Mg/0.4 Ml Syr) 40 mg SQ Q24H TONY Stop: 11/22/24 14:59 Last Admin: 10/30/24 14:53 Dose: 40 mg Fluoxetine HCl (Fluoxetine Hcl 20 Mg/5 Ml 120ml Btl) 20 mg PO TODAY@1500 [facility] Stop: 11/22/24 16:44 Last Admin: 10/30/24 14:58 Dose: 20 mg Doxycycline Hyclate 100 mg/ (Dextrose) 100 mls @ 50 mls/hr IV Q12H [facility] Stop: 11/01/24 15:44 Last Infusion: 10/31/24 01:19 Dose: Infused Piperacillin Sod/Tazobactam Sod (Zosyn) 4.5 gm in 100 mls @ 25 mls/hr IV Q8H [facility]; Protocol Stop: 11/05/24 15:59 Last Admin: 10/31/24 08:14 Dose: 25 mls/hr Ibuprofen (Ibuprofen 200 Mg/10 Ml Udc) 400 mg GT Q4H PRN PRN Reason: Pain or Fever Stop: 11/23/24 05:52 Last Admin: 10/31/24 08:16 Dose: 400 mg Lorazepam (Lorazepam 2 Mg/1 Ml Vial) 2 mg IV Q5M PRN PRN Reason: seizure Nutritional Formula (Patient's Own Enteral Feeding) 350 ml PEG Q4 TONY; Protocol Stop: 11/24/24 03:59 Last Admin: 10/31/24 08:16 Dose: 350 ml Sodium Chloride (Sodium Chlor 7% 4 Ml Neb) 4 ml NEB BIDR TONY Stop: 11/23/24 18:59 Last Admin: 10/31/24 07:17 Dose: 4 ml Trazodone HCl (Trazodone Hcl 50 Mg Tab) 50 mg PEG HS TONY Stop: 11/22/24 20:59 Last Admin: 10/30/24 19:55 Dose: 50 mg Valproic Acid (Valproic Acid 50 Mg/Ml Udp) 550 mg PEG TID TONY Stop: 11/22/24 17:14 Last Admin: 10/31/24 08:15 Dose: 550 mg Zonisamide (Zonisamide 100 Mg Capsule) 200 mg PO BID TONY Stop: 11/22/24 20:59 Last Admin: 10/31/24 08:15 Dose: 200 mg
--- NOTE | 2024-10-31 10:02 | Pulmonology Progress Note ---
Date of Service October 31, 2024 Assessment & Plan (1) Gram-positive cocci bacteremia: (2) Multifocal pneumonia: (3) Spastic quadriplegic cerebral palsy: (4) Tracheostomy in place: (5) Abnormal chest CT: (6) Bronchiectasis: Plan CT chest 10/23/2024 personally reviewed: Patchy opacities appreciated in the right upper lobe as well as right lower lobe Bronchiectasis of the right apex Motion degraded study Minimal mediastinal lymphadenopathy -- Left lower lobe pneumonia with staph epi bacteremia Respiratory BioFire negative for everything Does have leukocytosis Procalcitonin negative History of Pseudomonas in the past Sputum culture 10/28/2024 growing Pseudomonas She did have 2 variants of Pseudomonas 1 was intermediate to cefepime but both are sensitive to Zosyn --Abnormal chest CT There seems to be some increased soft tissue/lymphadenopathy in the subcarinal as well as right hilar region This is likely reactive from infection Would recommend repeat CT chest in 2-3 months --Focal bronchiectasis of the right apex --TDRF secondary to cerebral palsy Plan: In/out: --1150, urine output 2100, in the chart it shows patient is + 7.5 L with the Chavez catheter was only placed on 10/26/2024 Antibiotics again changed to Zosyn on 10/29/2024, antibiotics as per ID Continue with upper airway clearance technique with 7% nebulized saline and Mucomyst along with patient's home CoughAssist Please note the above document was generated using voice recognition software. It may contain grammatical, syntax or spelling errors.Any formal questions or concerns about the content, text or information contained within the body of this dictation should be directly addressed to the provider for clarification. Admission and Anticipated Discharge Date Admission Date: October 23, 2024 Subjective Patient seen distress, no dressings overnight She was saturating 94% on 50% trach collar, I went down to 35% As per the nurse there has been some tracheal secretions which are clearing gradually Has been spiking low-grade fever, +Tmax 37.6 Review of Systems 2 Review of Systems: All systems reviewed & are unremarkable except as noted in Subjective Physical Exam 2 Physical Exam: Constitutional: No acute distress HEENT: EOMI, PERRLA, positive trach Respiratory system: Decreased air entry bilaterally, no wheeze, no rhonchi, positive crackles bilaterally CVS: S1-S2 positive, no murmurs or gallops, tachycardia Abdomen: Soft, nontender, nondistended, positive bowel sounds x4, positive PEG Extremities: +2 pulses bilaterally radialis/ dorsalis pedis, no cyanosis, no edema Neuro: Awake and alert Psych: Unable to assess G/U: Positive chavez (Placed on 10/27/2023) Skin: no rashes, warm and dry Lymphatic: no cervical or axillary lymphadenopathy Results & Data Results & Data Vital Signs (Past 12 Hours) Vital Signs Temp Pulse Pulse Resp BP Pulse Ox O2 Del Method 10/31/24 09:47 98 H 20 96 Trach Collar 10/31/24 09:09 36.7 C 107 H 27 H 94 10/31/24 09:00 95 Trach Collar 10/31/24 08:00 103/72 10/31/24 08:00 37.5 C 107 H 22 91 10/31/24 08:00 Trach Collar 10/31/24 08:00 Trach Collar 10/31/24 07:17 103 H 37 H 93 Trach Collar 10/31/24 06:00 95/63 L 10/31/24 06:00 95/63 L 10/31/24 06:00 95/63 L 10/31/24 06:00 95/63 L 10/31/24 06:00 95/63 L 10/31/24 06:00 95/63 L 10/31/24 06:00 95/63 L 10/31/24 06:00 95/63 L 10/31/24 06:00 95/63 L 10/31/24 06:00 95/63 L 10/31/24 06:00 95/63 L 10/31/24 06:00 95/63 L 10/31/24 06:00 95/63 L 10/31/24 06:00 95/63 L 10/31/24 06:00 95/63 L 10/31/24 06:00 95/63 L 10/31/24 06:00 95/63 L 10/31/24 06:00 37.5 C 94 H 33 H 91 10/31/24 05:00 37.4 C 90 36 H 94 10/31/24 04:00 37.3 C 90 22 96 10/31/24 04:00 94/56 L 10/31/24 04:00 94/56 L 10/31/24 04:00 94/56 L 10/31/24 04:00 94/56 L 10/31/24 04:00 94/56 L 10/31/24 04:00 94/56 L 10/31/24 04:00 94/56 L 10/31/24 04:00 94/56 L 10/31/24 04:00 94/56 L 10/31/24 04:00 94/56 L 10/31/24 04:00 94/56 L 10/31/24 04:00 94/56 L 10/31/24 04:00 94/56 L 10/31/24 04:00 94/56 L 10/31/24 04:00 94/56 L 10/31/24 04:00 94/56 L 10/31/24 04:00 94/56 L 10/31/24 04:00 94/56 L 10/31/24 04:00 94/56 L 10/31/24 04:00 94/56 L 10/31/24 03:24 37.2 C 91 H 36 H 95 10/31/24 02:00 37.1 C 94 H 36 H 95 10/31/24 02:00 92/60 L 10/31/24 02:00 92/60 L 10/31/24 02:00 92/60 L 10/31/24 02:00 92/60 L 10/31/24 02:00 92/60 L 10/31/24 02:00 92/60 L 10/31/24 02:00 92/60 L 10/31/24 02:00 92/60 L 10/31/24 02:00 92/60 L 10/31/24 02:00 92/60 L 10/31/24 02:00 92/60 L 10/31/24 02:00 92/60 L 10/31/24 02:00 92/60 L 10/31/24 02:00 92/60 L 10/31/24 02:00 92/60 L 10/31/24 02:00 92/60 L 10/31/24 02:00 92/60 L 10/31/24 02:00 92/60 L 10/31/24 02:00 92/60 L 10/31/24 02:00 92/60 L 10/31/24 02:00 92/60 L 10/31/24 02:00 92/60 L 10/31/24 01:00 37.0 C 76 17 94 10/31/24 00:00 37.1 C 99 H 28 H 92 10/31/24 00:00 89/55 L 10/31/24 00:00 89/55 L 10/31/24 00:00 89/55 L 10/31/24 00:00 89/55 L 10/31/24 00:00 89/55 L 10/31/24 00:00 89/55 L 10/31/24 00:00 89/55 L 10/31/24 00:00 89/55 L 10/31/24 00:00 89/55 L 10/31/24 00:00 89/55 L 10/31/24 00:00 89/55 L 10/31/24 00:00 89/55 L 10/31/24 00:00 89/55 L 10/31/24 00:00 89/55 L 10/31/24 00:00 89/55 L 10/31/24 00:00 89/55 L 10/31/24 00:00 89/55 L 10/31/24 00:00 89/55 L 10/31/24 00:00 89/55 L 10/31/24 00:00 89/55 L 10/31/24 00:00 89/55 L 10/31/24 00:00 89/55 L 10/31/24 00:00 89/55 L 10/31/24 00:00 89/55 L 10/31/24 00:00 89/55 L 10/31/24 00:00 89/55 L 10/30/24 23:12 37.2 C 90 29 H 94 10/30/24 22:12 37.2 C 90 31 H 95 O2 Flow Rate FiO2 10/31/24 09:47 10/31/24 09:09 35 10/31/24 09:00 50 10/31/24 08:00 10/31/24 08:00 50 10/31/24 08:00 10/31/24 08:00 50 10/31/24 07:17 10 50 10/31/24 06:00 10/31/24 06:00 10/31/24 06:00 10/31/24 06:00 10/31/24 06:00 10/31/24 06:00 10/31/24 06:00 10/31/24 06:00 10/31/24 06:00 10/31/24 06:00 10/31/24 06:00 10/31/24 06:00 10/31/24 06:00 10/31/24 06:00 10/31/24 06:00 10/31/24 06:00 10/31/24 06:00 10/31/24 06:00 10/31/24 05:00 10/31/24 04:00 10/31/24 04:00 10/31/24 04:00 10/31/24 04:00 10/31/24 04:00 10/31/24 04:00 10/31/24 04:00 10/31/24 04:00 10/31/24 04:00 10/31/24 04:00 10/31/24 04:00 10/31/24 04:00 10/31/24 04:00 10/31/24 04:00 10/31/24 04:00 10/31/24 04:00 10/31/24 04:00 10/31/24 04:00 10/31/24 04:00 10/31/24 04:00 10/31/24 04:00 10/31/24 03:24 10/31/24 02:00 10/31/24 02:00 10/31/24 02:00 10/31/24 02:00 10/31/24 02:00 10/31/24 02:00 10/31/24 02:00 10/31/24 02:00 10/31/24 02:00 10/31/24 02:00 10/31/24 02:00 10/31/24 02:00 10/31/24 02:00 10/31/24 02:00 10/31/24 02:00 10/31/24 02:00 10/31/24 02:00 10/31/24 02:00 10/31/24 02:00 10/31/24 02:00 10/31/24 02:00 10/31/24 02:00 10/31/24 02:00 10/31/24 01:00 10/31/24 00:00 10/31/24 00:00 10/31/24 00:00 10/31/24 00:00 10/31/24 00:00 10/31/24 00:00 10/31/24 00:00 10/31/24 00:00 10/31/24 00:00 10/31/24 00:00 10/31/24 00:00 10/31/24 00:00 10/31/24 00:00 10/31/24 00:00 10/31/24 00:00 10/31/24 00:00 10/31/24 00:00 10/31/24 00:00 10/31/24 00:00 10/31/24 00:00 10/31/24 00:00 10/31/24 00:00 10/31/24 00:00 10/31/24 00:00 10/31/24 00:00 10/31/24 00:00 10/31/24 00:00 10/30/24 23:12 10/30/24 22:12 Laboratory Results 10/31/24 04:03 10/31/24 04:03 PG Care Time/CCT Total # of Minutes Spent Total Time Spent with Patient: Total time spent is greater than 50% in coordination of care (as documented) at patient's floor/unit and/or counseling patient: Coding Level of Care Code 31019 SUB INP/OBS CARE 2/35MIN Diagnoses Gram-positive cocci bacteremia R78.81 Multifocal pneumonia J18.9 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
--- NOTE | 2024-10-31 10:23 | XRay Report ---
XR chest 1V portable CLINICAL HISTORY: f/u COMPARISON STUDY: 10/30/2024 FINDINGS: Heart size and pulmonary vasculature are normal. No effusion, consolidation, or pneumothora x. Stable scoliosis. IMPRESSION: No acute findings. ACT 112: Negative or not required by law. Electronically signed by: Gildardo Green M.D. 10/31/2024 10:21 AM
--- NOTE | 2024-10-31 16:16 | Hospitalist Progress Note ---
Date of Service October 31, 2024 Assessment & Plan (1) Gram-positive cocci bacteremia: (2) Sepsis: (3) Acute respiratory failure with hypoxia: (4) Multifocal pneumonia: Plan This pt is a 29 yo female with a h/o CP with spastic quadriparesis, seizure disorder, depression,and trach-dependent chronic respiratory failure with hypoxia, who is here with sepsis, POA and PNA, Staph epi septicemia and now Pseudomonas aeruginosa PNA. #Sepsis POA/Staph epidermidis bacteremia/Pseudomonas and Staph epi RLL PNA/acute on chronic respiratory failure with hypoxia-was improving and then started spiking fevers again while on treatment with Unasyn. Switched to Zosyn 10/29 and now sputum cx growing PsA, resistant to efepime, Intermediate res to Levaquin and aztreonam TTE limited read but no vegetations. CRP trending downward, repeat BCxs remain NGTD from 10/25 and 10/28. CXR continues to be improving. Also some component of volume overload, pulm edema and is being diuresed Afebrile now x 48 hrs, much improved, weaning down FiO2 to 35% Appreciate pulmonology and ID recommendations -Continue hypertonic saline, Mucomyst, vest therapy, frequent suctioning -Requires trach suction with each breathing treatment and as needed. Patient is not able to indicate needs -continue Yap catheter for now while diuresing-gave IV lasix on 10/29 and 10/30 -continue Zosyn, follow BCxs -Tylenol, ibupofen prn fever/pain -continue to wean off supplemental O2-does have O2 at home for hs use but has ability to go p to 10L at home -needs repeat CT Chest in 2-3 months as per PULM #Spastic quadriplegic cerebral palsy/cortical blindness/epilepsy-no acute issues Continue zonisamide, valproic acid, baclofen, fluoxetine Ativan on-call if needed for seizure activity Seizure precautions #Anemia-hgb10.9, normocytic. B12 and folate normal. TSH normal in 02/2024. Fe studies here show transferrin sat low at 9%, ferritin low normal at 41 -consider adding on enteral Fe supplement-will d/w mom -follow CBC VTE prophylaxis: Lovenox Disposition: Continue PCU status in the ICU due to high nursing need for care, approaching discharge but will need to discuss IV abx at home with [employer]- mom only avilable to do IV abx on weekends Admission and Anticipated Discharge Date Admission Date: October 23, 2024 Subjective Nonverbal, doing well, no fevers. Weaning down FiO2 to 35% today. Discussed her care with her mom on the phone Physical Exam Constitutional: + thin; no acute distress Respiratory: normal respiratory effort (with trach and trach collar in place); no cough Auscultation: lungs clear to auscultation bilaterally Gastrointestinal (Abdomen): Inspection/Auscultation: normal bowel sounds; + abdomen abnormal to inspection (G-tube) and abdomen not distended Percussion/Palpation: abdomen soft; abdomen nontender Musculoskeletal: Extremities: + extremities abnormal to inspection (contractures all four extremities) Results & Data Results & Data Vital Signs (Past 12 Hours) Vital Signs Temp Pulse Pulse Resp BP Pulse Ox O2 Del Method 10/31/24 16:01 110/62 10/31/24 16:00 37.2 C 97 H 33 H 92 10/31/24 14:27 36.9 C 89 21 93 10/31/24 14:00 104/64 10/31/24 13:47 37.1 C 85 27 H 93 10/31/24 12:19 98/65 L 10/31/24 12:12 37.5 C 88 24 95 Trach Collar 10/31/24 12:00 95/67 L 10/31/24 11:51 37.5 C 90 29 H 96 10/31/24 10:00 37.5 C 115 H 32 H 93 10/31/24 10:00 96/67 L 10/31/24 09:47 98 H 20 96 Trach Collar 10/31/24 09:09 36.7 C 107 H 27 H 94 10/31/24 09:00 95 Trach Collar 10/31/24 08:00 103/72 10/31/24 08:00 37.5 C 107 H 22 91 10/31/24 08:00 Trach Collar 10/31/24 08:00 Trach Collar 10/31/24 07:17 103 H 37 H 93 Trach Collar 10/31/24 06:00 95/63 L 10/31/24 06:00 95/63 L 10/31/24 06:00 95/63 L 10/31/24 06:00 95/63 L 10/31/24 06:00 95/63 L 10/31/24 06:00 95/63 L 10/31/24 06:00 95/63 L 10/31/24 06:00 95/63 L 10/31/24 06:00 95/63 L 10/31/24 06:00 95/63 L 10/31/24 06:00 95/63 L 10/31/24 06:00 95/63 L 10/31/24 06:00 95/63 L 10/31/24 06:00 95/63 L 10/31/24 06:00 95/63 L 10/31/24 06:00 95/63 L 10/31/24 06:00 95/63 L 10/31/24 06:00 37.5 C 94 H 33 H 91 10/31/24 05:00 37.4 C 90 36 H 94 O2 Flow Rate FiO2 10/31/24 16:01 10/31/24 16:00 10/31/24 14:27 10/31/24 14:00 10/31/24 13:47 10/31/24 12:19 10/31/24 12:12 35 10/31/24 12:00 10/31/24 11:51 10/31/24 10:00 10/31/24 10:00 10/31/24 09:47 10/31/24 09:09 35 10/31/24 09:00 50 10/31/24 08:00 10/31/24 08:00 50 10/31/24 08:00 10/31/24 08:00 50 10/31/24 07:17 10 50 10/31/24 06:00 10/31/24 06:00 10/31/24 06:00 10/31/24 06:00 10/31/24 06:00 10/31/24 06:00 10/31/24 06:00 10/31/24 06:00 10/31/24 06:00 10/31/24 06:00 10/31/24 06:00 10/31/24 06:00 10/31/24 06:00 10/31/24 06:00 10/31/24 06:00 10/31/24 06:00 10/31/24 06:00 10/31/24 06:00 03/26/25 05:00 Laboratory Results CBC, BMP, B12, folate, iron studies reviewed Diagnostic Findings CXR image personally reviewed by , YOSEPH improving on left and right PG Care Time/CCT Total # of Minutes Spent Total Time Spent with Patient: Total time spent is greater than 50% in coordination of care (as documented) at patient's floor/unit and/or counseling patient: Coding Level of Care Code 86503 SUB INP/OBS CARE 2/35MIN Diagnoses Gram-positive cocci bacteremia R78.81 Sepsis A41.9 Acute respiratory failure with hypoxia J96.01 Multifocal pneumonia J18.9
[2024-11-01 04:50] LABS: Hematocrit (blood only) 31.9 % (37.0-47.0); Hemoglobin 10.6 g/dl (12.0-16.0); Mean Corpuscular Hemoglobin 32.5 pg (25.0-34.0); Mean Corpuscular Hgb Conc 33.2 g/dL (32.0-36.0); Mean Corpuscular Volume 97.9 fL (80.0-100.0); Platelet Count 305 K/uL (130-400); RDW Coefficient of Variation 13.8 % (11.5-14.5); RDW Standard Deviation 49.1 fL (36.4-46.3); Red Blood Count 3.26 M/uL (4.20-5.40); White Blood Count 8.14 K/ul (4.8-10.8)
[2024-11-01 05:01] LABS: BUN Creatinine Ratio 57.1 (10-20); Calcium 8.8 mg/dl (8.6-10.3); Creatinine Clr Calc Pharmacy 173.1 ml/min; Potassium 3.7 mmol/L (3.5-5.1)
[2024-11-01 06:54] LABS: ALC (manual) 2.69 K/uL (1.2-3.4); ANC (manual) 3.91 K/uL (1.4-6.5); Eosinophils # (manual) 0.33 K/uL (0-0.50); Eosinophils % (manual) 4 %; Lymphocytes # (manual) 2.69 K/uL (1.2-3.4); Lymphocytes % (manual) 33 %; Metamyelocytes # (manual) 0.16 K/uL (0-0); Metamyelocytes % (manual) 2 %; Monocytes # (manual) 0.41 K/uL (0.11-0.59); Monocytes % (manual) 5 %; Myelocytes # (manual) 0.65 K/uL (0-0); Myelocytes % (manual) 8 %; Neutrophils # (manual) 3.91 K/uL (1.40-6.50); Neutrophils % (manual) 48 %
--- NOTE | 2024-11-01 07:03 | Pulmonology Progress Note ---
Date of Service November 01, 2024 Assessment & Plan (1) Gram-positive cocci bacteremia: (2) Multifocal pneumonia: (3) Spastic quadriplegic cerebral palsy: (4) Tracheostomy in place: (5) Abnormal chest CT: (6) Bronchiectasis: Plan CT chest 10/23/2024 personally reviewed: Patchy opacities appreciated in the right upper lobe as well as right lower lobe Bronchiectasis of the right apex Motion degraded study Minimal mediastinal lymphadenopathy -- Left lower lobe pneumonia with staph epi bacteremia Respiratory BioFire negative for everything Does have leukocytosis Procalcitonin negative History of Pseudomonas in the past Sputum culture 10/28/2024 growing Pseudomonas She did have 2 variants of Pseudomonas 1 was intermediate to cefepime but both are sensitive to Zosyn --Abnormal chest CT There seems to be some increased soft tissue/lymphadenopathy in the subcarinal as well as right hilar region This is likely reactive from infection Would recommend repeat CT chest in 2-3 months --Focal bronchiectasis of the right apex --TDRF secondary to cerebral palsy Plan: In/out: +360, urine output 1550 mL, in the chart it shows patient is + 7.1 L with the Chavez catheter was only placed on 10/26/2024 Antibiotics changed to Zosyn on 10/29/2024, antibiotics as per ID Continue with upper airway clearance technique with 7% nebulized saline and Mucomyst along with patient's home CoughAssist Please note the above document was generated using voice recognition software. It may contain grammatical, syntax or spelling errors.Any formal questions or concerns about the content, text or information contained within the body of this dictation should be directly addressed to the provider for clarification. Admission and Anticipated Discharge Date Admission Date: October 23, 2024 Subjective Patient seen and bedside. No acute distress, no adverse events overnight She has been afebrile for more than 24 hours now He was saturating 88-89% on 28% trach collar. I increase it to 30% As per the RN and RT still copious amount of secretions are suctioned out Getting PEG feeds Review of Systems 2 Review of Systems: All systems reviewed & are unremarkable except as noted in Subjective Physical Exam 2 Physical Exam: Constitutional: No acute distress HEENT: EOMI, PERRLA, positive trach Respiratory system: Decreased air entry bilaterally, no wheeze, mild rhonchi right side, positive crackles right lower lobe CVS: S1-S2 positive, no murmurs or gallops, tachycardia Abdomen: Soft, nontender, nondistended, positive bowel sounds x4, positive PEG Extremities: +2 pulses bilaterally radialis/ dorsalis pedis, no cyanosis, no edema Neuro: Awake and alert Psych: Unable to assess G/U: Positive chavez (Placed on 10/27/2023) Skin: no rashes, warm and dry Lymphatic: no cervical or axillary lymphadenopathy Results & Data Results & Data Vital Signs (Past 12 Hours) Vital Signs Temp Pulse Pulse Resp BP Pulse Ox O2 Del Method 11/01/24 02:34 37.1 C 93 H 29 H 95 11/01/24 02:00 106/62 11/01/24 02:00 106/62 11/01/24 02:00 106/62 11/01/24 02:00 106/62 11/01/24 02:00 106/62 11/01/24 02:00 106/62 11/01/24 02:00 106/62 11/01/24 02:00 106/62 11/01/24 02:00 106/62 11/01/24 02:00 106/62 11/01/24 02:00 106/62 11/01/24 02:00 106/62 11/01/24 02:00 106/62 11/01/24 02:00 106/62 11/01/24 02:00 106/62 11/01/24 02:00 106/62 11/01/24 01:54 37.1 C 78 3 L 95 11/01/24 01:03 37.1 C 77 27 H 94 11/01/24 00:00 106/65 11/01/24 00:00 106/65 11/01/24 00:00 106/65 11/01/24 00:00 106/65 11/01/24 00:00 106/65 11/01/24 00:00 106/65 11/01/24 00:00 106/65 11/01/24 00:00 106/65 11/01/24 00:00 106/65 11/01/24 00:00 106/65 11/01/24 00:00 106/65 11/01/24 00:00 106/65 11/01/24 00:00 106/65 11/01/24 00:00 106/65 11/01/24 00:00 106/65 11/01/24 00:00 37.2 C 92 H 31 H 91 10/31/24 23:06 37.3 C 91 H 17 94 10/31/24 22:00 104/64 10/31/24 22:00 104/64 10/31/24 22:00 104/64 10/31/24 22:00 104/64 10/31/24 22:00 104/64 10/31/24 22:00 104/64 10/31/24 22:00 104/64 10/31/24 22:00 104/64 10/31/24 22:00 104/64 10/31/24 22:00 104/64 10/31/24 22:00 104/64 10/31/24 22:00 104/64 10/31/24 22:00 104/64 10/31/24 22:00 104/10/31/24 21:03 37.6 C H 101 H 13 92 10/31/24 20:22 99 H 24 91 Trach Collar 10/31/24 20:09 37.5 C 97 H 24 90 10/31/24 20:00 110/68 10/31/24 20:00 110/68 10/31/24 20:00 110/68 10/31/24 20:00 110/68 10/31/24 20:00 110/68 10/31/24 20:00 110/68 10/31/24 20:00 110/68 10/31/24 20:00 110/68 10/31/24 20:00 110/68 10/31/24 20:00 110/68 10/31/24 20:00 110/68 10/31/24 20:00 110/68 10/31/24 20:00 110/68 10/31/24 20:00 110/68 10/31/24 20:00 110/68 10/31/24 20:00 110/68 10/31/24 20:00 110/68 10/31/24 20:00 110/68 10/31/24 20:00 110/68 10/31/24 20:00 110/68 10/31/24 20:00 110/68 10/31/24 20:00 110/68 10/31/24 20:00 110/68 10/31/24 20:00 Trach Collar 10/31/24 19:48 37.5 C 92 H 38 H 92 10/31/24 19:03 37.3 C 103 H 31 H 92 O2 Flow Rate FiO2 11/01/24 02:34 11/01/24 02:00 11/01/24 02:00 11/01/24 02:00 11/01/24 02:00 11/01/24 02:00 11/01/24 02:00 11/01/24 02:00 11/01/24 02:00 11/01/24 02:00 11/01/24 02:00 11/01/24 02:00 11/01/24 02:00 11/01/24 02:00 11/01/24 02:00 11/01/24 02:00 11/01/24 02:00 11/01/24 01:54 11/01/24 01:03 11/01/24 00:00 11/01/24 00:00 11/01/24 00:00 11/01/24 00:00 11/01/24 00:00 11/01/24 00:00 11/01/24 00:00 11/01/24 00:00 11/01/24 00:00 11/01/24 00:00 11/01/24 00:00 11/01/24 00:00 11/01/24 00:00 11/01/24 00:00 11/01/24 00:00 11/01/24 00:00 10/31/24 23:06 10/31/24 22:00 10/31/24 22:00 10/31/24 22:00 10/31/24 22:00 10/31/24 22:00 10/31/24 22:00 10/31/24 22:00 10/31/24 22:00 10/31/24 22:00 10/31/24 22:00 10/31/24 22:00 10/31/24 22:00 10/31/24 22:00 10/31/24 22:00 10/31/24 21:03 10/31/24 20:22 10 30 10/31/24 20:09 10/31/24 20:00 10/31/24 20:00 10/31/24 20:00 10/31/24 20:00 10/31/24 20:00 10/31/24 20:00 10/31/24 20:00 10/31/24 20:00 10/31/24 20:00 10/31/24 20:00 10/31/24 20:00 10/31/24 20:00 10/31/24 20:00 10/31/24 20:00 10/31/24 20:00 10/31/24 20:00 10/31/24 20:00 10/31/24 20:00 10/31/24 20:00 10/31/24 20:00 10/31/24 20:00 10/31/24 20:00 10/31/24 20:00 10/31/24 20:00 10/31/24 19:48 10/31/24 19:03 Laboratory Results 11/01/24 04:27 11/01/24 04:27 PG Care Time/CCT Total # of Minutes Spent Total Time Spent with Patient: Total time spent is greater than 50% in coordination of care (as documented) at patient's floor/unit and/or counseling patient: Coding Level of Care Code 59161 SUB INP/OBS CARE 2/35MIN Diagnoses Gram-positive cocci bacteremia R78.81 Multifocal pneumonia J18.9 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
--- NOTE | 2024-11-01 08:54 | Infectious Disease Progress Nt ---
Date of Service November 01, 2024 Assessment & Plan (1) Staphylococcus epidermidis bacteremia: (2) Multifocal pneumonia: (3) Acute respiratory failure with hypoxia: (4) Sepsis: (5) Diarrhea: (6) Tracheostomy dependence: Plan Problems: # Pseudomonas PNA # Bacteremia 09/09 S epidermidis: may represent contaminant in the absence of central lines # Diarrhea C diff neg # Cerebral palsy s/p PEG/tracheostomy Micro: 10/28 Sputum cx: Pseudomonas aeruginosa (S ceftaz, cipro, denton, pip/tazo ASHLY 8. I levo. R cefepime). GS--few GNRs 10/28 BCx x2: NGTD 10/26 UCx: NG 10/25 BCx x2: NG 10/23 BCx x2: Staph epi in 09/09 sets 10/23 Sputum cx: moderate normal pankaj. GS--GNR, GPR, GN diplococci, GPCs Abx: Vanc 10/24 - 10/26 Zosyn 10/23 - 10/25, 10/29 - present Unasyn 10/25 - 10/29 Doxycycline 10/27 - 10/30 29yo F with h/o cerebral palsy, s/p PEG/tracheostomy, spastic quadriplegia, epilepsy, prior respiratory cx growing Pseudomonas and Moraxella, COVID infection in 08/2024 who presented on 10/23 with increased sputum production/tracheal secretions and tachypnea, admitted with pneumonia. Hospital course c/b persistent fevers, hypoxia--improving with broadening of antibiotics to cover Pseudomonas. Per chart, she recently completed cipro and then developed increased tracheal secretions. Sister was recently sick with rhinovirus. On admission, she was afebrile, RR in 30s, O2 sat high 90s on RA. Initial labs with WBC 18.68, Cr 0.39, LFT wnl. Lacate 2.4. PCT 0.10. RPP negative. CXR with atelectasis vs early PNA medial left lung base. She was started on cefepime for PNA. ID consulted 10/23. Abx changed to zosyn based on prior respiratory cultures. CTA chest negative for PE, diffuse abnormal soft tissue in the subcarinal region of the mediastinum as well as in the bilateral hilar regions, extends distally surrounding the bronchovascular structures of RUL and RLL, may be infectious though neoplastic process not excluded. BCX returned with S epidermidis (updated to MSSE). She was persistently febrile 10/23-10/24, tachycardic, and hypotensive. Vancomycin added 10/24 while waiting for cultures. Trach cx with normal pankaj. C diff negative. Zosyn changed to Unasyn 10/25, and vanc dc'ed. Pt with ongoing fevers, but resolution of leukocytosis. TTE 10/26 was technically difficult, valves could not be adequately assessed. Repeat blood cultures 10/[address] AP with IV contrast performed 10/27 due to persistent fevers, which showed patchy lobular groundglass opacities in anterior aspects of lungs, likely infectious/inflammatory, possibly atypical infection. Repeat infectious work-up sent on 10/28 due to fevers. On 10/29, pt with increased O2 requirement on 70%, 10 L. Per bedside RN, pt with lots of secretions. Also with likely volume overload, as she was about +10 L, getting diuretics. Considering also aspiration of tube feeds, mucus plugging. Unasyn broadened to Zosyn on 10/29. 10/28 blood culture NGTD and tracheal aspirate culture growing Pseudomonas aeruginosa (S Zosyn). Fever curve and FiO2 improving with Zosyn, diuretics. Recommendations: - Continue Zosyn extended infusion. Anticipate 7 day course through 11/05. - If pt discharges prior to 11/05, can transition to ciprofloxacin 750 mg q12h per PEG tube to complete the course Will sign off Admission and Anticipated Discharge Date Admission Date: October 23, 2024 Subjective This patient recommendation is based on a telemedicine consult request which was completed asynchronously through chart review and information provided by the primary physician. The patient was not seen or examined today. The evaluation is consultative in nature and all patient care and treatment decisions can either be accepted or rejected by the patient's primary hospital-based treating physician using their own independent medical judgment for their patient. Time Spent Reviewing Chart: 11 - 20 minutes FiO2 down to 30% Continues on Zosyn Results & Data Vital Signs (Past 12 Hours) Vital Signs Temp Pulse Pulse Resp BP Pulse Ox O2 Del Method 11/01/24 08:06 37.0 C 96 H 90 11/01/24 08:00 112/92 11/01/24 08:00 112/92 11/01/24 08:00 112/92 11/01/24 08:00 112/92 11/01/24 08:00 112/92 11/01/24 08:00 112/92 11/01/24 07:54 37.0 C 103 H 91 Trach Collar 11/01/24 07:21 36.9 C 101 H 97 11/01/24 07:06 93 H 26 H 91 Trach Collar 11/01/24 02:34 37.1 C 93 H 29 H 95 11/01/24 02:00 10611/01/24 02:00 10611/01/24 02:00 10611/01/24 02:00 11/01/24 02:00 11/01/24 02:00 11/01/24 02:00 11/01/24 02:00 11/01/24 02:00 11/01/24 02:00 11/01/24 02:00 11/01/24 02:00 10611/01/24 02:00 10611/01/24 02:00 10611/01/24 02:00 10611/01/24 02:00 10611/01/24 01:54 37.1 C 78 3 L 95 11/01/24 01:03 37.1 C 77 27 H 94 11/01/24 00:00 106/65 11/01/24 00:00 106/65 11/01/24 00:00 106/65 11/01/24 00:00 106/65 11/01/24 00:00 106/65 11/01/24 00:00 106/65 11/01/24 00:00 106/65 11/01/24 00:00 106/65 11/01/24 00:00 106/65 11/01/24 00:00 106/65 11/01/24 00:00 106/65 11/01/24 00:00 106/65 11/01/24 00:00 106/65 11/01/24 00:00 106/65 11/01/24 00:00 106/65 11/01/24 00:00 37.2 C 92 H 31 H 91 10/31/24 23:06 37.3 C 91 H 17 94 10/31/24 22:00 104/64 10/31/24 22:00 104/64 10/31/24 22:00 104/64 10/31/24 22:00 104/64 10/31/24 22:00 104/64 10/31/24 22:00 104/64 10/31/24 22:00 104/64 10/31/24 22:00 104/64 10/31/24 22:00 104/64 10/31/24 22:00 104/64 10/31/24 22:00 104/64 10/31/24 22:00 104/64 10/31/24 22:00 104/64 10/31/24 22:00 104/64 10/31/24 21:03 37.6 C H 101 H 13 92 FiO2 11/01/24 08:06 11/01/24 08:00 11/01/24 08:00 11/01/24 08:00 11/01/24 08:00 11/01/24 08:00 11/01/24 08:00 11/01/24 07:54 0.3 11/01/24 07:21 11/01/24 07:06 30 11/01/24 02:34 11/01/24 02:00 11/01/24 02:00 11/01/24 02:00 11/01/24 02:00 11/01/24 02:00 11/01/24 02:00 11/01/24 02:00 11/01/24 02:00 11/01/24 02:00 11/01/24 02:00 11/01/24 02:00 11/01/24 02:00 11/01/24 02:00 11/01/24 02:00 11/01/24 02:00 11/01/24 02:00 11/01/24 01:54 11/01/24 01:03 11/01/24 00:00 11/01/24 00:00 11/01/24 00:00 11/01/24 00:00 11/01/24 00:00 11/01/24 00:00 11/01/24 00:00 11/01/24 00:00 11/01/24 00:00 11/01/24 00:00 11/01/24 00:00 11/01/24 00:00 11/01/24 00:00 11/01/24 00:00 11/01/24 00:00 11/01/24 00:00 10/31/24 23:06 10/31/24 22:00 10/31/24 22:00 10/31/24 22:00 10/31/24 22:00 10/31/24 22:00 10/31/24 22:00 10/31/24 22:00 10/31/24 22:00 10/31/24 22:00 10/31/24 22:00 10/31/24 22:00 10/31/24 22:00 10/31/24 22:00 10/31/24 22:00 10/31/24 21:03 Laboratory Results Short CBC 11/01/24 Range/Units 04:27 WBC 8.14 (4.8-10.8) K/ul Hgb 10.6 L (12.0-16.0) g/dl Hct 31.9 L (37.0-47.0) % Plt Count 305 (130-400) K/uL BMP 11/01/24 04:27 Sodium 135 L Potassium 3.7 Chloride 101 Carbon Dioxide 29 BUN 24 H Creatinine 0.42 L Glucose 91 Calcium 8.8 Medications Administered Current Inpatient Medications Acetaminophen (Acetaminophen Susp 160 Mg/5 Ml Btl) 640 mg PO Q6H PRN PRN Reason: Pain or Fever Stop: 11/22/24 15:01 Last Admin: 10/30/24 20:03 Dose: 640 mg Acetylcysteine (Acetylcysteine 20% Inhal Soln 4ml Dispensed By Resp.) 3 ml INH BID [facility] Stop: 11/24/24 20:59 Last Admin: 11/01/24 07:04 Dose: 3 ml Albuterol (Albuterol 0.083% Nebu Soln 3 Ml Vial) 2.5 mg INH Q4H PRN; Protocol PRN Reason: sob Stop: 11/22/24 14:39 Last Admin: 11/01/24 07:04 Dose: 2.5 mg Baclofen (Baclofen 10 Mg Tab) 20 mg PEG Q12H TONY Stop: 11/22/24 19:59 Last Admin: 10/31/24 21:16 Dose: 20 mg Baclofen (Baclofen 10 Mg Tab) 10 mg PEG Q24H TONY Stop: 11/22/24 14:59 Last Admin: 10/31/24 14:47 Dose: 10 mg Budesonide (Budesonide 0.5 Mg/2 Ml Vial (Pulmicort)) 0.5 mg INH BID [facility] Stop: 11/22/24 20:59 Last Admin: 11/01/24 07:04 Dose: 0.5 mg Enoxaparin Sodium (Enoxaparin Inj 40 Mg/0.4 Ml Syr) 40 mg SQ Q24H [facility] Stop: 11/22/24 14:59 Last Admin: 10/31/24 14:46 Dose: 40 mg Fluoxetine HCl (Fluoxetine Hcl 20 Mg/5 Ml 120ml Btl) 20 mg PO TODAY@1500 [facility] Stop: 11/22/24 16:44 Last Admin: 10/31/24 14:48 Dose: 20 mg Piperacillin Sod/Tazobactam Sod (Zosyn) 4.5 gm in 100 mls @ 25 mls/hr IV Q8H [facility]; Protocol Stop: 11/05/24 15:59 Last Infusion: 11/01/24 04:05 Dose: Infused Ibuprofen (Ibuprofen 200 Mg/10 Ml Udc) 400 mg GT Q4H PRN PRN Reason: Pain or Fever Stop: 11/23/24 05:52 Last Admin: 10/31/24 21:17 Dose: 400 mg Lorazepam (Lorazepam 2 Mg/1 Ml Vial) 2 mg IV Q5M PRN PRN Reason: seizure Nutritional Formula (Patient's Own Enteral Feeding) 350 ml PEG Q4 [facility]; Protocol Stop: 11/24/24 03:59 Last Admin: 11/01/24 04:36 Dose: 350 ml Sodium Chloride (Sodium Chlor 7% 4 Ml Neb) 4 ml NEB BIDR [facility] Stop: 11/23/24 18:59 Last Admin: 11/01/24 07:04 Dose: 4 ml Trazodone HCl (Trazodone Hcl 50 Mg Tab) 50 mg PEG HS [facility] Stop: 11/22/24 20:59 Last Admin: 10/31/24 21:19 Dose: 50 mg Valproic Acid (Valproic Acid 50 Mg/Ml Udp) 550 mg PEG TID [facility] Stop: 11/22/24 17:14 Last Admin: 10/31/24 21:16 Dose: 550 mg Zonisamide (Zonisamide 100 Mg Capsule) 200 mg PO BID [facility] Stop: 11/22/24 20:59 Last Admin: 10/31/24 21:17 Dose: 200 mg
--- NOTE | 2024-11-01 13:42 | Discharge Summary ---
Discharge Summary Date of Service November 01, 2024 Principal Dx & Hospital Course #1 = Principal Diagnosis (1) Gram-positive cocci bacteremia: (2) Sepsis: (3) Acute respiratory failure with hypoxia: (4) Multifocal pneumonia: Plan This pt is a 29 yo female with a h/o CP with spastic quadriparesis, seizure disorder, depression,and trach-dependent chronic respiratory failure with hypoxia, who is here with sepsis, POA and PNA, Staph epi septicemia and now Pseudomonas aeruginosa PNA. #Sepsis POA/Staph epidermidis bacteremia/Pseudomonas and Staph epi RLL PNA/acute on chronic respiratory failure with hypoxia-was improving and then started spiking fevers again while on treatment with Unasyn. Switched to Zosyn 10/29 and now sputum cx growing PsA, resistant to cefepime, Intermediate res to Levaquin and aztreonam TTE limited read but no vegetations. CRP trending downward, repeat BCxs remain NGTD from 10/25 and 10/28. CXR continues to be improving. 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 B12 and folate normal. TSH normal in 02/2024. Fe studies here show transferrin sat low at 9%, ferritin low normal at 41 -consider adding on enteral Fe supplement-defer to PCP -follow CBC VTE prophylaxis: Lovenox Disposition: Discharge to home Notes For Next Care Provider Consider iron supplementation as an outpatient, follow CBC Medication Changes From Visit Added Cipro 750 Mg per PEG tube twice daily x 4 and half more days Added hypertonic saline nebulizers twice daily Admission HPI Per Admitting Provider Sarah is a 29-year-old female with history of cerebral palsy with tracheostomy was not required mechanical ventilation who presents to the ER with fever, tachycardia, tachypnea, and chest x-ray shows left lung basilar pneumonia and with a negative BioFire on admission Secretions yellow Thin clear white --> yellow Temp 100.1F Cough inreased oxygen requirement Yolanda hasnot needed ventilator Sister has bene sick one day longer, but is doing better. Sister had rhinovirus Nutirtion: Enteral feeding Boost four times daily, 350ml @ 400cc/hr. Nonverbal. Noncommunicative at baseline and does not communicate needs. Needs regular suction. Medical History: Reviewed Medications: Reviewed Surgical History: Reviewed Family history: Reviewed Allergies: Reviewed. Cipro Social History: NO tobacco/ETOH Code Status: Mother [phone] primary contact [place]. DNR but OK with ventilation. Discharge Exam Constitutional + thin; no acute distress Respiratory normal respiratory effort (with trach and trach collar in place); no cough Auscultation: lungs clear to auscultation bilaterally and + crackles (at bases); no wheezes Gastrointestinal (Abdomen) Inspection/Auscultation: normal bowel sounds; + abdomen abnormal to inspection (G-tube) and abdomen not distended Percussion/Palpation: abdomen soft; abdomen nontender Musculoskeletal Extremities: + extremities abnormal to inspection (contractures all four extremities) Discharge Plan Discharge Items Patient Disposition: Home - Home Health Services Reason For Visit: PNA,CP Discharge Diagnosis: Sepsis Staphylococcus epidermidis bacteremia and pneumonia Pseudomonas pneumonia Acute on chronic respiratory failure with hypoxemia Activity: Resume your previous activity Non-emergency contact: Primary Care Provider Call non-emergency contact if: you have any medication questions, your symptoms worsen and you have a fever Follow-up/Referrals: Anita Gil MD [Primary Care Provider] - (Follow-up within 1 to 2 weeks) Diet: Nothing by Mouth Diet Comment: Tube feeds Addtl Attending Provider Instructions: Please finish out 4-1/2 more days of the ciprofloxacin antibiotic for your pneumonia. Continue all your usual nebulizer since and hypertonic saline nebulizers will be added. Pending Studies at Discharge: Yes (Final blood culture results-no growth to date) Stand-Alone Forms: My [employer] [place], Smoking Cessation Medications and DC Order Prescriptions: New sodium chloride 7 % Solution For Nebulization 4 ml NEB BIDR Qty: 120 0RF ciprofloxacin HCl 750 mg tablet 750 mg PO BID Qty: 9 0RF Continued (DME) disposable gloves Misc See Rx Instructions .ROUTE .MEDSUPPLY Qty: 1,000 0RF Rx Instructions: As directed (DME) disposable gloves Misc See Rx Instructions .ROUTE .MEDSUPPLY Qty: 100 0RF Rx Instructions: As directed G80.9 (DME) nebulizer machine See Rx Instructions .Route .MEDSUPPLY Qty: 1 0RF Rx Instructions: repair or replace existing machine (DME) [place] Tracheostomy Care Tray Misc See Rx Instructions .Route Qty: 30 5RF Rx Instructions: Trach cleaning kit (DME) Over Night Pulse OX Misc See Rx Instructions .Route Qty: 1 0RF Rx Instructions: As directed (DME) Miscellaneous Pulmonary Supply Misc See Rx Instructions .Route Qty: 1 0RF Rx Instructions: Replace current pulse oximeter (DME) Repair or replace air compressor for trach collar See Rx Instructions .Route .MEDSUPPLY Qty: 1 0RF Rx Instructions: As directed (DME) incontinence pad, liner, disp Pad See Rx Instructions .ROUTE .MEDSUPPLY Qty: 75 11RF Rx Instructions: 75 liners and 20 under pads,change 6-8x daily (DME) Day and Night Brief, Large Misc See Rx Instructions .ROUTE .MEDSUPPLY Qty: 180 11RF Rx Instructions: change 6-8 times daily (DME) Repair or Replacement of Hospital Bed See Rx Instructions .Route .MEDSUPPLY Qty: 1 0RF Rx Instructions: Repair or replace side rails and padding (DME) bivona cuffed trach See Rx Instructions .Route .MEDSUPPLY Qty: 1 0RF Rx Instructions: As directed albuterol sulfate 2.5 mg /3 mL (0.083 %) solution for nebulization 2.5 mg inhalation Q4H PRN (Reason: sob) Qty: 540 5RF Boost 0.04 gram- 1 kcal/mL liquid 350 ea PO QID baclofen 10 mg tablet 10 mg feeding tube .COMPLEX 30 Days Qty: 150 11RF Rx Instructions: TAKE 2 IN THE AM, 1 IN THE AFTERNOON AND 2 IN THE EVENING. (0700,1500 AND 2000) valproic acid (as sodium salt) 250 mg/5 mL solution 550 mg feeding tube TID 30 Days Qty: 990 11RF Rx Instructions: 0700,1500,0800 zonisamide 100 mg capsule 200 mg feeding tube BID 30 Days Qty: 120 11RF Rx Instructions: qam and hs cetirizine 10 mg tablet 10 mg feeding tube DAILY Qty: 90 3RF Rx Instructions: 0700 polyethylene glycol 3350 [Miralax] 17 gram/dose powder 17 g feeding tube DAILY Qty: 1530 3RF trazodone 50 mg tablet 50 mg feeding tube HS Qty: 90 3RF Rx Instructions: usually around 9pm Centrum 18-400 mg-mcg Tablet 1 tab PO .FEEDING TUBE Rx Instructions: feeding tube tobramycin in 0.225 % NaCl 300 mg/5 mL solution for nebulization 300 mg INH Q12H PRN (Reason: Shortness Of Breath) acetaminophen 160 mg/5 mL liquid 640 mg feeding tube UD PRN (Reason: PAIN/FEVER) Rx Instructions: 640 mg feeding tube q6h. prn Not on list, unable to verify/otc give 20 milliliters every 6 hours if needed for pain or fever ibuprofen 100 mg/5 mL suspension 100 - 400 mg feeding tube UD PRN (Reason: PAIN/FEVER) Rx Instructions: give 10 or 20 milliliters every 6 hours if needed for pain or fever Xtracal Plus 14 gram-230 kcal/45 mL liquid in packet 1 ea feeding tube UD Rx Instructions: 1 packet daily ; fluoxetine 20 mg tablet 20 mg PO DAILY Rx Instructions: 1500 acetylcysteine 100 mg/mL (10 %) solution 2 ml inhalation BID PRN (Reason: increased respiratory secretions) Rx Instructions: 2 ml inhal bid prn. budesonide [Pulmicort] 0.5 mg/2 mL suspension for nebulization 0.5 mg inhalation BID Rx Instructions: 0700 AND 1999 (DME) miscellaneous medical supply Misc VAGINAL Rx Instructions: CORRUGATED TUBING FOR TRACH COLLAR 100 FT. albuterol sulfate 2.5 mg /3 mL (0.083 %) solution for nebulization 2.5 mg inhalation BID Rx Instructions: prior to Pulmicort acetylcysteine 200 mg/mL (20 %) solution 3 ml inhalation BID Qty: 90 0RF Rx Instructions: 3ml inhal bid. Not on list, unable to verify Discharge Orders: Discharge Order (Routine); Ordered 11/01/24 Ordered By: Shasha Benson Admission Data Admit Date/Time: 10/23/24 13:39 Attending Provider: Shasha Benson Admit Provider: Flo Jaramillo Primary Care Provider: Anita Gil Other Providers: Flo Jaramillo; Noemy Montalvo Hospital Stay Data Consultations 10/23/24 12:36 ED Decision to Admit Stat 10/23/24 14:40 Consult Infectious Diseases Routine Consult Pulmonology Routine Diagnostic Imagining Performed 10/23/24 19:57 CT angio chest PE protocol Stat 10/27/24 12:37 CT Abd and Pelvis [CT abd pelvis IV con only] Stat Echocardiogram Pending Results Patient Have Any Pending Studies at Discharge: Yes (Final blood culture results- no growth to date) Discharge Instructions Given to Patient (Per Discharging Provider) Please finish out 4-1/2 more days of the ciprofloxacin antibiotic for your pneumonia. Continue all your usual nebulizer since and hypertonic saline nebulizers will be added. Total Time Total Time Spent Total Time Spent (In Minutes): 35 minutes Total Time Includes: Examination of the Patient, Discharge Planning and Medication Reconciliation Coding Level of Care Code 56971 INP/OBS DISCH >30 MIN Diagnoses Gram-positive cocci bacteremia R78.81 Sepsis A41.9 Acute respiratory failure with hypoxia J96.01 Multifocal pneumonia J18.9
[2024-11-01 15:05] VITALS: BP 99/61; PULSE 95; RESP 21; TEMP 99.7; O2SAT 93
== END 2024-11-01 14:45 | disposition home or self-care (01) | DRG 871 ==
LOC: ED 09:43 → EDINP 13:39 → SUATTDRO 13:39 → 1E 14:41